=== PATIENT | female | born 1945 | race Caucasian/White ===

== ENCOUNTER → 2017-07-14 11:24 | Outpatient (CLI) | payer MEDICARE, OTHER, SELFPAY ==
[2017-07-16 16:09] LABS: Clam 0.17 kU/L (Class 0/I); Codfish <0.10 kU/L (Class 0); Corn <0.10 kU/L (Class 0); Egg, White 0.17 kU/L (Class 0/I); Milk (Cow) 0.25 kU/L (Class 0/I); Peanut <0.10 kU/L (Class 0); SCALLOP <0.10 kU/L (Class 0); SESAME SEED <0.10 kU/L (Class 0); Shrimp <0.10 kU/L (Class 0); Soybean <0.10 kU/L (Class 0); Walnut, (Food) <0.10 kU/L (Class 0); Wheat <0.10 kU/L (Class 0)
[2017-07-17 12:42] LABS: Pork <0.10 kU/L (Class 0)
== END ==
PROVIDERS: Family Provider Family Medicine; PCP Family Medicine; Visit Provider Otolaryngology
DX: T78.40XA Allergy, unspecified, initial encounter (principal)
CPT/HCPCS: 36415; 86003

== ENCOUNTER 2018-09-16 11:35 | Emergency (ER) | payer MEDICARE, OTHER, SELFPAY ==
[2018-09-16 11:38] VITALS: BP 162/85; PULSE 90; RESP 18; TEMP 35.8; O2SAT 96; BMI 34.8
--- NOTE | 2018-09-16 12:25 | CT_ITS ---
STUDY: CT ABDOMEN AND PELVIS WITHOUT CONTRAST REASON FOR EXAM: Female, 73 years old. Right flank pain and right lower quadrant pain since this morning. RADIATION DOSAGE (If Supplied By Facility): CTDIvol = ( 14.79 ) mGy, DLP = ( 773.45 ) mGycm TECHNIQUE: Transaxial images were obtained from the dome of the diaphragm to the symphysis pubis without oral contrast, and without intravenous contrast. Sagittal and coronal images were reconstructed. Individualized dose optimization techniques were used for this CT. COMPARISON: None. FINDINGS: Mild increased markings at the lung bases suggestive of early atelectasis and/or scarring. Increased markings in the anterior aspect of the right lower lobe suggestive of scarring. Mild degree of pericardial thickening along the left posterior-lateral aspect of the heart. Normal liver. Normal gallbladder and extrahepatic biliary system. Normal spleen. Normal pancreas. Normal bilateral adrenal glands. Right perinephric stranding. Mild to moderate degree of right hydronephrosis and hydroureter due to a 3 mm calculus in the proximal right ureter just distal to the ureteral pelvic junction. There is a left retroaortic renal vein.. Normal left kidney. Moderate sized hiatal hernia. Normal small intestine. Normal colon. The appendix is visualized and appears normal. There is scattered atherosclerotic calcification of the abdominal aorta, without a demonstrated aneurysm. Normal inferior vena cava. Normal retroperitoneum. Normal urinary bladder. Calcified fibroid uterus. Small right inguinal hernia containing fat. There are degenerative changes of the visualized lumbar spine. CT/Abdomen/Pelvis without Cont IMPRESSION: 3 mm calculus in the proximal portion of the right ureter causing right hydronephrosis and hydroureter. Right perinephric and periureteric stranding. Electronically Signed: Sp Mehta, at 13:19 EDT , Service support ,
--- NOTE | 2018-09-16 12:27 | ED.VIS.GEN ---
History of Present Illness Chief Complaint: Complaint Informant: Patient, Family Onset: Today Current Severity: Mild Narrative: Patient presents complaining of right flank pain that began this morning around 7 AM suddenly radiates from the right middle quadrant to the lower abdomen in the back, nothing makes it better or worse, she indicates she has constant sense to void urine but nothing comes out. Bowel habits are normal, no fever no cough, no trauma no history of kidney stones or other elements her diabetes is well controlled Past Medical History - Allergies and Home Meds Allergies/Adverse Reactions: Allergies ciprofloxacin [From Cipro] Allergy (Verified 09/16/18 11:48) Rash sulfamethoxazole [From Bactrim] Allergy (Verified 09/16/18 11:48) Rash trimethoprim [From Bactrim] Allergy (Verified 09/16/18 11:48) Rash Primary Care Physician: Pancho Leyva MD [Primary Care Provider] - Ronaldo San MD [STAFF PHYSICIAN] - Past Medical History: - - Diabetes and as above Smoking Status: Never smoker Review of Systems General: Denies: Chills, Fever, Sweats Eyes: Denies: Visual changes - bilaterally, Diplopia ENT: Denies: Rhinorrhea, Sore throat Cardiovascular: Denies: Chest pain, Palpitations Respiratory: Denies: Dyspnea, Cough, Dyspnea on exertion Gastrointestinal: Denies: Abdominal pain, Nausea, Vomiting, Diarrhea, Melena, Hematochezia Genitourinary: Denies: Dysuria, Hematuria, Frequency Musculoskeletal: Reports: Back pain. Denies: Extremity Pain Skin: Denies: Rash, Wounds Neurological: Denies: Headache, Weakness, Numbness Physical Exam Vital Signs/Narrative: Vital Signs Temp Pulse Resp BP Pulse Ox 09/16/18 11:38 96.4 F L 90 18 162/85 H 96 General: Well nourished, Well developed, No Acute Distress Head: Normocephalic, Atraumatic Eyes: Perrl, EOMI ENT: Moist mucous membranes, No rhinorrhea Neck: Supple, Nontender Cardiovascular: Regular rate, Regular rhythm, No murmurs Respiratory: No distress, CTA bilaterally, Chest nontender Abdomen: Soft, Nontender, Nondistended, Normal bowel sounds Back: Nontender, Normal Inspection, CVA tenderness Extremities: Nontender, No edema Skin: Normal color, No rash Neurological: Alert, Oriented x3, Cranial nerves II-XII grossly intact, Normal Strength, Normal Sensation Psychological: Normal affect, Normal Mood Diagnostic/Tx/Re-eval - Medical Decision Making Given all the above screening labs IV fluids pain management CT of the flank and abdomen She is screening studies are generally unremarkable creatinine 1.4 no old labs for comparison, CT abdomen pelvis shows 3 mm lower kidney stone causing hydronephrosis please see all those reports on reevaluation she is feeling better she wants to eat explained test results to her at this time to be discharged to follow-up with [facility] Flomax Naprosyn [place] and return for change in symptoms Home stable Final impression Right flank pain related to right-sided kidney stone ED Disposition - Plan for ED Patient: Diagnosis: Kidney stone on right side Instructions: KIDNEY STONE w/ Colic Prescriptions: Tamsulosin HCl [Flomax] 0.4 mg PO DAILY #7 cap Prescription Printed Naproxen [Naprosyn] 500 mg PO BID PRN #20 tab Prescription Printed Hydrocodone Bitart/Apap 5-325 [[place] 5MG-325MG] 1 tab PO Q4H PRN PRN 2 Days #10 tab PRN Reason: Pain Prescription Printed Referrals: Pancho Leyva MD [Primary Care Provider] - Ronaldo San MD [STAFF PHYSICIAN] -
[2018-09-16] MEDS: 0.9% Normal Saline 1,000 ML 125 ML IV (12:42)
[2018-09-16] MEDS: morphine 8 MG/ML Syringe IV (12:42)
[2018-09-16] MEDS: Ondansetron 4 MG/2 ML Vial IV ×2 (12:43→15:06)
[2018-09-16 12:56] LABS: Absolute Lymphocyte Count 1.05 X10^3/uL (0.83-4.51); Absolute Neutrophil Count 13.8 X10^3/uL (2.0-7.7); Basophil# 0.05 X10^3/uL; Basophil% 0.3 % (0-1); Eosinophil# 0.01 X10^3/uL; Eosinophils% 0.1 % (0-5); Hematocrit 35.8 % (37-47); Hemoglobin 11.9 g/dL (12.0-15.0); Lymphocyte # 1.05 X10^3/ul (4.0); Lymphocyte % 6.8 % (19-41); Mean Corp Hgb Conc 33.2 g/dL (32-36); Mean Corpuscular Hgb 27.2 pg (27.0-32.0); Mean Corpuscular Volume 81.7 fL (81-99); Mean Platelet Vol. 10.9 fl (6.2-12.0); Monocyte# 0.42 X10^3/uL; Monocyte% 2.7 % (0-10); NRBC Flagged by Analyzer 0 % (0-5); Neutrophil # 13.77 X10^3/uL (2.7-7.7); Neutrophil % 89.6 % (47-70); Platelet Count 255 K/mm3 (150-450); RBC Distribution Width CV 13.4 % (11.6-14.6); RBC Distribution Width SD 40.1 fl (35.1-43.9); Red Blood Count 4.38 M/mm3 (4.2-5.4); White Blood Count 15.4 K/mm3 (4.4-11.0)
[2018-09-16 13:12] LABS: AST(SGOT) 12 U/L (15-37); Alanine Aminotransfer ALT/SGPT 18 U/L (13-56); Albumin, Serum 3.3 g/dL (3.2-5.0); Alkaline Phosphatase 56 U/L (45-117); Anion Gap 7 (5-15); BUN 19 mg/dL (7-18); BUN/Creat Ratio 12.8 RATIO (10-20); Bilirubin, Direct 0.12 mg/dL (0.00-0.30); Calcium,Total 9.7 mg/dL (8.5-10.1); Chloride 106 mmol/L (98-107); Creatinine, Serum 1.48 mg/dL (0.55-1.02); EST Glomerular Filtration Rate 37 mL/min (>60); Est Glom Filt Rate - Afr Amer 44 mL/min (>60); Estimated Creatinine Clearance 25.16 ml/min; Globulin 3.8 g/dL (2.2-4.2); Glucose 188 mg/dL (74-106); Lipase 338 U/L (73-393); Potassium 4.1 mmol/L (3.5-5.1); Protein, Total 7.1 g/dL (6.4-8.2); Sodium Level 140 mmol/L (136-145)
[2018-09-16 14:24] LABS: Bacteria 0 SEEN /hpf (None Seen); Mucous, Urine 0 SEEN /hpf (<or=2+)
[2018-09-16 14:25] VITALS: BP 155/60; PULSE 106; RESP 16; O2SAT 98
[2018-09-16 14:28] LABS: Color, Urine Yellow (Yellow); Glucose, Dipstick Normal (Normal); Ketone-Dipstick 50 mg/dl (Negative); Leukocyte Esterase-Dipstick Negative /ul (Negative); Nitrite-Dipstick Negative (Negative); Occult Blood-Urine 250 /ul (Negative); Protein-Dipstick Negative (Negative); Urine Bilirubin Dipstick Negative (Negative); Urine Clarity Clear (Clear); Urine Urobilinogen Normal (Normal)
[2018-09-16 14:39] LABS: Red Blood Cells-Urine 10-25 SEEN /hpf (0-5); Squamous Epithelial Cells - UA 0-5 SEEN /hpf (5-10); White Blood Cells 0-5 SEEN /hpf (0-5)
[2018-09-16] MEDS: Ketorolac 30 MG/ML Syringe IV (14:50)
[2018-09-16 15:40] VITALS: BP 140/55; PULSE 85; RESP 16; O2SAT 96
== END 2018-09-16 15:41 | disposition home or self-care (01) ==
PROVIDERS: Emergency Provider Emergency Medicine; Family Provider Family Medicine; PCP Family Medicine
DX: N13.2 Hydronephrosis with renal and ureteral calculous obstruction (principal); E11.9 Type 2 diabetes mellitus without complications
CPT/HCPCS: 74176; 80048; 80076; 81001; 83690; 85025; 87086; 87088; 96361; 96374; 96375; 96376; 99283; J7030; A4216; J2405

== ENCOUNTER → 2018-09-21 17:07 | Outpatient (CLI) | payer MEDICARE, OTHER, SELFPAY ==
[2018-09-16 11:38] VITALS: BMI 34.8
[2018-09-29 09:08] LABS: Ca Oxalate, Monohydrate 90 % (.); Calcium Phosphate 10 % (.)
== END ==
PROVIDERS: Family Provider Family Medicine; PCP Family Medicine; Referring Provider Nurse Practitioner Adult Health; Visit Provider Nurse Practitioner Adult Health
DX: N20.0 Calculus of kidney (principal)
CPT/HCPCS: 82360

== ENCOUNTER → 2018-10-05 11:48 | Outpatient (CLI) | payer MEDICARE, OTHER, SELFPAY ==
[2018-09-16 11:38] VITALS: BMI 34.8
--- NOTE | 2018-10-05 11:51 | RAD_ITS ---
STUDY: X-RAY - ABDOMEN/PELVIS REASON FOR EXAM: Female, 73 years old. Kidney stones TECHNIQUE: KUB COMPARISON: None. FINDINGS: Normal visualized lung bases. There is an unremarkable bowel gas pattern. There is no demonstrated free abdominal air. The visualized liver, spleen and kidneys are grossly normal in size and morphology. There are multiple calcifications in the pelvis which likely represent phleboliths although distal ureteral calculus not excluded. RAD/Abdomen Single View IMPRESSION: Nonspecific abdomen Electronically Signed: Pancho Vo MD at 20:37 EDT , Service support ,
== END ==
PROVIDERS: Family Provider Family Medicine; PCP Family Medicine; Referring Provider Urology; Visit Provider Urology
DX: N20.0 Calculus of kidney (principal)
CPT/HCPCS: 74018

== ENCOUNTER 2018-12-21 13:41 | Emergency (ER) | payer MEDICARE, OTHER, SELFPAY ==
[2018-12-21 13:42] VITALS: BP 162/80; PULSE 95; RESP 16; TEMP 36.5; O2SAT 99; BMI 34.4
--- NOTE | 2018-12-21 14:00 | CT_ITS ---
STUDY: CT ABDOMEN AND PELVIS WITHOUT CONTRAST REASON FOR EXAM: Female, 73 years old. Right flank pain. History of kidney stones. RADIATION DOSAGE (If Supplied By Facility): CTDIvol = ( 14.83 ) mGy, DLP = ( 752.28 ) mGycm TECHNIQUE: Transaxial images were obtained from the dome of the diaphragm to the symphysis pubis without oral contrast, and without intravenous contrast. Sagittal and coronal images were reconstructed. Individualized dose optimization techniques were used for this CT. COMPARISON: Comparison is made with prior examination September 16, 2018. FINDINGS: Stable mild degree of increased markings at the lung bases suggestive of scarring. Minimal degree of pericardial thickening along the posterior left side of the pericardium. This is unchanged. Normal liver. Normal gallbladder and extrahepatic biliary system. Normal spleen. Normal pancreas. Normal bilateral adrenal glands. Right perinephric stranding and engorgement of the right kidney. Moderate degree of right hydronephrosis and hydroureter due to a 4.6 mm calculus at the right ureterovesical junction as it enters the urinary bladder. Normal left kidney. Retroaortic left renal vein. Moderate sized hiatal hernia. Normal small intestine. There are multiple colonic diverticula consistent with diverticulosis. The appendix is visualized and appears normal. Normal abdominal aorta. Normal inferior vena cava. Normal retroperitoneum. Normal urinary bladder. There is a right-sided inguinal hernia containing adipose tissue. There are degenerative changes of the visualized lower thoracic spine. CT/Abdomen/Pelvis without Cont IMPRESSION: 4.6 mm calculus at the right ureterovesical junction causing right hydronephrosis and right hydroureter with right perinephric and right periureteric stranding. Electronically Signed: Sp Mehta, at 15:09 EST , Service support ,
[2018-12-21 14:25] LABS: Absolute Lymphocyte Count 1.34 X10^3/uL (0.83-4.51); Absolute Neutrophil Count 10.1 X10^3/uL (2.0-7.7); Basophil# 0.05 X10^3/uL; Basophil% 0.4 % (0-1); Eosinophil# 0.22 X10^3/uL; Eosinophils% 1.7 % (0-5); Hematocrit 35.7 % (37-47); Hemoglobin 11.6 g/dL (12.0-15.0); Lymphocyte # 1.34 X10^3/ul (4.0); Lymphocyte % 10.6 % (19-41); Mean Corp Hgb Conc 32.5 g/dL (32-36); Mean Corpuscular Hgb 26.4 pg (27.0-32.0); Mean Corpuscular Volume 81.3 fL (81-99); Mean Platelet Vol. 10.6 fl (6.2-12.0); Monocyte# 0.91 X10^3/uL; Monocyte% 7.2 % (0-10); NRBC Flagged by Analyzer 0 % (0-5); Neutrophil # 10.11 X10^3/uL (2.7-7.7); Neutrophil % 79.6 % (47-70); Platelet Count 277 K/mm3 (150-450); RBC Distribution Width CV 13.8 % (11.6-14.6); RBC Distribution Width SD 40.8 fl (35.1-43.9); Red Blood Count 4.39 M/mm3 (4.2-5.4); White Blood Count 12.7 K/mm3 (4.4-11.0)
[2018-12-21] MEDS: 0.9% Normal Saline 1,000 ML 1000 ML IV (14:34)
[2018-12-21] MEDS: Ondansetron 4 MG/2 ML Vial IV ×2 (14:35→16:15)
[2018-12-21] MEDS: Morphine 4 MG/ML Syringe IV (14:36)
[2018-12-21 14:41] LABS: ALB/GLOB Ratio 0.8 RATIO (0.9-2.4); AST(SGOT) 7 U/L (15-37); Alanine Aminotransfer ALT/SGPT 13 U/L (13-56); Albumin, Serum 3.3 g/dL (3.2-5.0); Alkaline Phosphatase 57 U/L (45-117); Anion Gap 6 (5-15); BUN 29 mg/dL (7-18); BUN/Creat Ratio 13.5 RATIO (10-20); Calcium,Total 9.9 mg/dL (8.5-10.1); Chloride 106 mmol/L (98-107); Creatinine, Serum 2.15 mg/dL (0.55-1.02); EST Glomerular Filtration Rate 24 mL/min (>60); Est Glom Filt Rate - Afr Amer 29 mL/min (>60); Estimated Creatinine Clearance 17.32 ml/min; Globulin 4.3 g/dL (2.2-4.2); Glucose 153 mg/dL (74-106); Potassium 4.4 mmol/L (3.5-5.1); Protein, Total 7.6 g/dL (6.4-8.2); Sodium Level 138 mmol/L (136-145)
--- NOTE | 2018-12-21 15:12 | ED.VIS.GEN ---
History of Present Illness Chief Complaint: Flank Pain Informant: Patient Narrative: Presents with right flank pain for the past few days, it is intermittent but now is more constant. She was found to have microscopic hematuria per PCP. No fever chills, she has some slight dysuria no cough or congestion. Past Medical History - Allergies and Home Meds Allergies/Adverse Reactions: Allergies ciprofloxacin [From Cipro] Allergy (Verified 12/21/18 13:42) Rash sulfamethoxazole [From Bactrim] Allergy (Verified 12/21/18 13:42) Rash trimethoprim [From Bactrim] Allergy (Verified 12/21/18 13:42) Rash Primary Care Physician: Pancho Leyva MD [Primary Care Provider] - Past Medical History: - - Prior kidney stones, otherwise reviewed and unremarkable Smoking Status: Never smoker Review of Systems All systems negative except as indicated General: Denies: Fever Cardiovascular: Denies: Chest pain Respiratory: Denies: Dyspnea Gastrointestinal: Reports: Abdominal pain Musculoskeletal: Reports: Back pain Skin: Denies: Rash, Abrasions Neurological: Denies: Weakness Hematologic: Denies: Easy bruising Physical Exam Vital Signs/Narrative: Vital Signs Temp Pulse Resp BP Pulse Ox 12/21/18 13:42 97.7 F L 95 16 162/80 H 99 General: Well nourished, Well developed ENT: Moist mucous membranes Cardiovascular: Regular rate, Regular rhythm Respiratory: No distress, CTA bilaterally Abdomen: Soft Back: CVA tenderness Extremities: No edema Skin: Normal color Neurological: Alert Diagnostic/Tx/Re-eval - Medical Decision Making Patient has a 4.6 mm stone. She has some hematuria. Stable for discharge her pain is controlled its at the UVJ and can be discharged ED Disposition - Plan for ED Patient: Disposition: Home or Assisted Living Diagnosis: Kidney stone, Patient in stable condition at discharge Prescriptions: Oxycodone HCl/Acetaminophen [Percocet 5/325] 1 tab PO Q6H PRN PRN 3 Days #12 tab PRN Reason: Pain Referrals: Ronaldo San MD [STAFF PHYSICIAN] - 3-5 Days
[2018-12-21 15:43] LABS: Bacteria 0 SEEN /hpf (None Seen); Mucous, Urine 0 SEEN /hpf (<or=2+); White Blood Cells 0 SEEN /hpf (0-5)
[2018-12-21] MEDS: Ketorolac 15 MG/ML Vial IV (15:52)
[2018-12-21] MEDS: HYDROmorphone 1 MG/ML Syringe IV (15:54)
[2018-12-21 15:55] VITALS: BP 166/85; PULSE 94; RESP 16; O2SAT 98
[2018-12-21 16:38] LABS: Color, Urine Yellow (Yellow); Glucose, Dipstick Normal (Normal); Ketone-Dipstick Negative (Negative); Leukocyte Esterase-Dipstick Negative /ul (Negative); Nitrite-Dipstick Negative (Negative); Occult Blood-Urine 50 /ul (Negative); Protein-Dipstick Negative (Negative); Urine Bilirubin Dipstick Negative (Negative); Urine Clarity Clear (Clear); Urine Urobilinogen Normal (Normal); Urine pH 6.5 (5.0 - 8.0)
[2018-12-21 16:41] LABS: Red Blood Cells-Urine 0-5 SEEN /hpf (0-5); Squamous Epithelial Cells - UA 0-5 SEEN /hpf (5-10)
[2018-12-21] MEDS: proMETHazine 25 MG/ML Syringe 12.5 MG IV (16:47)
[2018-12-21 16:49] VITALS: BP 154/84; PULSE 98; RESP 16; O2SAT 97
[2018-12-21 17:40] VITALS: BP 151/76; PULSE 83; RESP 16; O2SAT 100
[2018-12-21 18:10] VITALS: BP 138/87; PULSE 85; RESP 14; O2SAT 97
== END 2018-12-21 18:14 | disposition home or self-care (01) ==
PROVIDERS: Emergency Provider Emergency Medicine; Family Provider Family Medicine; PCP Family Medicine
DX: N13.2 Hydronephrosis with renal and ureteral calculous obstruction (principal)
CPT/HCPCS: 74176; 80053; 81001; 85025; 96361; 96374; 96375; 96376; 99284; J7030; A4216; J2405

== ENCOUNTER 2018-12-24 05:14 | Day surgery (SDC) | payer MEDICARE, OTHER, SELFPAY ==
--- NOTE | 2018-12-24 05:32 | EKG12_ITS ---
Test Reason : PRE OP Blood Pressure : / mmHG Vent. Rate : 093 BPM Atrial Rate : 093 BPM P-R Int : 118 ms QRS Dur : 072 ms QT Int : 348 ms P-R-T Axes : 049 -08 048 degrees QTc Int : 432 ms Normal sinus rhythm Normal ECG When compared with ECG of 28-JAN-2008 12:23, Nonspecific T wave abnormality has replaced inverted T waves in Anterior leads Confirmed by MALCOLM CARCAMO, VALORIE ([id number]), acquisitions editor LUCIAN LAWSON ([id number]) on 12/28/2018 3:25:11 PM Referred By: Ronaldo San Confirmed By:VALORIE FOWLER MD
[2018-12-24 05:48] VITALS: BP 169/83; PULSE 95; RESP 16; TEMP 36.8; O2SAT 97; BMI 33.8
[2018-12-24 06:06] LABS: Bedside Glucose 154 mg/dL (70-110)
[2018-12-24] MEDS: Lactated Ringers 1,000 ML 100 ML IV (06:12)
--- NOTE | 2018-12-24 07:30 | PCM.DC ---
- Discharge Diagnoses Current Active Problems: Kidney stone Reason(s) for Visit for Discharge Instructions: S/p Right ureteroscopy laser stone and stent You will use the following diet at home:: No restrictions, Regular Your food should be the consistency of: Regular Discharge Activity: Return to Normal Activity Call your doctor if your incision/area has: Continuous Slow Oozing, Sudden Increased Bleeding, Increased Pain/ Swelling, Increased Redness, Foul Smelling Discharge, Swelling at the incision site Suture Line Care: Avoid Pulling/Pushing, Avoid Pinching/Bending Allergies/Adverse Reactions: Allergies ciprofloxacin [From Cipro] Allergy (Verified 12/24/18 05:46) Rash sulfamethoxazole [From Bactrim] Allergy (Verified 12/24/18 05:46) Rash trimethoprim [From Bactrim] Allergy (Verified 12/24/18 05:46) Rash Medications to take at Discharge Ondansetron [Zofran Odt] 4 mg PO Q8H PRN PRN #10 tab 12/21/18 Alendronate Sodium [Fosamax] 70 mg PO TU 12/23/18 Aspirin [Aspir 81] 81 mg PO QHS 12/23/18 Cholecalciferol (Vitamin D3) [Vitamin D3] 2,000 unit PO DAILY 12/23/18 Famotidine/Ca Carb/Mag Hydrox [Tums Dual Action Tablet Chew] 1 ea PO PRN PRN 12/23/18 Hydrocodone Bitart/Apap 5-325 [[place] 5MG-325MG] 1 tab PO Q4H PRN 12/23/18 Lisinopril [Prinivil] 10 mg PO DAILY 12/23/18 Naproxen [Naprosyn] 500 mg PO BID PRN PRN 12/23/18 Sitagliptin Phos/Metformin HCl [Janumet 50-1,000 mg Tablet] 1 ea PO DAILY 12/23/18 metFORMIN HCl [Glucophage] 1,000 mg PO QHS 12/23/18 Cephalexin [Keflex] 500 mg PO Q8 #15 cap 12/24/18 Hydrocodone/Acetaminophen [[place] 5-325 Tablet] 1 ea PO Q4H PRN PRN 5 Days #14 tab 12/24/18 Phenazopyridine [Pyridium] 100 mg PO TID #15 tab 12/24/18 The following prescriptions were given: Cephalexin [Keflex] 500 mg PO Q8 #15 cap Prescription Printed Hydrocodone/Acetaminophen [[place] 5-325 Tablet] 1 ea PO Q4H PRN PRN 5 Days #14 tab PRN Reason: Pain Score 1-10/10 Prescription Printed Phenazopyridine [Pyridium] 100 mg PO TID #15 tab Prescription Printed Test Results: Test results from this visit will be discussed in further detail at your follow-up appointment, if applicable. Please Follow Up With: Steph Stafford [facility] [employer] COORDINATOR When: Next week to remove stent
[2018-12-24] MEDS: Ketorolac 15 MG/ML Vial IV (07:32)
[2018-12-24] MEDS: Cefazolin 1 GM/50 ML BAG IV (07:51)
--- NOTE | 2018-12-24 08:12 | PCM.OPRPT ---
Report of Operation Date of Procedure: 12/24/18 Pre-Operative Diagnosis: Right ureteral calculi Post-Operative Diagnosis: Same Surgery/Procedure Performed:: Cystoscopy, balloon dilation of the right ureter, right ureteroscopy and extraction of stone. No stent placed. Description of Surgical Findings:: 73-year-old female taken back to the operating room at this reduction of general anesthesia she was placed in dorsolithotomy position, when at the bladder with a 21 Malag[place] rigid cystourethroscope the entire length the urethra was normal the bladder was normal I then identified the right ureteral orifice I cannulated with a wire advance a wire up into the right kidney over the wire then advanced a 12 Malagasy balloon dilator I then balloon dilated the distal ureter, I then went in with a SlimLine rigid ureteroscope was able to get into the ureter and then the stone was in the distal ureter we then extracted the stone. After removal of the stone then I looked at the ureter again there was very minimal trauma or injury to the ureter the ureter was draining well so decided not to leave a stent patient's bladder was drained and patient anesthetic was reversed and she was taken back to the PACU in good condition. Type of Anesthesia:: General Drains: none - Admit VTE Documentation VTE Present on Admission: No VTE Mechan Device Prophylaxis: SCD's
[2018-12-24 08:22] VITALS: BP 140/79; BP 150/78; PULSE 96; RESP 16; TEMP 36.5; O2SAT 92
[2018-12-24 08:30] VITALS: BP 142/72; BP 150/78; PULSE 88; RESP 16; O2SAT 94
[2018-12-24 08:38] VITALS: BP 137/68; BP 150/78; PULSE 87; RESP 16; O2SAT 96
[2018-12-24 08:40] LABS: Bedside Glucose 150 mg/dL (70-110)
[2018-12-24 08:45] VITALS: BP 137/70; BP 150/78; PULSE 83; RESP 16; TEMP 36.2; O2SAT 94
[2018-12-24 09:28] VITALS: BP 138/76; BP 150/78; PULSE 77; RESP 16; TEMP 36.6; O2SAT 97
[2018-12-31 12:07] LABS: Ca Oxalate, Monohydrate 88 % (.); Calcium Phosphate 10 % (.); Size 6x3x2 mm (.)
== END 2018-12-24 09:34 | disposition home or self-care (01) ==
LOC: SDC 05:14 → AC 05:16
PROVIDERS: Anesthesiology; Family Provider Family Medicine; PCP Family Medicine; Referring Provider Urology; Visit Provider Urology
PROC: 0TJ98ZZ Inspection of Ureter, Via Natural or Artificial Opening Endoscopic (ICD-10-PCS; CPT 52352; principal; 2018-12-24 07:20)
DX: N13.2 Hydronephrosis with renal and ureteral calculous obstruction (principal); I12.9 Hypertensive chronic kidney disease with stage 1 through stage 4 chronic kidney disease, or unspecified chronic kidney disease; E11.22 Type 2 diabetes mellitus with diabetic chronic kidney disease; N18.3 Chronic kidney disease, stage 3 (moderate); D63.1 Anemia in chronic kidney disease; E78.5 Hyperlipidemia, unspecified; M81.0 Age-related osteoporosis without current pathological fracture; M19.90 Unspecified osteoarthritis, unspecified site; Z87.442 Personal history of urinary calculi; Z79.82 Long term (current) use of aspirin; Z79.84 Long term (current) use of oral hypoglycemic drugs; Z79.899 Other long term (current) drug therapy
CPT/HCPCS: 00918; 52352; 76000; 82360; 82962; 84484; 93005; J7120; C1769; C2617; J2405

== ENCOUNTER → 2018-12-28 14:39 | Outpatient (CLI) | payer MEDICARE, OTHER, SELFPAY ==
[2018-12-24 05:48] VITALS: BMI 33.8
--- NOTE | 2018-12-28 14:41 | RAD_ITS ---
STUDY: X-RAY - ABDOMEN/PELVIS REASON FOR EXAM: Female, 73 years old. Right kidney stones TECHNIQUE: 2 views COMPARISON: CT abdomen/pelvis December 21, 2018. FINDINGS: Normal visualized lung bases. There is an unremarkable bowel gas pattern. There is no demonstrated free abdominal air. Stable calcifications in the pelvis. The previously noted right UVJ stone on a prior CT dated December 21, 2018 cannot be excluded. Normal soft tissue structures. Degenerative vertebral changes. RAD/Abdomen Single View IMPRESSION: Stable pelvic calcifications. Right UVJ stone cannot be excluded. Electronically Signed: Jayce Alejo DO at 22:31 EST Tel [phone], Service support ,
== END ==
PROVIDERS: Family Provider Family Medicine; PCP Family Medicine; Referring Provider Nurse Practitioner Adult Health; Visit Provider Nurse Practitioner Adult Health
DX: N20.2 Calculus of kidney with calculus of ureter (principal)
CPT/HCPCS: 74018

== ENCOUNTER 2019-01-01 11:15 | Inpatient (IN) | payer MEDICARE, OTHER, SELFPAY ==
[2019-01-01] VITALS (16 sets, daily range): BP systolic 134–164; BP diastolic 60–82; PULSE 89–124; RESP 16–20; TEMP 36–38.3; O2SAT 90–99; BMI 34.0; BMI 34.8
--- NOTE | 2019-01-01 11:29 | CT_ITS ---
STUDY: CT ABDOMEN AND PELVIS WITHOUT CONTRAST REASON FOR EXAM: Female, 73 years old. Right-sided flank pain RADIATION DOSAGE (If Supplied By Facility): CTDIvol = ( 11.65 ) mGy, DLP = ( 581.89 ) mGycm TECHNIQUE: Transaxial images were obtained from the dome of the diaphragm to the symphysis pubis without oral contrast, and without intravenous contrast. Sagittal and coronal images were reconstructed. Individualized dose optimization techniques were used for this CT. COMPARISON: CT abdomen pelvis from December 21, 2018 FINDINGS: Lung bases demonstrate no evidence for consolidative process. Platelike atelectasis in the lung bases with peripheral reticulations and scarring. Cardiac size appears prominent with prominent epidural fat. Small hiatal hernia. Spleen and liver are within normal limits. The pancreas are within normal limits. Gallbladder is nondistended. Adrenal glands appear unremarkable. The left kidney appears unremarkable. Moderate right-sided hydronephrosis and hydroureter.. No definite evidence for ureteral stones however seen. Small amount of gas in the urinary bladder is seen. Calcifications in the uterus possibly relate with fibroids or vascular calcifications. No evidence for acute appendicitis. Uncomplicated colonic diverticulosis. Osseous structures demonstrate no acute abnormalities. Degenerative changes of the lumbar spine with multilevel neural foraminal narrowing. IMPRESSION: Moderate right-sided hydronephrosis and hydroureter. No evidence for ureterolithiasis. Uncomplicated colonic diverticulosis. No evidence for acute appendicitis or acute diverticulitis. Electronically Signed: Dean Nieto, at 12:28 EST Tel , Service support , CT/Abdomen/Pelvis without Cont
[2019-01-01 11:38] LABS: Absolute Lymphocyte Count 1.36 X10^3/uL (0.83-4.51); Absolute Neutrophil Count 16.8 X10^3/uL (2.0-7.7); Basophil# 0.06 X10^3/uL; Basophil% 0.3 % (0-1); Eosinophil# 0.07 X10^3/uL; Eosinophils% 0.4 % (0-5); Hematocrit 34.3 % (37-47); Lymphocyte # 1.36 X10^3/ul (4.0); Mean Corp Hgb Conc 32.1 g/dL (32-36); Mean Corpuscular Hgb 26.1 pg (27.0-32.0); Mean Corpuscular Volume 81.5 fL (81-99); Mean Platelet Vol. 9.7 fl (6.2-12.0); Monocyte# 1.06 X10^3/uL; Monocyte% 5.4 % (0-10); NRBC Flagged by Analyzer 0 % (0-5); Neutrophil # 16.81 X10^3/uL (2.7-7.7); Neutrophil % 86.2 % (47-70); Platelet Count 462 K/mm3 (150-450); RBC Distribution Width CV 13.7 % (11.6-14.6); RBC Distribution Width SD 40.5 fl (35.1-43.9); Red Blood Count 4.21 M/mm3 (4.2-5.4); White Blood Count 19.5 K/mm3 (4.4-11.0)
[2019-01-01] MEDS: Ondansetron 4 MG/2 ML Vial IV (11:43)
[2019-01-01] MEDS: 0.9% Normal Saline 1,000 ML 150 ML IV ×2 (11:43→21:54)
[2019-01-01] MEDS: Morphine 4 MG/ML Syringe IV (11:44)
[2019-01-01 11:53] LABS: AST(SGOT) 11 U/L (15-37); Alanine Aminotransfer ALT/SGPT 15 U/L (13-56); Alkaline Phosphatase 75 U/L (45-117); Anion Gap 8 (5-15); BUN 16 mg/dL (7-18); BUN/Creat Ratio 8.7 RATIO (10-20); Calcium,Total 9.5 mg/dL (8.5-10.1); Chloride 105 mmol/L (98-107); Creatinine, Serum 1.83 mg/dL (0.55-1.02); EST Glomerular Filtration Rate 29 mL/min (>60); Est Glom Filt Rate - Afr Amer 35 mL/min (>60); Estimated Creatinine Clearance 20.35 ml/min; Globulin 4.9 g/dL (2.2-4.2); Glucose 205 mg/dL (74-106); Lipase 440 U/L (73-393); Potassium 3.9 mmol/L (3.5-5.1); Protein, Total 7.9 g/dL (6.4-8.2); Sodium Level 138 mmol/L (136-145)
[2019-01-01 12:45] LABS: Mucous, Urine 0 SEEN /hpf (<or=2+); Red Blood Cells-Urine 0 SEEN /hpf (0-5); White Blood Cells 0 SEEN /hpf (0-5)
[2019-01-01 12:47] LABS: Color, Urine Yellow (Yellow); Glucose, Dipstick Normal (Normal); Ketone-Dipstick Negative (Negative); Leukocyte Esterase-Dipstick Negative /ul (Negative); Nitrite-Dipstick Negative (Negative); Occult Blood-Urine 10 /ul (Negative); Protein-Dipstick Negative (Negative); Urine Bilirubin Dipstick Negative (Negative); Urine Clarity Clear (Clear); Urine Urobilinogen Normal (Normal); Urine pH 6.5 (5.0 - 8.0)
[2019-01-01 12:53] LABS: Bacteria RARE /hpf (None Seen); Squamous Epithelial Cells - UA 0-5 SEEN /hpf (5-10)
[2019-01-01] MEDS: fentaNYL 100 MCG/2 ML Ampul 25 MCG IV (13:27)
[2019-01-01] MEDS: proMETHazine 25 MG/ML Syringe 6.25 MG IV (13:56)
--- NOTE | 2019-01-01 14:57 | ED.DCSUM_ITS ---
History of Present Illness Chief Complaint: Abd Pain Detail of Chief Complaint: Right flank pain Informant: Patient Onset: Yesterday Current Severity: Severe Maximum Severity: Severe Narrative: Patient presents with right flank pain which started yesterday. Patient was seen in the ER recently for right flank pain with a kidney stone. She had surgery last week and they remove the stone. Patient states he did not place a stent. Patient states her pain had been quickly resolved until last evening. This pain feels the same as her previous kidney stone. She has not noted fever at home. - Past Medical History (1) Kidney stone Status: Resolved (2) Hypertension Status: Chronic (3) Acid reflux disease Status: Chronic (4) Diabetes Status: Chronic Past Medical History - Allergies and Home Meds Allergies/Adverse Reactions: Allergies ciprofloxacin [From Cipro] Allergy (Verified 01/01/19 11:19) Rash sulfamethoxazole [From Bactrim] Allergy (Verified 01/01/19 11:19) Rash trimethoprim [From Bactrim] Allergy (Verified 01/01/19 11:19) Rash Primary Care Physician: Pancho Leyva MD [Primary Care Provider] - Doctors: Dr. San Prior records reviewed: Yes Surgical History: - - Right-sided kidney stone Smoking Status: Never smoker Review of Systems General: Denies: Chills, Fever Eyes: Denies: Visual changes - bilaterally ENT: Denies: Bilateral ear pain Cardiovascular: Denies: Chest pain Respiratory: Denies: Dyspnea, Cough Gastrointestinal: Reports: Abdominal pain, Nausea. Denies: Vomiting Genitourinary: Denies: Dysuria, Hematuria Musculoskeletal: Reports: Back pain - Right flank pain Skin: Denies: Rash Hematologic: Denies: Easy bruising Allergy: Denies: Uticaria Physical Exam Vital Signs/Narrative: Vital Signs Temp Pulse Resp BP Pulse Ox 01/01/19 14:00 99 F 90 18 149/82 H 90 01/01/19 13:30 99.4 F H 01/01/19 13:29 95 16 156/76 H 97 01/01/19 12:45 98.5 F 99 19 H 158/71 H 97 01/01/19 11:45 100 18 160/75 H 96 01/01/19 11:16 96.8 F L 124 H 16 142/76 H Inital Vital Signs reviewed: Yes General: Well nourished, Well developed Head: Normocephalic ENT: Moist mucous membranes Neck: Supple Cardiovascular: Regular rate, Regular rhythm Respiratory: No distress, CTA bilaterally Abdomen: Soft, Nontender Back: CVA tenderness - Rt Extremities: Nontender Skin: Normal color, No rash Neurological: Alert, Oriented x3 Psychological: Normal affect Diagnostic/Tx/Re-eval Impressions Abdomen/Pelvis CT 01/01/19 11:29 IMPRESSION: Moderate right-sided hydronephrosis and hydroureter. No evidence for ureterolithiasis. Uncomplicated colonic diverticulosis. No evidence for acute appendicitis or acute diverticulitis. 01/01/19 11:29 Abdomen/Pelvis without Cont [CT] Stat Laboratory Results 01/01/19 01/01/19 01/01/19 11:15 11:15 12:41 WBC 19.5 H RBC 4.21 Hgb 11.0 L Hct 34.3 L MCV 81.5 MCH 26.1 L MCHC 32.1 RDW Std Deviation 40.5 RDW Coeff of Nick 13.7 Plt Count 462 H MPV 9.7 Immature Gran % (Auto) 0.700 Neut % (Auto) 86.2 H Lymph % (Auto) 7.0 L [place] % (Auto) 5.4 Eos % (Auto) 0.4 Baso % (Auto) 0.3 Absolute Neuts (auto) 16.8 H Absolute Lymphs (auto) 1.36 Nucleated RBC % 0 Sodium 138 Potassium 3.9 Chloride 105 Carbon Dioxide 25.0 Anion Gap 8 BUN 16 Creatinine 1.83 H Estim Creat Clear Calc 20.35 Est GFR (MDRD) Af Amer 35 L Est GFR (MDRD) Non-Af 29 L BUN/Creatinine Ratio 8.7 L Glucose 205 H Calcium 9.5 Total Bilirubin 0.30 Direct Bilirubin 0.10 AST 11 L ALT 15 Alkaline Phosphatase 75 Total Protein 7.9 Albumin 3.0 L Globulin 4.9 H Lipase 440 H Urine Color Yellow Urine Clarity Clear Urine pH 6.5 Ur Specific Juda 1.010 Urine Protein Negative Urine Glucose (UA) Normal Urine Ketones Negative Urine Occult Blood 10 H Urine Nitrite Negative Urine Bilirubin Negative Urine Urobilinogen Normal Ur Leukocyte Esterase Negative Urine RBC 0 SEEN Urine WBC 0 SEEN Ur Squamous Epith Cells 0-5 SEEN Urine Bacteria RARE Urine Mucus 0 SEEN - Medical Decision Making Patient was initially treated with morphine and Zofran for pain. She reported no significant improvement and felt dizzy from the morphine. I spoke with Dr. San and relayed her elevated white count, continued right-sided hydroureter and hydronephrosis, but no evidence of stone or UTI. He advised that if we can the patient more comfortable pain brown he can follow her in the office next week for an ultrasound. He states patients will sometimes get spasm in the ureter following a stone retrieval and may need a stent. Patient was given a dose of fentanyl and Phenergan. On repeat evaluation she still reports significant pain and nausea. She does not feel that she can go home. I will speak with hospitalist regarding admission. Patient will be admitted to Dr. Mullen's service. I did speak with Dr. San again and he will plan to take the patient to the OR tomorrow for stent. ED Disposition - Plan for ED Patient: Disposition: Acute Care Hospital [facility] Diagnosis: Right flank pain Referrals: Pancho Leyva MD [Primary Care Provider] -
--- NOTE | 2019-01-01 15:20 | PCM.HP.STD ---
Problem List (1) Pyelonephritis Status: Acute (2) Sepsis Status: Acute (3) Diabetes Status: Chronic (4) Hypertension Status: Chronic (5) Kidney stone Status: Resolved History of Present Illness Date of Admission: 01/01/19 Chief Complaint: right flank pain The patient is a 73 year old F with pmhx notably for recent right ureteral stone removal by Dr. San last week with cystoscopy and extraction, no stenting, who presents to the ER with flank pain. This began yesterday. It is severe right sided pain, also with RLQ pain, and associated nausea and vomiting. She has improved with morphine zofran and phenergan. She has ongoing chills and shakes, no fever. She has hydronephrosis on CT abdomen and 19k WBC count, however UA is negative. Dr. Jackson spoke to Dr. San and he plans to take the patietn for cystoscopy tomorrow. [] Past Medical History Past Medical History (Chronic Problems): Chronic Problems Hypertension (Chronic) Acid reflux disease (Chronic) Diabetes (Chronic) Allergies ciprofloxacin [From Cipro] Allergy (Verified 01/01/19 11:19) Rash sulfamethoxazole [From Bactrim] Allergy (Verified 01/01/19 11:19) Rash trimethoprim [From Bactrim] Allergy (Verified 01/01/19 11:19) Rash Home Medications: Ambulatory Orders Medication Instructions Recorded Alendronate Sodium [Fosamax] 70 mg PO TU 12/23/18 Aspirin [Aspir 81] 81 mg PO QHS 12/23/18 Cholecalciferol (Vitamin D3) 2,000 unit PO DAILY 12/23/18 [Vitamin D3] Famotidine/Ca Carb/Mag Hydrox 1 ea PO PRN PRN 12/23/18 [Tums Dual Action Tablet Chew] Lisinopril [Prinivil] 10 mg PO DAILY 12/23/18 Sitagliptin Phos/Metformin HCl 1 ea PO DAILY 12/23/18 [Janumet 50-1,000 mg Tablet] metFORMIN HCl [Glucophage] 1,000 mg PO QHS 12/23/18 Surgical History: - - Right-sided kidney stone, caesarean, foot surgery Psychiatric History: No pertinent psych hx 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 Denies: Fever, Weight Change HEENT: Denies: Head Aches, Sinus Congestion, Sinus Drainage Cardiovascular: Denies: Chest Pain, Palpitations Respiratory: Denies: Cough, Shortness of breath at rest, Sputum production Gastrointestinal: Denies: Abdominal Pain, Nausea, Vomiting Genitourinary: Reports: - - flank pain, right groin pain. Denies: Dysuria Musculoskeletal: Denies: Joint Pain, Joint Tenderness Skin: Denies: Rash, Wounds Neurological: Denies: Numbness, Tingling, Focal weakness Psychiatric: Denies: Anxiety, Depression, Homicidal Ideations, Suicidal Ideations Hematologic/ Lymphatic: Denies: Easy Bruising, Easy Bleeding VTE Information - Inpt Only VTE Present on Admission: No VTE Mechan Device Prophylaxis: None VTE Pharm Prophylaxis ordered?: Yes Patient Problems: Active and Suspected Problems Right flank pain (Acute) Pyelonephritis (Acute) Sepsis (Acute) - Physical Exam Vitals/I&O's: Vital Signs Temp Pulse Resp BP Pulse Ox 99 F 90 18 164/68 H 90 01/01/19 14:00 01/01/19 14:00 01/01/19 14:00 01/01/19 15:16 01/01/19 14:00 Oxygen Delivery Method Room Air Weight: 180 lb Body Mass Index (BMI) 34.0 Finger Stick Blood Glucose 150 General: Alert, Oriented x3, Cooperative, - - tremulous HEENT: Atraumatic, PERRLA, EOMI, Normocephalic Neck: Supple, No JVD, Negative Carotid Bruits Lungs: Clear to auscultation, Normal air movement Cardiovascular: Regular Rhythm, No murmurs, Tachycardic Abdomen: Bowel Sounds Present, Soft, Non Tender, Tender - RLQ Extremities: No edema, Capillary Refill Less than 3 Seconds Skin: No rashes, No breakdown Musculoskeletal: No Tenderness to Palpation of Joints or Extremities Neurological: Cranial nerves II-XII grossly intact Psych/Mental Status: Normal Affect, Appropriate, Alert and oriented to time, place, person, mood and affect Laboratory Results 01/01/19 11:15: WBC 19.5 H, RBC 4.21, Hgb 11.0 L, Hct 34.3 L, MCV 81.5, MCH 26.1 L, MCHC 32.1, RDW Std Deviation 40.5, RDW Coeff of Nick 13.7, Plt Count 462 H, MPV 9.7, Immature Gran % (Auto) 0.700, Neut % (Auto) 86.2 H, Lymph % (Auto) 7.0 L, [place] % (Auto) 5.4, Eos % (Auto) 0.4, Baso % (Auto) 0.3, Absolute Neuts (auto) 16.8 H, Absolute Lymphs (auto) 1.36, Nucleated RBC % 0 01/01/19 11:15: Sodium 138, Potassium 3.9, Chloride 105, Carbon Dioxide 25.0, Anion Gap 8, BUN 16, Creatinine 1.83 H, Estim Creat Clear Calc 20.35, Est GFR (MDRD) Af Amer 35 L, Est GFR (MDRD) Non-Af 29 L, BUN/Creatinine Ratio 8.7 L, Glucose 205 H, Calcium 9.5, Total Bilirubin 0.30, Direct Bilirubin 0.10, AST 11 L, ALT 15, Alkaline Phosphatase 75, Total Protein 7.9, Albumin 3.0 L, Globulin 4.9 H, Lipase 440 H 01/01/19 12:41: Urine Color Yellow, Urine Clarity Clear, Urine pH 6.5, Ur Specific [place] 1.010, Urine Protein Negative, Urine Glucose (UA) Normal, Urine Ketones Negative, Urine Occult Blood 10 H, Urine Nitrite Negative, Urine Bilirubin Negative, Urine Urobilinogen Normal, Ur Leukocyte Esterase Negative, Urine RBC 0 SEEN, Urine WBC 0 SEEN, Ur Squamous Epith Cells 0-5 SEEN, Urine Bacteria RARE, Urine Mucus 0 SEEN Current Medications Sodium Chloride () 1,000 mls @ 150 mls/hr IV .Q6H40M [facility] Last Admin: 01/01/19 11:43 Dose: 150 mls/hr Documented by: Assessment/Plan All Active Problems Kidney stone (Resolved) Right flank pain (Acute) Pyelonephritis (Acute) Sepsis (Acute) 1. Acute pyelonephritis - LA pending at this time. WBC 19k, no fever, tachycardia at this time. UA negative. Hydronephrosis on CT Recent instrumentation, right ureteral stone removed last week. Start rocephin. IV fluids, antiemitics, pain control. Consult Jaswinder. Possibly cysto tomorrow. Lipase somewhat elevated, unclear relevance. 2. DMt2 - SSI, hold orals. 3. GERD - uses tums at home 4. Suspect CKDIII - baseline unclear. IV fluids. Recheck in AM. DVT ppx: heparin This patient was seen by Scottie Kruger PA-C under the supervision of Dr. Mullen.
--- NOTE | 2019-01-01 16:26 | ED.RN ---
REPORT GIVEN TO
[2019-01-01 16:30] LABS: Lactic Acid 1.2 mmol/L (0.4-2.0)
--- NOTE | 2019-01-01 16:41 | PCM.CONS.U ---
Problem List (1) Right flank pain Status: Acute Reason for Consult Date of Consultation: 01/01/19 Reason for Consultation: Right flank pain and hydronephrosis status post extraction of stone History of Present Illness: The patient is a 73 year old female who underwent ureteroscopy and extraction of stone about 2 weeks ago, at the time of the procedure a stone was extracted from the distal ureter no stent was placed I saw her for follow-up in the office about a week later she is doing well without any plain or complaints the urine was clear. She then presented to the emergency room with severe right flank pain CAT scan was done and she demonstrated right hydronephrosis down to the bladder but no stone along the course of the ureter I suspect she has an infection and probably postoperative swelling that is developed and hydronephrosis plan today is to take her surgery and place a stent on the right side to alleviate the obstruction. Past Medical History Past Medical History (Chronic Problems): Chronic Problems Hypertension (Chronic) Acid reflux disease (Chronic) Diabetes (Chronic) Allergies ciprofloxacin [From Cipro] Allergy (Verified 01/01/19 11:19) Rash sulfamethoxazole [From Bactrim] Allergy (Verified 01/01/19 11:19) Rash trimethoprim [From Bactrim] Allergy (Verified 01/01/19 11:19) Rash Home Medications: Ambulatory Orders Medication Instructions Recorded Alendronate Sodium [Fosamax] 70 mg PO TU 12/23/18 Aspirin [Aspir 81] 81 mg PO QHS 12/23/18 Cholecalciferol (Vitamin D3) 2,000 unit PO DAILY 12/23/18 [Vitamin D3] Famotidine/Ca Carb/Mag Hydrox 1 ea PO PRN PRN 12/23/18 [Tums Dual Action Tablet Chew] Lisinopril [Prinivil] 10 mg PO DAILY 12/23/18 Sitagliptin Phos/Metformin HCl 1 ea PO DAILY 12/23/18 [Janumet 50-1,000 mg Tablet] metFORMIN HCl [Glucophage] 1,000 mg PO QHS 12/23/18 Surgical History: - - Right-sided kidney stone, caesarean, foot surgery Psychiatric History: No pertinent psych hx 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 Denies: Chills, Weight Change HEENT: Denies: Head Aches, Sinus Congestion, Sinus Drainage Cardiovascular: Denies: Chest Pain, Palpitations Respiratory: Denies: Cough, Shortness of breath at rest, Sputum production Gastrointestinal: Reports: Abdominal Pain. Denies: Nausea, Vomiting Genitourinary: Denies: Dysuria Musculoskeletal: Denies: Joint Pain, Joint Tenderness Skin: Denies: Rash, Wounds Neurological: Denies: Numbness, Tingling, Focal weakness Psychiatric: Denies: Anxiety, Depression, Homicidal Ideations, Suicidal Ideations Hematologic/ Lymphatic: Denies: Easy Bruising, Easy Bleeding Physical Exam - Physical Exam Vital Signs Temp 99 F 01/01/19 16:13 Pulse 104 H 01/01/19 16:13 Resp 18 01/01/19 16:13 BP 164/71 H 01/01/19 16:13 Pulse Ox 92 01/01/19 16:13 Intake & Output 12/30/18 12/31/18 01/01/19 23:59 23:59 23:59 Intake Total 1000 / 1000 Balance 1000 / 1000 Weight: 81.647 kg Intake: Intake, IV Amount 1000 / 1000 0.9% Normal Saline 1,000 ML @ 1000 / 1000 150 mls/hr IV .Q6H40M [facility] Rx#: [id number] General: Alert, Oriented x3 HEENT: Atraumatic Oral: Moist Mucosa Neck: Supple Lungs: Normal air movement Cardiovascular: Regular rate Abdomen: Soft, Obese Rectal: Exam deferred Laboratory Tests Past 24 Hrs 01/01/19 01/01/19 01/01/19 11:15 11:15 12:41 WBC 19.5 H RBC 4.21 Hgb 11.0 L Hct 34.3 L MCV 81.5 MCH 26.1 L MCHC 32.1 RDW Std Deviation 40.5 RDW Coeff of Nick 13.7 Plt Count 462 H MPV 9.7 Immature Gran % (Auto) 0.700 Neut % (Auto) 86.2 H Lymph % (Auto) 7.0 L [place] % (Auto) 5.4 Eos % (Auto) 0.4 Baso % (Auto) 0.3 Absolute Neuts (auto) 16.8 H Absolute Lymphs (auto) 1.36 Nucleated RBC % 0 Sodium 138 Potassium 3.9 Chloride 105 Carbon Dioxide 25.0 Anion Gap 8 BUN 16 Creatinine 1.83 H Estim Creat Clear Calc 20.35 Est GFR (MDRD) Af Amer 35 L Est GFR (MDRD) Non-Af 29 L BUN/Creatinine Ratio 8.7 L Glucose 205 H Lactic Acid Calcium 9.5 Total Bilirubin 0.30 Direct Bilirubin 0.10 AST 11 L ALT 15 Alkaline Phosphatase 75 Total Protein 7.9 Albumin 3.0 L Globulin 4.9 H Lipase 440 H Urine Color Yellow Urine Clarity Clear Urine pH 6.5 Ur Specific [place] 1.010 Urine Protein Negative Urine Glucose (UA) Normal Urine Ketones Negative Urine Occult Blood 10 H Urine Nitrite Negative Urine Bilirubin Negative Urine Urobilinogen Normal Ur Leukocyte Esterase Negative Urine RBC 0 SEEN Urine WBC 0 SEEN Ur Squamous Epith Cells 0-5 SEEN Urine Bacteria RARE Urine Mucus 0 SEEN 01/01/19 15:44 WBC RBC Hgb Hct MCV MCH MCHC RDW Std Deviation RDW Coeff of Nick Plt Count MPV Immature Gran % (Auto) Neut % (Auto) Lymph % (Auto) [place] % (Auto) Eos % (Auto) Baso % (Auto) Absolute Neuts (auto) Absolute Lymphs (auto) Nucleated RBC % Sodium Potassium Chloride Carbon Dioxide Anion Gap BUN Creatinine Estim Creat Clear Calc Est GFR (MDRD) Af Amer Est GFR (MDRD) Non-Af BUN/Creatinine Ratio Glucose Lactic Acid 1.2 Calcium Total Bilirubin Direct Bilirubin AST ALT Alkaline Phosphatase Total Protein Albumin Globulin Lipase Urine Color Urine Clarity Urine pH Ur Specific [place] Urine Protein Urine Glucose (UA) Urine Ketones Urine Occult Blood Urine Nitrite Urine Bilirubin Urine Urobilinogen Ur Leukocyte Esterase Urine RBC Urine WBC Ur Squamous Epith Cells Urine Bacteria Urine Mucus Assessment/Plan All Active Problems Kidney stone (Resolved) Right flank pain (Acute) Pyelonephritis (Acute) Sepsis (Acute) 73-year-old female status post extraction of the stone presents with elevated white blood count, hydronephrosis and hydroureter down to the distal ureter bladder suspect there is inflammation of the distal ureter causing obstruction there is no stone fragment seen on CAT scan plan today is just to place a stent to alleviate the obstruction allow the kidney to drain and then remove the stent probably 2 weeks later should be n.p.o. for the procedure today she was an add-on as an urgent case.
--- NOTE | 2019-01-01 17:07 | PCM.OPRPT ---
Problem List (1) Right flank pain Status: Acute Report of Operation Date of Procedure: 01/01/19 Pre-Operative Diagnosis: Right hydronephrosis status post extraction of stone stone Post-Operative Diagnosis: The same Surgery/Procedure Performed:: Cystoscopy and right stent placement Description of Surgical Findings:: 73-year-old female status post extraction of a stone in the distal right ureter she then developed severe right flank pain CAT scan was done that demonstrated no stone with hydronephrosis and swelling down to the distal ureter so today when taken to surgery she came to the emergency this is an emergency add-on. She is taken back to the operating room after smooth induction of anesthesia she was placed in dorsolithotomy position went into the bladder with the cystoscope and on inspection her right ureteral orifice was completely inflamed and swollen initially I tried to put a wire through the ureteral orifice was a little bit stenotic but then the wire went up quite easily and then immediately got a return of urine from the right kidney some debris in the urine, no jefferson pus, then once a wires in place I then advanced a stent up into the right kidney and once the stent was in good place I drained the bladder and the stent was left in good position I left a very short string on the stent but not long enough to follow-up the urethra to make sure does not get accidentally pulled out. Patient anesthetic was reversed and she was taken back to PACU good condition. Type of Anesthesia:: Local MAC Drains: stent R side - Admit VTE Documentation VTE Present on Admission: No VTE Mechan Device Prophylaxis: SCD's
[2019-01-01 18:46] LABS: Bedside Glucose 150 mg/dL (70-110)
[2019-01-01] MEDS: Ceftriaxone 1 GM/50 ML BAG IV (18:52)
[2019-01-01] MEDS: Aspirin E.C. 81 MG Tablet PO (21:54)
[2019-01-01] MEDS: Heparin Injection (Vial) 5,000 UNIT/ML VIAL 5000 UNIT SC (21:54)
[2019-01-01 22:10] LABS: Bedside Glucose 141 mg/dL (70-110)
[2019-01-02 03:36] VITALS: BP 123/58; PULSE 83; RESP 16; TEMP 36.8; O2SAT 98
[2019-01-02] MEDS: oxyCODONE 5 MG Tablet 10 MG PO ×2 (03:42→22:18)
[2019-01-02] MEDS: 0.9% Normal Saline 1,000 ML 150 ML IV (04:39)
[2019-01-02 06:32] LABS: Absolute Neutrophil Count 6.1 X10^3/uL (2.0-7.7); Basophil# 0.04 X10^3/uL; Basophil% 0.4 % (0-1); Eosinophil# 0.21 X10^3/uL; Eosinophils% 2.2 % (0-5); Hemoglobin 8.4 g/dL (12.0-15.0); Lymphocyte % 24.6 % (19-41); Mean Corp Hgb Conc 31.1 g/dL (32-36); Mean Corpuscular Hgb 25.8 pg (27.0-32.0); Mean Corpuscular Volume 82.8 fL (81-99); Mean Platelet Vol. 9.9 fl (6.2-12.0); Monocyte# 0.61 X10^3/uL; Monocyte% 6.5 % (0-10); NRBC Flagged by Analyzer 0 % (0-5); Neutrophil # 6.09 X10^3/uL (2.7-7.7); Neutrophil % 65.2 % (47-70); Platelet Count 340 K/mm3 (150-450); RBC Distribution Width SD 42.1 fl (35.1-43.9); Red Blood Count 3.26 M/mm3 (4.2-5.4); White Blood Count 9.4 K/mm3 (4.4-11.0)
[2019-01-02 06:41] LABS: Bedside Glucose 120 mg/dL (70-110)
[2019-01-02 06:59] LABS: Anion Gap 6 (5-15); BUN 12 mg/dL (7-18); Calcium,Total 7.8 mg/dL (8.5-10.1); Chloride 113 mmol/L (98-107); Creatinine, Serum 1.34 mg/dL (0.55-1.02); EST Glomerular Filtration Rate 41 mL/min (>60); Est Glom Filt Rate - Afr Amer 50 mL/min (>60); Estimated Creatinine Clearance 27.79 ml/min; Glucose 128 mg/dL (74-106); Sodium Level 144 mmol/L (136-145)
--- NOTE | 2019-01-02 08:28 | PN_ITS ---
Subjective: Chief complaint: Follow-up after admission for acute right pyelonephritis, right hydronephrosis and acute kidney injury. Patient seen and examined. No acute events overnight. Today, she denies any more right flank pain. Denies urinary symptoms, no dysuria or hematuria. She still having spikes of low-grade fever, other vital signs are stable. - Physical Exam Vitals/I&O's: Vital Signs Temp Pulse Resp BP Pulse Ox 98.3 F 83 16 123/58 H 98 01/02/19 03:36 01/02/19 03:36 01/02/19 03:36 01/02/19 03:36 01/02/19 03:36 Oxygen Delivery Method Room Air Weight: 184 lb 6.4 oz Body Mass Index (BMI) 34.8 Finger Stick Blood Glucose 150 Intake and Output for Last 24 Hours 12/31/18 01/01/19 01/02/19 23:59 23:59 23:59 Intake Total 1050 / 1050 1000 / 1000 Output Total 600 / 600 300 / 300 Balance 450 / 450 700 / 700 General: Alert, Oriented x3, Cooperative, No apparent distress HEENT: Atraumatic, PERRLA, EOMI, Normocephalic Oral: Moist Mucosa, No Gingival or Mucosal Lesions/ Ulcerations Neck: Supple, No JVD, Negative Carotid Bruits, Trachea Midline, Thyroid Normal Size and Texture Lungs: Clear to auscultation, Normal air movement, No rhonchi, No wheeze, No rales Cardiovascular: Regular rate, Regular Rhythm, Normal S1, Normal S2, No murmurs Abdomen: Bowel Sounds Present, Soft, Non Tender, Non-Distended, No Hepato- splenomegaly Extremities: No clubbing, No cyanosis, No edema Skin: No rashes, No breakdown Lymphatic: No Cervical, Supraclavicular, or Inguinal Adenopathy Neurological: Cranial nerves II-XII grossly intact, Motor Exam 5/5 strength throughout Psych/Mental Status: Normal Affect, Appropriate Laboratory Results 01/01/19 11:15: WBC 19.5 H, RBC 4.21, Hgb 11.0 L, Hct 34.3 L, MCV 81.5, MCH 26.1 L, MCHC 32.1, RDW Std Deviation 40.5, RDW Coeff of Nick 13.7, Plt Count 462 H, MPV 9.7, Immature Gran % (Auto) 0.700, Neut % (Auto) 86.2 H, Lymph % (Auto) 7.0 L, [place] % (Auto) 5.4, Eos % (Auto) 0.4, Baso % (Auto) 0.3, Absolute Neuts (auto) 16.8 H, Absolute Lymphs (auto) 1.36, Nucleated RBC % 0 01/01/19 11:15: Sodium 138, Potassium 3.9, Chloride 105, Carbon Dioxide 25.0, Anion Gap 8, BUN 16, Creatinine 1.83 H, Estim Creat Clear Calc 20.35, Est GFR (MDRD) Af Amer 35 L, Est GFR (MDRD) Non-Af 29 L, BUN/Creatinine Ratio 8.7 L, Glucose 205 H, Calcium 9.5, Total Bilirubin 0.30, Direct Bilirubin 0.10, AST 11 L, ALT 15, Alkaline Phosphatase 75, Total Protein 7.9, Albumin 3.0 L, Globulin 4.9 H, Lipase 440 H 01/01/19 12:41: Urine Color Yellow, Urine Clarity Clear, Urine pH 6.5, Ur Specific [place] 1.010, Urine Protein Negative, Urine Glucose (UA) Normal, Urine Ketones Negative, Urine Occult Blood 10 H, Urine Nitrite Negative, Urine Bilirubin Negative, Urine Urobilinogen Normal, Ur Leukocyte Esterase Negative, Urine RBC 0 SEEN, Urine WBC 0 SEEN, Ur Squamous Epith Cells 0-5 SEEN, Urine Bacteria RARE, Urine Mucus 0 SEEN 01/01/19 15:44: Lactic Acid 1.2 01/01/19 18:41: POC Glucose 150 H 01/01/19 21:57: POC Glucose 141 H 01/02/19 06:11: Sodium 144, Potassium 4.0, Chloride 113 H, Carbon Dioxide 25.0, Anion Gap 6, BUN 12, Creatinine 1.34 H, Estim Creat Clear Calc 27.79, Est GFR (MDRD) Af Amer 50 L, Est GFR (MDRD) Non-Af 41 L, BUN/Creatinine Ratio 9.0 L, Glucose 128 H, Calcium 7.8 L 01/02/19 06:11: WBC 9.4, RBC 3.26 L, Hgb 8.4 L, Hct 27.0 L, MCV 82.8, MCH 25.8 L , MCHC 31.1 L, RDW Std Deviation 42.1, RDW Coeff of Nick 14.0, Plt Count 340, MPV 9.9, Immature Gran % (Auto) 1.100 H, Neut % (Auto) 65.2, Lymph % (Auto) 24.6, [place] % (Auto) 6.5, Eos % (Auto) 2.2, Baso % (Auto) 0.4, Absolute Neuts (auto) 6.1, Absolute Lymphs (auto) 2.30, Nucleated RBC % 0 01/02/19 06:35: POC Glucose 120 H Clinical Impression(s) from Imaging Studies Abdomen/Pelvis CT 01/01/19 11:29 IMPRESSION: Moderate right-sided hydronephrosis and hydroureter. No evidence for ureterolithiasis. Uncomplicated colonic diverticulosis. No evidence for acute appendicitis or acute diverticulitis. Electronically Signed: Dean Nieto, at 12:28 EST Tel , Service support , Current Medications Aspirin (Ecotrin) 81 mg PO QHS [facility] Last Admin: 01/01/19 21:54 Dose: 81 mg Documented by: Dextrose (D50w Syringe) 0 gm IV X1 PRN; Protocol PRN Reason: Hypoglycemia Glucagon () 1 mg IM .X1 PRN PRN Reason: Hypoglycemia Heparin Sodium (Porcine) (Heparin Na) 5,000 unit SC Q12 [facility] Last Admin: 01/01/19 21:54 Dose: 5,000 unit Documented by: Sodium Chloride () 1,000 mls @ 100 mls/hr IV .Q10H [facility] Last Admin: 01/02/19 04:39 Dose: 150 mls/hr Documented by: Ceftriaxone Sodium 2 gm/ (Sodium Chloride) 50 mls @ 100 mls/hr IV Q24 [facility] Insulin Human Lispro (Humalog Kwikpen (Bkc)) 0 unit SC ACHS [facility]; Protocol Last Admin: 01/02/19 06:43 Dose: Not Given Documented by: Lisinopril (Zestril) 10 mg PO DAILY [facility] Morphine Sulfate () 4 - 6 mg IV Q3H PRN PRN PRN Reason: Pain Score 6-10/10 Ondansetron HCl (Zofran) 4 mg IV Q8H PRN PRN PRN Reason: NAUSEA/VOMITING Oxycodone HCl (Oxyir) 10 mg PO Q4H PRN PRN PRN Reason: Pain Score 6-10/10 Last Admin: 01/02/19 03:42 Dose: 10 mg Documented by: Sodium Chloride () 10 - 40 ml IV UD PRN PRN Reason: SALINE FLUSH Medical Necessity - Tobacco Use Smoking Status: Never smoker Tobacco Use: Non-smoker Assessment/Plan All Active Problems Pyelonephritis (Acute) Sepsis (Acute) This is a 73 years old female patient presented to the emergency room because of right flank pain in context of recent history of right ureteral calculi status post cystoscopy, balloon dilatation and extraction of the right ureteral stone that was done on December 24, 2018 and she was found to have acute right pyelonephritis with sepsis, acute kidney injury and right-sided hydro ureteronephrosis. #1 acute right pyelonephritis/sepsis: He is on IV Rocephin. She has no more right flank pain, still having spikes of low-grade fever overnight. Other vital signs are stable. Leukocytosis resolved, lactic acid is normal. Blood and urine cultures are pending. Plan: Increase Rocephin to 2 g IV every 24 hours, repeat BMP tomorrow morning. #2 right hydroureteronephrosis: Without evidence of kidney stones, had a right ureteral stone extracted on December 24, 2018. CT scan abdomen and pelvis reviewed. She underwent cystoscopy yesterday with placement of right ureteral stent. Urology on the case. Symptoms improved, kidney function is improving as well. #3 acute kidney injury: Due to obstructive uropathy. She has been on IV fluids, creatinine came down to 1.34 today, improving. #4 anemia: Unknown baseline, hemoglobin around 11 g/dL since September,. No previous blood work available. Today's hemoglobin is 8.4 g/dL, likely because of hemodilution. No evidence of active bleeding. #5 type 2 diabetes mellitus: Blood sugar stable, she is only on insulin sliding scale. Metformin and Janumet held. #6 GERD: Start Protonix. #7 hypertension: Blood pressure stable, continue lisinopril. #8 DVT prophylaxis: Subcu heparin. This note was generated with [employer] dictation software. It may contain incorrect words, spelling, and punctuation that were not noted in checking the note before signing. Code Visit Inpatient E&M: 36735 Subs Hosp L2
[2019-01-02] MEDS: Heparin Injection (Vial) 5,000 UNIT/ML VIAL 5000 UNIT SC ×2 (09:30→22:19)
[2019-01-02] MEDS: Lisinopril 10 MG Tablet PO (09:30)
[2019-01-02 09:36] VITALS: BP 115/87; PULSE 92; RESP 16; TEMP 36.6; O2SAT 93
[2019-01-02 11:35] LABS: Bedside Glucose 140 mg/dL (70-110)
[2019-01-02] MEDS: 0.9% Normal Saline 1,000 ML 100 ML IV ×2 (11:52→21:29)
[2019-01-02] MEDS: 0.9% Saline Lock 10 ML Syringe IV (11:53)
[2019-01-02 15:36] VITALS: BP 142/65; PULSE 89; RESP 16; TEMP 36.6; O2SAT 94
[2019-01-02 16:46] LABS: Bedside Glucose 80 mg/dL (70-110)
[2019-01-02 20:25] VITALS: BP 150/76; PULSE 100; RESP 18; TEMP 37.4; O2SAT 97
[2019-01-02 22:15] LABS: Bedside Glucose 124 mg/dL (70-110)
[2019-01-02] MEDS: Aspirin E.C. 81 MG Tablet PO (22:19)
[2019-01-03 02:55] VITALS: BP 156/77; PULSE 82; RESP 18; TEMP 36.9; O2SAT 97
[2019-01-03 06:17] LABS: Hematocrit 28.3 % (37-47); Hemoglobin 8.5 g/dL (12.0-15.0)
[2019-01-03 06:31] LABS: Anion Gap 7 (5-15); BUN 11 mg/dL (7-18); BUN/Creat Ratio 9.2 RATIO (10-20); Calcium,Total 7.4 mg/dL (8.5-10.1); Chloride 113 mmol/L (98-107); EST Glomerular Filtration Rate 47 mL/min (>60); Est Glom Filt Rate - Afr Amer 56 mL/min (>60); Estimated Creatinine Clearance 31.04 ml/min; Glucose 124 mg/dL (74-106); Sodium Level 143 mmol/L (136-145)
[2019-01-03] MEDS: 0.9% Normal Saline 1,000 ML 100 ML IV (06:37)
[2019-01-03 06:56] LABS: Bedside Glucose 128 mg/dL (70-110)
[2019-01-03 08:05] VITALS: BP 158/81; PULSE 85; RESP 18; TEMP 36.9; O2SAT 98
--- NOTE | 2019-01-03 09:46 | PCM.PN.HOSP ---
Subjective: CC follow-up: Acute pyelonephritis Patient is a 73-year-old lady who presented with right flank pain and assessment of acute pyelonephritis was made. Patient was also found to have right hydronephrosis she underwent cystoscopy with right ureteral stent placement on 01/01/2019 Seen admitted to some improvement in the overall condition cultures still pending she lost her IV access and order was given for midline to be placed Objective: GENERAL: cooperative HEENT: Atraumatic; EYES; Anicteric, Normal Conjunctiva NECK; supple, normal thyroid, RESPIRATORY: Diminished to auscultation CARDIOVASCULAR: Regular S1 S2, GI: soft, normoactive bowel sounds, EXTREMITIES: No edema, no clubbing, MUSCULOSKELETAL: no muscle waisting NEURO: Awake; no lateralizing signs. SKIN: No Rash PSYCH; Flat affect Vitals/I&O's: Vital Signs Temp Pulse Resp BP Pulse Ox 98.4 F 85 18 158/81 H 98 01/03/19 08:05 01/03/19 08:05 01/03/19 08:05 01/03/19 08:05 01/03/19 08:05 Oxygen Delivery Method Room Air Weight: 83.642 kg Body Mass Index (BMI) 34.8 Finger Stick Blood Glucose 150 Intake and Output for Last 24 Hours 01/01/19 01/02/19 01/03/19 23:59 23:59 23:59 Intake Total 1050 / 1050 3011.67 / 3011.67 913.33 / 913.33 Output Total 600 / 600 700 / 700 1200 / 1200 Balance 450 / 450 2311.67 / 2311.67 -286.67 / -286.67 Microbiology Past 72 Hours 01/01/19 12:41 Urine, Clean Catch Urine Culture - Preliminary Gram negative cherelle Laboratory Results 01/02/19 11:29: POC Glucose 140 H 01/02/19 16:31: POC Glucose 80 01/02/19 22:12: POC Glucose 124 H 01/03/19 05:35: Hgb 8.5 L, Hct 28.3 L 01/03/19 05:35: Sodium 143, Potassium 4.0, Chloride 113 H, Carbon Dioxide 23.0, Anion Gap 7, BUN 11, Creatinine 1.20 H, Estim Creat Clear Calc 31.04, Est GFR (MDRD) Af Amer 56 L, Est GFR (MDRD) Non-Af 47 L, BUN/Creatinine Ratio 9.2 L, Glucose 124 H, Calcium 7.4 L 01/03/19 06:37: POC Glucose 128 H Current Medications Aspirin (Ecotrin) 81 mg PO QHS [facility] Last Admin: 01/02/19 22:19 Dose: 81 mg Documented by: Dextrose (D50w Syringe) 0 gm IV X1 PRN; Protocol PRN Reason: Hypoglycemia Glucagon () 1 mg IM .X1 PRN PRN Reason: Hypoglycemia Heparin Sodium (Porcine) (Heparin Na) 5,000 unit SC Q12 [facility] Last Admin: 01/02/19 22:19 Dose: 5,000 unit Documented by: Sodium Chloride () 1,000 mls @ 100 mls/hr IV .Q10H [facility] Last Admin: 01/03/19 06:37 Dose: 100 mls/hr Documented by: Ceftriaxone Sodium 2 gm/ (Sodium Chloride) 50 mls @ 100 mls/hr IV Q24 [facility] Last Infusion: 01/02/19 10:06 Dose: Infused Documented by: Insulin Human Lispro (Humalog Kwikpen (Bkc)) 0 unit SC ACHS [facility]; Protocol Last Admin: 01/03/19 06:37 Dose: Not Given Documented by: Lisinopril (Zestril) 10 mg PO DAILY [facility] Last Admin: 01/02/19 09:30 Dose: 10 mg Documented by: Morphine Sulfate () 1 - 2 mg IV Q4H PRN PRN PRN Reason: Pain Score 6-10/10 Ondansetron HCl (Zofran) 4 mg IV Q8H PRN PRN PRN Reason: NAUSEA/VOMITING Oxycodone HCl (Oxyir) 10 mg PO Q4H PRN PRN PRN Reason: Pain Score 6-10/10 Last Admin: 01/02/19 22:18 Dose: 10 mg Documented by: Sodium Chloride () 10 - 40 ml IV UD PRN PRN Reason: SALINE FLUSH Last Admin: 01/02/19 11:53 Dose: 10 ml Documented by: STROKE Vital Signs/Narrative: Vital Signs Temp Pulse Resp BP Pulse Ox 01/03/19 08:05 98.4 F 85 18 158/81 H 98 Medical Necessity - Tobacco Use Smoking Status: Never smoker Tobacco Use: Non-smoker Assessment/Plan All Active Problems Pyelonephritis (Acute) Sepsis (Acute) Patient is a 73-year-old lady who presented with right flank pain and assessment of acute pyelonephritis was made. Patient was also found to have right hydronephrosis she underwent cystoscopy with right ureteral stent placement on 01/01/2019 1. Sepsis secondary to acute pyelonephritis ~ Patient was started on Rocephin cultures sent results still pending 2. Right hydro-ureteral nephrosis without evidence of kidney stones. ~Consult was placed to urology patient was seen by Dr. San who did perform cystoscopy with right ureteral stent placement on 01/01/2019 3. Acute renal insufficiency ~ secondary to obstructive uropathy on fluids with some improvement in kidney function 4. Anemia ~secondary to anemia of chronic disorder monitoring H&H with plans to transfuse if patient becomes symptomatic or hemoglobin falls below 7 5. Hypertension ~ blood pressure controlled, home medications continued with dose adjustment as needed 6. Diabetes mellitus type II ~Controlled patient's oral hypoglycemics held. Placed on Accu-Cheks a.c. and at bedtime and covered with sliding scale insulin 7. GERD ~ on Protonix. 8. DVT prophylaxis ~ heparin. 9. Obesity with BMI 34.8 ~ Weight loss advised Code Visit Inpatient E&M: 75810 Subs Hosp L2
[2019-01-03] MEDS: Lisinopril 10 MG Tablet PO (10:27)
--- NOTE | 2019-01-03 12:00 | CASEMGMT ---
RN CM Face to Face with patient for initial transition planning/care coordination assessment. RN CM introduced self and role at [facility]. Patient lying in bed, alert and oriented. Patient willing to participate in assessment and is able to answer all questions appropriately. Care providers, pharmacy, and demographics verified. Patient wishes to discharge home, denies need for home health at this time. Patient states she has no further needs or concerns at this time. CM to follow for discharge planning needs that may arise. PCP: Gordon Specialists: Jaswinder urologist [facility] Pres[facility] Benefit: yes Living Will/HPOA: none LNOK: daughter and son Living Arrangements: Patient lives alone in 1 story duplex with 3 steps and railing to enter the home. Patient independent at home. Transportation: self/ son DME/HHC: Patient states she has raised toilet seat and cane at home. Patient denies previous HHC or SNF. Disposition Plan: Patient to discharge home with family support and follow-up plans in place. Kat RED, RN, CM
[2019-01-03 15:54] VITALS: BP 156/74; PULSE 83; RESP 18; TEMP 36.8
--- NOTE | 2019-01-03 16:30 | NURSING ---
midline successfully placed, morning ATB infusing
[2019-01-03] MEDS: Glucerna Shake 120 ML LIQUID PO ×2 (16:34→21:50)
[2019-01-03 17:05] LABS: Bedside Glucose 123 mg/dL (70-110)
--- NOTE | 2019-01-03 17:12 | PCM.CONS.B ---
Problem List (1) Right flank pain Status: Deleted - Consult Date of Consult: 01/03/19 - Reason for Consult 73-year-old female status post stent placement for swelling hydronephrosis stenotic distal ureter on the right side she is doing better urine culture came back with E. coli I think once cultures are back we can discharge her home with antibiotics she is to follow-up in my office in about 10 days to have the stent removed she can call my office for an appointment for any questions please call
[2019-01-03 21:45] VITALS: BP 152/68; PULSE 94; RESP 18; TEMP 37; O2SAT 96
[2019-01-03] MEDS: Heparin Injection (Vial) 5,000 UNIT/ML VIAL 5000 UNIT SC (21:50)
[2019-01-03] MEDS: Aspirin E.C. 81 MG Tablet PO (21:50)
[2019-01-03 23:21] LABS: Bedside Glucose 177 mg/dL (70-110)
[2019-01-04] MEDS: 0.9% Normal Saline 1,000 ML 100 ML IV (01:58)
[2019-01-04 02:59] VITALS: BP 151/65; PULSE 90; RESP 18; TEMP 36.8; O2SAT 96
[2019-01-04 06:19] LABS: Absolute Lymphocyte Count 1.59 X10^3/uL (0.83-4.51); Absolute Neutrophil Count 5.4 X10^3/uL (2.0-7.7); Basophil# 0.05 X10^3/uL; Basophil% 0.6 % (0-1); Eosinophil# 0.36 X10^3/uL; Eosinophils% 4.6 % (0-5); Hematocrit 28.7 % (37-47); Hemoglobin 9.1 g/dL (12.0-15.0); Lymphocyte # 1.59 X10^3/ul (4.0); Lymphocyte % 20.2 % (19-41); Mean Corp Hgb Conc 31.7 g/dL (32-36); Mean Corpuscular Hgb 25.8 pg (27.0-32.0); Mean Corpuscular Volume 81.3 fL (81-99); Mean Platelet Vol. 10.3 fl (6.2-12.0); Monocyte# 0.47 X10^3/uL; NRBC Flagged by Analyzer 0 % (0-5); Neutrophil # 5.36 X10^3/uL (2.7-7.7); Neutrophil % 67.8 % (47-70); Platelet Count 350 K/mm3 (150-450); RBC Distribution Width CV 13.9 % (11.6-14.6); RBC Distribution Width SD 40.8 fl (35.1-43.9); Red Blood Count 3.53 M/mm3 (4.2-5.4); White Blood Count 7.9 K/mm3 (4.4-11.0)
[2019-01-04 06:30] LABS: Anion Gap 7 (5-15); BUN 10 mg/dL (7-18); Calcium,Total 7.8 mg/dL (8.5-10.1); Chloride 112 mmol/L (98-107); EST Glomerular Filtration Rate 58 mL/min (>60); Est Glom Filt Rate - Afr Amer 70 mL/min (>60); Estimated Creatinine Clearance 37.24 ml/min; Glucose 138 mg/dL (74-106); Magnesium 1.1 mg/dL (1.6-2.6); Potassium 3.9 mmol/L (3.5-5.1); Sodium Level 143 mmol/L (136-145)
[2019-01-04 07:25] LABS: Bedside Glucose 128 mg/dL (70-110)
[2019-01-04 09:00] VITALS: BP 156/77; PULSE 87; RESP 16; TEMP 36.7; O2SAT 97
--- NOTE | 2019-01-04 09:21 | DCINST_ITS ---
- Discharge Diagnoses Current Active Problems: Current Active and Chronic Problems Type 2 diabetes mellitus (Chronic) You will use the following diet at home:: Calorie/Carbohydrate Controlled (specify 1200, 1400, etc) - 1800 Your food should be the consistency of: Regular Discharge Activity: Return to Normal Activity Allergies/Adverse Reactions: Allergies ciprofloxacin [From Cipro] Allergy (Verified 01/01/19 11:19) Rash sulfamethoxazole [From Bactrim] Allergy (Verified 01/01/19 11:19) Rash trimethoprim [From Bactrim] Allergy (Verified 01/01/19 11:19) Rash Medications to take at Discharge Alendronate Sodium [Fosamax] 70 mg PO WE 12/23/18 Aspirin [Aspir 81] 81 mg PO QHS 12/23/18 Cholecalciferol (Vitamin D3) [Vitamin D3] 2,000 unit PO DAILY 12/23/18 Famotidine/Ca Carb/Mag Hydrox [Tums Dual Action Tablet Chew] 1 ea PO PRN PRN 12/23/18 Lisinopril [Prinivil] 10 mg PO DAILY 12/23/18 Sitagliptin Phos/Metformin HCl [Janumet 50-1,000 mg Tablet] 1 ea PO DAILY 12/23/18 metFORMIN HCl [Glucophage] 1,000 mg PO QHS 12/23/18 Cephalexin [Keflex] 500 mg PO TIDCM #15 cap 01/04/19 The following prescriptions were given: Cephalexin [Keflex] 500 mg PO TIDCM #15 cap Transmission Status: Pending to [id number] Primary Care Physician: Pancho Leyva MD [Primary Care Provider] - Please follow up with your Primary Care Physician in: in 5-7 days Test Results: Test results from this visit will be discussed in further detail at your follow- up appointment, if applicable. Please Follow Up With: Ronaldo San MD When: in 5-7 days Proposed Discharge Date: 01/04/19
--- NOTE | 2019-01-04 09:22 | PCM.DC.SUM ---
Discharge Date and Diagnosis Date of Admission: 01/01/19 Date of Discharge: 01/04/19 - Primary Discharge Diagnosis Diabetes mellitus type II - Secondary Discharge Diagnosis Chronic Problems Type 2 diabetes mellitus (Chronic) Kidney stone (Chronic) Hypertension (Chronic) Acid reflux disease (Chronic) Hospital Course and Treatment Imaging Results: Microbiology 01/01/19 17:22 Urine, Cystoscopy Urine Culture - Final Culture exhibits no growth. 01/01/19 15:44 Blood Culture (Wb) - Anticubital Right Blood Culture - Preliminary No growth in 48 hours. 01/01/19 15:47 Blood Culture (Wb) - Anticubital Left Blood Culture - Preliminary No growth in 48 hours. 01/01/19 12:41 Urine, Clean Catch Urine Culture - Final Gram negative cherelle Summary of Care Provided: Patient is a 73-year-old lady who presented with right flank pain and assessment of acute pyelonephritis was made. Patient was also found to have right hydronephrosis she underwent cystoscopy with right ureteral stent placement on 01/01/2019 1. Sepsis secondary to acute pyelonephritis ~ Patient was started on Rocephin and blood cultures had remained negative to date at the time of discharge. Cultures grew suspected previous with less than 1000 colony counts. Repeat cultures came back negative 2. Right hydro-ureteral nephrosis without evidence of kidney stones. ~Consult was placed to urology patient was seen by Dr. San who did perform cystoscopy with right ureteral stent placement on 01/01/2019 for patient to follow-up as outpatient 3. Acute renal insufficiency ~ secondary to obstructive uropathy on fluids with some improvement in kidney function 4. Anemia ~secondary to anemia of chronic disorder monitoring H&H with plans to transfuse if patient becomes symptomatic or hemoglobin falls below 7 5. Hypertension ~ blood pressure controlled, home medications continued with dose adjustment as needed 6. Diabetes mellitus type II ~Controlled patient's oral hypoglycemics held. Placed on Accu-Cheks a.c. and at bedtime and covered with sliding scale insulin 7. GERD ~ on Protonix. 8. DVT prophylaxis ~ heparin. 9. Obesity with BMI 34.8 ~ Weight loss advised Objective: GENERAL: cooperative HEENT: Atraumatic; EYES; Anicteric, Normal Conjunctiva NECK; supple, normal thyroid, RESPIRATORY: Diminished to auscultation CARDIOVASCULAR: Regular S1 S2, GI: soft, normoactive bowel sounds, NEURO: Awake; no lateralizing signs. SKIN: No Rash PSYCH; Flat affect - Physical Exam Vitals/I&O's: Vital Signs Temp Pulse Resp BP Pulse Ox 98.3 F 90 18 151/65 H 96 01/04/19 02:59 01/04/19 02:59 01/04/19 02:59 01/04/19 02:59 01/04/19 02:59 Oxygen Delivery Method Room Air Weight: 83.642 kg Body Mass Index (BMI) 34.8 Finger Stick Blood Glucose 150 Intake and Output for Last 24 Hours 01/02/19 01/03/19 01/04/19 23:59 23:59 23:59 Intake Total 3011.67 / 3011.67 2360.00 / 2860.00 1753.33 / 1753.33 Output Total 700 / 700 1200 / 1900 1600 / 1600 Balance 2311.67 / 2311.67 1160.00 / 960.00 153.33 / 153.33 Microbiology Past 72 Hours 01/01/19 17:22 Urine, Cystoscopy Urine Culture - Final Culture exhibits no growth. 01/01/19 15:44 Blood Culture (Wb) - Anticubital Right Blood Culture - Preliminary No growth in 48 hours. 01/01/19 15:47 Blood Culture (Wb) - Anticubital Left Blood Culture - Preliminary No growth in 48 hours. 01/01/19 12:41 Urine, Clean Catch Urine Culture - Final Gram negative cherelle Laboratory Results 01/03/19 16:24: POC Glucose 123 H 01/03/19 21:49: POC Glucose 177 H 01/04/19 05:40: WBC 7.9, RBC 3.53 L, Hgb 9.1 L, Hct 28.7 L, MCV 81.3, MCH 25.8 L, MCHC 31.7 L, RDW Std Deviation 40.8, RDW Coeff of Nick 13.9, Plt Count 350, MPV 10.3, Immature Gran % (Auto) 0.800, Neut % (Auto) 67.8, Lymph % (Auto) 20.2, Brooks % (Auto) 6.0, Eos % (Auto) 4.6, Baso % (Auto) 0.6, Absolute Neuts (auto) 5.4, Absolute Lymphs (auto) 1.59, Nucleated RBC % 0 01/04/19 05:40: Sodium 143, Potassium 3.9, Chloride 112 H, Carbon Dioxide 24.0, Anion Gap 7, BUN 10, Creatinine 1.00, Estim Creat Clear Calc 37.24, Est GFR (MDRD) Af Amer 70, Est GFR (MDRD) Non-Af 58 L, BUN/Creatinine Ratio 10.0, Glucose 138 H, Calcium 7.8 L, Magnesium 1.1 L 01/04/19 06:59: POC Glucose 128 H Current Medications Aspirin (Ecotrin) 81 mg PO QHS [facility] Last Admin: 01/03/19 21:50 Dose: 81 mg Documented by: Dextrose (D50w Syringe) 0 gm IV X1 PRN; Protocol PRN Reason: Hypoglycemia Glucagon () 1 mg IM .X1 PRN PRN Reason: Hypoglycemia Heparin Sodium (Porcine) (Heparin Na) 5,000 unit SC Q12 [facility] Last Admin: 01/03/19 21:50 Dose: 5,000 unit Documented by: Sodium Chloride () 1,000 mls @ 100 mls/hr IV .Q10H [facility] Last Admin: 01/04/19 01:58 Dose: 100 mls/hr Documented by: Ceftriaxone Sodium 2 gm/ (Sodium Chloride) 50 mls @ 100 mls/hr IV Q24 [facility] Last Infusion: 01/03/19 16:59 Dose: Infused Documented by: Insulin Human Lispro (Humalog Kwikpen (Bkc)) 0 unit SC ACHS [facility]; Protocol Last Admin: 01/04/19 07:00 Dose: Not Given Documented by: Lisinopril (Zestril) 10 mg PO DAILY [facility] Last Admin: 01/03/19 10:27 Dose: 10 mg Documented by: Morphine Sulfate () 1 - 2 mg IV Q4H PRN PRN PRN Reason: Pain Score 6-10/10 Nutritional Formula (Lactose Free) (Glucerna Shake) 120 ml PO 4X/DAY [facility] Last Admin: 01/03/19 21:50 Dose: 120 ml Documented by: Ondansetron HCl (Zofran) 4 mg IV Q8H PRN PRN PRN Reason: NAUSEA/VOMITING Oxycodone HCl (Oxyir) 10 mg PO Q4H PRN PRN PRN Reason: Pain Score 6-10/10 Last Admin: 01/02/19 22:18 Dose: 10 mg Documented by: Sodium Chloride () 10 - 40 ml IV UD PRN PRN Reason: SALINE FLUSH Last Admin: 01/02/19 11:53 Dose: 10 ml Documented by: Sodium Chloride () 10 - 40 ml IV UD PRN PRN Reason: Midline Flush Sodium Chloride (0.9% Nacl (Sterile) Posiflush) 10 - 40 ml IV UD PRN PRN Reason: Port access or dressing change Discharge Diet: 1800 Calorie Control Diet Discharge Activity: Return to Normal Activity Home Medications: Medications to take at Discharge Alendronate Sodium [Fosamax] 70 mg PO WE 12/23/18 Aspirin [Aspir 81] 81 mg PO QHS 12/23/18 Cholecalciferol (Vitamin D3) [Vitamin D3] 2,000 unit PO DAILY 12/23/18 Famotidine/Ca Carb/Mag Hydrox [Tums Dual Action Tablet Chew] 1 ea PO PRN PRN 12/23/18 Lisinopril [Prinivil] 10 mg PO DAILY 12/23/18 Sitagliptin Phos/Metformin HCl [Janumet 50-1,000 mg Tablet] 1 ea PO DAILY 12/23/18 metFORMIN HCl [Glucophage] 1,000 mg PO QHS 12/23/18 Cephalexin [Keflex] 500 mg PO TIDCM #15 cap 01/04/19 Following Prescrptions Were Given to Patient: Cephalexin [Keflex] 500 mg PO TIDCM #15 cap Transmission Status: Pending to [id number] Primary Care Physician: Pancho Leyva MD [Primary Care Provider] - Please follow up with your Primary Care Physician in: in 5-7 days Please Follow Up With: Ronaldo San MD When: in 5-7 days Disposition: Home Minutes spent on discharge:: 35 Patient Condition:: Stable Medical Necessity - Tobacco Use Smoking Status: Never smoker Tobacco Use: Non-smoker Meaningful Use Info Meaningful Use Diagnoses (Choose all that apply): None applicable Code Visit Inpatient E&M: 81752 Disch Hosp
[2019-01-04] MEDS: Heparin Injection (Vial) 5,000 UNIT/ML VIAL 5000 UNIT SC (10:15)
[2019-01-04] MEDS: Lisinopril 10 MG Tablet PO (10:16)
--- NOTE | 2019-01-05 15:25 | CASEMGMT ---
FAVIOLA WARNER Discharge Follow-Up Phone Call. Sara: Melony Strata: 3 Discharge Date: 01/04/19 Adm Dx: Pyelonephritis Call to pt to inquire about how she has been doing since being discharged from the hospital. Pt stated, I'm okay. I'm just a little tired. Pt states she has been able to rest some today. She states she was able to apple picker the prescription for the antibiotic and has no questions about the medications. FAVIOLA WARNER reinforced the importance of taking the antibiotic through completion and pt voiced understanding. Pt stated she does feel like she's not emptying all the way when voiding. FAVIOLA WARNER instructed pt to notify Dr San if her symptoms do not improve or worsen, if she develops fever or pain, or any other symptoms. She voiced understanding and stated she would do so. She is aware of the appt's scheduled with Dr Leyva on 01/[address] San 01/17. FAVIOLA WARNER thanked pt for taking the time to talk with her today. Pt voiced appreciation of FAVIOLA WARNER calling to check on her and stated I was treated very very well. Everybody was so kind and great. It makes it easier to be there. Everyone from the cleaning lady to dietary was so nice. They were all just so great. FAVIOLA WARNER thanked pt for the positive feedback and told her this would be passed along. FAVIOLA WARNER also thanked pt for choosing [facility]. Juancarlos RED RN, CM
== END 2019-01-04 12:46 | disposition home or self-care (01) | DRG 854 ==
LOC: ED 15:02 → MS3 19:33
PROVIDERS: Hospitalist; Urology; Admitting Provider Internal Medicine; Emergency Provider Emergency Medicine; Family Provider Family Medicine; PCP Family Medicine; Referring Provider Internal Medicine; Visit Provider Internal Medicine
PROC: 0T768DZ Dilation of Right Ureter with Intraluminal Device, Via Natural or Artificial Opening Endoscopic (ICD-10-PCS; principal; 2019-01-01 16:10)
DX: A41.9 Sepsis, unspecified organism (principal); N10 Acute pyelonephritis; N13.6 Pyonephrosis; N17.9 Acute kidney failure, unspecified; D64.9 Anemia, unspecified; E11.9 Type 2 diabetes mellitus without complications; K21.9 Gastro-esophageal reflux disease without esophagitis; E66.9 Obesity, unspecified; I10 Essential (primary) hypertension; Z68.34 Body mass index [BMI] 34.0-34.9, adult; Z79.84 Long term (current) use of oral hypoglycemic drugs; B96.20 Unspecified Escherichia coli [E. coli] as the cause of diseases classified elsewhere
CPT/HCPCS: 36415; 74176; 76000; 80048; 80076; 81001; 82962; 83605; 83690; 83735; 85014; 85018; 85025; 87040; 87086; 87088; 99284; J7030; A4216; C2617; J0696; J2405

== ENCOUNTER → 2020-02-23 16:32 | Outpatient (CLI) | payer MEDICARE, OTHER, SELFPAY ==
[2019-01-01 18:02] VITALS: BMI 34.8
--- NOTE | 2020-02-23 16:35 | CT_ITS ---
STUDY: CT ABDOMEN AND PELVIS WITHOUT CONTRAST REASON FOR EXAM: Female, 74 years old. LLQ PAIN, TENDERNESS/REBOUNDING RADIATION DOSAGE (If Supplied By Facility): CTDIvol = ( 12.42 ) mGy, DLP = ( 629.66 ) mGycm TECHNIQUE: Transaxial images were obtained from the dome of the diaphragm to the symphysis pubis without oral contrast, and without intravenous contrast. Sagittal and coronal images were reconstructed. Individualized dose optimization techniques were used for this CT. COMPARISON: 01/01/2019 FINDINGS: The visualized lung bases are unremarkable. Grossly stable visualized portions of the heart are within normal limits. The lack of intravenous contrast limits evaluation of solid visceral organs. Normal liver. Normal gallbladder and extrahepatic biliary system. Normal spleen. Normal pancreas. Normal bilateral adrenal glands. Normal right kidney. Normal left kidney. There is a small to moderate size hiatal hernia. Normal small intestine. There is diverticulosis, with thickening of the proximal colon wall, and pericolonic inflammation changes consistent with acute diverticulitis. The appendix is visualized and appears normal. Normal abdominal aorta. Normal inferior vena cava. Normal retroperitoneum. Normal urinary bladder. Normal abdominal wall. There are diffuse degenerative changes of the visualized thoracic and lumbar spine. CT/Abdomen/Pelvis without Cont IMPRESSION: Acute diverticulitis of the sigmoid colon. Hiatal hernia. Degenerative changes of the visualized thoracic and lumbar spine. Electronically Signed: Heena Forrester MD at 17:18 EST Tel , Service support ,
== END ==
PROVIDERS: PCP Family Medicine; Referring Provider Urology; Visit Provider Urology
DX: R10.824 Left lower quadrant rebound abdominal tenderness (principal)
CPT/HCPCS: 74176

== ENCOUNTER → 2020-09-18 10:55 | Outpatient (CLI) | payer MEDICARE, OTHER, SELFPAY ==
[2019-01-01 18:02] VITALS: BMI 34.8
--- NOTE | 2020-09-18 10:59 | MRI_ITS ---
STUDY: MRI BRAIN WITH AND WITHOUT CONTRAST (ATTENTION INTERNAL AUDITORY CANALS - I.A.C.''s) REASON FOR EXAM: Female, 75 years old. DIZZINESS TECHNIQUE: Standardized multiplanar fat and water weighted pulse sequences were obtained. 17 ML IV DOTAREM was administered for the contrast portion of the examination. COMPARISON: None. FINDINGS: Normal bilateral temporal bones. Normal bilateral internal auditory canals. There is no demonstrated intracanalicular or cisternal vestibular schwannoma (acoustic neuroma). There is no enhancement of the bilateral VIIth or VIIIth cranial nerves. Normal bilateral cochlea, vestibules and semicircular canals. There is mild cerebral atrophy with widening of the extra-axial spaces and ventricular dilatation. There are a limited number of small white matter hyperintensities, distributed throughout the deep white matter tracts of the cerebral hemispheres, consistent with mild chronic white matter ischemic changes. There is no evidence for recent intracranial ischemia or other cause of cytotoxic edema on diffusion weighted imaging (DWI). Normal bilateral basal ganglia. Normal thalami. Normal flow voids within the major intracranial circulation suggesting patency by spin echo criteria. Normal venous enhancement. There is no enhancing intra-axial or extra-axial abnormality. There is no extra-axial fluid accumulation. Normal sella turcica, pituitary gland, infundibular stalk, optic chiasm and hypothalamus. Normal tectal plate and pineal gland. Normal midbrain, kash and medulla. Normal cerebellum. Normal basal cisterns. No demonstrated orbital abnormality, within the constraints of a routine brain study. Normal visualized paranasal sinuses. Normal calvarium and skull base. Normal visualized soft tissue structures. Normal visualized upper cervical spine. MRI/Brain W/WO Contrast IMPRESSION: Involutional changes of the brain, as described above. Electronically Signed: Yevgeniy Srivastava MD at 15:38 EDT Tel , Service support ,
[2020-09-18 11:20] LABS: CREATININE FINGERSTICK 1.6 mg/dL (0.55-1.02)
== END ==
PROVIDERS: PCP Family Medicine; Referring Provider Otolaryngology; Visit Provider Otolaryngology
DX: R42 Dizziness and giddiness (principal)
CPT/HCPCS: 70553; A9575

== ENCOUNTER 2021-03-20 15:17 | Outpatient (CLI) | payer MEDICARE, OTHER, SELFPAY ==
--- NOTE | 2021-03-20 15:35 | MRI_ITS ---
STUDY: MRA NECK WITHOUT CONTRAST REASON FOR EXAM: Female, 75 years old. Pt states cannot stand still, feel top heavy, rule out ARTERIAL OCCLUSION, TECHNIQUE: Source images were obtained, MIPs were performed. The study was performed unenhanced. COMPARISON: None. FINDINGS: RIGHT CAROTID ARTERIES: Normal right common carotid artery (CCA). Normal right common carotid bulb. Normal origin of the right internal carotid (ICA) artery without a hemodynamically significant stenosis. Normal visualized cervical portion of the right internal carotid artery. Normal origin of the right external carotid artery (ECA). LEFT CAROTID ARTERIES: Normal left common carotid artery (CCA). There is mild atherosclerotic plaque formation with minimal narrowing of the left carotid bulb. There is mild atherosclerotic plaque formation of the origin of the left internal carotid artery with less than 50% cross sectional diameter stenosis. Normal visualized cervical portion of the left internal carotid artery. Normal origin of the left external carotid artery (ECA). VERTEBRAL ARTERIES: Normal antegrade flow within the bilateral vertebral artery without a hemodynamically significant stenosis. MRI/MRA Neck without Contrast IMPRESSION: There is plaque with mild, less than 50%, narrowing on the left. There is no hemodynamically significant internal carotid artery stenosis. Electronically Signed: Benito Correia MD at 16:46 EST Reading Location ID and State: Critical [facility] hospital / [place] , Service support ,
--- NOTE | 2021-03-20 15:35 | MRI_ITS ---
STUDY: MRA OF THE HEAD WITHOUT CONTRAST REASON FOR EXAM: Female, 75 years old. Pt states cannot stand still, feel top heavy, rule out INTRACRANIAL VASCULAR STENOSIS TECHNIQUE: 3-D [id number] (TOF) imaging was performed with MIPs. The study was performed unenhanced. COMPARISON: None. FINDINGS: Normal bilateral petrous carotid arteries. Normal right cavernous carotid artery with a normal supraclinoid bifurcation. Normal left cavernous carotid artery with a normal supraclinoid bifurcation. Normal right A1 segments of the anterior cerebral artery. Normal left A1 segments of the anterior cerebral artery. Normal intact anterior communicating artery (ACOM). Normal bilateral A2 segments of the anterior cerebral arteries. Normal right M1 and M2 segments of the middle cerebral arteries, with a normal M1 bifurcation. Normal left M1 and M2 segments of the middle cerebral arteries, with a normal M1 bifurcation. There is non-visualization of the right posterior communicating artery (PCOM). There is non-visualization of the left posterior communicating artery (PCOM). Normal bilateral vertebral arteries. Normal basilar artery with a normal basilar bifurcation. The visualized bilateral superior cerebellar (SCA) arteries are normal. Normal bilateral P1, P2 and visualized P3 segments of the posterior cerebral arteries. There is no demonstrated aneurysm of the [place] of [place]. There is no major vessel occlusion or hemodynamically significant stenosis. There is no demonstrated abnormality of the visualized brain. MRI/MRA Head ONLY without Contrast IMPRESSION: Normal MRA of the head. No aneurysm or large vessel occlusion. Electronically Signed: Benito Correia MD at 16:44 EST ,
== END 2021-03-20 23:59 | disposition home or self-care (01) ==
PROVIDERS: PCP Family Medicine; Visit Provider Nurse Practitioner
DX: I67.9 Cerebrovascular disease, unspecified (principal); I70.90 Unspecified atherosclerosis
CPT/HCPCS: 70544; 70547

== ENCOUNTER → 2023-08-17 | Outpatient (CLI) | payer MEDICARE, OTHER, SELFPAY ==
[2023-08-17 15:25] LABS: Hemoglobin 11.8 g/dL (12.0-15.0); Mean Corp Hgb Conc 31.9 g/dL (32-36); Mean Corpuscular Hgb 26.6 pg (27.0-32.0); Mean Corpuscular Volume 83.3 fL (81-99); Mean Platelet Vol. 11.2 fl (6.2-12.0); Platelet Count 287 K/mm3 (150-450); RBC Distribution Width CV 13.6 % (11.6-14.6); RBC Distribution Width SD 41.6 fl (35.1-43.9); Red Blood Count 4.44 M/mm3 (4.2-5.4); White Blood Count 9.7 K/mm3 (4.4-11.0)
[2023-08-17 16:15] LABS: ALB/GLOB Ratio 0.9 RATIO (0.9-2.4); AST(SGOT) 10 U/L (15-37); Alanine Aminotransfer ALT/SGPT 16 U/L (13-56); Albumin, Serum 3.4 g/dL (3.2-5.0); Alkaline Phosphatase 46 U/L (45-117); Anion Gap 7 (5-15); BUN 28 mg/dL (7-18); BUN/Creat Ratio 17.3 RATIO (10-20); Calcium,Total 9.5 mg/dL (8.5-10.1); Chloride 113 mmol/L (98-107); Creatinine, Serum 1.62 mg/dL (0.55-1.02); EST Glomerular Filtration Rate 33 mL/min (>60); Est Glom Filt Rate - Afr Amer 39 mL/min (>60); Globulin 3.9 g/dL (2.2-4.2); Glucose 115 mg/dL (74-106); Magnesium 1.3 mg/dL (1.6-2.6); Potassium 4.1 mmol/L (3.5-5.1); Protein, Total 7.3 g/dL (6.4-8.2); Sodium Level 142 mmol/L (136-145); Thyroid Stim Hormone (TSH) 1.14 uIU/mL (0.358-3.74)
[2023-08-17 17:03] LABS: Vitamin B12 435 pg/mL (211-911)
[2023-08-21 11:08] LABS: Vitamin D 1,25-Dihydroxy 31.5 pg/mL (24.8-81.5)
[2023-08-24 09:07] LABS: Free Kappa Light Chains 44.6 mg/L (3.3-19.4); Free Lambda Light Chains 27.1 mg/L (5.7-26.3); Vitamin B1, Thiamine 145.5 nmol/L (66.5-200.0)
== END | disposition home or self-care (01) ==
PROVIDERS: PCP Family Medicine; Referring Provider Psychiatry & Neurology Neurology; Visit Provider Psychiatry & Neurology Neurology
DX: R26.9 Unspecified abnormalities of gait and mobility (principal); I10 Essential (primary) hypertension
CPT/HCPCS: 36415; 80053; 82607; 82652; 82746; 83735; 83883; 84425; 84443; 85027

== ENCOUNTER → 2023-09-07 | Outpatient (CLI) | payer MEDICARE, OTHER, SELFPAY ==
--- NOTE | 2023-09-07 12:55 | MRI_ITS ---
STUDY: MRI BRAIN WITH AND WITHOUT CONTRAST (ATTENTION INTERNAL AUDITORY CANALS - I.A.C.''s) REASON FOR EXAM: Female, 78 years old. abnormal gait; hx right chelesteotoma resection TECHNIQUE: Standardized multiplanar fat and water weighted pulse sequences were obtained. IV 17cc clariscan was administered for the contrast portion of the examination. COMPARISON: 09/18/2020 FINDINGS: Postsurgical changes to the right temporal bone, mastoid air cells, middle ear cavity consistent with history of cholesteatoma resection. Normal bilateral internal auditory canals. There is no demonstrated intracanalicular or cisternal vestibular schwannoma (acoustic neuroma). There is no enhancement of the bilateral VIIth or VIIIth cranial nerves. Normal bilateral cochlea, vestibules and semicircular canals. There is mild cerebral atrophy with widening of the extra-axial spaces and ventricular dilatation. There are a limited number of small white matter hyperintensities, distributed throughout the deep white matter tracts of the cerebral hemispheres, consistent with mild chronic white matter ischemic changes. There is no evidence for recent intracranial ischemia or other cause of cytotoxic edema on diffusion weighted imaging (DWI). Normal bilateral basal ganglia. Normal thalami. Normal flow voids within the major intracranial circulation suggesting patency by spin echo criteria. Normal venous enhancement. There is no enhancing intra-axial or extra-axial abnormality. There is no extra-axial fluid accumulation. Normal sella turcica, pituitary gland, infundibular stalk, optic chiasm and hypothalamus. Normal tectal plate and pineal gland. There are chronic white matter ischemic changes of the kash. The midbrain and medulla are otherwise normal. Normal cerebellum. Normal basal cisterns. There are bilateral ocular lens implants with otherwise normal intraorbital contents. Normal visualized paranasal sinuses. Normal calvarium and skull base. Normal visualized soft tissue structures. Normal visualized upper cervical spine. MRI/Brain W/WO Contrast IMPRESSION: No change from 09/18/2020. Electronically Signed: Yevgeniy Srivastava MD at 9:59 EDT ,
== END | disposition home or self-care (01) ==
LOC: MRI 12:51
PROVIDERS: PCP Family Medicine; Referring Provider Psychiatry & Neurology Neurology; Visit Provider Psychiatry & Neurology Neurology
DX: R26.9 Unspecified abnormalities of gait and mobility (principal); Z86.69 Personal history of other diseases of the nervous system and sense organs
CPT/HCPCS: 70553; A9575

== ENCOUNTER → 2023-09-22 | Outpatient (CLI) | payer MEDICARE, OTHER, SELFPAY ==
--- NOTE | 2023-09-22 11:20 | MRI_ITS ---
STUDY: MRI THORACIC SPINE WITHOUT CONTRAST REASON FOR EXAM: Female, 78 years old. gait disorder; evaluate for myelopathy TECHNIQUE: Standardized fat and water weighted pulse sequences were obtained in the sagittal and axial planes. COMPARISON: None. FINDINGS: Normal kyphosis of the thoracic spine. There is no substantial scoliosis. The intervertebral disc space heights are well-maintained although there is mild multilevel endplate spurring and disc degeneration. There is a small central disc protrusion at T5-6 mildly narrowing the spinal canal impinging upon the cord . Normal visualized thoracic cord. Normal conus medullaris that terminates at T12-L1 There is a severe compression fracture of the superior endplate of L1 with minimal residual bone marrow edema and retropulsion of bony fragment narrowing the spinal canal but without impingement upon the conus The soft tissue structures are unremarkable. MRI/Spine Thoracic (Routine) IMPRESSION: No acute fracture or other significant bony pathology of the thoracic spine. Mild spondylosis and multilevel disc degeneration with small central disc protrusion at T5-6 mildly narrowing the spinal canal impinging upon the ventral surface of the cord. Incidental finding of subacute to chronic compression fracture of L1 with retropulsion of posterior superior endplate narrowing the spinal canal but without impingement upon the conus Electronically Signed: Pancho Vo MD at 17:01 EDT ,
--- NOTE | 2023-09-22 11:20 | MRI_ITS ---
HISTORY: gait disorder; evaluate for myelopathy. TECHNIQUE: Multiplanar and multisequence MR images of the cervical spine were obtained without contrast. 277 images. COMPARISON: None. FINDINGS: VERTEBRAE: Vertebral body heights maintained. Mild degenerative endplate changes. No other significant bone marrow signal abnormality. VERTEBRAL ALIGNMENT: No anterior or posterior subluxation. SPINAL CORD: Cervical cord signal and morphology within normal limits. SOFT TISSUES: No prevertebral fluid collection. INTERVERTEBRAL DISCS: C2-3: No significant posterior disc protrusion. Degenerative changes of the posterior elements resulting in minimal narrowing of the thecal sac. No significant foraminal narrowing. C3-4: Mild disc bulge with uncovertebral and facet arthropathy resulting in moderate central canal stenosis and bilateral foraminal narrowing. C4-5: Minimal disc bulge with uncovertebral and facet arthropathy resulting in mild central canal stenosis and bilateral foraminal narrowing. C5-6: Moderate disc bulge with uncovertebral and facet arthropathy resulting in mild central canal stenosis and mild-moderate bilateral foraminal narrowing. C6-7, C7-T1: No significant posterior disc protrusion, central canal stenosis, or foraminal narrowing. MRI/Spine Cervical (Routine) IMPRESSION: Multilevel degenerative disc disease of the cervical spine as above. Electronically Signed: Camilla Mccullough MD at 9:55 EDT ,
--- NOTE | 2023-09-22 12:52 | MRI_ITS ---
STUDY: MRI LUMBAR SPINE WITHOUT CONTRAST REASON FOR EXAM: Female, 78 years old patient with low back pain and left-sided lumbar radiculopathy. Gait disorder. TECHNIQUE: Standardized fat and water weighted pulse sequences were obtained in the sagittal and axial planes. COMPARISON: Prior comparison studies are not available for review at this time. FINDINGS: T12-L1: There is mild annular disk bulge and osteophyte complex. There is mild degenerative arthropathy of the facet joints. Bilateral neuroforamina are narrowed without MR evidence for nerve impingement. There is mild acquired central canal stenosis. There is severe compression fracture of L1 with mild retropulsion of the posterior margin of L1. Normal lumbar lordosis. There is no substantial scoliosis. Normal conus medullaris that terminates at the L1 level. L1-2: There is mild annular disk bulge and osteophyte complex. There is mild degenerative arthropathy of the facet joints. Bilateral neuroforamina are narrowed without MR evidence for nerve impingement. There is moderately severe acquired central canal stenosis. L2-3: There is mild annular disk bulge and osteophyte complex. There is moderately severe degenerative arthropathy of the facet joints. Bilateral neuroforamina are narrowed without MR evidence for nerve impingement. There is no appreciable acquired central canal stenosis. L3-4: There is mild annular disk bulge and osteophyte complex. There is mild degenerative arthropathy of the facet joints. Bilateral neuroforamina are narrowed without MR evidence for nerve impingement. There is thickening of the ligamentum flavum. There is mild acquired central canal stenosis. L4-5: There is mild annular disk bulge and osteophyte complex. There is mild degenerative arthropathy of the facet joints. Bilateral neuroforamina are narrowed without MR evidence for nerve impingement. There is no appreciable acquired central canal stenosis. L5-S1: There is mild annular disk bulge and osteophyte complex. There is moderately severe degenerative arthropathy of the facet joints. Bilateral neuroforamina are narrowed without MR evidence for nerve impingement. There is no appreciable acquired central canal stenosis. Normal visualized sacral ala. There is moderate paraspinal muscular atrophy. MRI/Spine Lumbar (Routine) IMPRESSION: 1. Severe old compression fracture of L1. 2. Moderately severe multilevel degenerative changes of the lumbar spine as described. Electronically Signed: Shanika Puentes MD at 7:59 EDT ,
== END | disposition home or self-care (01) ==
LOC: MRI 10:51
PROVIDERS: PCP Family Medicine; Referring Provider Psychiatry & Neurology Neurology; Visit Provider Psychiatry & Neurology Neurology
DX: R26.9 Unspecified abnormalities of gait and mobility (principal); M54.50 Low back pain, unspecified
CPT/HCPCS: 72141; 72146; 72148

== ENCOUNTER 2023-12-02 15:00 | Outpatient (RCR) | payer MEDICARE, OTHER, SELFPAY ==
--- NOTE | 2023-11-02 16:24 | HP.PTEVAL ---
Patient's Visit Information Visit Information Visit Information: SHAHEEN IVAN is a 78 year old F referred to Physical Therapy by Dr. Bert Osorio MD with a diagnosis of SECONDARY KYPHOPSIS ,THORACOLUMBAR REGION,WEDGE COMPRESSION FRACTURE LUMBAR. Date of Evaluation: 11/02/23 Physical Therapist: Pedro Sharp, PT, Cert MDT, OCS Visit Plan Frequency: 2x /Week Duration: 4 Weeks Plan: PRECAUTION: OSTEOPOROSIS PT INTERVENTIONS DLS ,POSTURAL EX'S FUNCTIONAL STRENGTHENING AND BALANCE TRAINING Subjective Subjective: This 78 y/o female presents to physical therapy for lumbar compression fracture. Patient has lumbar pain for 2 years . Patient has had fall 2 years ago no recent. Denies dizznesPatient initially seen Neurological Dr Delatorre. Did imaging of thoracic/cervical and lumbar DDD ,stenosis and L1 old compression fracture. Patient recommended pain management but want to hold off. Patient pain located on right lumbar. Aggravating standing ,bending and lifting affects vacuuming ,washing dishes . Alleviating symptoms sitting and resting.Denies paresthesia/tingling.Patient is able to sleeping. Coughing/sneezing-. Bowel/bladder -. Patient doing better overall. Patient pain affects QOL /function/housework tasks. Patient goals to decrease symptoms of pain. with standing./ Patient has had osteoporosis many years last bone scan improve. VOCATION: RETIRED [employer]: Objective Objective: POSTURE: mild/mod thoracic kyphosis NEURO: denies paresthesia/tingling ,reflexes L3-4,L4-5,L5-S 1/3 PALAPTION: tender LS/SI GAIT: reciprocal pattern midl forward posture LUMBAR ROM: flexion mod loss ,extension severe loss side glides mod loss MMT: quads/hams 4/5 ,hip flexion 4-/5 ,hip abduction 4-/5,ankle 5/5 FLEXABILITY: hamstrings min tight Special Tests L/S Slump test left side: Negative L/S Slump test right side: Negative L/S Left Straight Leg Raise: Negative L/S Right Straight Leg Raise: Negative Balance/Special Test Scores Oswestry Low Back Score: 25 Goals Goal 1:: Patient to be I with HEP for back Goal Time Frame: 4-6 Weeks Goal 2:: Patient to improve lumbar ROM for function of recovery for ADLS Goal Time Frame: 4-6 Weeks Goal 3:: Patient to demonstrate 50% improvement with ADLS with standing Goal Time Frame: 4-6 Weeks Goal 4:: Patient to be able to stand > 10-15 mins for ADL's such as washing dishes Goal Time Frame: 4-6 Weeks Rehabilitation Potential Physical Therapy Diagnosis: This patient has h/o osteoporosis with compression fx old L1 with pain with positioning and motion worse with standing affects housework and dishes thus benefIt from skilled PT Rehabilitation Potential: Good Anticipated Interventions Patient/Client Instruction: Educate patient on: Condition and Plan of Care For the Purpose of:: To decrease pain, To increase ROM, To improve muscle performance and motor function, To improve ability to perform ADL's, To increase tolerance to activity/condition/position, To improve ability of physical actions for home/community/work/leisure, To improve health of tissue, To decrease soft tissue restriction, To increase flexibility/ROM, To reduce risk of recurrence and To improve tolerance to ADL's Therapeutic Exercise to Include: Strength training, Endurance training, Balance training, Body mechanics, Postural training and Dynamic Lumbar Stabilization Comment: BLE For the Purpose of:: To decrease pain, To improve muscle performance and motor function, To improve ability to perform ADL's, To increase tolerance to activity/condition/position, To improve ability of physical actions for home/community/work/leisure, To improve health of tissue, To decrease soft tissue restriction and To increase flexibility/ROM TENS: Yes IF ES: Yes Cryotherapy (ice pack, ice massage): Yes Thermo therapy (hot pack): Yes Ultrasound (thermal/non thermal): Yes For the Purpose of:: To decrease pain, To increase ROM, To improve nutrient delivery to tissue, To increase oxygenation perfusion, To improve health of tissue and To decrease soft tissue restriction Text: Thank you for the opportunity to evaluate your patient. For Medicare and Medicare HMO plans, please review the plan of care and approve it. It will need to be FAXED BACK to us at [phone] for Medicare purposes. For Medicare only, by signing this I certify the plan of care. Please let me know if there are questions or concerns regarding this plan of care. Physician Signature: Date:
--- NOTE | 2023-12-02 15:25 | HP.PTDCSUM ---
Discharge Summary D/C summary: It has been my pleasure to treat SHAHEEN IVAN referred by Dr. Bert Osorio MD, with the diagnosis of SECONDARY KYPHOPSIS ,THORACOLUMBAR REGION,WEDGE COMPRESSION FRACTURE LUMBAR for a total of 10 visit(s). Discharge Date: 12/02/23 Please see the following information for a summary of their discharge status. Subjective Subjective: Patient sleeping good ,no pain at night Patient is able to walk 10mins Pain Mid back: Pain Intensity (Out of 10): 0 Overall Improvement % Improvement: 80 Objective Objective/Function: POSTURE: mild/mod thoracic kyphosis NEURO: denies paresthesia/tingling ,reflexes L3-4,L4-5,L5-S 1/3 PALAPTION: tender LS/SI GAIT: reciprocal pattern mild forward posture LUMBAR ROM: flexion MIN/MOD loss ,extension MOD loss side glides MIN/mod loss MMT: quads/hams 4/5 ,hip flexion 4-/5 ,hip abduction 4-/5,ankle 5/5 FLEXABILITY: hamstrings min tight Goals Goal 1:: Patient to be I with HEP for back Goal Progress: Goal Met Goal 2:: Patient to improve lumbar ROM for function of recovery for ADLS Goal Progress: Goal Met Goal 3:: Patient to demonstrate 50% improvement with ADLS with standing Goal Progress: Goal Met Goal 4:: Patient to be able to stand > 10-15 mins for ADL's such as washing dishes Goal Progress: Goal Met Plan Plan: D/C D/C Information Discharge Comments: HEP d/c sentence: If there are questions or concerns regarding this patient's physical therapy, please feel free to call me at [phone]. Thank you for the referral of this patient. Sincerely, Pedro Sharp, PT, Cert MDT, OCS Balance/Gait/Functional tests Balance/Special Test Scores Oswestry Low Back Score: 8 Improvement % Improvement: 80
== END 2023-12-02 19:00 | disposition home or self-care (01) ==
LOC: PT 15:00
PROVIDERS: PCP Family Medicine; Referring Provider Orthopaedic Surgery Orthopaedic Surgery of the Spine; Visit Provider Orthopaedic Surgery Orthopaedic Surgery of the Spine
DX: S32.010S Wedge compression fracture of first lumbar vertebra, sequela (principal); M40.15 Other secondary kyphosis, thoracolumbar region; M54.50 Low back pain, unspecified
CPT/HCPCS: 97110; 97162; 97530

== ENCOUNTER → 2024-11-17 | Outpatient (CLI) | payer MEDICARE, OTHER, SELFPAY ==
[2024-11-17 12:13] LABS: Hematocrit 35.3 % (37-47); Hemoglobin 11.6 g/dL (12.0-15.0); Mean Corp Hgb Conc 32.9 g/dL (32-36); Mean Corpuscular Volume 84.0 fL (81-99); Mean Platelet Vol. 10.6 fl (6.2-12.0); Platelet Count 262 K/mm3 (150-450); RBC Distribution Width CV 13.7 % (11.6-14.6); RBC Distribution Width SD 42.3 fl (35.1-43.9); Red Blood Count 4.20 M/mm3 (4.2-5.4); White Blood Count 9.5 K/mm3 (4.4-11.0)
[2024-11-17 12:50] LABS: Magnesium 1.5 mg/dL (1.5-2.2)
[2024-11-17 12:53] LABS: AST(SGOT) 17 U/L (<=31); Alanine Aminotransfer ALT/SGPT 12 U/L (<=34); Albumin, Serum 3.9 g/dL (3.4-4.8); Alkaline Phosphatase 50 U/L (35-104); Anion Gap 11 (5-15); BUN 29 mg/dL (4-19); BUN/Creat Ratio 20.1 RATIO (10-20); Calcium,Total 9.8 mg/dL (7.6-11.0); Carbon Dioxide 21.7 mmol/L (21.0-32.0); Chloride 109 mmol/L (98-108); Globulin 3.0 g/dL (2.2-4.2); Glucose 131 mg/dL (70-99); Potassium 4.9 mmol/L (3.3-5.1)
== END | disposition home or self-care (01) ==
LOC: LAB 11:41
PROVIDERS: PCP Family Medicine; Referring Provider Internal Medicine Cardiovascular Disease; Visit Provider Internal Medicine Cardiovascular Disease
DX: E11.9 Type 2 diabetes mellitus without complications (principal); I47.29 Other ventricular tachycardia; R00.0 Tachycardia, unspecified; I10 Essential (primary) hypertension
CPT/HCPCS: 36415; 80053; 83735; 84443; 85027

== ENCOUNTER → 2024-12-16 | Outpatient (CLI) | payer MEDICARE, OTHER, SELFPAY ==
--- NOTE | 2024-12-16 07:10 | ECHOD_ITS ---
Reason For Study Reason For Study: SOB Procedure This was a 2D Doppler, Color Flow transthoracic echocardiogram. Exam performed in department. Left Ventricle Normal LV size. Mid cavitary false tendon noted. Mild concentric left ventricular hypertrophy. The left ventricular ejection fraction is 65 %. Stage 1 diastolic dysfunction. Right Ventricle Normal right ventricle. Atria The left atrium is mildly enlarged. Normal right atrium. Mitral Valve Trivial mitral valve insufficiency. Tricuspid Valve Normal tricuspid valve. Aortic Valve Trisinus/trileaflet aortic valve. Pulmonic Valve The pulmonic valve is not well visualized. Great Vessels Normal sized aortic root. Pericardium/Pleural Very prominent pericardial fat pad versus small to moderate organized pericardial effusion. Recommend cardiac MRI or CT scan for further evaluation. MMode/2D Measurements & Calculations LVIDd: 4.2 cm IVSd: 0.99 cm Ao root diam: 2.6 cm LVIDs: 2.1 cm LVPWd: 1.3 cm LA dimension: 4.3 cm FS: 51.0 % LAV(MOD-bp): 34.8 ml LVAd ap4: 16.0 cm2 SV(MOD-sp4): 20.1 ml LAV(MOD-bp) Indexed: 19.0 ml/m2 LVLd ap4: 7.0 cm SI(MOD-sp4): 11.0 ml/m2 LAV(MOD-sp2): 29.6 ml EDV(MOD-sp4): 31.7 ml LAV(MOD-sp4): 34.7 ml EDV(sp4-el): 31.3 ml LVAs ap4: 9.0 cm2 LVLs ap4: 6.0 cm ESV(MOD-sp4): 11.6 ml ESV(sp4-el): 11.3 ml EF(MOD-sp4): 63.4 % EF(sp4-el): 63.9 % SV(sp4-el): 20.0 ml LA A4 area: 14.6 cm2 LA dimension(2D): 4.1 cm RA A4 area: 10.1 cm2 Time Measurements MV dec time: 0.25 sec Doppler Measurements & Calculations MV E max claudy: 77.5 cm/sec Lat Peak E' Claudy: 5.4 cm/sec Med Peak E' Claudy: 4.5 cm/sec MV A max claudy: 119.9 cm/sec E/E' lat: 14.3 E/E' med: 17.1 MV E/A: 0.65 MV V2 max: 124.0 cm/sec Ao V2 max: 143.0 cm/sec MV max P.2 mmHg MV dec slope: 308.2 cm/sec2 Ao max P.2 mmHg MV V2 mean: 63.4 cm/sec Ao V2 mean: 92.6 cm/sec MV mean P.9 mmHg Ao mean P.0 mmHg MV V2 VTI: 33.7 cm Ao V2 VTI: 32.3 cm AV (velocity ratio): 0.95 LV V1 max: 117.5 cm/sec PA V2 max: 110.2 cm/sec LV V1 max P.5 mmHg PA V2 mean: 67.6 cm/sec LV V1 mean P.0 mmHg LV V1 mean: 82.2 cm/sec LV V1 VTI: 30.7 cm ECHO/Echo Complete Interpretation Summary Mild concentric left ventricular hypertrophy. The left ventricular ejection fraction is 65 %. Stage 1 diastolic dysfunction. The left atrium is mildly enlarged. Very prominent pericardial fat pad versus small to moderate organized pericardi al effusion. Recommend cardiac MRI or CT scan for further evaluation. Ordering Physician: Jameel Nash Referring Physician: Jameel Nash Performed By: Jenni Castro RCS
--- OUTSIDE RECORDS SUMMARY | 2024-12-16 07:33 | XMS RPT_ITS | CCD ---
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 Pancho Lopez MD Primary Care Physician [phone] Dr. Pancho Lopez MD Referring Provider Saad CARCAMO, Dr. Jorgensen Attending Physician [phone] ZELDA LACY Referring Unavailable PANCHO LOPEZ Primary Care Unavailable SHERRY KOENIG Attending Unavailable ZELDA LACY Attending Unavailable PANCHO LOPEZ Referring Unavailable PANCHO LOPEZ Primary Care Unavailable PANCHO LOPEZ Attending Unavailable PANCHO LOPEZ Primary Care Unavailable PANCHO LOPEZ Referring Unavailable PANCHO LOPEZ A Primary Care Unavailable PANCHO LOPEZ Attending Unavailable PANCHO LOPEZ Primary Care Unavailable PANCHO LOPEZ Primary Care Unavailable OSMIN HUTTON Referring Unavailable PANCHO LOPEZ Primary Care Unavailable KLARISSA RAMRIEZ Referring Unavailable PANCHO LOPEZ Primary Care Unavailable ZELDA LACY Referring Unavailable PANCHO LOPEZ Primary Care Unavailable KLARISSA RMAIREZ Attending Unavailable PANCHO LOPEZ Referring Unavailable PANCHO LOPEZ Primary Care Unavailable Pancho Lopez Primary Care Unavailable Pancho Lopez Attending Unavailable Pancho Lopez Referring Unavailable Pancho Lopez Primary Care Unavailable Jameel Nash Attending Unavailable Saad, Jameel Referring Unavailable Saad, Jameel Referring Unavailable Pancho Lopez Primary Care Unavailable SaadJameel montano Attending Unavailable Pancho Lopez Primary Care Unavailable Pancho Lopez Referring Unavailable Jameel Nash Attending Unavailable Allergies Allergy Classification Reported Allergen(s) Allergy Type Date of Onset Reaction(s) Facility clam allergenic extract (1 source) clam allergenic extract Drug Allergy 06-18-19 [place] silk preparation (1 source) [place] silk preparation Drug Allergy 09-30-19 09 Unknown [facility] egg extract (1 source) egg extract Drug Allergy 03-27-19 24 Other: See Comments [facility] Lactase (1 source) Lactase Drug Allergy 12-28-19 05 Unknown [facility] Pollen (1 source) Grass pollen Substance Allergy 09-09-19 12 Itching [facility] pork allergenic extract (1 source) pork allergenic extract Drug Allergy 09-30-19 09 Unknown [facility] Quinolones (antibiotic) (1 source) Ciprofloxacin Drug Allergy 12-28-19 05 [place] Sulfonamides (antibiotic) (1 source) Sulfamethoxazole Drug Allergy 03-27-19 11 [place] Work Phone: (1 source) Ciprofloxacin Drug Allergy Other [facility] (1 source) Sulfamethoxazole / Trimethoprim Drug Allergy Other [facility] (20 sources) Ciprofloxacin; Translations: [CIPROFLOXACIN] Drug Allergy 12-28-19 05 [place] Work Phone: [phone] (20 sources) Sulfamethoxazole; Translations: [SULFAMETHOXAZOLE] Drug Allergy 03-27-19 11 [place] Work Phone: (2 sources) Trimethoprim Drug Allergy 01-02-20 [facility] (20 sources) clam allergenic extract; Translations: [CLAMS] Drug Allergy 06-18-19 [place] Work Phone: (20 sources) [place] silk preparation; Translations: [CORN] Drug Allergy 09-30-19 09 Unknown [facility] Work Phone: (20 sources) Grass pollen; Translations: [GRASS POLLEN] Drug Allergy 09-09-19 12 Itching [facility] Work Phone: (20 sources) Lactase; Translations: [LACTASE] Drug Allergy 12-28-19 05 Unknown [facility] Work Phone: (20 sources) pork allergenic extract; Translations: [PORK] Drug Allergy 09-30-19 09 Unknown [facility] Work Phone: (20 sources) Seasonal allergy; Translations: [SEASONAL ALLERGIES] Allergy to substance 07-31-19 13 Other: See Comments [facility] Work Phone: (20 sources) egg extract; Translations: [EGG] Drug Allergy 03-27-19 24 Other: See Comments [facility] Work Phone: (3 sources) HMG-CoA reductase inhibitor; Translations: [ERFVENJ-GMK-IBK REDUCTASE INHIBITORS] Drug Intolerance 10-20-19 25 Intolerance [facility] (1 source) corn allergenic extract Drug Allergy 11-18-19 Other [facility] (2 sources) Environmental Allergies: Uncoded; Translations: [Environmental Allergies: Uncoded] Allergy to substance 11-18-19 other [facility] (1 source) Ickughx-Yrw-Gqn Reductase Inhibitor Propensity to adverse reactions 11-18-19 25 myalgia [facility] (1 source) Ciprofloxacin Drug Allergy 11-18-19 [facility] (1 source) corn extract Drug Allergy 11-18-19 [facility] (1 source) egg extract Drug Allergy 11-18-19 [facility] (1 source) Sulfamethoxazole Drug Allergy 11-18-19 [facility] (1 source) Trimethoprim Drug Allergy 11-18-19 [facility] (1 source) Xutkbem-Fkr-Pzv Reductase Inhibitor Drug allergy (disorder) 11-18-19 [facility] Rep[facility] Medications Current Medications Medication Drug Class(es) Dates Sig (Normalized) Sig (Original) acetaminophen 325 mg / oxyCODONE hydrochloride 5 mg oral tablet (1 source) Opioid Agonist Start: 04-12-2021 take 1 tablet by mouth three times daily as needed for pain oxycodone-acetamin ophen 5 mg-325 mg oral tablet ; 1 tab(s) orally 3 times a day, As Needed for pain Quantity: 8 Refills: 0 Ordered: 12-Apr-2021 Jaqueline Alfaro I Start: 12-Apr-2021 Generic Substitution Allowed Comments: Caution federal law prohibits the transfer of this drug to any person other than the person for whom it was prescribed.May cause drowsiness. Alcohol may intensify this effect. Use care when operating dangerous machinery.This prescription cannot be refilled.This product contains acetaminophen. Do not use with any other product containing acetaminophen to prevent possible liver damage.Using more of this medication than prescribed may cause serious breathing problems. Comment on above: Caution [place] law prohibits the transfer of this drug to any person other than the person for whom it was prescribed.May cause drowsiness. Alcohol may intensify this effect. Use care when operating dangerous machinery.This prescription cannot be refilled.This product contains acetaminophen. Do not use with any other product containing acetaminophen to prevent possible liver damage.Using more of this medication than prescribed may cause serious breathing problems. aspirin 81 mg delayed release oral tablet (20 sources) Platelet Aggregation Inhibitor, Nonsteroidal Anti-inflammatory Drug Start: 12-23-2018 take 81 mg by mouth at bedtime Aspirin Active 81 MG PO AT BEDTIME December 23, 2018 4:25pm Start: 07-08-2010 take 1 tablet by arnoldo th once daily Aspirin 81 mg ORAL Tab Take 81 mg by mouth once daily. 07/08/2010 Active Comment on above: Take 81 mg by mouth once daily. Blood-Glucose Meter misc (20 sources) Start: 06-16-2017 Blood-Glucose Meter misc Check blood sugars once a day. Dx: E11.9 no insulin 1 Each 06/16/2017 Active Start: 06-16-2017 Blood-Glucose Meter misc Check blood sugars once a day. Dx: E11.9 no insulin 1 Each 0 06/16/2017 Active Comment on above: Check blood sugars o nce a day. Dx: E11.9 no insulin calcium carbonate 750 mg chewable tablet (20 sources) Start: 11-02-2024 End: 11-17-2024 Calcium Carbonate (Tums Extra Strength Smoothies) 300 mg (750 mg) tablet,chewable Active 600 mg PO daily as needed November 17, 2024 10:51am Complies with drug therapy take 2 capsules by mouth once da nat CALCIUM CARBONATE (TUMS E-X ORAL) Take 2 capsules by mouth once daily. Active take 2 capsules by mouth once da nat CALCIUM CARBONATE (TUMS E-X ORAL) Take 2 capsules by mouth once daily. 0 Active Comment on above: Take 2 capsules by m outh once daily. calcium carbonate 800 mg / famotidine 10 mg / magnesium hydroxide 165 mg chewable tablet (2 sources) Histamine-2 Receptor Antagonist Start: 12-23-2018 Famotidine-Ca Carb-Mag Hydrox Active 1 EACH PO NEEDED December 23, 2018 4:25pm Start: 12-23-2018 End: 11-02-2024 Famotidine-Ca Carb-Mag [place] x 1 EACH tablet,chewable Discontinued 1 NMA PO NEEDED as needed for Indigestion December 23, 2018 1:00am November 02, 2024 4:10pm cephalexin 500 mg oral capsule (2 sources) Cephalosporin Antibacterial Start: 01-04-2019 End: 08-17-2023 take 500 mg by mouth three times daily at mealtime Cephalexin Active 500 MG PO 3 TIMES DAILY WITH MEALS January 04, 2019 10:19am cholecalciferol 0.025 mg oral capsule (20 sources) Vitamin D Start: 11-02-2024 take 1 capsule by mouth once daily Cholecalciferol (Vitamin D3) 25 mcg (1,000 unit) capsule Active 25 ug PO daily November 02, 2024 12:00am Complies with drug therapy Start: 12-23-2018 End: 11-02-2024 take 2000 [IU] by mouth once daily Cholecalciferol (Vitamin D3) Active 2000 UNIT PO DAILY December 23, 2018 4:25pm take 1 capsule by mo ut once daily Cholecalciferol, Vitamin D3, 25 mcg (1,000 unit) cap Take 1,000 Units by mouth once daily. Active Comment on above: Take 1,000 Units by mouth once daily. gabapentin 100 mg oral capsule (6 sources) Anti-epileptic Agent Start: End: take 1 capsule by mouth three times daily gabapentin (NEURONTIN) 100 mg capsule Take 1 capsule by mouth three times a day for 90 days. 90 capsule 2 08/31/2024 11/29/2024 Active glimepiride 1 mg oral tablet (20 sources) Sulfonylurea Start: End: take 1 tablet by mouth once daily Glimepiride 1 mg tablet Active 1 mg PO DAILY August 17, 2023 12:00am Complies with drug therapy Start: 07-08-2021 End: 08-23-2021 take 1 tablet by mouth once daily at breakfast glimepiride (AMARYL) 1 mg tablet Take 1 tablet by mouth daily with breakfast. 90 tablet 1 07/16/2021 08/23/2021 Discontinued (Clinical Decision) Start: 11-21-2020 End: 07-06-2021 take 1 tablet by mouth once daily at breakfast glimepiride (AMARYL) 1 mg tablet Take 1 tablet by mouth daily with breakfast. 90 tablet 1 11/21/2020 07/06/2021 Discontinued Comment on above: Take 1 tablet by arnoldo th daily with breakfast. lisinopril 5 mg oral tablet (20 sources) Angiotensin Converting Enzyme Inhibitor Start: 11-02-2024 take 1 tablet by mouth once daily Lisinopril 5 mg tablet Active 5 mg PO daily November 02, 2024 12:00am Complies with drug therapy Start: 05-02-2024 End: 08-31-2024 take 1 tablet by mouth once daily lisinopril (ZESTRIL) 5 mg tablet Take 1 tablet by mouth once daily. 90 tablet 1 08/31/2024 Active Start: 04-15-2024 End: 05-02-2024 take 0.5 tablet by mouth once daily lisinopril (ZESTRIL) 10 mg tablet Take 0.5 tablets by mouth once daily. 90 tablet 1 04/15/2024 05/02/2024 Discontinued Start: 03-04-2023 End: 04-15-2024 take 1 tablet by mouth once daily lisinopril (ZESTRIL) 10 mg tablet Take 1 tablet by mouth once daily. 90 tablet 1 02/22/2024 04/15/2024 Discontinued (Adjust Sig - Block E-Cancel) Start: 07-10-2022 lisinopril (ZE STRIL) 10 mg tablet TAKE 1 TABLET ONCE DAILY 90 tablet 1 07/10/2022 Active Start: 02-11-2022 take 1 tablet by arnoldo th once daily lisinopril (ZESTRIL, PRINIVIL) 10 mg tablet Take 1 tablet by mouth once daily. 90 tablet 1 02/11/2022 Active Start: 12-23-2018 End: 11-02-2024 take 1 tablet by mouth once daily lisinopril (ZESTRIL, PRINIVIL) 10 mg tablet Take 1 tablet by mouth once daily. 90 tablet 1 02/12/2021 08/02/2021 Discontinued Comment on above: Take 1 tablet by arnoldo th once daily. TAKE 1 TABLET ONCE D AILY metFORMIN hydrochloride 500 mg oral tablet (20 sources) Biguanide Start: 09-02-2022 End: 08-31-2024 take 1 tablet by mouth once daily Metformin 500 mg tablet Active 500 mg PO DAILY August 17, 2023 12:00am Complies with drug therapy Start: 03-05-2022 End: 09-02-2022 take 1 tablet by mouth once daily at breakfast metFORMIN (GLUCOPHAGE) 1,000 mg tablet Take 1 tablet by mouth daily with breakfast. 90 tablet 1 06/16/2022 09/02/2022 Discontinued Start: 08-23-2021 take 1 tablet by arnoldo th once daily at breakfast metFORMIN (GLUCOPHAGE) 500 mg tablet Take 1 tablet by mouth daily with breakfast. 0 08/23/2021 Active Start: 12-23-2018 End: 08-17-2023 take 1 tablet by mouth once daily at dinner metFORMIN (GLUCOPHAGE) 1,000 mg tablet Take 1 tablet by mouth daily with dinner. 90 tablet 1 02/22/2021 08/02/2021 Discontinued Comment on above: Take 1 tablet by arnoldo th daily with dinner. Take 1 tablet by arnoldo th daily with breakfast. metFORMIN hydrochloride 1000 mg / SITagliptin 50 mg oral tablet (2 sources) Biguanide, Dipeptidyl Peptidase 4 Inhibitor Start: 12-23-2018 Sitagliptin-Metformin Active 1 EACH PO DAILY December 23, 2018 4:25pm Start: 12-23-2018 End: 08-17-2023 Sitagliptin Phos-Metformin 1 EACH tablet Discontinued 1 NMA PO DAILY December 23, 2018 1:00am August 17, 2023 9:59am BG 24 hr metoprolol succinate 50 mg extended release oral tablet (2 sources) beta-Adrenergic Lizbet Start: 11-02-2024 take 1 tablet by mouth once daily Metoprolol Succinate 50 mg tablet extended release 24 hr Active 50 mg PO daily November 02, 2024 12:00am Complies with drug therapy Start: 10-19-2024 take 1 tablet by arnoldo once daily metoprolol succinate ER (TOPROL XL) 50 mg 24 hr tablet Take 1 tablet by mouth once daily. 90 tablet 10/19/2024 Active Multivit With Min-Folic Acid (One-A-Day Women's 50 Plus) 0.4 mg tablet (1 source) Start: 11-02-2024 Multivit With Min-Folic Acid (One-A-Day Women's 50 Plus) 0.4 mg tablet Active {tbl} PO November 02, 2024 12:00am Complies with drug therapy multivitamin with minerals (ONE-A-DAY 50 PLUS ORAL) (20 sources) multivitamin wit h minerals (ONE-A-DAY 50 PLUS ORAL) Take by mouth. Active multivitamin wit h minerals (ONE-A-DAY 50 PLUS ORAL) Take by mouth. 0 Active Comment on above: Take by mouth. ondansetron 4 mg disintegrating oral tablet (1 source) Serotonin-3 Receptor Antagonist Start: 04-13-19 22 take 1 tablet by mouth four times daily as needed for nausea and vomiting ondansetron 4 mg oral tablet, disintegrating ; 1 tab(s) orally 4 times a day, As Needed -for nausea and vomiting Quantity: 10 Refills: 0 Ordered: 12-Apr-2021 Jaqueline Alfaro I Start: 12-Apr-2021 Generic Substitution Allowed Completed/Discontinued Medications Medication Drug Class(es) Dates Sig (Normalized) Sig (Original) acetaminophen 325 mg / HYDROcodone bitartrate 5 mg oral tablet (4 sources) Opioid Agonist Start: 12-24-2018 End: 12-31-2018 Hydrocodone-Acetami nophen 1 EACH tablet Discontinued 1 NMA PO EVERY 4 HOURS NEEDED as needed for Pain Score 1-10/10 14 5 0 December 24, 2018 December 28, 2018 1:00am December 31, 2018 1:08am Personal history of urinary calculi Start: 12-24-2018 End: 12-31-2018 Hydrocodone-Acetaminophen Di scontinued 1 EACH PO EVERY 4 HOURS NEEDED 14 5 December 24, 2018 8:23am December 31, 2018 1:08am Start: 09-16-2018 End: 09-18-2018 take 1 tablet by mouth every four hours as needed Hydrocodone-Acetaminophen Discontinued 1 TABLET PO EVERY 4 HOURS NEEDED 10 2 September 16, 2018 2:28pm September 18, 2018 12:09am Start: 09-16-2018 End: 09-18-2018 Hydrocodone-Acetaminophen 1 TABLET tablet Discontinued 1 {tbl} PO EVERY 4 HOURS NEEDED as needed for Pain 10 2 0 September 16, 2018 September 17, 2018 12:00am September 18, 2018 12:09am Pain, unspecified alendronic acid 70 mg oral tablet (20 sources) Bisphosphonate Start: 07-10-2022 End: 04-15-2024 take 1 tablet by mouth every week alendronate (FOSAMAX) 70 mg tablet Take 1 tablet by mouth one time a week. Take with a full glass of water, on an empty stomach; do NOT lie down for 30minutes. 12 tablet 3 07/10/2022 04/15/2024 Discontinued (Clinical Decision) Start: 12-23-2018 End: 08-17-2023 take 1 tablet by mouth every week alendronate (FOSAMAX) 70 mg tablet Take 1 tablet by mouth one time a week. Take with a full glass of water, on an empty stomach; do NOT lie down for 30minutes. 12 tablet 3 09/04/2020 08/08/2021 Discontinued Comment on above: Take 1 tablet by arnoldo one time a week. Take with a full glass of water, on an empty stomach; do NOT lie down for 30minutes. amoxicillin 875 mg oral tablet (15 sources) Penicillin-class Antibacterial Start: 02-19-19 End: 08-24-19 take 1 tablet by mouth twice daily at mealtime amoxicillin (AMOXIL) 875 mg tablet Take 875 mg by mouth twice daily with meals. 02/19/2021 08/23/2021 Discontinued (Course of therapy completed) Comment on above: Take 875 mg by mouth twice daily with meals. diclofenac sodium 0.01 mg/mg topical gel (17 sources) Nonsteroidal Anti-inflammatory Drug Start: 06-21-19 diclofenac (VOLTAREN ARTHRITIS PAIN) 1 % topical gel Indications: Acute pain of left wrist Apply 2 g to affected area four times daily. 20 g 1 06/20/2021 Active Comment on above: Apply 2 g to affecte d area four times daily. [id number] M-Vit C-Mn 500-400-166.6 mg tab (20 sources) End: 04-15-19 Wbwysytpvnm-[id number] M-Vit C-Mn 500-400-166.6 mg tab Take by mouth. 04/15/2024 Discontinued (Discontinued by Patient) Glucosamine-Nabil d-MSM-Vit C-Mn 500-400-166.6 mg tab Take by mouth. Active Glucosamine-Nabil d-MSM-Vit C-Mn 500-400-166.6 mg tab Take by mouth. 0 Active Comment on above: Take by mouth. loratadine 10 mg oral tablet (1 source) Start: 4 End: 5 take 1 tablet by mouth once daily Loratadine 10 mg tablet Discontinued 10 mg PO DAILY October 09, 2023 12:00am November 02, 2024 4:10pm Spring - Fall season naproxen 500 mg oral tablet (2 sources) Nonsteroidal Anti-inflammatory Drug Start: 9 End: 9 take 500 mg by mouth twice daily as needed Naproxen Discontinued 500 MG PO TWICE DAILY NEEDED September 16, 2018 2:28pm December 23, 2018 4:30pm Problems Active Problems Problem Classification Problem Date Documented Date Episodic/Chronic Acquired foot deformities (20 sources) Acquired hallux valgus; Translations: [Hallux valgus (acquired), unspecified foot] Onset: 09-02-2011 12-05-2015 Chronic Calculus of urinary tract (20 sources) Kidney stone; Translations: [Calculus of kidney] Onset: 09-19-2018 09-19-2018 Episodic Cardiac dysrhythmias (8 sources) Supraventricular tachycardia; Translations: [SVT (supraventricular tachycardia) (HCC)] Onset: 10-19-2024 10-05-2024 Chronic Cardiac dysrhythmias (5 sources) Tachycardia; Translations: [Tachycardia, unspecified] Onset: 08-31-2024 08-31-2024 Episodic Cataract (20 sources) Bilateral age-related cataract; Translations: [Unspecified age-related cataract] Onset: 04-13-2019 07-25-2019 Chronic Chronic kidney disease (20 sources) Chronic kidney disease stage 3; Translations: [Chronic kidney disease (CKD), stage III (moderate)] Onset: 06-17-2017 06-17-2017 Chronic Chronic kidney disease (1 source) Chronic kidney disease; Translations: [Stage 3b chronic kidney disease (HCC)] Onset: 03-05-2022 Conditions associated with dizziness or vertigo (1 source) Dizziness and giddiness; Translations: [Dizziness and giddiness] Onset: 11-17-2024 Episodic Diabetes mellitus with complications (18 sources) Diabetes mellitus; Translations: [Type 2 diabetes mellitus with diabetic chronic kidney disease] Onset: 07-19-2015 04-11-2019 Chronic Diabetes mellitus without complication (20 sources) Type 2 diabetes mellitus; Translations: [Type 2 diabetes mellitus without complications] Onset: 07-19-2015 Chronic Diabetes mellitus without complication (1 source) Diabetes mellitus without complication; Translations: [Type 2 diabetes mellitus with stage 3b chronic kidney disease, without long-term current use of insulin (HCC)] Onset: 03-27-2023 Disorders of lipid metabolism (20 sources) Mixed hyperlipidemia; Translations: [Mixed hyperlipidemia] Onset: 03-05-2015 03-05-2015 Chronic Diverticulosis and diverticulitis (20 sources) Diverticulum of large intestine without hemorrhage; Translations: [Diverticulosis of large intestine without perforation or abscess without bleeding] Onset: 03-05-2015 03-05-2015 Chronic E Codes: Fall (1 source) Fall; Translations: [Unspecified fall] 04-12-2021 Episodic E Codes: Fall (1 source) Fall 04-12-2021 Esophageal disorders (20 sources) Gastroesophageal reflux disease; Translations: [Gastro-esophageal reflux disease without esophagitis] Onset: 07-25-2019 07-25-2019 Chronic Essential hypertension (20 sources) Hypertensive disorder; Translations: [Essential (primary) hypertension] Onset: 07-19-2015 07-19-2015 Chronic Hemorrhoids (20 sources) External hemorrhoids; Translations: [Residual hemorrhoidal skin tags] 03-05-2015 Episodic Immunizations and screening for infectious disease (1 source) Vaccination needed; Translations: [Encounter for immunization] Episodic Malaise and fatigue (4 sources) Asthenia; Translations: [Weakness] Onset: 11-17-2024 Episodic Menopausal disorders (20 sources) Primary ovarian failure; Translations: [Other primary ovarian failure] Onset: 06-17-2018 06-17-2018 Chronic Osteoarthritis (20 sources) Arthritis of right hip; Translations: [Unilateral primary osteoarthritis, right hip] Onset: 12-06-2015 12-06-2015 Chronic Osteoporosis (20 sources) Osteoporosis; Translations: [Age-related osteoporosis without current pathological fracture] Onset: 09-24-2007 07-25-2019 Chronic Other acquired deformities (1 source) Kyphosis of thoracolumbar spine; Translations: [Unspecified kyphosis, thoracolumbar region] 10-11-2023 Chronic Other connective tissue disease (1 source) Proximal muscle weakness; Translations: [Muscle weakness (generalized)] 04-15-2024 Episodic Other fractures (1 source) Fracture of lumbar spine; Translations: [Closed fracture of lumbar vertebra without mention of spinal cord injury] 04-12-2021 Episodic Other fractures (1 source) Compression fracture of lumbar spine; Translations: [Wedge compression fracture of unspecified lumbar vertebra, initial encounter for closed fracture] 10-11-2023 Episodic Other hereditary and degenerative nervous system conditions (2 sources) Orthostatic tremor; Translations: [Other specified forms of tremor] 08-31-2024 Chronic Other hereditary and degenerative nervous system conditions (1 source) Other specified forms of tremor; Translations: [Orthostatic tremor] Onset: 08-31-2024 Chronic Other nervous system disorders (1 source) Abnormal gait due to impairment of balance; Translations: [Other abnormalities of gait and mobility] 11-01-2024 Episodic Other nervous system disorders (1 source) H/O: ear disorder; Translations: [Personal history of other diseases of the nervous system and sense organs] 08-17-2023 Episodic Other nervous system disorders (1 source) Abnormal gait; Translations: [Unspecified abnormalities of gait and mobility] 08-17-2023 Episodic Other nervous system disorders (1 source) Other abnormalities of gait and mobility; Translations: [Abnormality of gait due to impairment of balance] Onset: 10-03-2024 Episodic Other non-traumatic joint disorders (1 source) Pain in wrist; Translations: [Pain in left wrist] Episodic Other nutritional; endocrine; and metabolic disorders (20 sources) Obese class I; Translations: [Obesity, unspecified] Onset: 07-25-2019 07-25-2019 Chronic Other nutritional; endocrine; and metabolic disorders (1 source) Hypercalcemia; Translations: [Hypercalcemia] Chronic Other screening for suspected conditions (not mental disorders or infectious disease) (1 source) MRI scan abnormal; Translations: [Abnormal findings on diagnostic imaging of other specified body structures] 10-01-2023 Chronic Residual codes; unclassified (1 source) Patient's condition stable 12-22-2018 Episodic Screening and history of mental health and substance abuse codes (6 sources) Patient encounter status; Translations: [Encounter for screening for depression] Onset: 10-19-2024 09-25-2023 Episodic Septicemia (except in labor) (2 sources) Sepsis; Translations: [Sepsis, unspecified organism] 01-01-2019 Episodic Spondylosis; intervertebral disc disorders; other back problems (20 sources) Sciatica; Translations: [Sciatica, unspecified side] Onset: 06-02-2008 12-05-2015 Episodic Unclassified (1 source) Parkinsonism; Translations: [Parkinsonism, unspecified Parkinsonism type (HCC)] 11-01-2024 Chronic Unclassified (2 sources) FELL ON ICE 04-12-2021 Comment on above: FELL ON ICE Unclassified (1 source) Lumbar vertebral fracture 04-12-2021 Unclassified (1 source) Symptomatic orthostatic increase in heart rate 05-05-2024 Unclassified (2 sources) Other ventricular tachycardia; Translations: [Other ventricular tachycardia] Onset: 11-17-2024 Urinary tract infections (2 sources) Pyelonephritis; Translations: [Tubulo-interstitial nephritis, not specified as acute or chronic] 01-01-2019 Episodic Past or Other Problems Problem Classification Problem Date Documented Date Episodic/Chronic Administrative/social admission (20 sources) Advance directive discussed with patient; Translations: [Other specified counseling] Onset: 03-05-2022 03-05-2022 Episodic Deficiency and other anemia (20 sources) Iron deficiency anemia; Translations: [Iron deficiency anemia, unspecified] Onset: 04-15-2010 12-16-2016 Episodic Deficiency and other anemia (1 source) Iron deficiency anemia, unspecified; Translations: [Iron deficiency anemia, unspecified iron deficiency anemia type] Onset: 12-16-2016 Episodic Heart valve disorders (20 sources) Other abnormalities of heart beat; Translations: [Other abnormal clinical findings] Onset: 04-15-2024 04-15-2024 Episodic Other connective tissue disease (20 sources) Calcaneal spur of left foot; Translations: [Calcaneal spur, left foot] Onset: 01-09-2016 04-04-2016 Episodic Other connective tissue disease (20 sources) Left achilles tendonitis; Translations: [Achilles tendinitis, left leg] Onset: 01-09-2016 04-04-2016 Episodic Other connective tissue disease (1 source) Muscle weakness (generalized); Translations: [Proximal limb muscle weakness] Onset: 04-15-2024 Episodic Other ear and sense organ disorders (20 sources) Cholesteatoma of right tympanic membrane; Translations: [Cholesteatoma of tympanum, right ear] Onset: 03-22-2015 02-11-2021 Episodic Other fractures (20 sources) Closed fracture of first lumbar vertebra; Translations: [Unspecified fracture of first lumbar vertebra, initial encounter for closed fracture] Onset: 04-19-2021 Resolved: 03-05-2022 04-19-2021 Episodic Other nervous system disorders (20 sources) Tremor; Translations: [Tremor, unspecified] Onset: 07-08-2021 Episodic Other nervous system disorders (20 sources) Impairment of balance; Translations: [Other abnormalities of gait and mobility] Onset: 07-08-2021 Episodic Other non-traumatic joint disorders (20 sources) Chronic pain of right upper limb; Translations: [Pain in right shoulder] Onset: 12-05-2015 04-04-2016 Episodic Other non-traumatic joint disorders (20 sources) Shoulder joint pain; Translations: [Pain in unspecified shoulder] Onset: 01-08-2005 Resolved: 04-11-2019 04-11-2019 Episodic Other non-traumatic joint disorders (8 sources) Pain in right hip joint; Translations: [Pain in right hip] Onset: 12-05-2015 Resolved: 04-11-2019 04-11-2019 Episodic Other non-traumatic joint disorders (20 sources) Hip pain; Translations: [Pain in right hip] Onset: 12-05-2015 Resolved: 04-11-2019 04-11-2019 Episodic Other nutritional; endocrine; and metabolic disorders (20 sources) Obesity caused by energy imbalance; Translations: [Other obesity due to excess calories] Onset: 06-17-2017 Resolved: 04-11-2019 04-11-2019 Chronic Other screening for suspected conditions (not mental disorders or infectious disease) (20 sources) Mammography abnormal; Translations: [Other abnormal and inconclusive findings on diagnostic imaging of breast] Onset: 11-10-2006 Resolved: 04-11-2019 10-01-2009 Episodic Other skin disorders (20 sources) Actinic keratosis; Translations: [Actinic keratosis] Onset: 08-23-2020 08-23-2020 Episodic Otitis media and related conditions (20 sources) Non-suppurative otitis media; Translations: [Unspecified nonsuppurative otitis media, unspecified ear] Onset: 05-25-2007 Resolved: 10-01-2009 10-01-2009 Episodic Residual codes; unclassified (20 sources) Active living will ; Translations: [Other specified health status] Onset: 03-27-2023 03-27-2023 Episodic Unclassified (1 source) Patient's condition stable; Translations: [Patient in stable condition at discharge] Results Test Name Value Interpretation Reference Range Facility CBC-Complete Blood Cnt No Di ffon 11-17-2024 Erythrocyte distribution width (RBC) [Ratio] 13.7 % Normal 11.6-14.6 [facility] Comment on above: Performed By: #### L 500.4050, L501.5200, L501.9520, L100.0500 #### [facility] [address] [place], [address] Hematocrit (Bld) [Volume fraction] 35.3 % Low 37-47 [facility] Comment on above: Performed By: #### L 500.4050, L501.5200, L501.9520, L100.0500 #### [facility] [address] [place], [address] Hemoglobin (Bld) [Mass/Vol] 11.6 g/dL Low 12.0-15.0 [facility] Comment on above: Performed By: #### L 500.4050, L501.5200, L501.9520, L100.0500 #### [facility] [address] [place], [address] MCH (RBC) [Entitic mass] 27.6 pg Normal 27.0-32.0 [facility] Comment on above: Performed By: #### L 500.4050, L501.5200, L501.9520, L100.0500 #### [facility] [address] [place], [address] MCHC (RBC) [Mass/Vol] 32.9 g/dL Normal 32-36 [facility] Comment on above: Performed By: #### L 500.4050, L501.5200, L501.9520, L100.0500 #### [facility] [address] [place], [address] MCV (RBC) [Entitic vol] 84.0 fL Normal 81-99 [facility] Comment on above: Performed By: #### L 500.4050, L501.5200, L501.9520, L100.0500 #### [facility] [address] [place], [address] Platelet mean volume (Bld) [Entitic vol] 10.6 fL Normal 6.2-12.0 [facility] Comment on above: Performed By: #### L 500.4050, L501.5200, L501.9520, L100.0500 #### [facility] [address] [place], [address] Platelets (Bld) [#/Vol] 262 10*3/uL Normal 150-450 [facility] Comment on above: Performed By: #### L 500.4050, L501.5200, L501.9520, L100.0500 #### [facility] [address] [place], [address] RBC (Bld) [#/Vol] 4.20 10*6/uL Normal 4.2-5.4 [facility] Comment on above: Performed By: #### L 500.4050, L501.5200, L501.9520, L100.0500 #### [facility] [address] [place], [address] RDW SD 42.3 fl Normal 35.1-43.9 [facility] Comment on above: Performed By: #### L 500.4050, L501.5200, L501.9520, L100.0500 #### [facility] [address] [place], [address] WBC (Bld) [#/Vol] 9.5 10*3/uL Normal 4.4-11.0 [facility] Comment on above: Performed By: #### L 500.4050, L501.5200, L501.9520, L100.0500 #### [facility] [address] [place], [address] Cardiology Visit Reporton Cardiology Visit Report [facility] [address] [place] [address] OFFICE VISIT Date of Service: 11/17/24 MR#: [id number] Acct: [id number] Name: SHAHEEN JEAN Rep #: [id number] : 1945 Provider: Dr. Jameel Nash MD Age/Sex: 79/F Location: [facility] Status: Signed HPI HPI History of Present Illness Details: This pleasant 79-year-old female has been referred to us for a run of NSVT noted on event monitoring. The event monitoring itself was done for patient's complaint of palpitations with standing up. According to the patient, whenever she stands up, she has difficulty maintaining her balance. She feels her heart beat fast. Denies any lightheadedness or dizziness. She is just unsteady on her feet. No vertigo. Denies any history of heart disease in the past. Denies any chest pains or shortness of breath at rest or with activity. No orthopnea. No PND. No ankle edema. Denies any heat or cold intolerance. No history of excessive caffeine intake. 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) Forensic Manager Required: No Accompanied by: Self Is patient in pain?: No Allergies ciprofloxacin (From Cipro) Allergy (Intermediate, Verified 11/17/24 10:49) Rash sulfamethoxazole (From Bactrim) Allergy (Intermediate, Verified 11/17/24 10:49) Rash trimethoprim (From Bactrim) Allergy (Intermediate, Verified 11/17/24 10:49) Rash corn Allergy (Verified 11/17/24 10:49) Other egg (eggs) Allergy (Verified 11/17/24 10:49) other Environmental Allergies: Uncoded (seasonal) Allergy (Verified 11/17/24 10:49) other Glajcej-ZKI-FdY Reductase Inhibitor Adverse Reaction (Verified 11/17/24 10:49) myalgia Medications ???Medication ???Instructions ???Recorded ???Confirmed ???Type aspirin 81 mg tablet,delayed 81 mg PO QHS SUPPLEMENT 12/23/18 1 History release glimepiride 1 mg tablet 1 mg PO DAILY 08/17/23 11/17/24 Hi story metformin 500 mg tablet 500 mg PO DAILY 08/17/23 11/17/24 History cholecalciferol (vitamin D3) 25 25 mcg PO QDAY 11/02/24 11/17/24 H istory mcg (1,000 unit) capsule lisinopril 5 mg tablet 5 mg PO QDAY 11/02/24 11/17/24 His tory metoprolol succinate 50 mg 50 mg PO QDAY 11/02/24 11/17/24 Hi story tablet,extended release 24 hr multivitamin with minerals-folic tab PO 11/02/24 11/17/24 History acid 0.4 mg tablet (One-A-Day Women's 50 Plus) calcium carbonate (Tums Extra 600 mg PO QDAY PRN 11/17/24 History Strength Smoothies) Have you fallen in the past year?: [facility] H/O sigmoidoscopy Tachycardia Weakness with dizziness Osteoporosis Diabetes mellitus type 2, noninsulin dependent CKD (chronic kidney disease) Hyperlipidemia Surgical History History of esophagogastroduodenoscopy (EGD) H/O right breast biopsy H/O colonoscopy History of bunionectomy History of ear surgery History of renal stent Hx of section Family History Mother CVA (cerebral vascular accident) Father Diabetes Heart disease ischemic Sister Diabetes CVA (cerebral vascular accident) Brother Carotid arterial disease Heart disease pacemaker Seizures Social History household members: none Smoking Status: Never smoker alcohol intake: never ROS Const Const: Negative for fatigue or weakness Eyes Eyes: Negative for change in vision ENT ENT: Positive for balance problems (when trying to stand. trembles when attempting to stand); Negative for dizziness Cardio Chest Pain: No Palpitations: Yes (only when trying to stand up) feels like its: fast Edema: None Resp Respiratory: Negative for SOB with activity, SOB at rest or SOB orthopnea SOB lying down Additional Details: SOB only when trying to stand up GI GI: Negative nausea or heartburn Musc Musc: Positive for balance problems (when trying to stand. trembles when attempting to stand) Neuro Neuro: Negative for dizziness, lightheadedness, near syncope, syncope or weakness Endo Endo: Negative for fatigue Cardiology Exam Const Appearance: comfortable and no acute distress Nutritional Appearance: well nourished Neck Neck: no JVD Carotids: Negative bruit Chest Auscultation: Bilateral: Clear to Auscultation Cardio Rate: regular rate Rhythm: regular rhythm Heart sounds: S1 normal and S2 normal No orthostatic hypoten (more content not included)... Normal [facility] Comprehensive Metabolic Prof ilon 11-17-2024 Albumin [Mass/Vol] 3.9 g/dL Normal 3.4-4.8 [facility] Comment on above: Performed By: #### L 500.0260, L501.5200, L501.8620, L100.0500 #### [facility] [address] [place], [address] Albumin/Globulin [Mass ratio] 1.3 {ratio} Normal 0.9-2.4 [facility] Comment on above: Performed By: #### L 500.4050, L501.5200, L501.9520, L100.0500 #### [facility] [address] [place], [address] ALK PHOS 50 U/L Normal 35-104 [facility] Comment on above: Performed By: #### L 500.4050, L501.5200, L501.9520, L100.0500 #### [facility] [address] [place], [address] ALT [Catalytic activity/Vol] 12 U/L Normal <=34 [facility] Comment on above: Performed By: #### L 500.4050, L501.5200, L501.9520, L100.0500 #### [facility] [address] [place], [address] AST [Catalytic activity/Vol] 17 U/L Normal <=31 [facility] Comment on above: Result Comment: Hemo lysis present, Results??could be affected. ?? Performed By: #### L 500.4050, L501.5200, L501.9520, L100.0500 #### [facility] [address] [place], [address] Bilirubin [Mass/Vol] 0.21 mg/dL Normal 0.00-1.30 [facility] Comment on above: Performed By: #### L 500.4050, L501.5200, L501.9520, L100.0500 #### [facility] [address] [place], [address] BUN/CRE 20.1 RATIO High 10-20 [facility] Comment on above: Performed By: #### L 500.4050, L501.5200, L501.9520, L100.0500 #### [facility] [address] [place], [address] Calcium [Mass/Vol] 9.8 mg/dL Normal 7.6-11.0 [facility] Comment on above: Performed By: #### L 500.4050, L501.5200, L501.9520, L100.0500 #### [facility] [address] [place], [address] Chloride [Moles/Vol] 109 mmol/L High 98-108 [facility] Comment on above: Performed By: #### L 500.4050, L501.5200, L501.9520, L100.0500 #### [facility] [address] [place], [address] CO2 [Moles/Vol] 21.7 mmol/L Normal 21.0-32.0 [facility] Comment on above: Performed By: #### L 500.4050, L501.5200, L501.9520, L100.0500 #### [facility] [address] [place], [address] Creatinine [Mass/Vol] 1.44 mg/dL High 0.70-1.20 [facility] Comment on above: Performed By: #### L 500.4050, L501.5200, L501.9520, L100.0500 #### [facility] [address] [place], [address] GAP 11 Normal 5-15 [facility] Comment on above: Performed By: #### L 500.4050, L501.5200, L501.9520, L100.0500 #### [facility] [address] [place], [address] GFR/1.73 sq M.predicted among non-blacks MDRD (S/P/Bld) [Vol rate/Area] 37 mL/min/{1.73_m2} Low >60 [facility] Comment on above: Result Comment: mL/m in/1.73m2 CKD-EPI Creatinine Equation (2020) Performed By: #### L 500.4050, L501.5200, L501.9520, L100.0500 #### [facility] [address] [place], [address] Globulin (S) [Mass/Vol] 3.0 g/dL Normal 2.2-4.2 [facility] Comment on above: Performed By: #### L 500.4050, L501.5200, L501.9520, L100.0500 #### [facility] [address] [place], [address] Glucose [Mass/Vol] 131 mg/dL High 70-99 [facility] Comment on above: Performed By: #### L 500.4050, L501.5200, L501.9520, L100.0500 #### [facility] [address] [place], [address] Potassium [Moles/Vol] 4.9 mmol/L Normal 3.3-5.1 [facility] Comment on above: Result Comment: Hemo lysis present, Results??could be affected. ?? Performed By: #### L 500.4050, L501.5200, L501.9520, L100.0500 #### [facility] [address] [place], [address] Sodium [Moles/Vol] 141 mmol/L Normal 133-145 [facility] Comment on above: Performed By: #### L 500.4050, L501.5200, L501.9520, L100.0500 #### [facility] [address] [place], [address] T PROT 6.9 g/dL Normal 5.9-8.4 [facility] Comment on above: Performed By: #### L 500.4050, L501.5200, L501.9520, L100.0500 #### [facility] [address] [place], [address] Urea nitrogen [Mass/Vol] 29 mg/dL High 4-19 [facility] Comment on above: Performed By: #### L 500.4050, L501.5200, L501.9520, L100.0500 #### [facility] [address] [place], [address] Magnesiumon 11-17-2024 Magnesium [Mass/Vol] 1.5 mg/dL Normal 1.5-2.2 [facility] Comment on above: Performed By: #### L 500.4050, L501.5200, L501.9520, L100.0500 #### [facility] [address] [place], [address] Thyroid Stim Hormone (TSH)on 11-17-2024 TSH 1.520 uIU/mL Normal 0.300-4.200 [facility] Comment on above: Performed By: #### L 500.4050, L501.5200, L501.9520, L100.0500 #### [facility] [address] [place], [address] CNPNon 11-02-2024 CNPN Telephone (BHUMIKA) SHAHEEN JEAN ([id number]) 1945 F Date Time Provider Department 11/02/24 ZELDA LACY During your visit today, we recorded the following information about you: Kathi Lopez, FAVIOLA 11/02/2024 4:02 PM Addendum Laurence with [facility] called and asked to have Pt's halter monitor results faxed over. Faxed to # [phone]. Kathi Lopez RN Allergies As of Date: 11/02/2024 Noted Allergy Reaction BACTRIM (SULFAMETHOXAZOLE) 03/27/2010 2 - Rash CIPRO (CIPROFLOXACIN) 12/27/2004 2 - Rash CLAMS 06/17/2018 2 - Rash CORN 09/29/2008 16 - Unknown EGGS (EGG) 03/27/2023 14 - Other: See Comments Comments: Diarrhea GRASS POLLEN 09/09/2011 9 - Itching LACTOSE INTOLERANCE (LACTASE) 12/27/2004 16 - Unknown PORK 09/29/2008 16 - Unknown SEASONAL ALLERGIES 07/30/2012 14 - Other: See Comments Comments: pollen UVDNEIF-CNV-LOH REDUCTASE INHIBIT*10/19/2024 5 - Intolerance Comments: myalgia Date Reviewed: 10/19/2024 Reviewed by: Gabriela Morejon LPN - Fully Assessed Reason for Visit: Fax Over Halter Monitor Results [Other] Prescriptions as of 11/02/2024 - metoprolol succinate ER (TOPROL XL) 50 mg 24 hr tablet Take 1 tablet by mouth once daily. - gabapentin (NEURONTIN) 100 mg capsule Take 1 capsule by mouth three times a day for 90 days. - lisinopril (ZESTRIL) 5 mg tablet Take 1 tablet by mouth once daily. - metFORMIN (GLUCOPHAGE) 500 mg tablet Take 1 tablet by mouth daily with dinner. - glimepiride (AMARYL) 1 mg tablet Take 1 tablet by mouth daily with breakfast. - blood sugar diagnostic (FREESTYLE LITE STRIPS) test strip Test blood sugar(s) one times daily. Dx: Type 2 DM - Controlled E11.9 Insulin: No - multivitamin with minerals (ONE-A-DAY 50 PLUS ORAL) Take by mouth. - blood sugar diagnostic (BLOOD GLUCOSE TEST) test strip Test blood sugar(s) 1 times daily. Dx: Type 2 DM - Controlled E11.9 Insulin: No - Blood-Glucose Meter [facility] Check blood sugars once a day. Dx: E11.9 no insulin - Cholecalciferol, Vitamin D3, 25 mcg (1,000 unit) cap Take 1,000 Units by mouth once daily. - CALCIUM CARBONATE (TUMS E-X ORAL) Take 2 capsules by mouth once daily. - Aspirin 81 mg ORAL Tab Take 81 mg by mouth once daily. 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] 03/22/2015 Well adult exam [Z00.00] 03/22/2015 04/11/2019 Diabetic eye exam (HCC) [Z01.00, E11.9] 07/12/2015 04/11/2019 Essential hypertension with goal blood pressure*07/19/2015 Type 2 diabetes mellitus with stage 3b chronic *07/19/2015 Chronic right shoulder pain [M25.511, G89.29] 12/05/2015 Pain in right hip [M25.551] 12/05/2015 04/11/2019 Arthritis of right hip [M16.11] 12/06/2015 Arthritis of right shoulder region [M19.011] 12/06/2015 Calcaneal spur of left foot [M77.32] 01/09/2016 Tendonitis, Achilles, left [M76.62] 01/09/2016 Medicare annual wellness visit, subsequent [Z00*06/16/2017 Stage 3b chronic kidney disease (HCC) [N18.32] 06/17/2017 Class 1 obesity due to excess calories without *06/17/2017 04/11/2019 Encounter for screening mammogram for breast ca*06/17/2018 04/11/2019 Screening for osteoporosis [Z13.820] 06/17/2018 04/11/2019 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] 06/17/2018 Renal stone [N20.0] 09/19/2018 Age-related cataract of both eyes [H25.9] 04/13/2019 GERD (gastroesophageal reflux disease) [K21.9] Obesity, Class I, BMI 30-34.9 [E66.811] 07/25/2019 AK (actinic keratosis) [L57.0] 08/23/2020 Closed fracture of first lumbar vertebra (HCC) *04/19/2021 03/05/2022 Balance problem [R26.89] 07/08/2021 Cervical stenosis of spine [M48.02] 07/08/2021 Advance directive discussed with patient [Z71.8*03/05/[address] [Z78.9] 03/27/2023 Symptomatic orthostatic increase in heart rate *04/15/2024 SVT (supraventricular tachycardia) (HCC) [I47.1*10/19/2024 Encounter Status:Closed by KATHI LOPEZ on 11/02/24 Normal [facility] Basic metabolic 2000 panelOr dered By: Nhi Mistry on 10-19-2024 Anion gap [Moles/Vol] 10 mmol/L 8 - 15 mmol/L [facility] Calcium [Mass/Vol] 10.4 mg/dL High 8.5 - 10.2 mg/dL [facility] Chloride [Moles/Vol] 107 mmol/L 98 - 107 mmol/L [facility] CO2 [Moles/Vol] 20 mmol/L Low 22 - 30 mmol/L [facility] Creatinine [Mass/Vol] 1.44 mg/dL High 0.58 - 0.96 mg/dL [facility] GFR/1.73 sq M.predicted among non-blacks MDRD (S/P/Bld) [Vol rate/Area] 37 mL/min/{1.73_m2} Low - PINF [facility] Comment on above: Estimated Glomerular Filtration Rate (eGFR) is calculated using the 2020 CKD-EPI creatinine equation. This equation utilizes serum creatinine, sex, and age as parameters. The creatinine assay has traceable calibration to isotope dilution-mass spectrometry. Refer to KDIGO guidelines for clinical interpretation. In patients with unstable renal function, e.g. those with acute kidney injury, the eGFR may not accurately reflect actual GFR. Glucose [Mass/Vol] 157 mg/dL High 74 - 99 mg/dL [facility] Comment on above: The [place] [employer] (ADA) provides guidance for cutoff values for fasting glucose and random glucose. The ADA defines fasting as no caloric intake for at least 8 hours. Fasting plasma glucose results between 100 to 125 mg/dL indicate increased risk for diabetes (prediabetes). Fasting plasma glucose results greater than or equal to 126 mg/dL meet the criteria for diagnosis of diabetes. In the absence of unequivocal hyperglycemia, results should be confirmed by repeat testing. In a patient with classic symptoms of hyperglycemia or hyperglycemic crisis, random plasma glucose results greater than or equal to 200 mg/dL meet the criteria for diagnosis of diabetes. Reference: Standards of Medical Care in Diabetes 2016, [place] [employer]. Diabetes Care. 2016.39(Suppl 1). Interpretation and review of laboratory results Abnormal [facility] Potassium [Moles/Vol] 5.1 mmol/L 3.7 - 5.1 mmol/L [facility] Sodium [Moles/Vol] 137 mmol/L 136 - 144 mmol/L [facility] Urea nitrogen [Mass/Vol] 28 mg/dL High 7 - 21 mg/dL [facility] Basic metabolic 2000 panelon 10-19-2024 Anion gap [Moles/Vol] 10 mmol/L Normal 8-15 [facility] Comment on above: Order Comment: Speci men Type: BLOOD SPECIMENOrdering Facility: [facility] Address: [address] [place] [address] Performed By: #### 2 4321-2 ####[facility] [id number] [place] [address] [place] Calcium [Mass/Vol] 10.4 mg/dL High 8.5-10.2 [facility] Comment on above: Order Comment: Speci men Type: BLOOD SPECIMENOrdering Facility: [facility] Address: [address] [place] [address] Performed By: #### 2 4321-2 ####[facility] [id number] [place] [id number] [place] Chloride [Moles/Vol] 107 mmol/L Normal 98-107 [facility] Comment on above: Order Comment: Speci men Type: BLOOD SPECIMENOrdering Facility: [facility] Address: [address] [place] [address] Performed By: #### 2 4321-2 ####[facility] [id number] [place] [address] [place] CO2 [Moles/Vol] 20 mmol/L Low 22-30 [facility] Comment on above: Order Comment: Speci men Type: BLOOD SPECIMENOrdering Facility: [facility] Address: [address] [place] [address] Performed By: #### 2 4321-2 ####[facility] [id number] [place] [address] [place] Creatinine [Mass/Vol] 1.44 mg/dL High 0.58-0.96 [facility] Comment on above: Order Comment: Speci men Type: BLOOD SPECIMENOrdering Facility: [facility] Address: [address] [place] [address] Performed By: #### 2 4321-2 ####[facility] [id number] [place] [address] [place] eGFRcr SerPlBld CKD-EPI 2020 37 mL/min/1.73m??? Low >=60 [facility] Comment on above: Order Comment: Speci men Type: BLOOD SPECIMENOrdering Facility: [facility] Address: [address] [place] [address] Result Comment: Nora mated Glomerular Filtration Rate (eGFR) is calculated using the 2020 CKD-EPI creatinine equation. This equation utilizes serum creatinine, sex, and age as parameters. The creatinine assay has traceable calibration to isotope dilution-mass spectrometry. Refer to KDIGO guidelines for clinical interpretation. In patients with unstable renal function, e.g. those with acute kidney injury, the eGFR may not accurately reflect actual GFR. Performed By: #### 2 4321-2 ####[facility] [id number] [place] [address] [place] Glucose [Mass/Vol] 157 mg/dL High 74-99 [facility] Comment on above: Order Comment: Speci men Type: BLOOD SPECIMENOrdering Facility: [facility] Address: [address] [place] [address] Result Comment: The [place] Diabetes Association (ADA) provides guidance for cutoff values for fasting glucose and random glucose. The ADA defines fasting as no caloric intake for at least 8 hours. Fasting plasma glucose results between 100 to 125 mg/dL indicate increased risk for diabetes (prediabetes). Fasting plasma glucose results greater than or equal to 126 mg/dL meet the criteria for diagnosis of diabetes. In the absence of unequivocal hyperglycemia, results should be confirmed by repeat testing. In a patient with classic symptoms of hyperglycemia or hyperglycemic crisis, random plasma glucose results greater than or equal to 200 mg/dL meet the criteria for diagnosis of diabetes. Reference: Standards of Medical Care in Diabetes 2016, [place] Diabetes Association. Diabetes Care. 2016.39(Suppl 1). Performed By: #### 2 4321-2 ####[facility]CL[facility] [id number] [place] [address] [place] Potassium [Moles/Vol] 5.1 mmol/L Normal 3.7-5.1 [facility] Comment on above: Order Comment: Speci men Type: BLOOD SPECIMENOrdering Facility: [facility] Address: [address] [place] [address] Performed By: #### 2 4321-2 ####[facility] EASTLIA [id number] [place] [address] [place] Sodium [Moles/Vol] 137 mmol/L Normal 136-144 [facility] Comment on above: Order Comment: Speci men Type: BLOOD SPECIMENOrdering Facility: [facility] Address: [address] [place] [address] Performed By: #### 2 4321-2 ####[facility]ITALTOWNCLIA [id number] [place] [address] [place] Urea nitrogen [Mass/Vol] 28 mg/dL High 7-21 [facility] Comment on above: Order Comment: Speci men Type: BLOOD SPECIMENOrdering Facility: [facility] Address: [address] [place] [address] Performed By: #### 2 4321-2 ####[facility]OKENCL[facility] [id number] [place], [place] [id number] [place] [address] [place] CNOVon 10-19-2024 CNOV Office Visit ([facility] ) SHAHEEN JEAN ([id number]) 1945 F Date Time Provider Department 10/19/24 1:20 PM [facility] During your visit today, we recorded the following information about you: Pulse Respiration Blood pressure Weight 110/minute 18/minute 124/76 84.2 kg Height 1.6 m Gabriela Morejon LPN 10/19/2024 2:26 PM Signed Patient seen (eye doctor) last October 2023 due for an appointment. Patient is seeing at [facility] on November Klarissa Ramirez PA-C 10/19/2024 2:26 PM Signed Chief Complaint Patient presents with: 6 Month Exam HPI Shaheen Jean is a 79 year old female who presents here today for Chronic Medical Conditions.. Patient with hx of HTN, hyperlipidemia, GERD, CKD, DM2, osteoporosis, and those as below. Dizziness and Weakness: - Onset in 2021, following a fall on ice resulting in tailbone injury. - Shaheen reports back pain when standing, relieved upon sitting. - Diagnosed with a vertebral fracture by a spinal specialist; age of fracture unknown. - Denies head trauma during the fall. - Seen by four neurologists; no definitive diagnosis. - Underwent 2-3 MRIs with no significant findings. - Referred to cardiology by Zelda Lacy PA-C; appointment scheduled for November 17. - Denies ability to stand for extended periods; unable to complete tilt table test. - ENT evaluation by Dr. Mckenzie last week; no inner ear issues identified. - Denies falls but reports significant instability when standing. Tachycardia: - Shaheen reports episodes of rapid heart rate upon standing. - Holter monitor showed heart rate reaching 235 bpm. - Denies palpitations. Diabetes Mellitus: - A1c elevated at 6.9. - Shaheen missed metformin dose and consumed food at 0430 on the day of lab work. Hyperlipidemia: - LDL cholesterol slightly elevated. - Previously tried lovastatin, pravastatin, and simvastatin; discontinued due to myalgia. - Shaheen inquires about using Garlique for cholesterol management. Hypertension: - Lisinopril dosage reduced from 10 mg to 5 mg in March by Dr. Lopez. - Denies monitoring blood pressure at home. Past medical history, appointments, medications, allergies reviewed. Previous Medical History PAST MEDICAL HISTORY Diagnosis Date Actinic keratoses 01/18/2010 Advance directive discussed with patient 03/05/2022 DPA: Lory (daughter) Age-related cataract of both eyes 04/13/2019 AK (actinic keratosis) 08/23/2020 Tx with cryo right dorasol hand 08/2020 Arthritis of right hip 12/06/2015 Arthritis of right shoulder region 12/06/2015 Calcaneal spur of left foot 01/09/2016 Cervical stenosis of spine 07/08/2021 Cholesteatoma of tympanum of right ear 03/22/[address] Mckenzie Chronic right shoulder pain 12/05/2015 Closed fracture of first lumbar vertebra (HCC) 04/19/2021 End plate fracture of L1 Closed fracture of one or more phalanges of foot 11/05/2009 Diverticulosis of large intestine without hemorrhage 03/05/2015 Essential hypertension with goal blood pressure less than 130/85 07/19/2015 External hemorrhoids GERD (gastroesophageal reflux disease) Hallux valgus (acquired) 09/02/2011 Internal hemorrhoids Iron deficiency anemia 01/28/[address] 03/27/2023 DPA: Lory (daughter), Low back pain 03/05/2015 Mixed hyperlipidemia Obesity, Class I, BMI 30-34.9 07/25/2019 Osteoporosis 09/24/2007 Renal stone 09/19/2018 first one 09/2018 Sciatica 06/02/2008 Stage 3b chronic kidney disease (HCC) 06/17/2017 Tendonitis, Achilles, left 01/09/2016 Type 2 diabetes mellitus with stage 3b chronic kidney disease, without long-term current use of insulin (HCC) 07/19/2015 Previous Surgical History PAST SURGICAL HISTORY Procedure Laterality Date BX BREAST PERC VACUUM/ROTN 11/30/06 RIGHT DELIVERY ONLY , low cervical x 4 COLONOSCOPY 05/10/2015 repeat 10 yrs COLONOSCOPY FLX DX W/COLLJ SPEC WHEN PFRMD 07/23/05 repeat due 2015 COLONOSCOPY FLX DX W/COLLJ SPEC WHEN PFRMD 05/10/2015 Colonoscopy ESOPHAGOGASTRODUODENOSCOPY TRANSORAL DIAGNOSTIC 04/15/2010 EGD FOOT LEFT OP SURGERY 08/2011 bunionectomy PAST SURGICAL HISTORY OF and 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, non ca x2 PLCMT LOCALZTN CLIP,PERC,DURING BREAST BX 11/30/06 RIGHT SIGMOIDOSCOPY FLX DX W/COLLJ SPEC BR/WA IF PFRMD 07/1999 Sigmoidoscopy TYMPANOSTOMY LOC/TOP ANES BILA 2011 left TM tube Family History FAMILY HISTORY Problem Relation Age of Onset Stroke Mother Ischemic Heart Disease Father also diabetes Diabetes Sister Stroke Sister Uterine Cancer Sister Osteoporosis Sister Diabetes Sister Dementia Sister Osteoporosis Sister Carotid Disease Brother 95 other (pacemaker) Brother Seizures Brother other (complications of mono) Brother Patient Allergies ALLERGIES Allerg (more content not included)... Normal [facility] Basic metabolic 2000 panelon 10-14-2024 Anion gap [Moles/Vol] 13 mmol/L Normal 8-15 [facility] Comment on above: Order Comment: Speci men Type: BLOOD SPECIMENOrdering Facility: [facility] Address: [address] [place] [address] Performed By: #### 2 4321-2, LIPNF ####[facility] LABCLIA [id number] [place] [address] [place] Calcium [Mass/Vol] 10.1 mg/dL Normal 8.5-10.2 [facility] Comment on above: Order Comment: Speci men Type: BLOOD SPECIMENOrdering Facility: [facility] Address: [address] [place] [address] Performed By: #### 2 4321-2, LIPNF ####[facility] LABCLIA [id number] [place] [id number] [place] Chloride [Moles/Vol] 108 mmol/L High 98-107 [facility] Comment on above: Order Comment: Speci men Type: BLOOD SPECIMENOrdering Facility: [facility] Address: [address] [place] [address] Performed By: #### 2 4321-2, LIPNF ####[facility] LABCLIA [id number] [place] [address] [place] CO2 [Moles/Vol] 20 mmol/L Low 22-30 [facility] Comment on above: Order Comment: Speci men Type: BLOOD SPECIMENOrdering Facility: [facility] Address: [address] [place] [address] Performed By: #### 2 4321-2, LIPNF ####[facility] LABCLIA [id number] [place] [address] [place] Creatinine [Mass/Vol] 1.37 mg/dL High 0.58-0.96 [facility] Comment on above: Order Comment: Speci men Type: BLOOD SPECIMENOrdering Facility: [facility] Address: [address] [place] [address] Performed By: #### 2 4321-2, LIPNF ####[facility] LABCLIA [id number] [place] [id number] [place] eGFRcr SerPlBld CKD-EPI 2020 39 mL/min/1.73m??? Low >=60 [facility] Comment on above: Order Comment: Speci men Type: BLOOD SPECIMENOrdering Facility: [facility] Address: [address] [place] [address] Result Comment: Nora mated Glomerular Filtration Rate (eGFR) is calculated using the 2020 CKD-EPI creatinine equation. This equation utilizes serum creatinine, sex, and age as parameters. The creatinine assay has traceable calibration to isotope dilution-mass spectrometry. Refer to KDIGO guidelines for clinical interpretation. In patients with unstable renal function, e.g. those with acute kidney injury, the eGFR may not accurately reflect actual GFR. Performed By: #### 2 4321-2, LIPNF ####[facility] LABIA [id number] [place] [address] [place] Glucose [Mass/Vol] 153 mg/dL High 74-99 [facility] Comment on above: Order Comment: Chelsey pettit Type: BLOOD SPECIMENOrdering Facility: [facility] Address: [address] [place] [address] Result Comment: The [place] Diabetes Association (ADA) provides guidance for cutoff values for fasting glucose and random glucose. The ADA defines fasting as no caloric intake for at least 8 hours. Fasting plasma glucose results between 100 to 125 mg/dL indicate increased risk for diabetes (prediabetes). Fasting plasma glucose results greater than or equal to 126 mg/dL meet the criteria for diagnosis of diabetes. In the absence of unequivocal hyperglycemia, results should be confirmed by repeat testing. In a patient with classic symptoms of hyperglycemia or hyperglycemic crisis, random plasma glucose results greater than or equal to 200 mg/dL meet the criteria for diagnosis of diabetes. Reference: Standards of Medical Care in Diabetes 2016, [place] [employer]. Diabetes Care. 2016.39(Suppl 1). Performed By: #### 2 4321-2, LIPNF ####[facility] LABIA [id number] [place] [id number] [place] Potassium [Moles/Vol] 5.3 mmol/L High 3.7-5.1 [facility] Comment on above: Order Comment: Chelsey pettit Type: BLOOD SPECIMENOrdering Facility: [facility] Address: [address] [place] [address] Performed By: #### 2 4321-2, LIPNF ####[facility] LABIA [id number] [place] [id number] [place] Sodium [Moles/Vol] 141 mmol/L Normal 136-144 [facility] Comment on above: Order Comment: Speci men Type: BLOOD SPECIMENOrdering Facility: [facility] Address: [address] [place] [address] Performed By: #### 2 4321-2, LIPNF ####[facility] LABCLIA [id number] [place] [address] [place] Urea nitrogen [Mass/Vol] 22 mg/dL High 7-21 [facility] Comment on above: Order Comment: Speci men Type: BLOOD SPECIMENOrdering Facility: [facility] Address: [address] [place] [address] Performed By: #### 2 4321-2, LIPNF ####[facility] LABIA [id number] [place] [address] [place] HbA1c (Bld)on 10-14-2024 Average glucose Estimated from glycated hemoglobin (Bld) [Mass/Vol] 151 mg/dL Normal [facility] Comment on above: Order Comment: Speci men Type: BLOOD SPECIMENOrdering Facility: [facility] Address: [address] [place] [address] Result Comment: eAG: (Estimated average glucose) is a calculated value from HgbA1c and is outbound call center representative of the average blood glucose level in the last 2-3 month period. Performed By: #### 5 5454-3 ####[facility] LABIA [id number] [place] [id number] [place] HbA1c (Bld) [Mass fraction] 6.9 % High 4.3-5.6 [facility] Comment on above: Order Comment: Glenni men Type: BLOOD SPECIMENOrdering Facility: [facility] Address: [address] [place] [address] Result Comment: [place] Diabetes Association guidelines indicate that patients with HgbA1c in the range 5.7-6.4% are at increased risk for development of diabetes, and intervention by lifestyle modification may be beneficial. HgbA1c greater or equal to 6.5% is considered diagnostic of diabetes. Performed By: #### 5 5454-3 ####[facility] LABCLIA [id number] [address] OF [facility] LIPID PANEL, NONFASTINGon Cholesterol [Mass/Vol] 177 mg/dL Normal <200 [facility] Comment on above: Order Comment: Speci men Type: BLOOD SPECIMENOrdering Facility: [facility] Address: [address] [place] [address] Result Comment: <200 mg/dL, Desirable 200-239 mg/dL, Borderline high >239 mg/dL, High Performed By: #### 2 4321-2, LIPNF ####[facility] LABCLIA [id number] [address] OF [place] HDL CHOLESTEROL, NF 43 mg/dL Normal >39 [facility] Comment on above: Order Comment: Glenni [facility] Type: BLOOD SPECIMENOrdering Facility: [facility] Address: [address] [place] [address] Result Comment: 40-5 9 mg/dL, Acceptable >59 mg/dL, High: Negative risk factor for coronary heart disease <40 mg/dL, Low: Positive risk factor for coronary heart disease Performed By: #### 2 4321-2, LIPNF ####[facility] LABIA [id number] [address] LDL CHOLESTEROL CALCULATED, NF 110 mg/dL High <100 [facility] Comment on above: Order Comment: Speci [facility] Type: BLOOD SPECIMENOrdering Facility: [facility] Address: [address] [place] [address] Result Comment: <100 mg/dL, Optimal 100-129 mg/dL, Near optimal/above optimal 130-159 mg/dL, Borderline high 160-189 mg/dL, High >189 mg/dL, Very high Secondary prevention optimal LDL Cholesterol levels are recommended to be <70 mg/dL LDL cholesterol is calculated using the Pena-NIH equation. Performed By: #### 2 4321-2, LIPNF ####[facility] LABCLIA [id number] [address] OF [facility] LDL/HDL RATIO, NF 2.56 mg/dL High <2.54 [facility] Comment on above: Order Comment: Speci men Type: BLOOD SPECIMENOrdering Facility: [facility] Address: [address] [place] [address] Result Comment: Refe rence: 1. National Cholesterol Education Program ATP III Guideline At-A-Glance Quick Desk Reference: National Heart, Lung, and Blood [place]. National Institutes of Health. 2001: NIH Publication No. 01-3305. 2. An International Atherosclerosis Society position paper: global recommendations for the management of dyslipidemia: executive summary, Atherosclerosis. 2014: 232(2):410-413. Performed By: #### 2 4321-2, LIPNF ####[facility] LABCLIA [id number] [place] [address] [place] NON HDL CHOL, NF 134 mg/dL High <130 [facility] Comment on above: Order Comment: Speci men Type: BLOOD SPECIMENOrdering Facility: [facility] Address: [address] [place] [address] Result Comment: <130 mg/dL, Optimal 130-159 mg/dL, Near optimal/above optimal 160-189 mg/dL, Borderline high 190-219 mg/dL, High >219 mg/dL, Very high Secondary prevention optimal non HDL Cholesterol levels are recommended to be <100 mg/dL Performed By: #### 2 4321-2, LIPNF ####[facility] LABCLIA [id number] [address] OF [facility] T CHOL/HDL RATIO NF 4.12 mg/dL Normal <5.10 [facility] Comment on above: Order Comment: Speci men Type: BLOOD SPECIMENOrdering Facility: [facility] Address: [address] [place] [address] Performed By: #### 2 4321-2, LIPNF ####[facility] LABCLIA [id number] [place] [id number] [place] TRIGLYCERIDES, NF 134 mg/dL Normal <150 [facility] Comment on above: Order Comment: Speci men Type: BLOOD SPECIMENOrdering Facility: [facility] Address: [address] [place] [address] Result Comment: <150 mg/dL, Normal 150-199 mg/dL, Borderline high 200-499 mg/dL, High >499 mg/dL, Very high Performed By: #### 2 4321-2, LIPNF ####[facility] LABCLIA [id number] [place] [address] [place] VLDL CHOLESTEROL, NF 22 mg/dL Normal <30 [facility] Comment on above: Order Comment: Speci men Type: BLOOD SPECIMENOrdering Facility: [facility] Address: [address] [place] [address] Performed By: #### 2 4321-2, LIPNF ####[facility] LABCLIA [id number] [place] [address] [place] CNOVon 10-03-2024 CNOV Office Visit ([facility] ) SHAHEEN JEAN ([id number]) 1945 F Date Time Provider Department 10/03/24 2:00 PM SHERRY KOENIG [facility] During your visit today, we recorded the following information about you: Pulse Blood pressure Weight 111/minute 135/83 84.6 kg Sherry Koenig MD 11/01/2024 11:50 PM Signed NEW PATIENT EVALUATION Subjective HPI Shaheensakina Jean is a 79 year old right-handed female who presents for evaluation of gait difficulty. Zelda Lacy PA-C is the referring provider. Dr. Pancho Lopez MD is the PCP. She explains she can't stand up for longer than a minute without needing to sit down. Feels like she is trembling. Initially she is fine but then the longer she is up it will come on. No LH with it. Not falling. She has walkers all over the place, canes don't really. No numbness that she is aware of. No family history of neurologic conditions. Was prescribed gabapentin 100 mg BID for possible orthostatic tremor, no clear benefit. Might get some pain in her back if she stands up too long, in the middle, not down a leg. Sense of smell is fine. Occasional diarrhea. No known dream enactment. Has had 2 rounds of physical therapy. Medications: Current Outpatient Medications Medication Sig Dispense Refill gabapentin (NEURONTIN) 100 mg capsule Take 1 capsule by mouth three times a day for 90 days. 90 capsule 2 lisinopril (ZESTRIL) 5 mg tablet Take 1 tablet by mouth once daily. 90 tablet 1 metFORMIN (GLUCOPHAGE) 500 mg tablet Take 1 tablet by mouth daily with dinner. 90 tablet 1 glimepiride (AMARYL) 1 mg tablet Take 1 tablet by mouth daily with breakfast. 90 tablet 1 blood sugar diagnostic (FREESTYLE LITE STRIPS) test strip Test blood sugar(s) one times daily. Dx: Type 2 DM - Controlled E11.9 Insulin: No 100 Strip 3 multivitamin with minerals (ONE-A-DAY 50 PLUS ORAL) Take by mouth. blood sugar diagnostic (BLOOD GLUCOSE TEST) test strip Test blood sugar(s) 1 times daily. Dx: Type 2 DM - Controlled E11.9 Insulin: No 50 Strip 11 Blood-Glucose Meter [facility] Check blood sugars once a day. Dx: E11.9 no insulin 1 Each 0 Cholecalciferol, Vitamin D3, 25 mcg (1,000 unit) cap Take 1,000 Units by mouth once daily. CALCIUM CARBONATE (TUMS E-X ORAL) Take 2 capsules by mouth once daily. Aspirin 81 mg ORAL Tab Take 81 mg by mouth once daily. No current facility-administered medications for this visit. ROS ROS: Her ROS was positive for that mentioned in the HPI. Otherwise a 10-point ROS was completed and was negative. ALLERGIES Allergen Reactions Bactrim [Sulfametho* Rash Cipro [Ciprofloxaci* Rash Clams Rash [place] Unknown Eggs [Egg] Other: See Comments Diarrhea Grass Pollen Itching Lactose Intolerance* Unknown Pork Unknown Seasonal Allergies Other: See Comments pollen Past Medical History: PAST MEDICAL HISTORY Diagnosis Date Actinic keratoses 01/18/2010 Advance directive discussed with patient 03/05/2022 DPA: Lory (daughter) Age-related cataract of both eyes 04/13/2019 [place] (actinic keratosis) 08/23/2020 Tx with cryo right dorasol hand 08/2020 Arthritis of right hip 12/06/2015 Arthritis of right shoulder region 12/06/2015 Calcaneal spur of left foot 01/09/2016 Cervical stenosis of spine 07/08/2021 Cholesteatoma of tympanum of right ear 03/22/[address] Mckenzie Chronic right shoulder pain 12/05/2015 Closed fracture of first lumbar vertebra (HCC) 04/19/2021 End plate fracture of L1 Closed fracture of one or more phalanges of foot 11/05/2009 Diverticulosis of large intestine without hemorrhage 03/05/2015 Essential hypertension with goal blood pressure less than 130/85 07/19/2015 External hemorrhoids GERD (gastroesophageal reflux disease) Hallux valgus (acquired) 09/02/2011 Internal hemorrhoids Iron deficiency anemia 01/28/[address] 03/27/2023 DPA: Lory (daughter), Low back pain 03/05/2015 Mixed hyperlipidemia Obesity, Class I, BMI 30-34.9 07/25/2019 Osteoporosis 09/24/2007 Renal stone 09/19/2018 first one 09/2018 Sciatica 06/02/2008 Stage 3b chronic kidney disease ([facility]) 06/17/2017 Tendonitis, Achilles, left 01/09/2016 Type 2 diabetes mellitus with stage 3b chronic kidney disease, without long-term current use of insulin ([facility]) 07/19/2015 Family History: FAMILY HISTORY Problem Relation Age of Onset Stroke Mother Ischemic Heart Disease Father also diabetes Diabetes Sister Stroke Sister Uterine Cancer Sister Osteoporosis Sister Diabetes Sister Dementia Sister Osteoporosis Sister Carotid Disease Brother 95 other (pacemaker) Brother Seizures Brother other (complications of mono) Brother Social History:SOCIAL HISTORY[1] No alcohol use Objective 10/03/24 1356 BP: 135/83 BP Site: Left Arm BP Position: Sitting BP Cuff Size: Large Adult Pulse: 111 SpO2: 96% Weight: 84 (more content not included)... Normal [facility] 08-[facility]24 CNOV Office Visit ([facility] ) SHAHEEN JEAN ([id number]) 1945 F Date Time Provider Department 08/31/24 12:30 PM ZELDA LACY During your visit today, we recorded the following information about you: Pulse Respiration Blood pressure Weight 111/minute 16/minute 141/86 83.5 kg Zelda Lacy PA-C 08/31/2024 2:[address] [facility] New Patient Evaluation - Autonomic Disorders Name: Shaheen Jean Age: [age] year old Gender: female Primary Care Provider: Pancho Lopez MD Consult requested for dysautonomia by Pancho Lopez. Recommendations will be communicated via shared medical record or US mail. Chief Complaint:New Patient (Symp. ortho increase in heart rate) 08/31/2024 - General Neurology, Zelda Lacy PA-C ASSESSMENT ASSESSMENT/PLAN: 1. Orthostatic tremor - ICD9: 333.1, ICD10: G25.2 (primary diagnosis) Patient presents for evaluation of shakiness when she stands. Has been ongoing for about 3 years or more. Evaluated for this by neurology in the past and was originally sent to movement but patient did not schedule. Imaging negative including MRI of the brain, MRA of the head and neck. Patient states that it may have gradually started but became very apparent a few years ago, present only when she stands and goes away if she sits back down. Feels shaky all over including her legs but has not fallen from it. Does use a walker to ambulate if she has to go a long distance. No dizziness with it. Originally was documented that she felt weak but she states it is more of a wobbly feeling that weakness. No family history of neurologic disease other than a nephew with Parkinson's disease. Has not been given any medications for this, has tried physical therapy for her low back but it is not helped. 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 Following with spine. At this time, concern for possible orthostatic tremor. No signs or symptoms of Parkinson's disease, no rigidity. Does have a very fine tremor at rest and with extension of her hands, but no rigidity. Discussed following with movement specialist for further evaluation and treatment. Discussed starting a low-dose of gabapentin which has shown some benefit for orthostatic tremor. Patient is amenable. Will start at 100 mg up to 3 times a day. Discussed common side effects and patient is amenable. 2. Symptomatic orthostatic increase in heart rate - ICD9: 796.4, ICD10: R00.8 3. Tachycardia - ICD9: 785.0, ICD10: R00.0 Patient originally referred for positional tachycardia concerning for dysautonomia. On orthostatics in the office today do not see any obvious signs of POTS or orthostatic hypotension. Does have baseline tachycardia patient notes is normal for her. Has not been evaluated with a heart monitor or seeing cardiology. Will order Zio monitor and refer to cardiology pending results. Does report cardiac history with her father with a heart attack in his 70s. Patient agreeable to treatment plan of care at this time, questions were answered. Patient to follow-up as needed. Zelda Lacy PA-C Encounter Diagnosis ICD-10-CM 1. Orthostatic tremor G25.2 CONSULT TO NEUROLOGY 2. Symptomatic orthostatic increase in heart rate R00.8 3. Tachycardia R00.0 OUTSIDE VENDOR CARDIAC OUTPATIENT EXTENDED RHYTHM RECORDING (WITHOUT TELEMETRY) CONSULT TO CARDIOLOGY Return if symptoms worsen or fail to improve. Chart, labs,and relevant images reviewed. HPI: Saw PCP on 05/02/24 noted increase in HR. At last office visit her BP was on the low end and I had her decreased the lisinopril back to 5 mg a day. She has not had any dizziness since then. Has her tilt table test in the next week. Did not complete tilt. Noted some weakness as well on 04/15/24. Last seen by neuro on 09/26/21 for shakiness and unsteadiness. Went through PT, referred to movement. This is a 79 year old female presenting with shakiness when standing. Started about 3 years ago and has had significant workup. Was originally seen by neurology in 2021 for this concern, MRI, MRA of the head and neck were unremarkable. Ordered tilt table test but patient felt this was not appropriate as she feels she could not be upright for that extended period of time. 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 Notes this was not helpful for pain. Regarding the shakiness, this only occurs when she is standing, occurs to the arms and the legs bilaterally as long as she is upright, occurs very shortly after standing. Does not occur when she is sitting or laying down. Does not feel lightheaded or dizzy when she stands, just u (more content not included)... [facility] SHAHEEN JEAN ([id number]) 1945 F Date Time Provider Department 06/10/24 PANCHO [address]OPE[address] [facility] During your visit today, we recorded the following information about you: Brigitte Lloyd LPN 06/10/2024 2:37 PM Signed Patient was scheduled to see Zelda Lacy 06/21/24 but she is going to be starting medical leave soon and will be unavailable to see patient. No openings available with Dr. Ortiz or Minid Carter soon. Patient is not 100% sure why she is being referred to neurology and would like a better explanation as to why and what she should do about appointment. States she was also to have a tilt table test but when she spoke with staff and the procedure was explained to her she felt that she would not be able to complete the test as it requires her to stand for several minutes without holding on to anything. She states currently she is only able to stand 1-2 minutes before it feels like her legs are going to give out and she has to sit down. This encounter forwarded to the appointment desk to view other providers schedule for sooner appointment in neurology. Pancho Lopez MD 06/10/2024 2:40 PM Signed Please advise patient that she was referred to Neuro to be evaluated for the possibility of Parkinson's disease and the drop in blood pressure and increased heart rate she gets with standing. Kathi Lopez RN 06/10/2024 3:03 PM Signed Pt called and is notified of providers results and instructions. Pt voices understanding. Transferred to scheduled to set up appt with Neurology. Kathi Lopez RN Allergies As of Date: 06/10/2024 Noted Allergy Reaction BACTRIM (SULFAMETHOXAZOLE) 03/27/2010 2 - Rash CIPRO (CIPROFLOXACIN) 12/27/2004 2 - Rash CLAMS 06/17/2018 2 - Rash CORN 09/29/2008 16 - Unknown EGGS (EGG) 03/27/2023 14 - Other: See Comments Comments: Diarrhea GRASS POLLEN 09/09/2011 9 - Itching LACTOSE INTOLERANCE (LACTASE) 12/27/2004 16 - Unknown PORK 09/29/2008 16 - Unknown SEASONAL ALLERGIES 07/30/2012 14 - Other: See Comments Comments: pollen Date Reviewed: 05/02/2024 Reviewed by: Pancho Lopez MD - Fully Assessed Reason for Visit: Appointment [186] Prescriptions as of 06/10/2024 - lisinopril (ZESTRIL) 5 mg tablet Take 1 tablet by mouth once daily. - metFORMIN (GLUCOPHAGE) 500 mg tablet Take 1 tablet by mouth daily with dinner. - glimepiride (AMARYL) 1 mg tablet Take 1 tablet by mouth daily with breakfast. - blood sugar diagnostic (FREESTYLE LITE STRIPS) test strip Test blood sugar(s) one times daily. Dx: Type 2 DM - Controlled E11.9 Insulin: No - multivitamin with minerals (ONE-A-DAY 50 PLUS ORAL) Take by mouth. - blood sugar diagnostic (BLOOD GLUCOSE TEST) test strip Test blood sugar(s) 1 times daily. Dx: Type 2 DM - Controlled E11.9 Insulin: No - Blood-Glucose Meter [facility] Check blood sugars once a day. Dx: E11.9 no insulin - Cholecalciferol, Vitamin D3, 25 mcg (1,000 unit) cap Take 1,000 Units by mouth once daily. - CALCIUM CARBONATE (TUMS E-X ORAL) Take 2 capsules by mouth once daily. - Aspirin 81 mg ORAL Tab Take 81 mg by mouth once daily. Problem List As Of Date 06/10/2024 Noted Resolved Mixed hyperlipidemia [E78.2] Pain in joint, shoulder region [M25.519] 01/08/2005 04/11/2019 External hemorrhoids [K64.4] Internal hemorrhoids [K64.8] Abnormal Mammogram, Unspecified [R92.8] 11/10/2006 10/01/2009 Nonsuppurative Otitis Media, not Specified as A*05/25/2007 10/01/2009 Osteoporosis [M81.0] 09/24/2007 Sciatica [M54.30] 06/02/2008 Iron deficiency anemia [D50.9] 04/15/2010 Hallux valgus (acquired) [M20.10] 09/02/2011 Diverticulosis of large intestine without hemor*03/05/2015 Low back pain [M54.50] 03/05/2015 Cholesteatoma of tympanum of right ear [H71.11] 03/22/2015 Well adult exam [Z00.00] 03/22/2015 04/11/2019 Diabetic eye exam (HCC) [Z01.00, E11.9] 07/12/2015 04/11/2019 Essential hypertension with goal blood pressure*07/19/2015 Type 2 diabetes mellitus with stage 3b chronic *07/19/2015 Chronic right shoulder pain [M25.511, G89.29] 12/05/2015 Pain in right hip [M25.551] 12/05/2015 04/11/2019 Arthritis of right hip [M16.11] 12/06/2015 Arthritis of right shoulder region [M19.011] 12/06/2015 Calcaneal spur of left foot [M77.32] 01/09/2016 Tendonitis, Achilles, left [M76.62] 01/09/2016 Medicare annual wellness visit, subsequent [Z00*06/16/2017 Stage 3b chronic kidney disease (HCC) [N18.32] 06/17/2017 Class 1 obesity due to excess calories without *06/17/2017 04/11/2019 Encounter for screening mammogram for breast ca*06/17/2018 04/11/2019 Screening for osteoporosis [Z13.820] 06/17/2018 04/11/2019 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 [facility] SHAHEEN JEAN ([id number]) 1945 F Date Time Provider Department 05/04/24 [address] [facility] During your visit today, we recorded the following information about you: Sonia Marrero RN 05/04/2024 9:56 AM Signed Pat with [facility] calling regarding pt's order for Tilt Table Test placed by Dr. Lopez. Pat states when she contacted pt to review test instructions, patient stated she is unable to stand for the 30 min duration required for the test. Reports she has weakness in her legs and numbness in one of her feet. Pat reports she discussed with Dr. Aponte and he advised alternative testing such as a Holter monitor or nuclear med stress test for patient instead. They are canceling the Tilt Table test. No call needed back. Please advise patient. Thank you. FAVIOLA Cortez Jeffrey A, MD 05/04/2024 1:06 PM Signed Let patient know I see they advised cancelling the tilt table test since she is un able to stand for an extended period of time. I have placed a consult to Neurology to help us figure this out. Nelly Alexis MA 05/04/2024 1:21 PM Signed Spoke with patient and gave her instructions. Patient noted that she has seen (2) different neurologist and 2 MRI's with no answer's. Spoke with Dr. Lopez and he would like to rule out parkinson's Please schedule with Dr Ortiz. MILIND Vega Shelbi 05/05/2024 3:30 PM Signed 1st attempt - left message for patient to return call. When patient calls, please schedule neurology consult. Shelbi Gagnon Allergies As of Date: 05/04/2024 Noted Allergy Reaction BACTRIM (SULFAMETHOXAZOLE) 03/27/2010 2 - Rash CIPRO (CIPROFLOXACIN) 12/27/2004 2 - Rash CLAMS 06/17/2018 2 - Rash CORN 09/29/2008 16 - Unknown EGGS (EGG) 03/27/2023 14 - Other: See Comments Comments: Diarrhea GRASS POLLEN 09/09/2011 9 - Itching LACTOSE INTOLERANCE (LACTASE) 12/27/2004 16 - Unknown PORK 09/29/2008 16 - Unknown SEASONAL ALLERGIES 07/30/2012 14 - Other: See Comments Comments: pollen Date Reviewed: 05/02/2024 Reviewed by: Pancho Lopez MD - Fully Assessed Reason for Visit: Patient Update [1234] Primary Visit Diagnosis:Symptomatic orthostatic increase in heart rate [R00.8] Order(s):CONSULT TO NEUROLOGY [9019] Order #: [id number]: 1 FUTURE Prescriptions as of 05/19/2024 - lisinopril (ZESTRIL) 5 mg tablet Take 1 tablet by mouth once daily. - metFORMIN (GLUCOPHAGE) 500 mg tablet Take 1 tablet by mouth daily with dinner. - glimepiride (AMARYL) 1 mg tablet Take 1 tablet by mouth daily with breakfast. - blood sugar diagnostic (FREESTYLE LITE STRIPS) test strip Test blood sugar(s) one times daily. Dx: Type 2 DM - Controlled E11.9 Insulin: No - multivitamin with minerals (ONE-A-DAY 50 PLUS ORAL) Take by mouth. - blood sugar diagnostic (BLOOD GLUCOSE TEST) test strip Test blood sugar(s) 1 times daily. Dx: Type 2 DM - Controlled E11.9 Insulin: No - Blood-Glucose Meter [facility] Check blood sugars once a day. Dx: E11.9 no insulin - Cholecalciferol, Vitamin D3, 25 mcg (1,000 unit) cap Take 1,000 Units by mouth once daily. - CALCIUM CARBONATE (TUMS E-X ORAL) Take 2 capsules by mouth once daily. - Aspirin 81 mg ORAL Tab Take 81 mg by mouth once daily. Problem List As Of Date 05/04/2024 Noted Resolved Mixed hyperlipidemia [E78.2] Pain in joint, shoulder region [M25.519] 01/08/2005 04/11/2019 External hemorrhoids [K64.4] Internal hemorrhoids [K64.8] Abnormal Mammogram, Unspecified [R92.8] 11/10/2006 10/01/2009 Nonsuppurative Otitis Media, not Specified as A*05/25/2007 10/01/2009 Osteoporosis [M81.0] 09/24/2007 Sciatica [M54.30] 06/02/2008 Iron deficiency anemia [D50.9] 04/15/2010 Hallux valgus (acquired) [M20.10] 09/02/2011 Diverticulosis of large intestine without hemor*03/05/2015 Low back pain [M54.50] 03/05/2015 Cholesteatoma of tympanum of right ear [H71.11] 03/22/2015 Well adult exam [Z00.00] 03/22/2015 04/11/2019 Diabetic eye exam (HCC) [Z01.00, E11.9] 07/12/2015 04/11/2019 Essential hypertension with goal blood pressure*07/19/2015 Type 2 diabetes mellitus with stage 3b chronic *07/19/2015 Chronic right shoulder pain [M25.511, G89.29] 12/05/2015 Pain in right hip [M25.551] 12/05/2015 04/11/2019 Arthritis of right hip [M16.11] 12/06/2015 Arthritis of right shoulder region [M19.011] 12/06/2015 Calcaneal spur of left foot [M77.32] 01/09/2016 Tendonitis, Achilles, left [M76.62] 01/09/2016 Medicare annual wellness visit, subsequent [Z00*06/16/2017 Stage 3b chronic kidney disease (HCC) [N18.32] 06/17/2017 Class 1 obesity due to excess calories without *06/17/2017 04/11/2019 Encounter for screening mammogram for breast ca*06/17/2018 04/11/2019 Screening for osteoporosis [Z13.820] 06/17/2018 04/11/2019 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 Normal [facility] CNPNon 05-03-2024 CNPN Telephone ([facility]) MONCHOSHAHEEN ([id number]) 1945 F Date Time Provider Department [facility]/03[facility] your visit today, we recorded the following information about you: Shannen Gallardo LPN 05/03/2024 9:20 AM Signed Kathi from [facility] calling patient is scheduled for tilt table and asking for copy of last office notes and recent lab results to be faxed to [phone]. Printed and faxed items as requested. Allergies As of Date: 05/03/2024 Noted Allergy Reaction BACTRIM (SULFAMETHOXAZOLE) 03/27/2010 2 - Rash CIPRO (CIPROFLOXACIN) 12/27/2004 2 - Rash CLAMS 06/17/2018 2 - Rash CORN 09/29/2008 16 - Unknown EGGS (EGG) 03/27/2023 14 - Other: See Comments Comments: Diarrhea GRASS POLLEN 09/09/2011 9 - Itching LACTOSE INTOLERANCE (LACTASE) 12/27/2004 16 - Unknown PORK 09/29/2008 16 - Unknown SEASONAL ALLERGIES 07/30/2012 14 - Other: See Comments Comments: pollen Date Reviewed: 05/02/2024 Reviewed by: Pancho Lopez MD - Fully Assessed Reason for Visit: [facility] requesting records [Other] Prescriptions as of 05/03/2024 - lisinopril (ZESTRIL) 5 mg tablet Take 1 tablet by mouth once daily. - metFORMIN (GLUCOPHAGE) 500 mg tablet Take 1 tablet by mouth daily with dinner. - glimepiride (AMARYL) 1 mg tablet Take 1 tablet by mouth daily with breakfast. - blood sugar diagnostic (FREESTYLE LITE STRIPS) test strip Test blood sugar(s) one times daily. Dx: Type 2 DM - Controlled E11.9 Insulin: No - multivitamin with minerals (ONE-A-DAY 50 PLUS ORAL) Take by mouth. - blood sugar diagnostic (BLOOD GLUCOSE TEST) test strip Test blood sugar(s) 1 times daily. Dx: Type 2 DM - Controlled E11.9 Insulin: No - Blood-Glucose Meter [facility] Check blood sugars once a day. Dx: E11.9 no insulin - Cholecalciferol, Vitamin D3, 25 mcg (1,000 unit) cap Take 1,000 Units by mouth once daily. - CALCIUM CARBONATE (TUMS E-X ORAL) Take 2 capsules by mouth once daily. - Aspirin 81 mg ORAL Tab Take 81 mg by mouth once daily. Problem List As Of Date 05/03/2024 Noted Resolved Mixed hyperlipidemia [E78.2] Pain in joint, shoulder region [M25.519] 01/08/2005 04/11/2019 External hemorrhoids [K64.4] Internal hemorrhoids [K64.8] Abnormal Mammogram, Unspecified [R92.8] 11/10/2006 10/01/2009 Nonsuppurative Otitis Media, not Specified as A*05/25/2007 10/01/2009 Osteoporosis [M81.0] 09/24/2007 Sciatica [M54.30] 06/02/2008 Iron deficiency anemia [D50.9] 04/15/2010 Hallux valgus (acquired) [M20.10] 09/02/2011 Diverticulosis of large intestine without hemor*03/05/2015 Low back pain [M54.50] 03/05/2015 Cholesteatoma of tympanum of right ear [H71.11] 03/22/2015 Well adult exam [Z00.00] 03/22/2015 04/11/2019 Diabetic eye exam (HCC) [Z01.00, E11.9] 07/12/2015 04/11/2019 Essential hypertension with goal blood pressure*07/19/2015 Type 2 diabetes mellitus with stage 3b chronic *07/19/2015 Chronic right shoulder pain [M25.511, G89.29] 12/05/2015 Pain in right hip [M25.551] 12/05/2015 04/11/2019 Arthritis of right hip [M16.11] 12/06/2015 Arthritis of right shoulder region [M19.011] 12/06/2015 Calcaneal spur of left foot [M77.32] 01/09/2016 Tendonitis, Achilles, left [M76.62] 01/09/2016 Medicare annual wellness visit, subsequent [Z00*06/16/2017 Stage 3b chronic kidney disease (HCC) [N18.32] 06/17/2017 Class 1 obesity due to excess calories without *06/17/2017 04/11/2019 Encounter for screening mammogram for breast ca*06/17/2018 04/11/2019 Screening for osteoporosis [Z13.820] 06/17/2018 04/11/2019 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] 06/17/2018 Renal stone [N20.0] 09/19/2018 Age-related cataract of both eyes [H25.9] 04/13/2019 GERD (gastroesophageal reflux disease) [K21.9] Obesity, Class I, BMI 30-34.9 [E66.811] 07/25/2019 AK (actinic keratosis) [L57.0] 08/23/2020 Closed fracture of first lumbar vertebra (HCC) *04/19/2021 03/05/2022 Balance problem [R26.89] 07/08/2021 Cervical stenosis of spine [M48.02] 07/08/2021 Advance directive discussed with patient [Z71.8*03/05/[address] [Z78.9] 03/27/2023 Symptomatic orthostatic increase in heart rate *04/15/2024 Encounter Status:Closed by SHANNEN GALLARDO on 05/03/[address] [facility] CNOVon 05-02-2024 CNOV Office Visit (FAMPWS ) SHAHEEN JEAN ([id number]) 1945 F Date Time Provider Department 05/02/24 1:20 PM PANCHO LOPEZ During your visit today, we recorded the following information about you: Pulse Respiration Blood pressure Weight 116/minute 18/minute 116/77 83.9 kg Pancho Lopez MD 05/02/2024 5:02 PM Signed Chief Complaint Patient presents with: Follow Up HPI Shaheen Jean is a 78 year old female who presents here today for follow up on blood pressure. At last office visit her BP was on the low end and I had her decreased the lisinopril back to 5 mg a day. She has not had any dizziness since then. Has her tilt table test in the next week. Past medical history, appointments, medications, allergies reviewed. Previous Medical History PAST MEDICAL HISTORY Diagnosis Date Actinic keratoses 01/18/2010 Advance directive discussed with patient 03/05/2022 DPA: Lory (daughter) Age-related cataract of both eyes 04/13/2019 AK (actinic keratosis) 08/23/2020 Tx with cryo right dorasol hand 08/2020 Arthritis of right hip 12/06/2015 Arthritis of right shoulder region 12/06/2015 Calcaneal spur of left foot 01/09/2016 Cervical stenosis of spine 07/08/2021 Cholesteatoma of tympanum of right ear 03/22/[address] Mckenzie Chronic right shoulder pain 12/05/2015 Closed fracture of first lumbar vertebra (HCC) 04/19/2021 End plate fracture of L1 Closed fracture of one or more phalanges of foot 11/05/2009 Diverticulosis of large intestine without hemorrhage 03/05/2015 Essential hypertension with goal blood pressure less than 130/85 07/19/2015 External hemorrhoids GERD (gastroesophageal reflux disease) Hallux valgus (acquired) 09/02/2011 Internal hemorrhoids Iron deficiency anemia 01/28/[address] 03/27/2023 DPA: Lory (daughter), Low back pain 03/05/2015 Mixed hyperlipidemia Obesity, Class I, BMI 30-34.9 07/25/2019 Osteoporosis 09/24/2007 Renal stone 09/19/2018 first one 09/2018 Sciatica 06/02/2008 Stage 3b chronic kidney disease (HCC) 06/17/2017 Tendonitis, Achilles, left 01/09/2016 Type 2 diabetes mellitus with stage 3b chronic kidney disease, without long-term current use of insulin ([facility]) 07/19/2015 Previous Surgical History PAST SURGICAL HISTORY Procedure Laterality Date BX BREAST PERC VACUUM/ROTN 11/30/06 RIGHT DELIVERY ONLY , low cervical x 4 COLONOSCOPY 05/10/2015 repeat 10 yrs COLONOSCOPY FLX DX W/COLLJ SPEC WHEN PFRMD 07/23/05 repeat due 2015 COLONOSCOPY FLX DX W/COLLJ SPEC WHEN PFRMD 05/10/2015 Colonoscopy ESOPHAGOGASTRODUODENOSCOPY TRANSORAL DIAGNOSTIC 04/15/2010 EGD FOOT LEFT OP SURGERY 08/2011 bunionectomy PAST SURGICAL HISTORY OF and 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, non ca x2 PLCMT LOCALZTN CLIP,PERC,DURING BREAST BX 11/30/06 RIGHT SIGMOIDOSCOPY FLX DX W/COLLJ SPEC BR/WA IF PFRMD 07/1999 Sigmoidoscopy TYMPANOSTOMY LOC/TOP ANES BILA 2010 left TM tube Family History FAMILY HISTORY Problem Relation Age of Onset Stroke Mother Ischemic Heart Disease Father also diabetes Diabetes Sister Stroke Sister Uterine Cancer Sister Osteoporosis Sister Diabetes Sister Dementia Sister Osteoporosis Sister Carotid Disease Brother 95 other (pacemaker) Brother Seizures Brother other (complications of mono) Brother Patient Allergies ALLERGIES Allergen Reactions Bactrim [Sulfametho* Rash Cipro [Ciprofloxaci* Rash Clams Rash [place] Unknown Eggs [Egg] Other: See Comments Diarrhea Grass Pollen Itching Lactose Intolerance* Unknown Pork Unknown Seasonal Allergies Other: See Comments pollen Current Medications Current Outpatient Medications on File Prior to Visit Medication Sig lisinopril (ZESTRIL) 10 mg tablet Take 0.5 tablets by mouth once daily. metFORMIN (GLUCOPHAGE) 500 mg tablet Take 1 tablet by mouth daily with dinner. glimepiride (AMARYL) 1 mg tablet Take 1 tablet by mouth daily with breakfast. blood sugar diagnostic (FREESTYLE LITE STRIPS) test strip Test blood sugar(s) one times daily. Dx: Type 2 DM - Controlled E11.9 Insulin: No multivitamin with minerals (ONE-A-DAY 50 PLUS ORAL) Take by mouth. blood sugar diagnostic (BLOOD GLUCOSE TEST) test strip Test blood sugar(s) 1 times daily. Dx: Type 2 DM - Controlled E11.9 Insulin: No Blood-Glucose Meter [facility] Check blood sugars once a day. Dx: E11.9 no insulin Cholecalciferol, Vitamin D3, 25 mcg (1,000 unit) cap Take 1,000 Units by mouth once daily. CALCIUM CARBONATE (TUMS E-X ORAL) Take 2 capsules by mouth once daily. (Patient taking differently: Take 2 capsules by mouth once daily. Not taking daily PRN) Aspirin 81 mg ORAL Tab Take 81 mg by mouth once daily. No current facility-administered medications on file prior to visit. Social History Social History Tobacco Use Smoking status: Never Smokele (more content not included)... [facility] (4CQ) SHAHEEN JEAN ([id number]) 1945 F Date Time Provider Department 04/18/24 PANCHO LOPEZ 4CQ During your visit today, we recorded the following information about you: Sonia Duncan 04/18/2024 10:18 AM Signed Spoke with patient and she prefers tilt table test be faxed to [facility] as patient does not want to travel. Levar Serrano LPN 04/18/2024 12:04 PM Signed Order, demographics faxed as requested. Referral placed in [facility]. Levar Serrano LPN Allergies As of Date: 04/18/2024 Noted Allergy Reaction BACTRIM (SULFAMETHOXAZOLE) 03/27/2010 2 - Rash CIPRO (CIPROFLOXACIN) 12/27/2004 2 - Rash CLAMS 06/17/2018 2 - Rash CORN 09/29/2008 16 - Unknown EGGS (EGG) 03/27/2023 14 - Other: See Comments Comments: Diarrhea GRASS POLLEN 09/09/2011 9 - Itching LACTOSE INTOLERANCE (LACTASE) 12/27/2004 16 - Unknown PORK 09/29/2008 16 - Unknown SEASONAL ALLERGIES 07/30/2012 14 - Other: See Comments Comments: pollen Date Reviewed: 04/15/2024 Reviewed by: Pancho Lopez MD - Fully Assessed Reason for Visit: Orders [681] Prescriptions as of 04/18/2024 - lisinopril (ZESTRIL) 10 mg tablet Take 0.5 tablets by mouth once daily. - metFORMIN (GLUCOPHAGE) 500 mg tablet Take 1 tablet by mouth daily with dinner. - glimepiride (AMARYL) 1 mg tablet Take 1 tablet by mouth daily with breakfast. - blood sugar diagnostic (FREESTYLE LITE STRIPS) test strip Test blood sugar(s) one times daily. Dx: Type 2 DM - Controlled E11.9 Insulin: No - multivitamin with minerals (ONE-A-DAY 50 PLUS ORAL) Take by mouth. - blood sugar diagnostic (BLOOD GLUCOSE TEST) test strip Test blood sugar(s) 1 times daily. Dx: Type 2 DM - Controlled E11.9 Insulin: No - Blood-Glucose Meter misc Check blood sugars once a day. Dx: E11.9 no insulin - Cholecalciferol, Vitamin D3, 25 mcg (1,000 unit) cap Take 1,000 Units by mouth once daily. - CALCIUM CARBONATE (TUMS E-X ORAL) Take 2 capsules by mouth once daily. - Aspirin 81 mg ORAL Tab Take 81 mg by mouth once daily. Problem List As Of Date 04/18/2024 Noted Resolved Mixed hyperlipidemia [E78.2] Pain in joint, shoulder region [M25.519] 01/08/2005 04/11/2019 External hemorrhoids [K64.4] Internal hemorrhoids [K64.8] Abnormal Mammogram, Unspecified [R92.8] 11/10/2006 10/01/2009 Nonsuppurative Otitis Media, not Specified as A*05/25/2007 10/01/2009 Osteoporosis [M81.0] 09/24/2007 Sciatica [M54.30] 06/02/2008 Iron deficiency anemia [D50.9] 04/15/2010 Hallux valgus (acquired) [M20.10] 09/02/2011 Diverticulosis of large intestine without hemor*03/05/2015 Low back pain [M54.50] 03/05/2015 Cholesteatoma of tympanum of right ear [H71.11] 03/22/2015 Well adult exam [Z00.00] 03/22/2015 04/11/2019 Diabetic eye exam (HCC) [Z01.00, E11.9] 07/12/2015 04/11/2019 Essential hypertension with goal blood pressure*07/19/2015 Type 2 diabetes mellitus with stage 3b chronic *07/19/2015 Chronic right shoulder pain [M25.511, G89.29] 12/05/2015 Pain in right hip [M25.551] 12/05/2015 04/11/2019 Arthritis of right hip [M16.11] 12/06/2015 Arthritis of right shoulder region [M19.011] 12/06/2015 Calcaneal spur of left foot [M77.32] 01/09/2016 Tendonitis, Achilles, left [M76.62] 01/09/2016 Medicare annual wellness visit, subsequent [Z00*06/16/2017 Stage 3b chronic kidney disease (HCC) [N18.32] 06/17/2017 Class 1 obesity due to excess calories without *06/17/2017 04/11/2019 Encounter for screening mammogram for breast ca*06/17/2018 04/11/2019 Screening for osteoporosis [Z13.820] 06/17/2018 04/11/2019 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] 06/17/2018 Renal stone [N20.0] 09/19/2018 Age-related cataract of both eyes [H25.9] 04/13/2019 GERD (gastroesophageal reflux disease) [K21.9] Obesity, Class I, BMI 30-34.9 [E66.811] 07/25/2019 AK (actinic keratosis) [L57.0] 08/23/2020 Closed fracture of first lumbar vertebra (HCC) *04/19/2021 03/05/2022 Balance problem [R26.89] 07/08/2021 Cervical stenosis of spine [M48.02] 07/08/2021 Advance directive discussed with patient [Z71.8*03/05/[address] [Z78.9] 03/27/2023 Symptomatic orthostatic increase in heart rate *04/15/2024 Encounter Status:Closed by LEVAR SERRANO on 04/18/24 Normal [facility] JACK BY IFA SCREENon 04-15-19 Nuclear Ab Ql (S) Negative Normal Negative [facility] Comment on above: Order Comment: Speci men Type: BLOOD SPECIMENOrdering Facility: [facility] Address: [address] [place] [address] Result Comment: Anti -nuclear antibody test is used as an aid in diagnosis of systemic autoimmune diseases. Where positive and clinically warranted, follow-up using disease-specific testing is recommended. Low positive titers are not uncommon with advanced age, certain chronic infections, and malignancies among others. Test methodology: Indirect fluorescence immunoassay (IFA) using HEp-2 cells. Performed By: #### A NAIFS ####[facility] LABCLIA [id number] [address] OF [facility] CNOVon 04-15-2024 CNOV Office Visit (FAMPWS ) SHAHEEN JEAN ([id number]) 1945 F Date Time Provider Department 04/15/24 2:00 PM [facility] During your visit today, we recorded the following information about you: Respiration Weight Height 16/minute 83.5 kg 1.619 m Pancho Lopez MD 05/04/2024 1:01 PM Addendum Shaheen Jean is a 78 year old female here for a Medicare wellness visit. Medicare Health Risk Assessment General Health Good Exercise: Minutes/Day 10 min Exercise: Days/Week 1 day Alcohol: Daily Use Never Alcohol: Drinks/Day Patient does not drink Alcohol: 6 or more drinks Never Feel off balance Yes Concerns: Teeth/Dentures No Concerns: Sexual function No Troubled by feelings None of the above Frequency: Eating healthy diet Declined to answer ADLs requiring help None of the above Safety precautions in home/vehicle Yes Smoke, vape, chews tobacco No Difficulty hearing Yes, I wear a hearing aid Difficulty seeing No Current Providers Specialists: I have reviewed specialist-related care of the patient in the medical record. Current care team: Patient Care Team: Pancho Lopez MD as PCP - General (Family Medicine) Osmin Hutton APRN.PRINTER MACHINE as Steamer Blocker (Family Medicine) Klarissa Ramirez PA-C as Steamer Blocker (Family Medicine) Medical/Family history review Reviewed and updated problem list, medical/surgical/family/socia l history, medications, and allergies. Opioid use review Opioid Medications (last 90 days) No data to display Anxiety/Depression screening PHQ-2 Score: 0 (Lower risk for depression) Recommendation: no further intervention at this time Cognitive screening Score: 5 Cognitive screening reviewed and No further action needed (score 3-5). Functional Observation Was the patient's Timed Up AND Go test unsteady or >= 12 seconds? No Advance Care Planning Surrogate decision maker documented and/or advance directives scanned in chart Measurements BP 120/80 Pulse 94 Resp 16 Ht 161.9 cm (5' 3.75) Wt 83.5 kg (184 lb) BMI 31.83 kg/m? Vision Screening: Follows with optometry/ophthalmology Assessment/Plan Medicare annual wellness visit, subsequent (Z00.00) - Counseled on healthy diet and regular exercise - Fall avoidance information provided - Personalized prevention plan provided See Below Chief Complaint Patient presents with: Medicare Wellness Exam HPI Shaheen Jean is a 78 year old female who presents here today for Chronic Medical Conditions. and Medicare Annual Visit. Patient with hx of HTN, hyperlipidemia, GERD, CKD, DM2, osteoporosis, and those as below. Ref Range AND Units 7 d ago (04/08/24) 7 mo ago (09/17/23) 1 yr ago (03/18/23) 1 yr ago (12/01/22) 1 yr ago (08/25/22) 1 yr ago (06/05/22) 2 yr ago (02/26/22) Hemoglobin A1C 4.3 - 5.6 % 6.8 High 6.7 High CM 6.5 High CM 6.4 High CM 6.0 High CM 6.0 High CM 8.3 High Patient has been doing ok. Has lost a few friends and family members in the last few months. Past medical history, appointments, medications, allergies reviewed. Previous Medical History PAST MEDICAL HISTORY Diagnosis Date Actinic keratoses 01/18/2010 Advance directive discussed with patient 03/05/2022 DPA: Lory (daughter) Age-related cataract of both eyes 04/13/2019 AK (actinic keratosis) 08/23/2020 Tx with cryo right dorasol hand 08/2020 Arthritis of right hip 12/06/2015 Arthritis of right shoulder region 12/06/2015 Calcaneal spur of left foot 01/09/2016 Cervical stenosis of spine 07/08/2021 Cholesteatoma of tympanum of right ear 03/22/[address] Mckenzie Chronic right shoulder pain 12/05/2015 Closed fracture of first lumbar vertebra (HCC) 04/19/2021 End plate fracture of L1 Closed fracture of one or more phalanges of foot 11/05/2009 Diverticulosis of large intestine without hemorrhage 03/05/2015 Essential hypertension with goal blood pressure less than 130/85 07/19/2015 External hemorrhoids GERD (gastroesophageal reflux disease) Hallux valgus (acquired) 09/02/2011 Internal hemorrhoids Iron deficiency anemia 01/28/[address] 03/27/2023 DPA: Lory (daughter), Low back pain 03/05/2015 Mixed hyperlipidemia Obesity, Class I, BMI 30-34.9 07/25/2019 Osteoporosis 09/24/2007 Renal stone 09/19/2018 first one 09/2018 Sciatica 06/02/2008 Stage 3b chronic kidney disease ([facility]) 06/17/2017 Tendonitis, Achilles, left 01/09/2016 Type 2 diabetes mellitus with stage 3 chronic kidney disease, without long-term current use of insulin ([facility]) 07/19/2015 Type 2 diabetes mellitus with stage 3b chronic kidney disease, without long-term current use of insulin ([facility]) 07/19/2015 Previous Surgical History PAST SURGICAL HISTORY Procedure Laterality Date BX BREAST PERC VACUUM/ROTN 11/30/06 RIGHT DELIVERY ONLY , low cervical x 4 COLONOSCOPY 03/ (more content not included)... Normal [facility] CNPNon 04-15-2024 CNPN Telephone (FAMPWS) SHAHEEN JEAN ([id number]) 1945 F Date Time Provider Department 04/15/24 PANCHO LOPEZ During your visit today, we recorded the following information about you: Pancho Lopez MD 04/18/2024 7:11 AM Addendum Let patient know I talked with our neurologist after her appt and he advised getting a tilt table test. Order placed. Levar Serrano LPN 04/18/2024 10:17 AM Signed Pt notified of provider's message. Pt verbalizes understanding. Pt was assisted in transfer to schedule procedure. Levar Serrano LPN Allergies As of Date: 04/15/2024 Noted Allergy Reaction BACTRIM (SULFAMETHOXAZOLE) 03/27/2010 2 - Rash CIPRO (CIPROFLOXACIN) 12/27/2004 2 - Rash CLAMS 06/17/2018 2 - Rash CORN 09/29/2008 16 - Unknown EGGS (EGG) 03/27/2023 14 - Other: See Comments Comments: Diarrhea GRASS POLLEN 09/09/2011 9 - Itching LACTOSE INTOLERANCE (LACTASE) 12/27/2004 16 - Unknown PORK 09/29/2008 16 - Unknown SEASONAL ALLERGIES 07/30/2012 14 - Other: See Comments Comments: pollen Date Reviewed: 04/15/2024 Reviewed by: Pancho Lopez MD - Fully Assessed Reason for Visit: Orders [681] Primary Visit Diagnosis:Symptomatic orthostatic increase in heart rate [R00.8] Order(s):TILT TABLE EVALUATION [[id number]] Order #: [id number]: 1 Prescriptions as of 04/18/2024 - lisinopril (ZESTRIL) 10 mg tablet Take 0.5 tablets by mouth once daily. - metFORMIN (GLUCOPHAGE) 500 mg tablet Take 1 tablet by mouth daily with dinner. - glimepiride (AMARYL) 1 mg tablet Take 1 tablet by mouth daily with breakfast. - blood sugar diagnostic (FREESTYLE LITE STRIPS) test strip Test blood sugar(s) one times daily. Dx: Type 2 DM - Controlled E11.9 Insulin: No - multivitamin with minerals (ONE-A-DAY 50 PLUS ORAL) Take by mouth. - blood sugar diagnostic (BLOOD GLUCOSE TEST) test strip Test blood sugar(s) 1 times daily. Dx: Type 2 DM - Controlled E11.9 Insulin: No - Blood-Glucose Meter [facility] Check blood sugars once a day. Dx: E11.9 no insulin - Cholecalciferol, Vitamin D3, 25 mcg (1,000 unit) cap Take 1,000 Units by mouth once daily. - CALCIUM CARBONATE (TUMS E-X ORAL) Take 2 capsules by mouth once daily. - Aspirin 81 mg ORAL Tab Take 81 mg by mouth once daily. Problem List As Of Date 04/15/2024 Noted Resolved Mixed hyperlipidemia [E78.2] Pain in joint, shoulder region [M25.519] 01/08/2005 04/11/2019 External hemorrhoids [K64.4] Internal hemorrhoids [K64.8] Abnormal Mammogram, Unspecified [R92.8] 11/10/2006 10/01/2009 Nonsuppurative Otitis Media, not Specified as A*05/25/2007 10/01/2009 Osteoporosis [M81.0] 09/24/2007 Sciatica [M54.30] 06/02/2008 Iron deficiency anemia [D50.9] 04/15/2010 Hallux valgus (acquired) [M20.10] 09/02/2011 Diverticulosis of large intestine without hemor*03/05/2015 Low back pain [M54.50] 03/05/2015 Cholesteatoma of tympanum of right ear [H71.11] 03/22/2015 Well adult exam [Z00.00] 03/22/2015 04/11/2019 Diabetic eye exam (HCC) [Z01.00, E11.9] 07/12/2015 04/11/2019 Essential hypertension with goal blood pressure*07/19/2015 Type 2 diabetes mellitus with stage 3b chronic *07/19/2015 Chronic right shoulder pain [M25.511, G89.29] 12/05/2015 Pain in right hip [M25.551] 12/05/2015 04/11/2019 Arthritis of right hip [M16.11] 12/06/2015 Arthritis of right shoulder region [M19.011] 12/06/2015 Calcaneal spur of left foot [M77.32] 01/09/2016 Tendonitis, Achilles, left [M76.62] 01/09/2016 Medicare annual wellness visit, subsequent [Z00*06/16/2017 Stage 3b chronic kidney disease (HCC) [N18.32] 06/17/2017 Class 1 obesity due to excess calories without *06/17/2017 04/11/2019 Encounter for screening mammogram for breast ca*06/17/2018 04/11/2019 Screening for osteoporosis [Z13.820] 06/17/2018 04/11/2019 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] 06/17/2018 Renal stone [N20.0] 09/19/2018 Age-related cataract of both eyes [H25.9] 04/13/2019 GERD (gastroesophageal reflux disease) [K21.9] Obesity, Class I, BMI 30-34.9 [E66.811] 07/25/2019 AK (actinic keratosis) [L57.0] 08/23/2020 Closed fracture of first lumbar vertebra (HCC) *04/19/2021 03/05/2022 Balance problem [R26.89] 07/08/2021 Cervical stenosis of spine [M48.02] 07/08/2021 Advance directive discussed with patient [Z71.8*03/05/[address] [Z78.9] 03/27/2023 Symptomatic orthostatic increase in heart rate *04/15/2024 Encounter Status:Closed by LEVAR [facility]ANO on [facility] SHAHEEN JEAN ([id number]) 1945 F Date Time Provider Department 04/15/24 NELLY [address]LEXIS [facility] During your visit today, we recorded the following information about you: Nelly Alexis MA 04/15/2024 4:04 PM Signed Let patient know after considering her BP and pulse with position changes I want her to cut her 10 mg table of lisinopril in half and only take 1/2 a tab daily. I then want to see her back in 2-3 weeks to recheck her BP and Ortho's. MILIND Vega Roxanne, MA 04/15/2024 4:04 PM Signed Patient notified and voiced understanding and scheduled for follow up. Nelly Alexis MA Allergies As of Date: 04/15/2024 Noted Allergy Reaction BACTRIM (SULFAMETHOXAZOLE) 03/27/2010 2 - Rash CIPRO (CIPROFLOXACIN) 12/27/2004 2 - Rash CLAMS 06/17/2018 2 - Rash CORN 09/29/2008 16 - Unknown EGGS (EGG) 03/27/2023 14 - Other: See Comments Comments: Diarrhea GRASS POLLEN 09/09/2011 9 - Itching LACTOSE INTOLERANCE (LACTASE) 12/27/2004 16 - Unknown PORK 09/29/2008 16 - Unknown SEASONAL ALLERGIES 07/30/2012 14 - Other: See Comments Comments: pollen Date Reviewed: 04/15/2024 Reviewed by: Pancho Lopez MD - Fully Assessed Reason for Visit: Patient Update [1234] Prescriptions as of 04/15/2024 - lisinopril (ZESTRIL) 10 mg tablet Take 0.5 tablets by mouth once daily. - metFORMIN (GLUCOPHAGE) 500 mg tablet Take 1 tablet by mouth daily with dinner. - glimepiride (AMARYL) 1 mg tablet Take 1 tablet by mouth daily with breakfast. - blood sugar diagnostic (FREESTYLE LITE STRIPS) test strip Test blood sugar(s) one times daily. Dx: Type 2 DM - Controlled E11.9 Insulin: No - multivitamin with minerals (ONE-A-DAY 50 PLUS ORAL) Take by mouth. - blood sugar diagnostic (BLOOD GLUCOSE TEST) test strip Test blood sugar(s) 1 times daily. Dx: Type 2 DM - Controlled E11.9 Insulin: No - Blood-Glucose Meter [facility] Check blood sugars once a day. Dx: E11.9 no insulin - Cholecalciferol, Vitamin D3, 25 mcg (1,000 unit) cap Take 1,000 Units by mouth once daily. - CALCIUM CARBONATE (TUMS E-X ORAL) Take 2 capsules by mouth once daily. - Aspirin 81 mg ORAL Tab Take 81 mg by mouth once daily. Problem List As Of Date 04/15/2024 Noted Resolved Mixed hyperlipidemia [E78.2] Pain in joint, shoulder region [M25.519] 01/08/2005 04/11/2019 External hemorrhoids [K64.4] Internal hemorrhoids [K64.8] Abnormal Mammogram, Unspecified [R92.8] 11/10/2006 10/01/2009 Nonsuppurative Otitis Media, not Specified as A*05/25/2007 10/01/2009 Osteoporosis [M81.0] 09/24/2007 Sciatica [M54.30] 06/02/2008 Iron deficiency anemia [D50.9] 04/15/2010 Hallux valgus (acquired) [M20.10] 09/02/2011 Diverticulosis of large intestine without hemor*03/05/2015 Low back pain [M54.50] 03/05/2015 Cholesteatoma of tympanum of right ear [H71.11] 03/22/2015 Well adult exam [Z00.00] 03/22/2015 04/11/2019 Diabetic eye exam (HCC) [Z01.00, E11.9] 07/12/2015 04/11/2019 Essential hypertension with goal blood pressure*07/19/2015 Type 2 diabetes mellitus with stage 3b chronic *07/19/2015 Chronic right shoulder pain [M25.511, G89.29] 12/05/2015 Pain in right hip [M25.551] 12/05/2015 04/11/2019 Arthritis of right hip [M16.11] 12/06/2015 Arthritis of right shoulder region [M19.011] 12/06/2015 Calcaneal spur of left foot [M77.32] 01/09/2016 Tendonitis, Achilles, left [M76.62] 01/09/2016 Medicare annual wellness visit, subsequent [Z00*06/16/2017 Stage 3b chronic kidney disease (HCC) [N18.32] 06/17/2017 Class 1 obesity due to excess calories without *06/17/2017 04/11/2019 Encounter for screening mammogram for breast ca*06/17/2018 04/11/2019 Screening for osteoporosis [Z13.820] 06/17/2018 04/11/2019 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] 06/17/2018 Renal stone [N20.0] 09/19/2018 Age-related cataract of both eyes [H25.9] 04/13/2019 GERD (gastroesophageal reflux disease) [K21.9] Obesity, Class I, BMI 30-34.9 [E66.811] 07/25/2019 AK (actinic keratosis) [L57.0] 08/23/2020 Closed fracture of first lumbar vertebra (HCC) *04/19/2021 03/05/2022 Balance problem [R26.89] 07/08/2021 Cervical stenosis of spine [M48.02] 07/08/2021 Advance directive discussed with patient [Z71.8*03/05/[address] [Z78.9] 03/27/2023 Encounter Status:Closed by NELLY ALEXIS on 04/15/24 Normal [facility] CRP SerPl-mCncon 04-15-2024 CRP [Mass/Vol] 0.7 mg/dL Normal <0.9 [facility] Comment on above: Order Comment: Speci men Type: BLOOD SPECIMENOrdering Facility: [facility] Address: [address] [place] [address] Performed By: #### 1 1572-5 ####[facility] LABCLIA [id number] [place] [address] [place]#### 1989-5 ####[facility] LABORATORYCLIA [id number] [place] [address] [place] ESR Westergren method (Bld) [Velocity]on 04-15-2024 ESR (Bld) [Velocity] 38 mm/h High 0-20 [facility] Comment on above: Order Comment: Speci men Type: BLOOD SPECIMENOrdering Facility: [facility] Address: [address] [place] [address] Performed By: #### 4 537-7 ####[facility] LABIA [id number] [place] [address] [place] Rheumatoid fact SerPl-aCncon 04-15-2024 Rheumatoid factor Qn 11 [IU]/mL Normal <16 [facility] Comment on above: Order Comment: Speci men Type: BLOOD SPECIMENOrdering Facility: [facility] Address: [address] [place] [address] Performed By: #### 1 1572-5 ####[facility] LABCLIA [id number] [place] [address] [place]#### 1989-5 ####[facility] LABORATORYCLIA [id number] [place] [address] [place] ALBUMIN/CREATININE RATIO, UR INEon 04-08-2024 Albumin DL <= 20 mg/L (U) [Mass/Vol] mg/dL Normal [facility] Comment on above: Order Comment: Speci men Type: URINE SPECIMENOrdering Facility: [facility] Address: [address] [place] [address] Performed By: #### U ACR ####[facility] LABCLIA [id number] [place] [address] [place] Albumin/Creatinin e (U) [Mass ratio] <10 Normal <30 [facility] Comment on above: Order Comment: Speci men Type: URINE SPECIMENOrdering Facility: [facility] Address: [address] [place] [address] Result Comment: Adul t Male and Female Nephrotic Criteria: <30 mg/g is considered normal to mildly increased 30-300 mg/g is considered moderately increased >300 mg/g is considered severely increased KDIGO. (2013). KDIGO 2012 Clinical Practice Guideline for the Evaluation and Management of Chronic Kidney Disease. Official Journal of the International Society of Nephrology, 3(1), 1-150. Performed By: #### U ACR ####[facility] LABCLIA [id number] [place] [address] [place] Creatinine (U) [Mass/Vol] 118.4 mg/dL Normal 20.0-300.0 [facility] Comment on above: Order Comment: Speci men Type: URINE SPECIMENOrdering Facility: [facility] Address: [address] [place] [address] Performed By: #### U ACR ####[facility] LABCLIA [id number] [place] [address] [place] CBC W Auto Differential pane l (Bld)on 04-08-2024 Basophils (Bld) [#/Vol] 0.09 10*3/uL Normal <0.11 [facility] Comment on above: Order Comment: Speci men Type: BLOOD SPECIMENOrdering Facility: [facility] Address: [address] [place] [address] Performed By: #### 5 7021-8 ####[facility] LABCLIA [id number] [place] [address] [place] Basophils/100 WBC (Bld) 0.9 % Normal [facility] Comment on above: Order Comment: Speci men Type: BLOOD SPECIMENOrdering Facility: [facility] Address: [address] [place] [address] Performed By: #### 5 7021-8 ####[facility] LABCLIA [id number] [place] [address] [place] Differential cell count method Nom (Bld) Auto Normal [facility] Comment on above: Order Comment: Speci men Type: BLOOD SPECIMENOrdering Facility: [facility] Address: [address] [place] [address] Performed By: #### 5 7021-8 ####[facility] LABCLIA [id number] [place] [address] [place] Eosinophils (Bld) [#/Vol] 0.36 10*3/uL Normal <0.46 [facility] Comment on above: Order Comment: Speci men Type: BLOOD SPECIMENOrdering Facility: [facility] Address: [address] [place] [address] Performed By: #### 5 7021-8 ####[facility] LABCLIA [id number] [place] [address] [place] Eosinophils/100 WBC (Bld) 3.4 % Normal [facility] Comment on above: Order Comment: Speci men Type: BLOOD SPECIMENOrdering Facility: [facility] Address: [address] [place] [address] Performed By: #### 5 7021-8 ####[facility] LABIA [id number] [place] [address] [place] Erythrocyte distribution width (RBC) [Ratio] 13.5 % Normal 11.5-15.0 [facility] Comment on above: Order Comment: Speci men Type: BLOOD SPECIMENOrdering Facility: [facility] Address: [address] [place] [address] Performed By: #### 5 7021-8 ####[facility] LABIA [id number] [place] [address] [place] Hematocrit (Bld) [Volume fraction] 38.5 % Normal 36.0-46.0 [facility] Comment on above: Order Comment: Speci men Type: BLOOD SPECIMENOrdering Facility: [facility] Address: [address] [place] [address] Performed By: #### 5 7021-8 ####[facility] LABIA [id number] [place] [address] [place] Hemoglobin (Bld) [Mass/Vol] 11.9 g/dL Normal 11.5-15.5 [facility] Comment on above: Order Comment: Speci men Type: BLOOD SPECIMENOrdering Facility: [facility] Address: [address] [place] [address] Performed By: #### 5 7021-8 ####[facility] LABIA [id number] [place] [address] [place] Immature granulocytes (Bld) [#/Vol] 0.04 10*3/uL Normal <0.10 [facility] Comment on above: Order Comment: Speci men Type: BLOOD SPECIMENOrdering Facility: [facility] Address: [address] [place] [address] Performed By: #### 5 7021-8 ####[facility] LABCLIA [id number] [place] [address] [place] Immature granulocytes/100 WBC (Bld) 0.4 % Normal [facility] Comment on above: Order Comment: Speci men Type: BLOOD SPECIMENOrdering Facility: [facility] Address: [address] [place] [address] Performed By: #### 5 7021-8 ####[facility] LABCLIA [id number] [place] [address] [place] Lymphocytes (Bld) [#/Vol] 2.79 10*3/uL Normal 1.00-4.00 [facility] Comment on above: Order Comment: Speci men Type: BLOOD SPECIMENOrdering Facility: [facility] Address: [address] [place] [address] Performed By: #### 5 7021-8 ####[facility] LABCLIA [id number] [place] [address] [place] Lymphocytes/100 WBC (Bld) 26.5 % Normal [facility] Comment on above: Order Comment: Speci men Type: BLOOD SPECIMENOrdering Facility: [facility] Address: [address] [place] [address] Performed By: #### 5 7021-8 ####[facility] LABIA [id number] [place] [address] [place] MCH (RBC) [Entitic mass] 26.7 pg Normal 26.0-34.0 [facility] Comment on above: Order Comment: Speci men Type: BLOOD SPECIMENOrdering Facility: [facility] Address: [address] [place] [address] Performed By: #### 5 7021-8 ####[facility] LABCLIA [id number] [place] [address] [place] MCHC (RBC) [Mass/Vol] 30.9 g/dL Normal 30.5-36.0 [facility] Comment on above: Order Comment: Speci men Type: BLOOD SPECIMENOrdering Facility: [facility] Address: [address] [place] [address] Performed By: #### 5 7021-8 ####[facility] LABIA [id number] [place] [address] [place] MCV (RBC) [Entitic vol] 86.5 fL Normal 80.0-100.0 [facility] Comment on above: Order Comment: Speci men Type: BLOOD SPECIMENOrdering Facility: [facility] Address: [address] [place] [address] Performed By: #### 5 7021-8 ####[facility] LABIA [id number] [place] [address] [place] Monocytes (Bld) [#/Vol] 0.89 10*3/uL High <0.87 [facility] Comment on above: Order Comment: Speci men Type: BLOOD SPECIMENOrdering Facility: [facility] Address: [address] [place] [address] Performed By: #### 5 7021-8 ####[facility] LABIA [id number] [place] [address] [place] Monocytes/100 WBC (Bld) 8.5 % Normal [facility] Comment on above: Order Comment: Speci men Type: BLOOD SPECIMENOrdering Facility: [facility] Address: [address] [place] [address] Performed By: #### 5 7021-8 ####[facility] LABIA [id number] [place] [address] [place] Neutrophils (Bld) [#/Vol] 6.35 10*3/uL Normal 1.45-7.50 [facility] Comment on above: Order Comment: Speci men Type: BLOOD SPECIMENOrdering Facility: [facility] Address: [address] [place] [address] Performed By: #### 5 7021-8 ####[facility] LABCLIA [id number] [place] [address] [place] Neutrophils/100 WBC (Bld) 60.3 % Normal [facility] Comment on above: Order Comment: Speci men Type: BLOOD SPECIMENOrdering Facility: [facility] Address: [address] [place] [address] Performed By: #### 5 7021-8 ####[facility] LABCLIA [id number] [place] [address] [place] Nucleated RBC (Bld) [#/Vol] 10*3/uL Normal <0.01 [facility] Comment on above: Order Comment: Speci men Type: BLOOD SPECIMENOrdering Facility: [facility] Address: [address] [place] [address] Performed By: #### 5 7021-8 ####[facility] LABIA [id number] [place] [address] [place] Nucleated RBC/100 WBC (Bld) [Ratio] 0.0 /100 WBC Normal [facility] Comment on above: Order Comment: Speci men Type: BLOOD SPECIMENOrdering Facility: [facility] Address: [address] [place] [address] Performed By: #### 5 7021-8 ####[facility] LABIA [id number] [place] [address] [place] Platelet mean volume (Bld) [Entitic vol] 11.5 fL Normal 9.0-12.7 [facility] Comment on above: Order Comment: Speci men Type: BLOOD SPECIMENOrdering Facility: [facility] Address: [address] [place] [address] Performed By: #### 5 7021-8 ####[facility] LABIA [id number] [place] [address] [place] Platelets (Bld) [#/Vol] 305 10*3/uL Normal 150-400 [facility] Comment on above: Order Comment: Speci men Type: BLOOD SPECIMENOrdering Facility: [facility] Address: [address] [place] [address] Performed By: #### 5 7021-8 ####[facility] LABCLIA [id number] [place] [address] [place] RBC (Bld) [#/Vol] 4.45 10*6/uL Normal 3.90-5.20 [facility] Comment on above: Order Comment: Speci men Type: BLOOD SPECIMENOrdering Facility: [facility] Address: [address] [place] [address] Performed By: #### 5 7021-8 ####[facility] LABCLIA [id number] [place] [address] [place] WBC (Bld) [#/Vol] 10.52 10*3/uL Normal 3.70-11.00 [facility] Comment on above: Order Comment: Speci men Type: BLOOD SPECIMENOrdering Facility: [facility] Address: [address] [place] [address] Performed By: #### 5 7021-8 ####[facility] LABCLIA [id number] [place] [address] [place] Comprehensive metabolic 2000 panelon 04-08-2024 Albumin [Mass/Vol] 3.9 g/dL Normal 3.9-4.9 [facility] Comment on above: Order Comment: Speci men Type: BLOOD SPECIMENOrdering Facility: [facility] Address: [address] [place] [address] Performed By: #### 2 4323-8, 56783-8, LIPNF ####[facility] LABCLIA [id number] [place] [address] [place] ALP [Catalytic activity/Vol] 57 U/L Normal 34-123 [facility] Comment on above: Order Comment: Speci men Type: BLOOD SPECIMENOrdering Facility: [facility] Address: [address] [place] [address] Performed By: #### 2 4323-8, 50695-2, LIPNF ####[facility] LABCLIA [id number] [place] [address] [place] ALT [Catalytic activity/Vol] 9 U/L Normal 7-38 [facility] Comment on above: Order Comment: Speci men Type: BLOOD SPECIMENOrdering Facility: [facility] Address: [address] [place] [address] Performed By: #### 2 4323-8, 47438-2, LIPNF ####[facility] LABCLIA [id number] [place] [address] [place] Anion gap [Moles/Vol] 12 mmol/L Normal 8-15 [facility] Comment on above: Order Comment: Speci men Type: BLOOD SPECIMENOrdering Facility: [facility] Address: [address] [place] [address] Performed By: #### 2 4323-8, 30434-6, LIPNF ####[facility] LABCLIA [id number] [place] [address] [place] AST [Catalytic activity/Vol] 13 U/L Normal 13-35 [facility] Comment on above: Order Comment: Speci men Type: BLOOD SPECIMENOrdering Facility: [facility] Address: [address] [place] [address] Performed By: #### 2 4323-8, 99759-3, LIPNF ####[facility] LABCLIA [id number] [place] [address] [place] Bilirubin [Mass/Vol] 0.3 mg/dL Normal 0.2-1.3 [facility] Comment on above: Order Comment: Speci men Type: BLOOD SPECIMENOrdering Facility: [facility] Address: [address] [place] [address] Performed By: #### 2 4323-8, 87561-7, LIPNF ####[facility] LABCLIA [id number] [place] [address] [place] Calcium [Mass/Vol] 9.8 mg/dL Normal 8.5-10.2 [facility] Comment on above: Order Comment: Speci men Type: BLOOD SPECIMENOrdering Facility: [facility] Address: [address] [place] [address] Performed By: #### 2 4323-8, 71640-0, LIPNF ####[facility] LABCLIA [id number] [place] [address] [place] Chloride [Moles/Vol] 105 mmol/L Normal 98-107 [facility] Comment on above: Order Comment: Speci men Type: BLOOD SPECIMENOrdering Facility: [facility] Address: [address] [place] [address] Performed By: #### 2 4323-8, 57054-0, LIPNF ####[facility] LABCLIA [id number] [place] [address] [place] CO2 [Moles/Vol] 23 mmol/L Normal 22-30 [facility] Comment on above: Order Comment: Speci men Type: BLOOD SPECIMENOrdering Facility: [facility] Address: [address] [place] [address] Performed By: #### 2 4323-8, 15931-2, LIPNF ####[facility] LABCLIA [id number] [place] [address] [place] Creatinine [Mass/Vol] 1.46 mg/dL High 0.58-0.96 [facility] Comment on above: Order Comment: Speci men Type: BLOOD SPECIMENOrdering Facility: [facility] Address: [address] [place] [address] Performed By: #### 2 4323-8, 74570-3, LIPNF ####[facility] LABCLIA [id number] [place] [address] [place] Creatinine and Glomerular filtration rate.predicted panel (S/P/Bld) 36 mL/min/1.73m??? Low >=60 [facility] Comment on above: Order Comment: Chelsey pettit Type: BLOOD SPECIMENOrdering Facility: [facility] Address: [address] [place] [address] Result Comment: Nora mated Glomerular Filtration Rate (eGFR) is calculated using the 2020 CKD-EPI creatinine equation. This equation utilizes serum creatinine, sex, and age as parameters. The creatinine assay has traceable calibration to isotope dilution-mass spectrometry. Refer to KDIGO guidelines for clinical interpretation. In patients with unstable renal function, e.g. those with acute kidney injury, the eGFR may not accurately reflect actual GFR. Performed By: #### 2 4323-8, 66916-8, LIPNF ####[facility] [id number] [place] [address] [place] Glucose [Mass/Vol] 164 mg/dL High 74-99 [facility] Comment on above: Order Comment: Chelesy pettit Type: BLOOD SPECIMENOrdering Facility: [facility] Address: [address] [place] [address] Result Comment: The [place] Diabetes Association (ADA) provides guidance for cutoff values for fasting glucose and random glucose. The ADA defines fasting as no caloric intake for at least 8 hours. Fasting plasma glucose results between 100 to 125 mg/dL indicate increased risk for diabetes (prediabetes). Fasting plasma glucose results greater than or equal to 126 mg/dL meet the criteria for diagnosis of diabetes. In the absence of unequivocal hyperglycemia, results should be confirmed by repeat testing. In a patient with classic symptoms of hyperglycemia or hyperglycemic crisis, random plasma glucose results greater than or equal to 200 mg/dL meet the criteria for diagnosis of diabetes. Reference: Standards of Medical Care in Diabetes 2016, [place] [employer] Association. Diabetes Care. 2016.39(Suppl 1). Performed By: #### 2 4323-8, 38815-4, LIPNF ####[facility] LABIA [id number] [place] [address] [place] Potassium [Moles/Vol] 4.7 mmol/L Normal 3.7-5.1 [facility] Comment on above: Order Comment: Speci men Type: BLOOD SPECIMENOrdering Facility: [facility] Address: [address] [place] [address] Performed By: #### 2 4323-8, 35777-3, LIPNF ####[facility] LABCLIA [id number] [place] [address] [place] Protein [Mass/Vol] 6.9 g/dL Normal 6.3-8.0 [facility] Comment on above: Order Comment: Speci men Type: BLOOD SPECIMENOrdering Facility: [facility] Address: [address] [place] [address] Performed By: #### 2 4323-8, 44613-6, LIPNF ####[facility] LABCLIA [id number] [place] [address] [place] Sodium [Moles/Vol] 140 mmol/L Normal 136-144 [facility] Comment on above: Order Comment: Speci men Type: BLOOD SPECIMENOrdering Facility: [facility] Address: [address] [place] [address] Performed By: #### 2 4323-8, 05885-0, LIPNF ####[facility] LABCLIA [id number] [place] [address] [place] Urea nitrogen [Mass/Vol] 23 mg/dL High - [facility] Comment on above: Order Comment: Speci men Type: BLOOD SPECIMENOrdering Facility: [facility] Address: [address] [place] [address] Performed By: #### 2 4323-8, 00157-6, LIPNF ####[facility] LABCLIA [id number] [place] [address] [place] HbA1c (Bld)on 04-08-2024 Average glucose Estimated from glycated hemoglobin (Bld) [Mass/Vol] 148 mg/dL Normal [facility] Comment on above: Order Comment: Speci men Type: BLOOD SPECIMENOrdering Facility: [facility] Address: [address] [place] [address] Result Comment: eAG: (Estimated average glucose) is a calculated value from HgbA1c and is outbound call center representative of the average blood glucose level in the last 2-3 month period. Performed By: #### 5 5454-3 ####[facility] LABCLIA [id number] [place] [address] [place] HbA1c (Bld) [Mass fraction] 6.8 % High 4.3-5.6 [facility] Comment on above: Order Comment: Chelsey men Type: BLOOD SPECIMENOrdering Facility: [facility] Address: [address] [place] [address] Result Comment: [place] Diabetes Association guidelines indicate that patients with HgbA1c in the range 5.7-6.4% are at increased risk for development of diabetes, and intervention by lifestyle modification may be beneficial. HgbA1c greater or equal to 6.5% is considered diagnostic of diabetes. Performed By: #### 5 5454-3 ####[facility] LABIA [id number] [place] [address] [place] Iron and Iron binding capaci ty panelon 04-08-2024 Iron [Mass/Vol] 72 ug/dL Normal 41-186 [facility] Comment on above: Order Comment: Speci men Type: BLOOD SPECIMENOrdering Facility: [facility] Address: [address] [place] [address] Performed By: #### 2 4323-8, 77200-5, LIPNF ####[facility] LABIA [id number] [place] [address] [place] Iron binding capacity [Mass/Vol] 318 ug/dL Normal 232-386 [facility] Comment on above: Order Comment: Speci men Type: BLOOD SPECIMENOrdering Facility: [facility] Address: [address] [place] [address] Performed By: #### 2 4323-8, 88030-9, LIPNF ####[facility] LABCLIA [id number] [place] [address] [place] Iron/TIBC [Molar ratio] 22.6 % Normal 15.0-57.0 [facility] Comment on above: Order Comment: Speci men Type: BLOOD SPECIMENOrdering Facility: [facility] Address: [address] [place] [address] Performed By: #### 2 4323-8, 21218-8, LIPNF ####[facility] LABCLIA [id number] [address] [place] LIPID PANEL, NONFASTINGon Cholesterol [Mass/Vol] 179 mg/dL Normal <200 [facility] Comment on above: Order Comment: Speci men Type: BLOOD SPECIMENOrdering Facility: [facility] Address: [address] [place] [address] Result Comment: <200 mg/dL, Desirable 200-239 mg/dL, Borderline high >239 mg/dL, High Performed By: #### 2 4323-8, 30309-7, LIPNF ####[facility] LABCLIA [id number] [place] [address] [place] HDL CHOLESTEROL, NF 46 mg/dL Normal >39 [facility] Comment on above: Order Comment: Speci men Type: BLOOD SPECIMENOrdering Facility: [facility] Address: [address] [place] [address] Result Comment: 40-5 9 mg/dL, Acceptable >59 mg/dL, High: Negative risk factor for coronary heart disease <40 mg/dL, Low: Positive risk factor for coronary heart disease Performed By: #### 2 4323-8, 10143-9, LIPNF ####[facility] LABCLIA [id number] [place] [address] [place] LDL CHOLESTEROL, NF 103 mg/dL High <100 [facility] Comment on above: Order Comment: Chelsey pettit Type: BLOOD SPECIMENOrdering Facility: [facility] Address: [address] [place] [address] Result Comment: <100 mg/dL, Optimal 100-129 mg/dL, Near optimal/above optimal 130-159 mg/dL, Borderline high 160-189 mg/dL, High >189 mg/dL, Very high Secondary prevention optimal LDL Cholesterol levels are recommended to be < 70 mg/dL Performed By: #### 2 4323-8, 72893-8, LIPNF ####[facility] LABCLIA [id number] [place] [address] [place] LDL/HDL RATIO, NF 2.24 mg/dL Normal <2.54 [facility] Comment on above: Order Comment: Chelsey pettit Type: BLOOD SPECIMENOrdering Facility: [facility] Address: [address] [place] [address] Result Comment: Refe rence: 1. National Cholesterol Education Program ATP III Guideline At-A-Glance Quick Desk Reference: National Heart, Lung, and Blood [place]. National Institutes of Health. 2001: NIH Publication No. 01-3305. 2. An International Atherosclerosis Society position paper: global recommendations for the management of dyslipidemia: executive summary, Atherosclerosis. 2014: 232(2):410-413. Performed By: #### 2 4323-8, 12327-6, LIPNF ####[facility] LABCLIA [id number] [place] [address] [place] NON HDL CHOL, NF 133 mg/dL High <130 [facility] Comment on above: Order Comment: Chelsey pettit Type: BLOOD SPECIMENOrdering Facility: [facility] Address: [address] [place] [address] Result Comment: <130 mg/dL, Optimal 130-159 mg/dL, Near optimal/above optimal 160-189 mg/dL, Borderline high 190-219 mg/dL, High >219 mg/dL, Very high Secondary prevention optimal non HDL Cholesterol levels are recommended to be <100 mg/dL Performed By: #### 2 4323-8, 41061-4, LIPNF ####[facility] LABCLIA [id number] [place] [address] [place] T CHOL/HDL RATIO NF 3.89 mg/dL Normal <5.10 [facility] Comment on above: Order Comment: Speci men Type: BLOOD SPECIMENOrdering Facility: [facility] Address: [address] [place] [address] Performed By: #### 2 4323-8, 55123-7, LIPNF ####[facility] LABIA [id number] [place] [address] [place] TRIGLYCERIDES, NF 150 mg/dL High <150 [facility] Comment on above: Order Comment: Speci men Type: BLOOD SPECIMENOrdering Facility: [facility] Address: [address] [place] [address] Result Comment: <150 mg/dL, Normal 150-199 mg/dL, Borderline high 200-499 mg/dL, High >499 mg/dL, Very high Performed By: #### 2 4323-8, 33974-1, LIPNF ####[facility] LABIA [id number] [place] [address] [place] VLDL CHOLESTEROL, NF 30 mg/dL High <30 [facility] Comment on above: Order Comment: Speci men Type: BLOOD SPECIMENOrdering Facility: [facility] Address: [address] [place] [address] Performed By: #### 2 4323-8, 34944-6, LIPNF ####[facility] LABIA [id number] [place] [address] [place] CALCIUM TOTAL BLDon 08-25-19 22 Calcium [Mass/Vol] 9.7 mg/dL 8.5 - 10.2 mg/dL [facility] PTH INTACT BLDon 08-24-2021 Parathyrin.intact [Mass/Vol] 42 pg/mL 15 - 65 pg/mL [facility] XR WRIST GENERAL 3V PA/LAT/O BL LEFTon 06-20-2021 [facility] XR Wrist - left PA and Later al and Obliqueon 06-20-2021 * * *Final Report* * * DATE OF EXAM: Jun 20 2021 12:41PM WOX 5270 - XR WRIST 3V PA/LAT/OBL LT / PROCEDURE REASON: Acute pain of left wrist * * * * Physician Interpretation * * * * Indication: Left wrist pain Comparison: None 3 views of the left wrist are obtained. There is no acute fracture or dislocation. Joint spaces are maintained. Impression: 1. No acute fracture or dislocation. Roads Supervisor: [facility] Transcribe Date/Time: Jun 20 2021 12:43P Dictated by : LORY TRACEY MD This examination was interpreted and the report reviewed and electronically signed by: LORY TRACEY MD on Jun 20 2021 12:44PM EST [facility]_DO_NOT_U _DIVISION OF RADIOLOGY Provider, [facility] - 06/20/2021 * * *Final Report* * * DATE OF EXAM: Jun 20 2021 12:41PM WOX 5270 - XR WRIST 3V PA/LAT/OBL LT / PROCEDURE REASON: Acute pain of left wrist * * * * Physician Interpretation * * * * Indication: Left wrist pain Comparison: None 3 views of the left wrist are obtained. There is no acute fracture or dislocation. Joint spaces are maintained. Impression: 1. No acute fracture or dislocation. Roads Supervisor: [facility] Transcribe Date/Time: Jun 20 2021 12:43P Dictated by : LORY TRACEY MD This examination was interpreted and the report reviewed and electronically signed by: LORY TRACEY MD on Jun 20 2021 12:44PM EST [facility] Radiology Study observation (narrative) [facility] XR Wrist - left PA and Later al and ObliqueOrdered By: [facility] Provider on 06-20-20[address] [facility] [address] L-SPINE WO CONTRASTon CT L-SPINE WO CONTRAST Patient Name: SHAHEEN JEAN STUDY: CT of the lumbar spine INDICATION: fall COMPARISON: None ACCESSION NUMBER(S): [id number] ORDERING CLINICIAN: JAQUELINE ALFARO TECHNIQUE: CT scan of the lumbar spine was performed using thin axial sections, along with sagittal and coronal reformats. FINDINGS: ALIGNMENT: Anatomic. BONES: Acute nondisplaced fracture of the superior endplate of L1. No retropulsion or posterior element involvement. DISC SPACES: Minimal spondylosis. 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 Small hiatal hernia. IMPRESSION: 1. Acute nondisplaced fracture of the superior endplate of L1. Electronically signed by: NATHALIE HEATH MD [facility] Provider Note - ED v3on 03-20 Provider Note - ED v3 Provider Note: Chart Review: ED NOTES ED NOTES: HPI: About 2 hours prior to arrival patient slipped and fell on the ice and now complains of pain in her lower back. She denies any injury to her head loss of consciousness vomiting or vision changes. ROS: All systems are negative other than as noted in HPI. Physical Exam I have reviewed the triage vital signs. Const: Well nourished, well developed, appears stated age, no acute distress Eyes: PERRL, EOM intact, no conjunctival injection, vision grossly normal HENT: Neck supple without meningismus , Moist mucous membranes, no pharyengeal swelling or exudate CV: Regular rate and rhythm, Warm, well-perfused extremities. Chest non tender RESP: Lungs clear bilaterally, Unlabored respiratory effort GI: soft, non-tender, non-distended, no masses : MSK: No gross deformities appreciated Back: Pain with range of motion. Tenderness over the lumbar spine. Skin: Warm, dry. No rashes Neuro: Alert and oriented x4, GCS 15 , route sales driver II-XII grossly intact. Sensation and motor function of extremities grossly intact. Psych: Appropriate mood and affect. I have reviewed and confirmed nurses/medics notes for patient past, social and family history. Portions of this note were dictated by speech recognition. An attempt at proof reading was made to minimize errors. Minor errors in unit leader may be present. HISTORY OF PRESENTING ILLNESS SHAHEEN is a 75 year old Female and was seen by me at 12-Apr-2021 17:25 for a chief complaint of fall (Brought to ED per [facility] squad from home after slip and fall on ice. Reports that she twisted and fell onto her bottom/R hip. She has low back pain and was unable to stand up after she was sitting for a while after initial fall. Denies hitting her head, no LOC. She was given 0.5mG Dilaudid IVP and 4mg Zofran IVP by EMS RADIO TECHNICIAN. She reports slight decrease in pain 8/10 and still nauseated.)(1). Triage Information: Most recent Vital Sign Value Date Temp (F): 96.9 04-12-2021 17:24 Temp (C): 36 04-12-2021 17:24 Heart Rate (beats/min): 110 04-12-2021 17:24 Respirations (breaths/min): 16 04-12-2021 17:24 SpO2 (%): 97 04-12-2021 17:24 BP Systolic (mm Hg): 173 04-12-2021 17:24 BP Diastolic (mm Hg): 97 04-12-2021 17:24 PAST MEDICAL HISTORY ALLERGIES/INTOLERANCES: Allergy Allergen: Cipro Type: Drug Reaction: Other Allergen: Bactrim Type: Drug Reaction: Other HEALTH HISTORY: No documented data. OUTPATIENT MEDICATIONS: Home Medications Review Status for Reconciliation: Not Done Med Status: No Current Medications SIGNIFICANT EVENTS: No documented data. CRITICAL CARE RESULTS: Radiology Results: Impression: 1. Acute nondisplaced fracture of the superior endplate of L1. CT L Spine without Contrast [Apr 12 2021 7:06PM] [facility] MDM/ED COURSE: 1950-at this point I was attempting to discharge patient but she is so shaky she is unable to stand. We will continue to let patient rest as she does not want to be admitted to the skilled nursing. Patient's work-up otherwise shows an L1 endplate fracture. 2114-patient is now feeling much better stating that her daughter is on her way to pick her up and take her home. She states that she feels that she will be able to manage at home and follow-up as outpatient. Patient will be discharged home with a take-home pack of Percocet as she has taken this before and Zofran with prescriptions for same. I offered patient follow-up with neuro spine but she states that she prefers to follow-up within the [facility] umbrella and will arrange this through her PCP. The CT of your back shows a small fracture of the L1 vertebrae. I do recommend that you discuss with your family doctor follow-up with neuro spine for continued evaluation and management. You have also been given a short supply of pain and nausea medication to take home I have sent a prescription for more of this medication to your pharmacy at [facility]. Please any time feel free to return to the nearest ER for any new or worsening concerns. DISPOSITION Diagnosis/Annotation: ED Dx Name:Lumbar vertebral fracture Code:S32.009A Name:Fall Code:W19.XXXA Disposition: discharged Type: home CONSULT CRITICAL CARE TIME Is this a critically ill patient: no Electronic Signatures: Jaqueline Alfaro I (STORE OPERATIONS MANAGER-PRINTER MACHINE) (Signed 12-Apr-2021 21:21) Authored: ED Notes, HPI, PMH, Results/Vital Signs, MDM/ED Course, Clinical Impression, Attestation, Chart Review, Scores Last Updated: 12-Apr-2021 21:21 by Jaqueline Alfaro I (STORE OPERATIONS MANAGER-PRINTER MACHINE) References: 1. Data Referenced From Triage - ED 12-Apr-2021 17:24 [facility] Risk Screen - Adult Emergenc n 04-12-2021 Risk Screen - Adult Emergency Preferred Language: Preferred Language: Preferred Language for Discussing Health Care (patient/designee)Grenadian Advanced Directives: Advance Directive/DNRno Family Violence Adult: Abuse Screen: Are you or have you been threatened or abused physically, emotionally, or sexually by anyoneno Learning Assessment (Patient): Learning Assessment (Patient): Patient is Able to be Assessed for Learningyes Factors Influencing Readiness to Learnpain Factors that Impact Ability to Learnnone Devices/Methods Used to Communicatecommunication board Learning Preferencesaudio Cultural Considerationsnone Developmental Considerationsnone Yarsani Considerationsnone Learning Assessment (Other Learner): Learning Assessment (Other Learner): Other learner availableno Pressure Injury/TB/Substance: Pressure Injury: Pressure Injury Present on Admissionno Do you have a coughno Smoking Statusnever smoker Alcohol Usedenies Admission Risk Screen: Significant IndicatorsComplete CAGE: CAGE: Is this an injured patient at a Trauma Center ([facility]/[place]): no Electronic Signatures: Génesis Andujar (FAVIOLA) (Signed 12-Apr-2021 18:53) Authored: Preferred Language, Advanced Directives, Family Violence Adult, Learning Assessment (Patient), Learning Assessment (Other Learner), Pressure Injury/TB/Substance, Pressure Injury, CAGE Last Updated: 12-Apr-2021 18:53 by Génesis Andujar (RN) [facility] Triage - EDon 04-12-2021 Triage - ED Quick Triage: The patient and/or guardian verbally acknowledges placement for services into the following (when Urgent Care Service hours are operating):emergency department Chart Review: ARRIVAL INFORMATION Mode of Arrival: ambulance Agency: City Agency Name: [facility] CHIEF COMPLAINT SHAHEEN JEAN is a Female patient with a chief complaint of fall (Brought to ED per [facility] squad from home after slip and fall on ice. Reports that she twisted and fell onto her bottom/R hip. She has low back pain and was unable to stand up after she was sitting for a while after initial fall. Denies hitting her head, no LOC. She was given 0.5mG Dilaudid IVP and 4mg Zofran IVP by EMS RADIO TECHNICIAN. She reports slight decrease in pain 8/10 and still nauseated.). Triage Date/Time: 12-Apr-2021 17:25 CHRISTIANO: 3 Pain Rating (0-10): 8 = Severe Pain location: low back Vital Signs: Temperature: 96.9F ( 36.0C) taken temporal Blood Pressure: 173/97 Mean: Heart Rate: 110 Respiratory Rate: 16 Pulse Oximetry: 97% on room air, no respiratory support. Weight: 189.5 pounds. Calculated 86.0 kg. [place] Coma Scale: Best Eye Response: (E4) spontaneous Best Motor Response: (M6) obeys commands Best Verbal Response: (V5) oriented [place] Score: 15 Cough lasting greater than 3 weeks: no Allergies: yes Mask applied: yes Patient has homicidal thoughts: no Symptoms Are POSITIVE For: pain (describe). Symptoms Are Negative For: abrasion, bleeding, bruising, confusion, decreased ROM, deformity, loss of consciousness, numbness and seizure. Risk Screens Suicide Risk Screen In the Past Month: Have you wished you were or wished you could go to sleep and not wake up no In the Past Month: Have you had any actual thoughts of killing yourself no In Your Lifetime: Have you ever done anything, started to do anything, or prepared to do anything to end your life no Milligan Fall Scale Screening Has the patient fallen before (or is the patient in the ED as a result of a fall) has had a fall Does the patient have an impaired gait does not have impaired gait Is the patient cognitively impaired not cognitively impaired Milligan Fall Scale History of falling (immediate or previous) no (0) Secondary Diagnosis no (0) Intravenous Therapy/ Heparin/Saline Lock no (0) Gait/Transferring normal/bedrest/wheelchair (0) Ambulatory Aids none/bedrest/nurse assist (0) Mental Status oriented to own ability (0) Milligan Fall Risk Score: 0 Interventions: Milligan Fall Interventions: LOW INTERVENTIONS: *patient oriented to surroundings and call system, * patient/family falls education completed and documented, *patients fall status communicated during bedside handoff, *whiteboard updated, *mode of toileting discussed with patient, *bed in low position with brakes locked, *call light in reach, * non-skid footwear TRAVEL HISTORY Travel History Coronavirus Screening: no exposure or symptoms Travel Exposure History: NO travel to International locations in the past 30 days PAIN Pain Scale Used: ZULY Pain Rating (0-10): 8 = Severe Past Medical History: Past Medical History Reviewedyes Electronic Signatures: Kat Avalos (FAVIOLA) (Signed 12-Apr-2021 17:29) Entered: Risk Screens, Pain, Travel History, Chart Review, Scores, Past Medical History Authored: Quick Triage, Risk Screens, Pain, Travel History, Chart Review, Scores, Past Medical History Last Updated: 12-Apr-2021 17:29 by Kat Avalos (FAVIOLA) [facility] XR Cervical spine AP and Lat eral and obliqueon 03-11-2021 IMPRESSION: Degenera tive changes as detailed in report. Roads Supervisor: PSCYo Transcribe Date/Time: Mar 11 2021 11:30A Dictated by : SHANNEN BEJARANO MD This examination was interpreted and the report reviewed and electronically signed by: SHANNEN BEJARANO MD on Mar 11 2021 11:34AM [facility] DIVISION OF RADIOLOGY * * *Final Report* * * DATE OF EXAM: Mar 11 2021 10:38AM [id number] - XR CERVICAL 4V AP/LAT/OBL / PROCEDURE REASON: multiple diagnoses * * * * Physician Interpretation * * * * EXAMINATION: XR CERVICAL 4V AP/LAT/OBL HISTORY: For the last year has had trouble with balance. Negative injury. Generalized weakness. Shakiness. TECHNIQUE: XR CERVICAL 4V AP/LAT/OBL Laterality: NOT APPLICABLE Number of different views (projections): 4 M: XB_1 COMPARISON: There are no prior relevant examinations available for comparison within the [facility]. RESULT: 4 views of the cervical spine demonstrate osteopenia multilevel degenerative change with vertebral body osteophytosis and disc space narrowing, greatest at C3-4, C5-6, C6-7 and C7-T1. There are no vertebral body compression deformities and alignment is well maintained. Bilateral obliques demonstrate mild foraminal narrowing at C4-5 and C5-6 on the left C5-6 and C6-7 on the right moderate foraminal narrowing is noted at C3-4 on the right. Moderate to severe foraminal narrowing is noted at C3-4 on the left. The atlantoaxial interval and craniocervical junction are intact. There is no prevertebral soft tissue abnormality. DIVISION OF RADIOLOGY Provider, [facility] - 03/11/2021 * * *Final Report* * * DATE OF EXAM: Mar 11 2021 10:38AM [id number] [id number] - XR CERVICAL 4V AP/LAT/OBL / PROCEDURE REASON: multiple diagnoses * * * * Physician Interpretation * * * * EXAMINATION: XR CERVICAL 4V AP/LAT/OBL HISTORY: For the last year has had trouble with balance. Negative injury. Generalized weakness. Shakiness. TECHNIQUE: XR CERVICAL 4V AP/LAT/OBL Laterality: NOT APPLICABLE Number of different views (projections): 4 M: XB_1 COMPARISON: There are no prior relevant examinations available for comparison within the [facility]. RESULT: 4 views of the cervical spine demonstrate osteopenia multilevel degenerative change with vertebral body osteophytosis and disc space narrowing, greatest at C3-4, C5-6, C6-7 and C7-T1. There are no vertebral body compression deformities and alignment is well maintained. Bilateral obliques demonstrate mild foraminal narrowing at C4-5 and C5-6 on the left C5-6 and C6-7 on the right moderate foraminal narrowing is noted at C3-4 on the right. Moderate to severe foraminal narrowing is noted at C3-4 on the left. The atlantoaxial interval and craniocervical junction are intact. There is no prevertebral soft tissue abnormality. IMPRESSION IMPRESSION: Degenerative changes as detailed in report. Roads Supervisor: PSCB Transcribe Date/Time: Mar 11 2021 11:30A Dictated by : SHANNEN BEJARANO MD This examination was interpreted and the report reviewed and electronically signed by: SHANNEN BEJARANO MD on Mar 11 2021 11:34AM EST [facility] Radiology Study observation (narrative) [facility] XR Cervical spine AP and Lat eral and obliqueOrdered By: [facility] Provider on 03-11-2021 [facility] Vital Signs Date Time Vital Sign Value Performing Clinician Facility 11-17-2024 10:55-0400 Body height 154.[address] Pancho Lopez MD Work Phone: [phone] [place] [address] 11-17-2024 10:55-0400 Body mass index (BMI) [Ratio] 35.1 kg/m2 Dr. Pancho Lpoez MD Work Phone: [phone] [place] [address] 11-17-2024 10:55-0400 Body weight 84.[address] Pancho Lopez MD Work Phone: 7([phone] [place] [address] 11-17-2024 10:55-0400 Diastolic blood pressure 71 mm[Hg] Dr. Pancho Lopez MD Work Phone: [phone] [place] [address] 11-17-2024 10:55-0400 Heart rate 67 /min Dr. Pancho Lopez MD Work Phone: [facility] 11-17-2024 10:55-0400 Respiratory rate 18 /min Dr. Pancho Lopez MD Work Phone: [facility] 11-17-2024 10:55-0400 Systolic blood pressure 153 mm[Hg] Dr. Pancho Lopez MD Work Phone: [facility] 10-19-2024 12:51-0400 Body height 160 cm Klarissa Ramirez PA-C Work Phone: [facility] 10-19-2024 12:51-0400 Body mass index (BMI) [Ratio] 32.88 kg/m2 Klarissa Ramirez PA-C Work Phone: [facility] 10-19-2024 12:51-0400 Body weight 84.19 kg Klarissa Ramirez PA-C Work Phone: [facility] 10-19-2024 12:51-0400 Diastolic blood pressure 76 mm[Hg] Klarissa Ramirez PA-C Work Phone: [facility] 10-19-2024 12:51-0400 Heart rate 110 /min Klarissa Ramirez PA-C Work Phone: [facility] 10-19-2024 12:51-0400 Respiratory rate 18 /min Klarissa Ramirez PA-C Work Phone: [facility] 10-19-2024 12:51-0400 SaO2% (BldA) [Mass fraction] 97 % Klarissa Ramirez PA-C Work Phone: [facility] 10-19-2024 12:51-0400 Systolic blood pressure 124 mm[Hg] Klarissa Ramirez PA-C Work Phone: [facility] 10-03-2024 13:56-0400 Body mass index (BMI) [Ratio] 32.28 kg/m2 Sherry Koenig MD Work Phone: [facility] 10-03-2024 13:56-0400 Body weight 84.65 kg Sherry Koenig MD Work Phone: [facility] 10-03-2024 13:56-0400 Diastolic blood pressure 83 mm[Hg] Sherry Koenig MD Work Phone: [facility] 10-03-2024 13:56-0400 Heart rate 111 /min Sherry Koenig MD Work Phone: [facility] 10-03-2024 13:56-0400 SaO2% (BldA) [Mass fraction] 96 % Sherry Koenig MD Work Phone: [facility] 10-03-2024 13:56-0400 Systolic blood pressure 135 mm[Hg] Sherry Koenig MD Work Phone: [facility] 08-31-2024 12:39-0400 Diastolic blood pressure 86 mm[Hg] Zelda Simoner PA-C Work Phone: [facility] 08-31-2024 12:39-0400 Heart rate 111 /min Zelda Simoner PA-C Work Phone: [facility] 08-31-2024 12:39-0400 Systolic blood pressure 141 mm[Hg] Zelda Simoner PA-C Work Phone: [facility] 08-31-2024 12:36-0400 Body mass index (BMI) [Ratio] 31.83 kg/m2 Zelda Simoner PA-C Work Phone: [facility] 08-31-2024 12:36-0400 Body weight 83.46 kg Zelda Simoner PA-C Work Phone: [facility] 08-31-2024 12:36-0400 Respiratory rate 16 /min Zelda Simoner PA-C Work Phone: [facility] 08-31-2024 12:36-0400 SaO2% (BldA) [Mass fraction] 96 % Zelda Simoner PA-C Work Phone: [facility] 05-02-2024 14:23-0400 Diastolic blood pressure 77 mm[Hg] Pancho Lopez MD Work Phone: [facility] 05-02-2024 14:23-0400 Heart rate 116 /min Pancho Lopez MD Work Phone: [facility] 05-02-2024 14:23-0400 Systolic blood pressure 116 mm[Hg] Pancho Lopez MD Work Phone: [facility] 05-02-2024 13:14-0400 Body mass index (BMI) [Ratio] 32 kg/m2 Pancho Lopez MD Work Phone: [facility] 05-02-2024 13:14-0400 Body weight 83.92 kg Pancho Lopez MD Work Phone: [facility] 05-02-2024 13:14-0400 Respiratory rate 18 /min Pancho Lopez MD Work Phone: [facility] 04-15-2024 14:00-0500 Body height 161.9 cm Pancho Lopez MD Work Phone: [facility] 04-15-2024 14:00-0500 Body mass index (BMI) [Ratio] 31.83 kg/m2 Pancho Lopez MD Work Phone: [facility] 04-15-2024 14:00-0500 Body weight 83.46 kg Pancho Lopez MD Work Phone: [facility] 04-15-2024 14:00-0500 Respiratory rate 16 /min Pancho Lopez MD Work Phone: [facility] 09-25-2023 14:43-0400 Body mass index (BMI) [Ratio] 34.36 kg/m2 Osmin Hutton STORE OPERATIONS MANAGER.PRINTER MACHINE Work Phone: [facility] 09-25-2023 14:43-0400 Body weight 82.56 kg Osmin Hutton APRN.PRINTER MACHINE Work Phone: [facility] 09-25-2023 14:43-0400 Diastolic blood pressure 77 mm[Hg] Osmin Hutton APRN.PRINTER MACHINE Work Phone: [facility] 09-25-2023 14:43-0400 Heart rate 120 /min Osmin Hutton APRN.PRINTER MACHINE Work Phone: [facility] 09-25-2023 14:43-0400 Respiratory rate 16 /min Osmin Hutton APRN.PRINTER MACHINE Work Phone: [facility] 09-25-2023 14:43-0400 Systolic blood pressure 131 mm[Hg] Osmin Hutton APRN.PRINTER MACHINE Work Phone: [facility] 04-17-2023 13:20-0500 Diastolic blood pressure 76 mm[Hg] Klarissa Ramirez PA-C Work Phone: [facility] 04-17-2023 13:20-0500 Heart rate 94 /min Klarissa Ramirez PA-C Work Phone: [facility] 04-17-2023 13:20-0500 Systolic blood pressure 120 mm[Hg] Klarissa Ramirez PA-C Work Phone: [facility] 04-17-2023 13:08-0500 Body temperature 98.01 [degF] Klarissa Ramirez PA-C Work Phone: [facility] 04-17-2023 13:08-0500 Body weight 83.92 kg Klraissabrielle Ramirez PA-C Work Phone: [facility] 04-17-2023 13:08-0500 Respiratory rate 18 /min Klarissabrielle Ramirez PA-C Work Phone: [facility] 03-27-2023 12:52-0500 Body height 155 cm Pancho Lopez MD Work Phone: [facility] 03-27-2023 12:52-0500 Body weight 84.37 kg Pancho Lopez MD Work Phone: [facility] 03-27-2023 12:52-0500 Diastolic blood pressure 82 mm[Hg] Pancho Lopez MD Work Phone: [facility] 03-27-2023 12:52-0500 Heart rate 98 /min Pancho Lopez MD Work Phone: [facility] 03-27-2023 12:52-0500 Respiratory rate 16 /min Pancho Lopez MD Work Phone: [facility] 03-27-2023 12:52-0500 SaO2% (BldA) [Mass fraction] 97 % Pancho Lopez MD Work Phone: [facility] 03-27-2023 12:52-0500 Systolic blood pressure 142 mm[Hg] Pancho Lopez MD Work Phone: [facility] 09-02-2022 11:46-0400 Body temperature 98.49 [degF] Klarissa Ramirez PA-C Work Phone: [facility] 09-02-2022 11:46-0400 Body weight 82.56 kg Klarissa Ramirez PA-C Work Phone: [facility] 09-02-2022 11:46-0400 Diastolic blood pressure 76 mm[Hg] Klarissa Ramirez PA-C Work Phone: [facility] 09-02-2022 11:46-0400 Heart rate 90 /min Klarissa Ramirez PA-C Work Phone: [facility] 09-02-2022 11:46-0400 Respiratory rate 18 /min Klarissa Ramirez PA-C Work Phone: [facility] 09-02-2022 11:46-0400 Systolic blood pressure 126 mm[Hg] Klarissa Ramirez PA-C Work Phone: [facility] 09-26-2021 16:16-0400 Body temperature 96.49 [degF] Mindi Dahlhausen STORE OPERATIONS MANAGER.PRINTER MACHINE Work Phone: [facility] 09-26-2021 16:16-0400 Body weight 80.29 kg Mindi Dahlhausen STORE OPERATIONS MANAGER.PRINTER MACHINE Work Phone: [facility] 09-26-2021 16:16-0400 Diastolic blood pressure 86 mm[Hg] Mindi Dahlhausen STORE OPERATIONS MANAGER.PRINTER MACHINE Work Phone: [facility] 09-26-2021 16:16-0400 Heart rate 97 /min Mindi Dahlhausen STORE OPERATIONS MANAGER.PRINTER MACHINE Work Phone: [facility] 09-26-2021 16:16-0400 Respiratory rate 16 /min Mindi Dahlhausen STORE OPERATIONS MANAGER.PRINTER MACHINE Work Phone: [facility] 09-26-2021 16:16-0400 SaO2% (BldA) [Mass fraction] 97 % Mindi Dahlhausen STORE OPERATIONS MANAGER.PRINTER MACHINE Work Phone: [facility] 09-26-2021 16:16-0400 Systolic blood pressure 134 mm[Hg] Mindi Dahlhausen STORE OPERATIONS MANAGER.PRINTER MACHINE Work Phone: [facility] 08-23-2021 12:01-0400 Body weight 81.65 kg Pancho Lopez MD Work Phone: [facility] 08-23-2021 12:01-0400 Diastolic blood pressure 64 mm[Hg] Pancho Lopez MD Work Phone: [facility] 08-23-2021 12:01-0400 Heart rate 82 /min Pancho Lopez MD Work Phone: [facility] 08-23-2021 12:01-0400 Respiratory rate 16 /min Pancho Lopez MD Work Phone: [facility] 08-23-2021 12:01-0400 Systolic blood pressure 128 mm[Hg] Pancho Lopez MD Work Phone: [facility] 07-04-2021 13:31-0400 Body temperature 97.2 [degF] Mindi Dahlhausen STORE OPERATIONS MANAGER.PRINTER MACHINE Work Phone: [facility] 07-04-2021 13:31-0400 Body weight 81.83 kg Mindi Dahlhausen STORE OPERATIONS MANAGER.PRINTER MACHINE Work Phone: [facility] 07-04-2021 13:31-0400 Diastolic blood pressure 81 mm[Hg] Mindi Dahlhausen STORE OPERATIONS MANAGER.PRINTER MACHINE Work Phone: [facility] 07-04-2021 13:31-0400 Heart rate 98 /min Mindi Dahlhausen STORE OPERATIONS MANAGER.PRINTER MACHINE Work Phone: [facility] 07-04-2021 13:31-0400 Respiratory rate 16 /min Mindi Dahlhausen STORE OPERATIONS MANAGER.PRINTER MACHINE Work Phone: [facility] 07-04-2021 13:31-0400 SaO2% (BldA) [Mass fraction] 99 % Mindi Dahlhausen STORE OPERATIONS MANAGER.PRINTER MACHINE Work Phone: [facility] 07-04-2021 13:31-0400 Systolic blood pressure 136 mm[Hg] Mindi Dahlhausen STORE OPERATIONS MANAGER.PRINTER MACHINE Work Phone: [facility] 06-20-2021 12:10-0400 Body temperature 97.39 [degF] Julio Keene STORE OPERATIONS MANAGER.PRINTER MACHINE Work Phone: [facility] 06-20-2021 12:10-0400 Body weight 82.01 kg Julio Keene STORE OPERATIONS MANAGER.PRINTER MACHINE Work Phone: [facility] 06-20-2021 12:10-0400 Diastolic blood pressure 78 mm[Hg] Julio Keene STORE OPERATIONS MANAGER.PRINTER MACHINE Work Phone: [facility] 06-20-2021 12:10-0400 Heart rate 126 /min Julio Keene STORE OPERATIONS MANAGER.PRINTER MACHINE Work Phone: [facility] 06-20-2021 12:10-0400 Respiratory rate 18 /min Julio Keene STORE OPERATIONS MANAGER.PRINTER MACHINE Work Phone: [facility] 06-20-2021 12:10-0400 SaO2% (BldA) [Mass fraction] 97 % Julio Keene STORE OPERATIONS MANAGER.PRINTER MACHINE Work Phone: [facility] 06-20-2021 12:10-0400 Systolic blood pressure 136 mm[Hg] Julio Keene STORE OPERATIONS MANAGER.PRINTER MACHINE Work Phone: [facility] 04-13-2021 00:16-0500 Diastolic blood pressure 69 mm[Hg] Pancho Lopez Other Phone: [facility] 04-13-2021 00:16-0500 Heart rate 98 /min Pancho Lopez Other Phone: [facility] 04-13-2021 00:16-0500 Respiratory rate 16 /min Pancho Lopez Other Phone: [facility] 04-13-2021 00:16-0500 SaO2% (BldA) [Mass fraction] 95 % Pancho Lopez Other Phone: [facility] 04-13-2021 00:16-0500 Systolic blood pressure 163 mm[Hg] Pancho Lopez Other Phone: [facility] 04-12-2021 19:24-0500 Body temperature 96.8 [degF] Pancho Lopez Other Phone: [facility] 04-12-2021 19:050 Body weight 86 kg Pancho Lopez Other Phone: [facility] Encounters Encounter Date Encounter Type Care Provider Facility Start: 12-16-2024 ambulatory Pancho Lopez Facility :[facility] Start: 12-09-2024 End: 12-09-2024 ambulatory PANCHO Woodruff JESSICA Facility:[facility] Start: 11-17-2024 End: 11-17-[address] Jameel Nash MD -[facility] Work Phone: Start: 11-17-2024 End: 11-17-[address] Pancho Lopez MD Work Phone: -[facility] Start: 11-17-2024 End: 11-17-2024 ambulatory Jameel Nash Facility:[facility] Start: 10-19-2024 Patient encounter procedure Klarissa Ramirez PA-C Work Phone: [facility] Start: 10-19-2024 End: 10-19-2024 Office outpatient visit 25 minutes Klarissa Ramirez PA-C Work Phone: [facility] [place] Comment on above: Mixed hyperlipidemia (Primary Dx); SVT (supraventricular tachycardia) (HCC); Essential hypertension with goal blood pressure less than 130/85; Type 2 diabetes mellitus with stage 3b chronic kidney disease, without long-term current use of insulin (HCC); Stage 3b chronic kidney disease (HCC); Screening for depression; Encounter for screening examination for other mental health and behavioral disorders; Iron deficiency anemia, unspecified iron deficiency anemia type; Gastroesophageal reflux disease without esophagitis Start: 10-19-2024 End: 10-19-2024 ambulatory KLARISSA RAMIREZ Facility:[facility] Start: 10-14-2024 End: 10-14-2024 ambulatory PANCHO LOPEZ Facility:[facility] Start: 10-04-2024 End: 10-05-2024 Follow-up encounter Zelda Lacy PA-C Work Phone: Neurology Comment on above: Results (Heart monit or ) Start: 10-03-2024 End: 10-03-2024 Patient encounter procedure Sherry Koenig MD Work Phone: Neurology Comment on above: Abnormality of gait due to impairment of balance (Primary Dx); Parkinsonism, unspecified Parkinsonism type (HCC) Start: 10-03-2024 End: 10-03-2024 ambulatory [facility] Facility:[facility] Start: 09-30-2024 End: 09-30-2024 ambulatory Mariella Balderrama RN Work Phone: [employer] Comment on above: chart review Start: 08-31-2024 End: 08-31-2024 Patient encounter procedure Zelda Simon PA-C Work Phone: Neurology Comment on above: Orthostatic tremor ( Primary Dx); Symptomatic orthostatic increase in heart rate; Tachycardia Refill Request Start: 08-31-2024 End: 08-31-2024 ambulatory [facility] Facility:[facility] Start: 05-05-2024 ambulatory Pancho Lopez Facility :[facility] Start: 05-04-2024 End: 05-19-2024 Telephone encounter Pancho Lopez MD Work Phone: [facility] [place] Comment on above: Patient Update Start: 05-03-2024 End: 05-03-2024 Telephone encounter Pancho Lopez MD Work Phone: [facility] [place] Comment on above: [facility] Cardio-Vasc requ esting records Start: 05-02-2024 End: 05-02-2024 ambulatory PANCHO LOPEZ Facility:[facility] Start: 05-02-2024 End: 05-02-2024 Patient encounter procedure Pancho Lopez MD Work Phone: [facility] [place] Comment on above: Essential hypertensi on with goal blood pressure less than 130/85 (Primary Dx); Symptomatic orthostatic increase in heart rate Start: 04-19-2024 End: 04-20-2024 Follow-up encounter Pancho Lopez MD Work Phone: [facility] [place] Start: 04-18-2024 End: 04-18-2024 Telephone encounter Pancho Lopez MD Work Phone: [address] [place] [address] Comment on above: Orders Start: 04-15-2024 End: 04-15-2024 ambulatory PANCHO ROSASEY Facility:[facility] Start: 04-15-2024 End: 04-15-2024 Patient encounter procedure Pancho Lopez MD Work Phone: [facility] Comment on above: Medicare annual well ness visit, subsequent (Primary Dx); Type 2 diabetes mellitus with stage 3b chronic kidney disease, without long-term current use of insulin (HCC); Essential hypertension with goal blood pressure less than 130/85; Mixed hyperlipidemia; Gastroesophageal reflux disease without esophagitis; Iron deficiency anemia, unspecified iron deficiency anemia type; Stage 3b chronic kidney disease (HCC); Obesity, Class I, BMI 30-34.9; Advance directive discussed with patient; Proximal limb muscle weakness; Symptomatic orthostatic increase in heart rate Start: 04-15-2024 End: 04-18-2024 Telephone encounter Nelly Alexis MA [facility] [place] Comment on above: Patient Update Orders Start: 04-08-2024 End: 04-08-2024 ambulatory PANCHO LOPEZ Facility:[facility] Start: 02-22-2024 End: 02-22-2024 Refill Osmin Hutton APRN.CNP Work Phone: [facility] [place] Comment on above: Refill Request Start: 12-18-2023 End: 12-18-2023 Chart abstracting Pancho Lopez MD Work Phone: [facility] [place] Start: 11-28-2023 End: 11-28-2023 ambulatory [facility] [place] Work Phone: [facility] [place] Start: 11-28-2023 End: 11-28-2023 Patient encounter procedure [facility] [place] Work Phone: [facility] [place] Start: 10-13-2023 End: 10-13-2023 Chart abstracting Nelly Alexis MA [facility] [place] Comment on above: Consult Start: 09-30-2023 Telephone encounter Pancho Lopez MD Work Phone: [facility] [place] Comment on above: referral to orth/spi ne specialist Start: 09-25-2023 End: 09-25-2023 Patient encounter procedure Osmin Hutton APRN.CNP Work Phone: [facility] [place] Comment on above: Type 2 diabetes sofía itus with stage 3b chronic kidney disease, without long-term current use of insulin (HCC) (Primary Dx); Screening for depression; Encounter for screening examination for other mental health and behavioral disorders; Essential hypertension with goal blood pressure less than 130/85; Gastroesophageal reflux disease without esophagitis; Obesity, Class I, BMI 30-34.9; Mixed hyperlipidemia; Stage 3b chronic kidney disease (HCC); Chronic low back pain, unspecified back pain laterality, unspecified whether sciatica present; Iron deficiency anemia, unspecified iron deficiency anemia type Start: 09-11-2023 Chart abstracting Nelly Alexis MA [facility] [place] Comment on above: Results (Outside MRI ) Start: 08-31-2023 Chart abstracting Pancho patel MD Work Phone: [facility] [place] Comment on above: Outside Neurology Start: 08-25-2023 Refill Pancho norwood MD Work Phone: [facility] Comment on above: Refill Request Results (Labs ) Start: 08-18-2023 Chart abstracting Pancho patel MD Work Phone: [facility] [place] Comment on above: Outside [id number] Ordered Start: 04-17-2023 End: 04-17-2023 Patient encounter procedure Klarissa Ramirez PA-C Work Phone: [facility] [place] Comment on above: Essential hypertensi on with goal blood pressure less than 130/85 (Primary Dx) Start: 03-28-2023 Telephone encounter Pancho Lopez MD Work Phone: [facility] [place] Comment on above: had bone density don e in 2022 Start: 03-27-2023 End: 03-27-2023 Patient encounter procedure Pancho Lopez MD Work Phone: [facility] [place] Comment on above: Medicare annual well ness visit, subsequent (Primary Dx); Type 2 diabetes mellitus with stage 3b chronic kidney disease, without long-term current use of insulin (HCC); Essential hypertension with goal blood pressure less than 130/85; Mixed hyperlipidemia; Stage 3b chronic kidney disease (HCC); Gastroesophageal reflux disease without esophagitis; Iron deficiency anemia, unspecified iron deficiency anemia type; Obesity, Class I, BMI 30-34.9; Cholesteatoma of tympanum of right ear; Age-related osteoporosis without current pathological fracture; Advance directive discussed with patient Start: 01-23-2023 Telephone encounter Pancho Lopez MD Work Phone: [facility] [place] Comment on above: Patient Question Start: 12-09-2022 Chart abstracting Pancho patel MD Work Phone: [facility] [place] Comment on above: Ophthalmology visit (Diabetic) Start: 12-02-2022 Telephone encounter Osmin woodward APRN.PRINTER MACHINE Work Phone: [facility] [place] Comment on above: Results Start: 11-21-2022 End: 11-21-2022 ambulatory [facility] [place] Work Phone: [facility] [place] Start: 09-02-2022 End: 09-02-2022 Patient encounter procedure Klarissa Ramirez PA-C Work Phone: [facility] Comment on above: Type 2 diabetes sofía itus with stage 3b chronic kidney disease, without long-term current use of insulin (HCC) (Primary Dx); Essential hypertension with goal blood pressure less than 130/85; Mixed hyperlipidemia; Gastroesophageal reflux disease without esophagitis; Senile osteoporosis; Primary ovarian failure; Age-related osteoporosis without current pathological fracture; Stage 3b chronic kidney disease (HCC); Iron deficiency anemia, unspecified iron deficiency anemia type Start: 08-01-2022 Refill Osmin gordon APRN.PRINTER MACHINE Work Phone: [facility] [place] Comment on above: Refill Request Start: 06-16-2022 Refill Pancho norwood MD Work Phone: [facility] [place] Comment on above: Refill Request (SEE RX QUESTION) Start: 06-09-2022 Telephone encounter Pancho Lopez MD Work Phone: [facility] [place] Comment on above: Patient Question Start: 03-05-2022 Patient encounter procedure Pancho Lopez MD Work Phone: [facility] Work Phone: Start: 11-16-2021 End: 11-16-2021 ambulatory [facility] [place] Work Phone: [facility] [place] Start: 10-16-2021 End: 10-16-2021 Nursing evaluation of patient and report Mi Nurse Work Phone: [facility] [place] Comment on above: Need for vaccination (Primary Dx) Start: 09-26-2021 End: 09-26-2021 Patient encounter procedure Mindi Carter APRN.CNP Work Phone: Neurology Comment on above: Shakiness (Primary D x); Generalized weakness; Balance problem; Cervical stenosis of spine Start: 08-26-2021 Telephone encounter Pancho Lopez MD Work Phone: [facility] Comment on above: Results Start: 08-23-2021 End: 08-23-2021 Patient encounter procedure Pancho Lopez MD Work Phone: [facility] Comment on above: Type 2 diabetes sofía itus with stage 3 chronic kidney disease, without long-term current use of insulin, unspecified whether stage 3a or 3b CKD (HCC) (Primary Dx); Essential hypertension with goal blood pressure less than 130/85; Mixed hyperlipidemia; Gastroesophageal reflux disease without esophagitis; Stage 3 chronic kidney disease, unspecified whether stage 3a or 3b CKD (HCC); Iron deficiency anemia, unspecified iron deficiency anemia type; Obesity, Class I, BMI 30-34.9; Hypercalcemia Start: 08-08-2021 Refill Pancho norwood MD Work Phone: [facility] Comment on above: Refill Request Start: 08-05-2021 End: 08-05-2021 ambulatory Carlyn O'Christophe PT [facility] Comment on above: Shakiness; Balance problem; Cervical stenosis of spine Start: 07-31-2021 End: 07-31-2021 ambulatory Carlyn O'Christophe PT [facility] Comment on above: Shakiness; Balance problem; Cervical stenosis of spine Start: 07-29-2021 End: 07-29-2021 ambulatory Jewels Kirkland RADIO TECHNICIAN Work Phone: [facility] Comment on above: Shakiness; Balance problem; Cervical stenosis of spine Start: 07-23-2021 End: 07-23-2021 ambulatory Carlyn O'Christophe PT [facility] Comment on above: Shakiness; Balance problem; Cervical stenosis of spine Start: 07-17-2021 End: 07-17-2021 ambulatory Carlyn O'Christophe PT [facility] Comment on above: Shakiness; Balance problem; Cervical stenosis of spine Start: 07-16-2021 Refill Pancho norwood MD Work Phone: [facility] Comment on above: Refill Request Start: 07-08-2021 End: 07-08-2021 ambulatory Carlyn O'Christophe PT [facility] Comment on above: Balance problems (Pr imary Dx); Shakiness; Cervical stenosis of spine; Balance problem Start: 07-08-2021 Telephone encounter Mindi Dow APRN.PRINTER MACHINE Work Phone: Neurology Comment on above: Follow Up Start: 07-06-2021 Refill Pancho norwood MD Work Phone: [facility] Comment on above: Refill Request Start: 07-04-2021 End: 07-04-2021 Patient encounter procedure Mindi Carter APRN.PRINTER MACHINE Work Phone: Neurology Comment on above: Shakiness (Primary D x); Generalized weakness; Balance problems; Cervical stenosis of spine Start: 06-20-2021 End: 06-20-2021 Subsequent hospital visit by physician Nazia [facility] Work Phone: Radiology Comment on above: Acute pain of left w rist [M25.532] Start: 06-20-2021 End: 06-20-2021 Patient encounter procedure Julio Keene APRN.PRINTER MACHINE Work Phone: [facility] Comment on above: Acute pain of left w rist (Primary Dx) Start: 04-12-2021 End: 04-13-2021 Emergency department patient visit Jaqueline Alfaro [facility] Emergency 05 Start: 03-20-2021 End: 03-20-2021 Patient encounter procedure [facility] - [facility] Start: 03-11-2021 End: 03-11-2021 Subsequent hospital visit by physician Xr [facility] [place] Work Phone: Radiology Comment on above: Generalized weakness [R53.1] Start: 02-22-2021 Patient encounter procedure Julio Keene APRN.PRINTER MACHINE Work Phone: [facility] Work Phone: Start: 07-12-2015 End: 04-11-2019 Ophthalmic examination and evaluation Pancho Lopez MD Work Phone: [facility] Start: 03-22-2015 End: 04-11-2019 Patient encounter status Pancho Lopez MD Work Phone: [facility] Procedures Date Procedure Procedure Detail Performing Clinician Start: 10-19-2024 Adult depression scr eening assessment Klarissa Ramirez PA-C Work Phone: Start: 09-25-2023 Adult depression scr eening assessment Osmin Hutton APRN.PRINTER MACHINE Work Phone: Start: 11-21-2022 INFLUENZA VACCINE, P RSV FREE, AGE 65+ YR, HIGH DOSE, QUADRIVALENT (FLUZONE HIGH-DOSE) Pancho Lopez MD Work Phone: Start: 11-16-2021 INFLUENZA SEASONAL QUADRIVALENT HIGH DOSE AGE 65+ Yared Stafford DO Work Phone: Start: 10-16-2021 PFIZER-BIONTSunovia COVI D-19 VACCINE, AGE 12+ YR (TRUJILLO TOP) Pancho Lopez MD Work Phone: Start: 08-23-2021 Adult depression scr eening assessment Pancho Lopez MD Work Phone: Start: 06-20-2021 Radex wrist complete minimum 3 views Julio Keene APRN.PRINTER MACHINE Work Phone: Start: 03-20-2021 Magnetic resonance angiography of head without contrast Start: 03-20-2021 Magnetic resonance angiography of neck without contrast Start: 03-11-2021 Radex spine cervical 4 or 5 views Mindi Carter APRN.CNP Work Phone: Start: 08-16-2020 Adult depression scr eening assessment Julio Jassi GAETANO Work Phone: Plan of Treatment Date Care Activity Detail Author Start: 08-31-2033 Urine microalbumin profile DTaP,Tdap,Td Vaccine (3 - Td or Tdap) [facility] Start: 10-19-2025 Annual PCP Team [employer] Fe[employer] cesar Disease Visit Annual PCP Team Chronic Disease Visit [facility] Start: 10-19-2025 Anxiety Screening Anxiety Screening [facility] Start: 10-19-2025 Creatinine measurement Serum Creatin ine [facility] Start: 10-19-2025 Depression Screening Depression Scre ening [facility] Start: 10-14-2025 Hepatitis B surface antibody level LDL Cholesterol [facility] Start: 05-02-2025 Annual PCP Team [employer] Fe[employer] cesar Disease Visit Annual PCP Team Chronic Disease Visit [facility] Start: 05-02-2025 BP Controlled (<130/80) BP Controlle d (<130/80) [facility] Start: 05-01-2025 End: 05-01-2025 Patient encounter procedure 05/01/2025 1:00 PM EDT Office Visit Cardiology [address] [place] [address] Edwige Hart MD [address] [facility] [place] [address] SVT (supraventricular tachycardia) (HCC) [I47.10] Cardiology Comment on above: SVT (supraventricula r tachycardia) (HCC) [I47.10] Start: 04-22-2025 End: 07-22-2025 CBC W Auto Differential panel - Blood COMPLETE BLOOD COUNT AND DIFFERENTIAL Lab Routine Gastroesophageal reflux disease without esophagitis Expected: 04/22/2025, Expires: 07/22/2025 [facility] Comment on above: Expected: 04/22/2025 , Expires: 07/22/2025 Start: 04-22-2025 End: 07-22-2025 Comprehensive metabolic 2000 panel - Serum or Plasma COMPREHENSIVE METABOLIC PANEL Lab Routine Essential hypertension with goal blood pressure less than 130/85 Type 2 diabetes mellitus with stage 3b chronic kidney disease, without long-term current use of insulin (HCC) Stage 3b chronic kidney disease (HCC) Expected: 04/22/2025, Expires: 07/22/2025 [facility] Comment on above: Expected: 04/22/2025 , Expires: 07/22/2025 Start: 04-22-2025 End: 07-22-2025 Hemoglobin A1c in Blood HEMOGLOBIN A1C Lab Routine Type 2 diabetes mellitus with stage 3b chronic kidney disease, without long-term current use of insulin (HCC) Expected: 04/22/2025, Expires: 07/22/2025 [facility] Comment on above: Expected: 04/22/2025 , Expires: 07/22/2025 Start: 04-22-2025 End: 07-22-2025 Iron and Iron binding capacity panel - Serum or Plasma IRON AND TIBC Lab Routine Iron deficiency anemia, unspecified iron deficiency anemia type Expected: 04/22/2025, Expires: 07/22/2025 [facility] Comment on above: Expected: 04/22/2025 , Expires: 07/22/2025 Start: 04-22-2025 End: 07-22-2025 LIPID PANEL, NONFASTING LIPID PANEL, NONFASTING Lab Routine Mixed hyperlipidemia Expected: 04/22/2025, Expires: 07/22/2025 [facility] Comment on above: Expected: 04/22/2025 , Expires: 07/22/2025 Start: 04-22-2025 End: 07-22-2025 Microalbumin/Creatinine [Mass Ratio] in Urine ALBUMIN/CREATININE RATIO, URINE Lab Routine Stage 3b chronic kidney disease (HCC) Expected: 04/22/2025, Expires: 07/22/2025 [facility] Work Phone: Comment on above: Expected: 04/22/2025 , Expires: 07/22/2025 Start: 04-18-2025 End: 04-18-2025 Patient encounter procedure 04/18/2025 2:00 PM EST [facility] [place] [facility] [place] [address] Pancho Lopez MD [address] [place] [address] medicare wellness exam [facility] [place] Comment on above: medicare wellness ex am Start: 04-15-2025 Annual PCP Team [employer] cesar Disease Visit Annual PCP Team Chronic Disease Visit [facility] Start: 04-15-2025 BP Controlled (<130/80) BP Controlle d (<130/80) [facility] Start: 04-15-2025 Diabetic foot examination Diabetic Foot Exam [facility] Start: 04-15-2025 Hemoglobin A1c measurement HbA1C [facility] Start: 04-15-2025 Medicare Annual Well ness Visit Medicare Annual Wellness Visit [facility] Start: 04-15-2025 RSV Vaccine (1 - 1-d ose 75+ series) RSV Vaccine (1 - 1-dose 75+ series) [facility] Comment on above: Postponed from 06/13 (Insurance Coverage) Start: 04-15-2025 Shingrix Vaccine (1 of 2) Shingrix Vaccine (1 of 2) [facility] Comment on above: Postponed from 06/13 (Insurance Coverage) Start: 04-10-2025 End: 04-10-2025 Patient encounter procedure 04/10/2025 3:30 PM EST Office Visit Neurology [address] [place] [address] [place] [id number] Sherry Koenig MD [address] [place] [address] 6 month follow up Neurology Comment on above: 6 month follow up Start: 04-08-2025 Complete blood count Hemoglobin/Jerry tocrit [facility] Start: 04-08-2025 Creatinine measurement Serum Creatin ine [facility] Start: 04-08-2025 Hepatitis B screening Urine Al bumin:Creatinine Ratio [facility] Start: 04-08-2025 Hepatitis B surface antibody level LDL Cholesterol [facility] Start: 01-27-2025 End: 01-27-2025 Patient encounter procedure 01/27/2025 1:40 PM EST Appointment Radiology [address] [place] [phone] Age-related osteoporosis without current pathological fracture [M81.0] Radiology Comment on above: Age-related osteopor osis without current pathological fracture [M81.0] Start: 12-16-2024 Glaucoma screening Dilated Retinal E xam [facility] Start: 12-01-2024 Screening for osteoporosis Bone Density Screening [facility] Start: 11-17-2024 Complete blood count [facility] Start: 11-17-2024 Thyroid stimulating hormone measurement [facility] Start: 11-17-2024 End: 11-17-2024 Evaluation of diagnostic study results [facility] Start: 10-19-2024 End: 10-19-2024 Patient encounter procedure [facility] [place] Comment on above: Medicare we;;ness Medicare wellness Start: 10-17-2024 Influenza vaccination Influenza Vacc ine (#1) [facility] Start: 10-06-2024 Hemoglobin A1c measurement HbA1C [facility] Start: 10-03-2024 End: 10-03-2024 Patient encounter procedure 10/03/2024 2:00 PM EDT Office Visit Neurology [address] [place] [address] [place] [phone] Sherry Koenig MD [address] [place] [address] Dx: Orthostatic tremor [G25.2] Neurology Comment on above: Dx: Orthostatic trem or [G25.2] Start: 09-30-2024 End: 12-30-2024 Basic metabolic 2000 panel - Serum or Plasma BASIC METABOLIC PANEL Lab Routine Type 2 diabetes mellitus with stage 3b chronic kidney disease, without long-term current use of insulin (HCC) Essential hypertension with goal blood pressure less than 130/85 Mixed hyperlipidemia Stage 3b chronic kidney disease (HCC) Expected: 09/30/2024, Expires: 12/30/2024 [facility] Comment on above: Expected: 09/30/2024 , Expires: 12/30/2024 Start: 09-30-2024 End: 12-30-2024 Hemoglobin A1c in Blood HEMOGLOBIN A1C Lab Routine Type 2 diabetes mellitus with stage 3b chronic kidney disease, without long-term current use of insulin (HCC) Expected: 09/30/2024, Expires: 12/30/2024 [facility] Comment on above: Expected: 09/30/2024 , Expires: 12/30/2024 Start: 09-30-2024 End: 12-30-2024 LIPID PANEL, NONFASTING LIPID PANEL, NONFASTING Lab Routine Type 2 diabetes mellitus with stage 3b chronic kidney disease, without long-term current use of insulin (HCC) Essential hypertension with goal blood pressure less than 130/85 Mixed hyperlipidemia Expected: 09/30/2024, Expires: 12/30/2024 [facility] Comment on above: Expected: 09/30/2024 , Expires: 12/30/2024 Start: 09-24-2024 Annual PCP Team Wool Washer Feeder cesar Disease Visit Annual PCP Team Chronic Disease Visit [facility] Start: 09-24-2024 Anxiety Screening Anxiety Screening [facility] Start: 09-24-2024 Depression Screening Depression Scre ening [facility] Start: 09-16-2024 Creatinine measurement Serum Creatin ine [facility] Start: 09-16-2024 Hepatitis B surface antibody level LDL Cholesterol [facility] Start: 06-21-2024 End: 06-21-2024 Patient encounter procedure 06/21/2024 1:45 PM EDT Office Visit Neurology [address] [place] [address] Zelda Lacy PA-C [address] [place] [address] Symptomatic orthostatic increase in heart rate [R00.8] Neurology Comment on above: Symptomatic orthosta tic increase in heart rate [R00.8] Start: 05-02-2024 End: 05-02-2024 Patient encounter procedure [facility] [place] Comment on above: follow up on BP Start: 04-16-2024 Annual PCP Team Wool Washer Feeder cesar Disease Visit Annual PCP Team Chronic Disease Visit [facility] Start: 04-16-2024 BP Controlled (<130/80) BP Controlle d (<130/80) [facility] Start: 04-15-2024 End: 07-15-2024 JACK BY IFA SCREEN [facility] Work Phone: Comment on above: Expected: 04/15/2024 , Expires: 07/15/2024 Start: 04-15-2024 End: 07-15-2024 C reactive protein [Mass/volume] in Serum or Plasma [facility] Comment on above: Expected: 04/15/2024 , Expires: 07/15/2024 Start: 04-15-2024 End: 07-15-2024 Erythrocyte sedimentation rate [facility] Comment on above: Expected: 04/15/2024 , Expires: 07/15/2024 Start: 04-15-2024 End: 04-15-2024 Patient encounter procedure 04/15/2024 2:00 PM EST [facility] [place] [address] [facility] [place] [id number] Pancho Lopez MD [address] [facility] [place] [id number] medic[facility] wellness [facility] [place] Comment on above: medicare wellness Start: 04-15-2024 End: 07-15-2024 Rheumatoid factor [Units/volume] in Serum or Plasma [facility] Comment on above: Expected: 04/15/2024 , Expires: 07/15/2024 Start: 03-28-2024 End: 06-27-2024 CBC W Auto Differential panel - Blood COMPLETE BLOOD COUNT AND DIFFERENTIAL Lab Routine Gastroesophageal reflux disease without esophagitis Expected: 03/28/2024, Expires: 06/27/2024 [facility] Comment on above: Expected: 03/28/2024 , Expires: 06/27/2024 Start: 03-28-2024 End: 06-27-2024 Comprehensive metabolic 2000 panel - Serum or Plasma COMPREHENSIVE METABOLIC PANEL Lab Routine Type 2 diabetes mellitus with stage 3b chronic kidney disease, without long-term current use of insulin (HCC) Essential hypertension with goal blood pressure less than 130/85 Stage 3b chronic kidney disease (HCC) Expected: 03/28/2024, Expires: 06/27/2024 [facility] Comment on above: Expected: 03/28/2024 , Expires: 06/27/2024 Start: 03-28-2024 End: 06-27-2024 Hemoglobin A1c in Blood HEMOGLOBIN A1C Lab Routine Type 2 diabetes mellitus with stage 3b chronic kidney disease, without long-term current use of insulin (HCC) Expected: 03/28/2024, Expires: 06/27/2024 [facility] Work Phone: Comment on above: Expected: 03/28/2024 , Expires: 06/27/2024 Start: 03-28-2024 End: 06-27-2024 Iron and Iron binding capacity panel - Serum or Plasma IRON AND TIBC Lab Routine Iron deficiency anemia, unspecified iron deficiency anemia type Expected: 03/28/2024, Expires: 06/27/2024 [facility] Comment on above: Expected: 03/28/2024 , Expires: 06/27/2024 Start: 03-28-2024 End: 06-27-2024 LIPID PANEL, NONFASTING LIPID PANEL, NONFASTING Lab Routine Mixed hyperlipidemia Expected: 03/28/2024, Expires: 06/27/2024 [facility] Comment on above: Expected: 03/28/2024 , Expires: 06/27/2024 Start: 03-28-2024 End: 06-27-2024 Microalbumin/Creatinine [Mass Ratio] in Urine ALBUMIN/CREATININE RATIO, URINE Lab Routine Stage 3b chronic kidney disease (HCC) Expected: 03/28/2024, Expires: 06/27/2024 [facility] Comment on above: Expected: 03/28/2024 , Expires: 06/27/2024 Start: 03-27-2024 Annual PCP Team Wool Washer Feeder cesar Disease Visit Annual PCP Team Chronic Disease Visit [facility] Start: 03-27-2024 Covid-19 Vaccine ( season) Covid-19 Vaccine ( season) [facility] Comment on above: Postponed from 10/17 (Declined at this time) Start: 03-27-2024 Diabetic foot examination Diabetic Foot Exam [facility] Start: 03-27-2024 RSV Vaccine (1 - 1-d ose 60+ series) RSV Vaccine (1 - 1-dose 60+ series) [facility] Comment on above: Postponed from 06/13 (Insurance Coverage) Start: 03-27-2024 RSV Vaccine (1 - 1-d ose 75+ series) RSV Vaccine (1 - 1-dose 75+ series) [facility] Comment on above: Postponed from 06/13 (Insurance Coverage) Start: 03-27-2024 Shingrix Vaccine (1 of 2) Shingrix Vaccine (1 of 2) [facility] Comment on above: Postponed from 06/13 (Insurance Coverage) Start: 03-27-2024 Urine microalbumin profile DTaP,Tdap,Td Vaccine (2 - Td or Tdap) [facility] Comment on above: Postponed from 08/15 (Insurance Coverage) Start: 03-19-2024 Hemoglobin A1c measurement HbA1C [facility] Start: 03-19-2024 Hepatitis B screening Urine Al bumin:Creatinine Ratio [facility] Start: 03-18-2024 Complete blood count Hemoglobin/Jerry tocrit [facility] Start: 03-18-2024 Creatinine measurement Serum Creatin ine [facility] Start: 03-18-2024 Hepatitis B surface antibody level LDL Cholesterol [facility] Start: 02-17-2024 Advance Directive Discussion Advance Directive Discussion [facility] Start: 12-05-2023 Glaucoma screening Dilated Retinal E xam [facility] Start: 12-05-2023 Hepatitis C antibody , confirmatory test Dilated Retinal Exam [facility] Start: 10-18-2023 Covid-19 Vaccine ( season) Covid-19 Vaccine ( season) [facility] Start: 10-18-2023 Influenza vaccination Influenza Vacc ine (#1) [facility] Start: 09-25-2023 End: 09-25-2023 Patient encounter procedure 09/25/2023 3:00 PM EDT Office Visit Family [address] [address] Osmin Hutton, STORE OPERATIONS MANAGER.PRINTER MACHINE [address] [place] [address] 6 month follow up [facility] Comment on above: 6 month follow up Start: 09-16-2023 Hemoglobin A1c measurement HbA1C [facility] Start: 09-11-2023 End: 12-11-2023 Basic metabolic 2000 panel - Serum or Plasma BASIC METABOLIC PNL Lab Routine Type 2 diabetes mellitus with stage 3b chronic kidney disease, without long-term current use of insulin (HCC) Essential hypertension with goal blood pressure less than 130/85 Mixed hyperlipidemia Stage 3b chronic kidney disease (HCC) Expected: 09/11/2023, Expires: 12/11/2023 [facility] Work Phone: Comment on above: Expected: 09/11/2023 , Expires: 12/11/2023 Start: 09-11-2023 End: 12-11-2023 Hemoglobin A1c in Blood HGB A1C Lab Routine Type 2 diabetes mellitus with stage 3b chronic kidney disease, without long-term current use of insulin (HCC) Expected: 09/11/2023, Expires: 12/11/2023 [facility] Work Phone: Comment on above: Expected: 09/11/2023 , Expires: 12/11/2023 Start: 09-11-2023 End: 12-11-2023 LIPID PANEL, NONFASTING LIPID PANEL, NONFASTING Lab Routine Type 2 diabetes mellitus with stage 3b chronic kidney disease, without long-term current use of insulin (HCC) Essential hypertension with goal blood pressure less than 130/85 Mixed hyperlipidemia Expected: 09/11/2023, Expires: 12/11/2023 [facility] Work Phone: Comment on above: Expected: 09/11/2023 , Expires: 12/11/2023 Start: 09-03-2023 ANNUAL PCP TEAM PROFESSOR OF BUSINESS ADMINISTRATION CESAR DISEASE VISIT ANNUAL PCP TEAM CHRONIC DISEASE VISIT [facility] Start: 09-03-2023 BP CONTROLLED (<130/80) BP CONTROLLE D (<130/80) [facility] Start: 08-26-2023 Hepatitis B surface antibody level LDL CHOLESTEROL [facility] Start: 08-26-2023 SERUM CREATININE SERUM CREATININE Cl [facility] Start: 06-06-2023 Hepatitis B surface antibody level LDL CHOLESTEROL [facility] Start: 06-02-2023 Hemoglobin A1c/Hemoglobin.total in Blood HbA1C [facility] Start: 03-05-2023 3 comp foot exam completed DIABETIC FOOT EXAM [facility] Start: 03-05-2023 End: 05-05-2023 ALBUMIN/CREAT RATIO RND UR ALBUMIN/CREAT RATIO RND UR Lab Routine Type 2 diabetes mellitus with stage 3b chronic kidney disease, without long-term current use of insulin (HCC) Expected: 03/05/2023, Expires: 05/05/2023 [facility] Work Phone: Comment on above: Expected: 03/05/2023 , Expires: 05/05/2023 Start: 03-05-2023 ANNUAL PCP TEAM PROFESSOR OF BUSINESS ADMINISTRATION CESAR DISEASE VISIT ANNUAL PCP TEAM CHRONIC DISEASE VISIT [facility] Start: 03-05-2023 BP CONTROLLED (<130/80) BP CONTROLLE D (<130/80) [facility] Start: 03-05-2023 End: 05-05-2023 CBC W Auto Differential panel - Blood CBC + DIFF Lab Routine Stage 3b chronic kidney disease (HCC) Type 2 diabetes mellitus with stage 3b chronic kidney disease, without long-term current use of insulin (HCC) Expected: 03/05/2023, Expires: 05/05/2023 [facility] Work Phone: Comment on above: Expected: 03/05/2023 , Expires: 05/05/2023 Start: 03-05-2023 End: 05-05-2023 Comprehensive metabolic 2000 panel - Serum or Plasma COMP METABOLIC PANEL Lab Routine Essential hypertension with goal blood pressure less than 130/85 Stage 3b chronic kidney disease (HCC) Type 2 diabetes mellitus with stage 3b chronic kidney disease, without long-term current use of insulin (HCC) Expected: 03/05/2023, Expires: 05/05/2023 [facility] Work Phone: Comment on above: Expected: 03/05/2023 , Expires: 05/05/2023 Start: 03-05-2023 COVID-19 VACCINE (5 - Booster for Moderna series) COVID-19 VACCINE (5 - Booster for Moderna series) [facility] Comment on above: Postponed from 12/11 (Declined at this time) Start: 03-05-2023 COVID-19 VACCINE (5 - Moderna series) COVID-19 VACCINE (5 - Moderna series) [facility] Comment on above: Postponed from 12/11 (Declined at this time) Start: 03-05-2023 End: 05-05-2023 Hemoglobin A1c in Blood HGB A1C Lab Routine Type 2 diabetes mellitus with stage 3b chronic kidney disease, without long-term current use of insulin (HCC) Expected: 03/05/2023, Expires: 05/05/2023 [facility] Work Phone: Comment on above: Expected: 03/05/2023 , Expires: 05/05/2023 Start: 03-05-2023 End: 05-05-2023 Iron and Iron binding capacity panel - Serum or Plasma IRON + TIBC Lab Routine Iron deficiency anemia, unspecified iron deficiency anemia type Expected: 03/05/2023, Expires: 05/05/2023 [facility] Work Phone: Comment on above: Expected: 03/05/2023 , Expires: 05/05/2023 Start: 03-05-2023 End: 05-05-2023 LIPID PANEL, NONFASTING LIPID PANEL, NONFASTING Lab Routine Mixed hyperlipidemia Expected: 03/05/2023, Expires: 05/05/2023 [facility] Work Phone: Comment on above: Expected: 03/05/2023 , Expires: 05/05/2023 Start: 03-05-2023 SHINGRIX VACCINE (1 of 2) SHINGRIX VACCINE (1 of 2) [facility] Comment on above: Postponed from 06/13 (Insurance Coverage) Start: 03-05-2023 End: 05-05-2023 Urinalysis complete panel - Urine URINALYSIS, WITH MICROSCOPIC Lab Routine Essential hypertension with goal blood pressure less than 130/85 Type 2 diabetes mellitus with stage 3b chronic kidney disease, without long-term current use of insulin (HCC) Expected: 03/05/2023, Expires: 05/05/2023 [facility] Work Phone: Comment on above: Expected: 03/05/2023 , Expires: 05/05/2023 Start: 03-05-2023 Urine microalbumin profile [facility] Comment on above: Postponed from 08/15 (Insurance Coverage) Start: 02-26-2023 HEMOGLOBIN/HEMATOCRIT HEMOGLOBIN/HEM ATOCRIT [facility] Start: 02-26-2023 Hepatitis B screening URINE AL BUMIN:CREATININE RATIO [facility] Start: 02-26-2023 SERUM CREATININE SERUM CREATININE Cl [facility] Start: 02-25-2023 Hemoglobin A1c/Hemoglobin.total in Blood HBA1C [facility] Start: 02-16-2023 Behavioral Health Screening Behavioral Health Screening [facility] Start: 12-05-2022 Hemoglobin A1c/Hemoglobin.total in Blood HBA1C [facility] Start: 12-03-2022 End: 02-02-2023 Hemoglobin A1c in Blood HGB A1C Lab Routine Type 2 diabetes mellitus with stage 3b chronic kidney disease, without long-term current use of insulin (HCC) Expected: 12/03/2022, Expires: 02/02/2023 [facility] Work Phone: Comment on above: Expected: 12/03/2022 , Expires: 02/02/2023 Start: 11-01-2022 Hepatitis C antibody , confirmatory test DILATED RETINAL EXAM [facility] Start: 10-17-2022 Covid-19 Vaccine () Covid-19 Vaccine () [facility] Start: 10-17-2022 Influenza vaccination INFLUENZA (#1) [facility] Start: 08-23-2022 Adult depression screening assessment DEPRESSION SCREENING [facility] Start: 08-23-2022 ANNUAL PCP TEAM PROFESSOR OF BUSINESS ADMINISTRATION CESAR DISEASE VISIT ANNUAL PCP TEAM CHRONIC DISEASE VISIT [facility] Start: 08-23-2022 BP CONTROLLED (<130/80) BP CONTROLLE D (<130/80) [facility] Start: 08-15-2022 HEMOGLOBIN/HEMATOCRIT HEMOGLOBIN/HEM ATOCRIT [facility] Start: 08-15-2022 Hepatitis B surface antibody level LDL CHOLESTEROL [facility] Start: 08-15-2022 SERUM CREATININE SERUM CREATININE Cl [facility] Start: 04-22-2022 ANNUAL PCP TEAM PROFESSOR OF BUSINESS ADMINISTRATION CESAR DISEASE VISIT ANNUAL PCP TEAM CHRONIC DISEASE VISIT [facility] Start: 02-14-2022 End: 04-16-2022 ALBUMIN/CREAT RATIO RND UR ALBUMIN/CREAT RATIO RND UR Lab Routine Type 2 diabetes mellitus with stage 3 chronic kidney disease, without long-term current use of insulin, unspecified whether stage 3a or 3b CKD (HCC) Expected: 02/14/2022, Expires: 04/16/2022 [facility] Work Phone: Comment on above: Expected: 02/14/2022 , Expires: 04/16/2022 Start: 02-14-2022 End: 04-16-2022 CBC W Auto Differential panel - Blood CBC + DIFF Lab Routine Type 2 diabetes mellitus with stage 3 chronic kidney disease, without long-term current use of insulin, unspecified whether stage 3a or 3b CKD (HCC) Stage 3 chronic kidney disease, unspecified whether stage 3a or 3b CKD (HCC) Iron deficiency anemia, unspecified iron deficiency anemia type Expected: 02/14/2022, Expires: 04/16/2022 [facility] Work Phone: Comment on above: Expected: 02/14/2022 , Expires: 04/16/2022 Start: 02-14-2022 End: 04-16-2022 Comprehensive metabolic 2000 panel - Serum or Plasma COMP METABOLIC PANEL Lab Routine Essential hypertension with goal blood pressure less than 130/85 Mixed hyperlipidemia Type 2 diabetes mellitus with stage 3 chronic kidney disease, without long-term current use of insulin, unspecified whether stage 3a or 3b CKD (HCC) Stage 3 chronic kidney disease, unspecified whether stage 3a or 3b CKD (HCC) Expected: 02/14/2022, Expires: 04/16/2022 [facility] Work Phone: Comment on above: Expected: 02/14/2022 , Expires: 04/16/2022 Start: 02-14-2022 End: 04-16-2022 Hemoglobin A1c in Blood HGB A1C Lab Routine Type 2 diabetes mellitus with stage 3 chronic kidney disease, without long-term current use of insulin, unspecified whether stage 3a or 3b CKD (HCC) Expected: 02/14/2022, Expires: 04/16/2022 [facility] Work Phone: Comment on above: Expected: 02/14/2022 , Expires: 04/16/2022 Start: 02-14-2022 Hemoglobin A1c/Hemoglobin.total in Blood HBA1C [facility] Start: 02-14-2022 End: 04-16-2022 Iron and Iron binding capacity panel - Serum or Plasma IRON + TIBC Lab Routine Iron deficiency anemia, unspecified iron deficiency anemia type Expected: 02/14/2022, Expires: 04/16/2022 [facility] Work Phone: Comment on above: Expected: 02/14/2022 , Expires: 04/16/2022 Start: 02-14-2022 End: 04-16-2022 LIPID PANEL, NONFASTING LIPID PANEL, NONFASTING Lab Routine Essential hypertension with goal blood pressure less than 130/85 Mixed hyperlipidemia Type 2 diabetes mellitus with stage 3 chronic kidney disease, without long-term current use of insulin, unspecified whether stage 3a or 3b CKD (HCC) Expected: 02/14/2022, Expires: 04/16/2022 [facility] Work Phone: Comment on above: Expected: 02/14/2022 , Expires: 04/16/2022 Start: 02-14-2022 End: 04-16-2022 Urinalysis complete panel - Urine URINALYSIS, WITH MICROSCOPIC Lab Routine Essential hypertension with goal blood pressure less than 130/85 Mixed hyperlipidemia Type 2 diabetes mellitus with stage 3 chronic kidney disease, without long-term current use of insulin, unspecified whether stage 3a or 3b CKD (HCC) Expected: 02/14/2022, Expires: 04/16/2022 [facility] Work Phone: Comment on above: Expected: 02/14/2022 , Expires: 04/16/2022 Start: 02-06-2022 HEMOGLOBIN/HEMATOCRIT HEMOGLOBIN/HEM ATOCRIT [facility] Start: 02-06-2022 Hepatitis B screening URINE AL BUMIN:CREATININE RATIO [facility] Start: 02-06-2022 Hepatitis B surface antibody level LDL CHOLESTEROL [facility] Start: 02-06-2022 SERUM CREATININE SERUM CREATININE Cl [facility] Start: 12-11-2021 COVID-19 VACCINE (5 - Booster for Moderna series) COVID-19 VACCINE (5 - Booster for Moderna series) [facility] Start: 10-17-2021 Influenza vaccination INFLUENZA (#1) [facility] Start: 08-30-2021 Hepatitis C antibody , confirmatory test DILATED RETINAL EXAM [facility] Start: 08-22-2021 3 comp foot exam completed DIABETIC FOOT EXAM [facility] Start: 08-16-2021 Adult depression screening assessment DEPRESSION SCREENING [facility] Start: 08-07-2021 Hemoglobin A1c/Hemoglobin.total in Blood HBA1C [facility] Start: 05-04-2021 COVID-19 VACCINE (4 - Booster for Moderna series) COVID-19 VACCINE (4 - Booster for Moderna series) [facility] Start: 04-12-2021 End: 04-13-2022 Ondansetron Injectable 4 mg IntraVenous Push Once STAT ; (ZOFRAN)DOSE = 4 mg IntraVenous Push Once Start: 12-Apr-2021 End: 12-Apr-2022 Ordered: 12-Apr-2021 Jaqueline Alfaro I Intent [facility] Start: 03-21-2021 BP CONTROLLED (<130/80) BP CONTROLLE D (<130/80) [facility] Start: 02-16-2021 ADVANCE DIRECTIVE DISCUSSION ADVANCE DIRECTIVE DISCUSSION [facility] Start: 02-16-2021 DEPRESSION ASSESSMENT DEPRESSION ASS ESSMENT [facility] Start: 08-15-2017 Urine microalbumin profile DTAP,TDAP,TD (2 - Td or Tdap) [facility] Start: 2004 Hepatitis B Vaccine (1 of 3 - Risk 3-dose series) Hepatitis B Vaccine (1 of 3 - Risk 3-dose series) [facility] Start: 2004 RSV Vaccine (1 - 1-d ose 60+ series) RSV Vaccine (1 - 1-dose 60+ series) [facility] Start: 1994 SHINGRIX VACCINE (1 of 2) SHINGRIX VACCINE (1 of 2) [facility] Start: 1962 Anxiety Screening Anxiety Screening [facility] Start: 1962 Depression Screening Depression Scre ening [facility] End: 04-25-2024 BD DXA TRABECULAR BONE SCORE (TBS) BD DXA TRABECULAR BONE SCORE (TBS) Radiology Routine Age-related osteoporosis without current pathological fracture 1 Occurrences starting 03/27/2023 until 04/25/2024 [facility] Work Phone: Comment on above: 1 Occurrences starti ng 03/27/2023 until 04/25/2024 Cardiovascular funct ion eval w/tilt table w/mntr TILT TABLE EVALUATION Cardiology Routine Symptomatic orthostatic increase in heart rate Ordered: 04/15/2024 [facility] Work Phone: Comment on above: Ordered: 04/15/2024 Comprehensive metabo lic 2000 panel - Serum or Plasma [facility] End: 04-25-2024 DXA Skeletal system.axial Views for bone density DXA-AXIAL SKELETON Radiology Routine Age-related osteoporosis without current pathological fracture 1 Occurrences starting 03/27/2023 until 04/25/2024 [facility] Work Phone: Comment on above: 1 Occurrences starti ng 03/27/2023 until 04/25/2024 End: 10-02-2023 DXA-AXIAL SKELETON DXA-AXIAL SKELETON Radiology Routine Senile osteoporosis Primary ovarian failure Age-related osteoporosis without current pathological fracture 1 Occurrences starting 09/02/2022 until 10/02/2023 [facility] Work Phone: Comment on above: 1 Occurrences starti ng 09/02/2022 until 10/02/2023 Magnesium measurement [facility] [place] Heart Views W str ess and W radionuclide IV [facility] OUTSIDE VENDOR CARDI AC OUTPATIENT EXTENDED RHYTHM RECORDING (WITHOUT TELEMETRY) OUTSIDE VENDOR CARDIAC OUTPATIENT EXTENDED RHYTHM RECORDING (WITHOUT TELEMETRY) Holter Routine Tachycardia Ordered: 08/31/2024 [facility] Work Phone: Comment on above: Ordered: 08/31/2024 PT PLAN OF CARE CERTIFICATION PT PLAN OF CARE CERTIFICATION Procedures Routine Shakiness Balance problems Cervical stenosis of spine Ordered: 07/09/2021 [facility] Comment on above: Ordered: 07/09/2021 [facility] Immunizations Immunization Date Immunization Notes Care Provider Juan canseco 11-28-2023 influenza, high dose seasonal, preservative-free Immunization [place] Work Phone: [facility] 11-28-2023 influenza virus vaccine, unspecified formulation Zelda Lacy PA-C Work Phone: [facility] 11-21-2022 influenza (HD-IIV4) vaccine, age 65+ yr, high dose, quadrivalent, PF (FLUZONE HIGH-DOSE) Immunization [place] Work Phone: [facility] Work Phone: 11-21-2022 influenza virus vaccine, unspecified formulation Pancho Lopez MD Work Phone: [facility] 11-16-2021 influenza, high-dose , quadrivalent vaccine (FLUZONE HIGH DOSE QUADRIVALENT) Immunization [place] Work Phone: [facility] 10-16-2021 COVID-19 vaccine, ag e 12+ yr (evidanza[facility] - [facility]) [place] Nurse Work Phone: [facility] Work Phone: 11-23-2020 influenza, high-dose , quadrivalent vaccine (FLUZONE HIGH DOSE QUADRIVALENT) Julio Keene STORE OPERATIONS MANAGER.PRINTER MACHINE Work Phone: [facility] Work Phone: 05-21-2020 COVID-19 vaccine, fu ll dose (MODERNA) Julio Keene STORE OPERATIONS MANAGER.PRINTER MACHINE Work Phone: [facility] 04-23-2020 COVID-19 vaccine, fu ll dose (MODERNA) Julio Keene STORE OPERATIONS MANAGER.PRINTER MACHINE Work Phone: [facility] 12-07-2019 influenza, high-dose , quadrivalent vaccine (FLUZONE HIGH DOSE QUADRIVALENT) Julio Keene STORE OPERATIONS MANAGER.PRINTER MACHINE Work Phone: [facility] Work Phone: 12-21-2018 influenza, high dose seasonal, preservative-free Julio Jassi STORE OPERATIONS MANAGER.PRINTER MACHINE Work Phone: [facility] 12-21-2018 influenza, injectabl e, quadrivalent, preservative free Dr. Pancho Lopez MD Work Phone: [facility] 12-21-2018 influenza, seasonal, injectable [facility] Work Phone: 11-20-2017 influenza, injectabl e, quadrivalent, contains preservative Julio Jassi STORE OPERATIONS MANAGER.PRINTER MACHINE Work Phone: [facility] Work Phone: 12-16-2016 influenza, injectabl e, quadrivalent, contains preservative Julio Jassi STORE OPERATIONS MANAGER.PRINTER MACHINE Work Phone: [facility] 12-05-2015 influenza, injectabl e, quadrivalent, contains preservative Julio Jassi STORE OPERATIONS MANAGER.PRINTER MACHINE Work Phone: [facility] Work Phone: 12-12-2014 influenza, high dose seasonal, preservative-free Julio Jassi STORE OPERATIONS MANAGER.PRINTER MACHINE Work Phone: [facility] Work Phone: 12-12-2014 pneumococcal conjuga te vaccine, 13 valent Julio Jassi STORE OPERATIONS MANAGER.PRINTER MACHINE Work Phone: [facility] Work Phone: 12-09-2013 influenza, seasonal, injectable Julio Jassi STORE OPERATIONS MANAGER.PRINTER MACHINE Work Phone: [facility] 12-09-2013 pneumococcal polysaccharide vaccine, 23 valent Julio Jassi STORE OPERATIONS MANAGER.PRINTER MACHINE Work Phone: [facility] 11-29-2012 influenza virus vaccine, unspecified formulation Julio Jassi STORE OPERATIONS MANAGER.PRINTER MACHINE Work Phone: [facility] Work Phone: 12-30-2011 influenza virus vaccine, unspecified formulation Julio Jassi STORE OPERATIONS MANAGER.PRINTER MACHINE Work Phone: [facility] 11-28-2010 influenza virus vaccine, unspecified formulation Julio Jassi STORE OPERATIONS MANAGER.PRINTER MACHINE Work Phone: [facility] Work Phone: 01-18-2010 influenza virus vaccine, unspecified formulation Julio Jassi STORE OPERATIONS MANAGER.PRINTER MACHINE Work Phone: [facility] Work Phone: 12-27-2008 novel [id number], all formulations Julio Jassi STORE OPERATIONS MANAGER.PRINTER MACHINE Work Phone: [facility] Work Phone: 12-06-2008 influenza virus vaccine, unspecified formulation Julio Jassi STORE OPERATIONS MANAGER.PRINTER MACHINE Work Phone: [facility] Work Phone: 01-24-2008 influenza virus vaccine, unspecified formulation Julio Jassi STORE OPERATIONS MANAGER.PRINTER MACHINE Work Phone: [facility] 08-16-2007 tetanus toxoid, redu charly diphtheria toxoid, and acellular pertussis vaccine, adsorbed Julio Jassi STORE OPERATIONS MANAGER.PRINTER MACHINE Work Phone: [facility] Work Phone: 01-18-2007 influenza virus vaccine, unspecified formulation Julio King FLORIANN.PRINTER MACHINE Work Phone: [facility] Work Phone: 01-18-2007 pneumococcal conjuga te vaccine, 7 valent Klarissa Ramirez PA-C Work Phone: [facility] 01-18-2007 pneumococcal polysaccharide vaccine, 23 valent Julio Keene APRN.PRINTER MACHINE Work Phone: [facility] Work Phone: 12-12-2005 influenza virus vaccine, whole virus Julio King FLORIANN.PRINTER MACHINE Work Phone: [facility] Work Phone: Payers Date Payer Category Payer Self-pay [id number] 2015 Private Health Insurance [facility] AARP SUPPLEMENT [id number] 2015-Present [phone] [address] [place] [address] Indemnity [id number] 2015 Private Health Insurance [id number] 2015 Unknown [id number] 2009 Medicare [id number] 2009 Medicare MEDICARE MEDICAR E A AND B [id number] 2009-Present [phone] [address] [address] [place] [address] Medicare [id number] 2009 Medicare [id number] 2009 Medicare [id number] Unknown Unknown [id number] Unknown [id number] Unknown [id number] Unknown [id number] Social History Date Type Detail Facility [facility] Start: 01-01-2019 Tobacco smoking consumption unknown [facility] Start: 01-01-2019 None [facility] Start: 01-01-2019 Alone [facility] Start: 01-01-2019 Non-smoker [facility] Start: 1945 Sex Assigned At Female [facility] Start: 10-09-2023 Tobacco smoking status NHIS Never smoked tobacco [facility] Start: 06-20-2021 End: 10-03-2024 Alcohol intake Current non-drinker of alcohol (finding) [facility] Start: 11-28-2019 End: 02-27-2022 History SDOH Alcohol Frequency 1 [facility] Start: 11-28-2019 History SDOH Alcohol Std Drinks 98 [facility] Start: 07-23-2019 History SDOH Social Connections Phone 4 [facility] Start: 07-23-2019 End: 02-27-2022 History SDOH Social Connections Get Together 3 [facility] Start: 07-23-2019 End: 02-27-2022 History SDOH Social Connections Living 5 [facility] Start: 07-23-2019 End: 02-27-2022 History SDOH Physical Activity MPS 2 [facility] Start: 07-23-2019 Education 12 [facility] Start: 02-05-2021 End: 08-23-2021 Exposure to SARS-CoV-2 (event) Not sure [facility] Work Phone: Start: 02-27-2022 History SDOH Alcohol Std Drinks 0 [facility] Start: 02-27-2022 End: 09-02-2022 History of Social function [facility] Start: 02-27-2022 End: 09-02-2022 Social connection and isolation panel [facility] Do you belong to any clubs or organizations such as [employer] groups, [employer], [employer] or [employer] groups, or school groups? No [facility] Are you now , , , , never or living with a partner? [facility] How often to you hav e a drink containing alcohol? Never [facility] Start: 01-18-2012 How many standard drinks containing alcohol do you have on a typical day? Patient does not drink [facility] Do you feel stress - tense, restless, nervous, or anxious, or unable to sleep at night because your mind is troubled all the time - these days [OSQ] Not at all [facility] (I/We) worried wheth er (my/our) food would run out before (I/we) got money to buy more. Never true [facility] Start: 06-11-2018 Gender identity Identifies as female gender (finding) [facility] Start: 06-11-2018 Sexual orientation Heterosexual (finding) [facility] Do you belong to any clubs or organizations such as [employer] groups, [employer], [employer] or [employer] groups, or school groups? Yes [facility] Do you feel stress - tense, restless, nervous, or anxious, or unable to sleep at night because your mind is troubled all the time - these days [OSQ] Only a little [facility] Medical Equipment Procedure Code Equipment Code Equipment Origin al Text Equipment Identifier Dates Cystoscopic insertion of stent STENT,URETERAL 6FR PIG [id number] FDA Start: 01-01-2019 Cystoscopic insertion of stent STENT,URETERAL 6FR PIG [id number] FDA Start: 01-01-2019 STENT,URETERAL PIGTAIL [id number] FDA Start: 12-24-2018 Asnis Cannulated Screw 2.0 X 14mm - [id number] Start: 09-12-2011 Comment on above: Description: 3.0 MM 20/5 MM CANNULATED SCREW Wire Fix .045in 6in Krsh Ss - [id number] Start: 09-12-2011 Comment on above: Description: .045 IN X 6 IN WIRE FIX [id number], [id number], [id number] Start: 12-23-2018 End: 09-02-2022 Comment on above: Test blood sugar(s) 1 times daily. Dx: Type 2 DM - Controlled E11.9 Insulin: No Test blood sugar(s) one times daily. Dx: Type 2 DM - Controlled E11.9 Insulin: No STENT,URETERAL PIGTAIL [id number] FDA Start: 12-24-2018 Functional Status Date Assessment Result Facility 10-14-2024 Total score [AUDIT-C] 0 10/15/19 5:33 PM EDT User, Anny [facility] 10-14-2024 How often do you hav e a drink containing alcohol? Never 10/14/2024 5:33 PM EDT User, Evenst Never [facility] 10-14-2024 Functional status Patient does n ot drink 10/14/2024 5:33 PM EDT User, Anny Patient does not drink [facility] 10-14-2024 How often do you hav e 6 or more drinks on 1 occasion? Never 10/14/2024 5:33 PM EDT User, Vahetraceyt Never [facility] 08-09-2014 Are you deaf, or do you have serious difficulty hearing No 08/09/2014 10:45 AM LORY MOORE No [facility] 08-09-2014 Are you blind, or do you have serious difficulty seeing, even when wearing glasses No 08/09/2014 10:45 AM LORY MOORE No [facility] 08-09-2014 Do you have serious difficulty walking or climbing stairs No 08/09/2014 10:45 AM LORY MOORE No [facility] 08-09-2014 Do you have difficul ty dressing or bathing No 08/09/2014 10:45 AM LORY MOORE [facility] 08-09-2014 Because of a physica l, mental, or emotional condition, do you have difficulty doing errands alone such as visiting a physician's office or shopping No 08/09/2014 10:45 AM LORY MOORE [facility] Mental Status Date Assessment Result Facility 08-09-2014 Because of a physica l, mental, or emotional condition, do you have serious difficulty concentrating, remembering, or making decisions No 08/09/2014 10:45 AM EDT LORY JEAN [facility] Clinical Notes 06-17-2018 to 11-29-2024 Klarissa Ramirez PA-C - 10/19/2024 1:06 PM EDTCGabriela ventura LPN - 10/19/2024 12:53 PM EDTTelephone Encounter - Myrtle Larose RN - 10/05/2024 11:01 AM EDTPatient InstructionsPatient Instructions Note Date & Type Note Facility 11-29-2024 Note HNO ID: [id number] Author: SASHA FARLEY RN Service: ? Author Type: Registered Nurse Type: Progress Notes Filed: 11/29/2024 12:38 Note Text: CDM ENROLLMENT Provider Action / FYI: N/A Patient identified by name and date of . Discussed care with patient. Outreach Summary: Patient states she has this service through her insurance company and does not need the duplicate calls. Reports she is healthy and has no concerns at this time. Declines CDM at this time. H@H phone number given to patient if any questions or concerns. Thanks [facility] for the call. Program Details Chronic Disease Management Status: Declined Patient Declined - Initial Effective Dates: unknown - 11/29/2024 Responsible Staff: Sasha Farley RN Support and Services: None active Assessments No documentation this encounter Interventions No episode Sasha Farley RN November 29, 2024 12:32 PM [facility] 11-29-2024 Note Patient Outreach ([facility]) SHAHEEN JEAN ([id number]) 1945 F Date Time Provider Department 11/29/24 SASHA FARLEY During your visit today, we recorded the following information about you: Sasha Farley RN 11/29/2024 12:38 PM Signed CDM ENROLLMENT Provider Action / FYI: N/A Patient identified by name and date of . Discussed care with patient. Outreach Summary: Patient states she has this service through her insurance company and does not need the duplicate calls. Reports she is healthy and has no concerns at this time. Declines CDM at this time. H@H phone number given to patient if any questions or concerns. Thanks [facility] for the call. Program Details Chronic Disease Management Status: Declined Patient Declined - Initial Effective Dates: unknown - 11/29/2024 Responsible Staff: Sasha Farley RN Support and Services: None active Assessments No documentation this encounter Interventions No episode Sasha Farley RN November 29, 2024 12:32 PM Allergies As of Date: 11/29/2024 Noted Allergy Reaction BACTRIM (SULFAMETHOXAZOLE) 03/27/2010 2 - Rash CIPRO (CIPROFLOXACIN) 12/27/2004 2 - Rash CLAMS 06/17/2018 2 - Rash CORN 09/29/2008 16 - Unknown EGGS (EGG) 03/27/2023 14 - Other: See Comments Comments: Diarrhea GRASS POLLEN 09/09/2011 9 - Itching LACTOSE INTOLERANCE (LACTASE) 12/27/2004 16 - Unknown PORK 09/29/2008 16 - Unknown SEASONAL ALLERGIES 07/30/2012 14 - Other: See Comments Comments: pollen [id number] REDUCTASE INHIBIT*10/19/2024 5 - Intolerance Comments: myalgia Date Reviewed: 10/19/2024 Reviewed by: Gabriela Morejon LPN - Fully Assessed Reason for Visit: Care Coordination [7891] Cmt: CDM enrollment-declined. Prescriptions as of 11/29/2024 - metoprolol succinate ER (TOPROL XL) 50 mg 24 hr tablet Take 1 tablet by mouth once daily. - gabapentin (NEURONTIN) 100 mg capsule Take 1 capsule by mouth three times a day for 90 days. - lisinopril (ZESTRIL) 5 mg tablet Take 1 tablet by mouth once daily. - metFORMIN (GLUCOPHAGE) 500 mg tablet Take 1 tablet by mouth daily with dinner. - glimepiride (AMARYL) 1 mg tablet Take 1 tablet by mouth daily with breakfast. - blood sugar diagnostic (FREESTYLE LITE STRIPS) test strip Test blood sugar(s) one times daily. Dx: Type 2 DM - Controlled E11.9 Insulin: No - multivitamin with minerals (ONE-A-DAY 50 PLUS ORAL) Take by mouth. - blood sugar diagnostic (BLOOD GLUCOSE TEST) test strip Test blood sugar(s) 1 times daily. Dx: Type 2 DM - Controlled E11.9 Insulin: No - Blood-Glucose Meter misc Check blood sugars once a day. Dx: E11.9 no insulin - Cholecalciferol, Vitamin D3, 25 mcg (1,000 unit) cap Take 1,000 Units by mouth once daily. - CALCIUM CARBONATE (TUMS E-X ORAL) Take 2 capsules by mouth once daily. - Aspirin 81 mg ORAL Tab Take 81 mg by mouth once daily. Problem List As Of Date 11/29/2024 Noted Resolved Mixed hyperlipidemia [E78.2] Pain in joint, shoulder region [M25.519] 01/08/2005 04/11/2019 External hemorrhoids [K64.4] Internal hemorrhoids [K64.8] Abnormal Mammogram, Unspecified [R92.8] 11/10/2006 10/01/2009 Nonsuppurative Otitis Media, not Specified as A*05/25/2007 10/01/2009 Osteoporosis [M81.0] 09/24/2007 Sciatica [M54.30] 06/02/2008 Iron deficiency anemia [D50.9] 04/15/2010 Hallux valgus (acquired) [M20.10] 09/02/2011 Diverticulosis of large intestine without hemor*03/05/2015 Low back pain [M54.50] 03/05/2015 Cholesteatoma of tympanum of right ear [H71.11] 03/22/2015 Well adult exam [Z00.00] 03/22/2015 04/11/2019 Diabetic eye exam (HCC) [Z01.00, E11.9] 07/12/2015 04/11/2019 Essential hypertension with goal blood pressure*07/19/2015 Type 2 diabetes mellitus with stage 3b chronic *07/19/2015 Chronic right shoulder pain [M25.511, G89.29] 12/05/2015 Pain in right hip [M25.551] 12/05/2015 04/11/2019 Arthritis of right hip [M16.11] 12/06/2015 Arthritis of right shoulder region [M19.011] 12/06/2015 Calcaneal spur of left foot [M77.32] 01/09/2016 Tendonitis, Achilles, left [M76.62] 01/09/2016 Medicare annual wellness visit, subsequent [Z00*06/16/2017 Stage 3b chronic kidney disease (HCC) [N18.32] 06/17/2017 Class 1 obesity due to excess calories without *06/17/2017 04/11/2019 Encounter for screening mammogram for breast ca*06/17/2018 04/11/2019 Screening for osteoporosis [Z13.820] 06/17/2018 04/11/2019 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] 06/17/2018 Renal stone [N20.0] 09/19/2018 Age-related cataract of both eyes [H25.9] 04/13/2019 GERD (gastroesophageal reflux disease) [K21.9] Obesity, Class I, BMI 30-34.9 [E66.811] 07/25/2019 AK (actinic keratosis) [L57.0] 08/23/2020 Closed fracture of first lumbar vertebra (HCC) *04/19/2021 03/05/2022 Balance problem [R26.89] 07/08/2021 Cervical stenosis of spine [M48.02] 07/08/2021 Advance directive discussed with pat (more content not included)... [facility] 11-17-2024 Note HNO ID: [id number] Author: LUPIS DESAI MA Service: ? Author Type: Booking Prizer Type: Progress Notes Filed: 11/17/2024 17:27 Note Text: Scan on 11/17/2024 1:15 PM by ProviderMarilin PA-C: CMP, TSH Scan on 11/17/2024 12:38 PM by ProviderMarilin PA-C: CBC [facility] 11-17-2024 Progress note [facility] 10-19-2024 Note HNO ID: [id number] Author: KLARISSA RAMIREZ PA-C Service: ? Author Type: Physician Aircraft Engine Technician Type: Progress Notes Filed: 10/19/2024 14:26 Note Text: Chief Complaint Patient presents with: 6 Month Exam HPI Shaheen Jean is a 79 year old female who presents here today for Chronic Medical Conditions.. Patient with hx of HTN, hyperlipidemia, GERD, CKD, DM2, osteoporosis, and those as below. Dizziness and Weakness: - Onset in 2021, following a fall on ice resulting in tailbone injury. - Shaheen reports back pain when standing, relieved upon sitting. - Diagnosed with a vertebral fracture by a spinal specialist; age of fracture unknown. - Denies head trauma during the fall. - Seen by four neurologists; no definitive diagnosis. - Underwent 2-3 MRIs with no significant findings. - Referred to cardiology by Zelda Lacy PA-C; appointment scheduled for November 17. - Denies ability to stand for extended periods; unable to complete tilt table test. - ENT evaluation by Dr. Mckenzie last week; no inner ear issues identified. - Denies falls but reports significant instability when standing. Tachycardia: - Shaheen reports episodes of rapid heart rate upon standing. - Holter monitor showed heart rate reaching 235 bpm. - Denies palpitations. Diabetes Mellitus: - A1c elevated at 6.9. - Shaheen missed metformin dose and consumed food at 0430 on the day of lab work. Hyperlipidemia: - LDL cholesterol slightly elevated. - Previously tried lovastatin, pravastatin, and simvastatin; discontinued due to myalgia. - Shaheen inquires about using Garlique for cholesterol management. Hypertension: - Lisinopril dosage reduced from 10 mg to 5 mg in March by Dr. Lopez. - Denies monitoring blood pressure at home. Past medical history, appointments, medications, allergies reviewed. Previous Medical History PAST MEDICAL HISTORY Diagnosis Date Actinic keratoses 01/18/2010 Advance directive discussed with patient 03/05/2022 DPA: Lory (daughter) Age-related cataract of both eyes 04/13/2019 AK (actinic keratosis) 08/23/2020 Tx with cryo right dorasol hand 08/2020 Arthritis of right hip 12/06/2015 Arthritis of right shoulder region 12/06/2015 Calcaneal spur of left foot 01/09/2016 Cervical stenosis of spine 07/08/2021 Cholesteatoma of tympanum of right ear 03/22/[address] Mckenzie Chronic right shoulder pain 12/05/2015 Closed fracture of first lumbar vertebra (HCC) 04/19/2021 End plate fracture of L1 Closed fracture of one or more phalanges of foot 11/05/2009 Diverticulosis of large intestine without hemorrhage 03/05/2015 Essential hypertension with goal blood pressure less than 130/85 07/19/2015 External hemorrhoids GERD (gastroesophageal reflux disease) Hallux valgus (acquired) 09/02/2011 Internal hemorrhoids Iron deficiency anemia 01/28/[address] 03/27/2023 DPA: Lory (daughter), Low back pain 03/05/2015 Mixed hyperlipidemia Obesity, Class I, BMI 30-34.9 07/25/2019 Osteoporosis 09/24/2007 Renal stone 09/19/2018 first one 09/2018 Sciatica 06/02/2008 Stage 3b chronic kidney disease (HCC) 06/17/2017 Tendonitis, Achilles, left 01/09/2016 Type 2 diabetes mellitus with stage 3b chronic kidney disease, without long-term current use of insulin ([facility]) 07/19/2015 Previous Surgical History PAST SURGICAL HISTORY Procedure Laterality Date BX BREAST PERC VACUUM/ROTN 11/30/06 RIGHT DELIVERY ONLY , low cervical x 4 COLONOSCOPY 05/10/2015 repeat 10 yrs COLONOSCOPY FLX DX W/COLLJ SPEC WHEN PFRMD 07/23/05 repeat due 2015 COLONOSCOPY FLX DX W/COLLJ SPEC WHEN PFRMD 05/10/2015 Colonoscopy ESOPHAGOGASTRODUODENOSCOPY TRANSORAL DIAGNOSTIC 04/15/2010 EGD FOOT LEFT OP SURGERY 08/2011 bunionectomy PAST SURGICAL HISTORY OF and 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, non ca x2 PLCMT LOCALZTN CLIP,PERC,DURING BREAST BX 11/30/06 RIGHT SIGMOIDOSCOPY FLX DX W/COLLJ SPEC BR/WA IF PFRMD 07/1999 Sigmoidoscopy TYMPANOSTOMY LOC/TOP ANES BILA 2011 left TM tube Family History FAMILY HISTORY Problem Relation Age of Onset Stroke Mother Ischemic Heart Disease Father also diabetes Diabetes Sister Stroke Sister Uterine Cancer Sister Osteoporosis Sister Diabetes Sister Dementia Sister Osteoporosis Sister Carotid Disease Brother 95 other (pacemaker) Brother Seizures Brother other (complications of mono) Brother Patient Allergies ALLERGIES Allergen Reactions Bactrim [Sulfametho* Rash Cipro [Ciprofloxaci* Rash Clams Rash [place] Unknown Eggs [Egg] Other: See Comments Diarrhea Grass Pollen Itching Lactose Intolerance* Unknown Pork Unknown Seasonal Allergies Other: See Comments pollen Yjaulub-Pou-Fzv Red* Intolerance myalgia Current Medications Current Outpatient Medications on File Prior to Visit Medication Sig lisinopril (ZESTRIL) 5 mg tablet Take 1 tablet by mouth once daily. met (more content not included)... [facility] 10-19-2024 History of Present illness Narrative Chief Complaint Patient presents with: 6 Month Exam HPI Shaheen Jean is a 79 year old female who presents here today for Chronic Medical Conditions.. Patient with hx of HTN, hyperlipidemia, GERD, CKD, DM2, osteoporosis, and those as below. Dizziness and Weakness: - Onset in 2021, following a fall on ice resulting in tailbone injury. - Shaheen reports back pain when standing, relieved upon sitting. - Diagnosed with a vertebral fracture by a spinal specialist; age of fracture unknown. - Denies head trauma during the fall. - Seen by four neurologists; no definitive diagnosis. - Underwent 2-3 MRIs with no significant findings. - Referred to cardiology by Zelda Lacy PA-C; appointment scheduled for November 17. - Denies ability to stand for extended periods; unable to complete tilt table test. - ENT evaluation by Dr. Mckenzie last week; no inner ear issues identified. - Denies falls but reports significant instability when standing. Tachycardia: - Shaheen reports episodes of rapid heart rate upon standing. - Holter monitor showed heart rate reaching 235 bpm. - Denies palpitations. Diabetes Mellitus: - A1c elevated at 6.9. - Shaheen missed metformin dose and consumed food at 0430 on the day of lab work. Hyperlipidemia: - LDL cholesterol slightly elevated. - Previously tried lovastatin, pravastatin, and simvastatin; discontinued due to myalgia. - Shaheen inquires about using Garlique for cholesterol management. Hypertension: - Lisinopril dosage reduced from 10 mg to 5 mg in March by Dr. Lopez. - Denies monitoring blood pressure at home. Past medical history, appointments, medications, allergies reviewed. Previous Medical History PAST MEDICAL HISTORY Diagnosis Date Actinic keratoses 01/18/2010 Advance directive discussed with patient 03/05/2022 DPA: Lory (daughter) Age-related cataract of both eyes 04/13/2019 AK (actinic keratosis) 08/23/2020 Tx with cryo right dorasol hand 08/2020 Arthritis of right hip 12/06/2015 Arthritis of right shoulder region 12/06/2015 Calcaneal spur of left foot 01/09/2016 Cervical stenosis of spine 07/08/2021 Cholesteatoma of tympanum of right ear 03/22/[address] Mckenzie Chronic right shoulder pain 12/05/2015 Closed fracture of first lumbar vertebra (HCC) 04/19/2021 End plate fracture of L1 Closed fracture of one or more phalanges of foot 11/05/2009 Diverticulosis of large intestine without hemorrhage 03/05/2015 Essential hypertension with goal blood pressure less than 130/85 07/19/2015 External hemorrhoids GERD (gastroesophageal reflux disease) Hallux valgus (acquired) 09/02/2011 Internal hemorrhoids Iron deficiency anemia 01/28/[address] 03/27/2023 DPA: Lory (daughter), Low back pain 03/05/2015 Mixed hyperlipidemia Obesity, Class I, BMI 30-34.9 07/25/2019 Osteoporosis 09/24/2007 Renal stone 09/19/2018 first one 09/2018 Sciatica 06/02/2008 Stage 3b chronic kidney disease ([facility]) 06/17/2017 Tendonitis, Achilles, left 01/09/2016 Type 2 diabetes mellitus with stage 3b chronic kidney disease, without long-term current use of insulin ([facility]) 07/19/2015 Previous Surgical History PAST SURGICAL HISTORY Procedure Laterality Date BX BREAST PERC VACUUM/ROTN 11/30/06 RIGHT DELIVERY ONLY , low cervical x 4 COLONOSCOPY 05/10/2015 repeat 10 yrs COLONOSCOPY FLX DX W/COLLJ SPEC WHEN PFRMD 07/23/05 repeat due 2015 COLONOSCOPY FLX DX W/COLLJ SPEC WHEN PFRMD 05/10/2015 Colonoscopy ESOPHAGOGASTRODUODENOSCOPY TRANSORAL DIAGNOSTIC 04/15/2010 EGD FOOT LEFT OP SURGERY 08/2011 bunionectomy PAST SURGICAL HISTORY OF and 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, non ca x2 PLCMT LOCALZTN CLIP,PERC,DURING BREAST BX 11/30/06 RIGHT SIGMOIDOSCOPY FLX DX W/COLLJ SPEC BR/WA IF PFRMD 07/1999 Sigmoidoscopy TYMPANOSTOMY LOC/TOP ANES BILA 2011 left TM tube Family History FAMILY HISTORY Problem Relation Age of Onset Stroke Mother Ischemic Heart Disease Father also diabetes Diabetes Sister Stroke Sister Uterine Cancer Sister Osteoporosis Sister Diabetes Sister Dementia Sister Osteoporosis Sister Carotid Disease Brother 95 other (pacemaker) Brother Seizures Brother other (complications of mono) Brother Patient Allergies ALLERGIES Allergen Reactions Bactrim [Sulfametho* Rash Cipro [Ciprofloxaci* Rash Clams Rash [place] Unknown Eggs [Egg] Other: See Comments Diarrhea Grass Pollen Itching Lactose Intolerance* Unknown Pork Unknown Seasonal Allergies Other: See Comments pollen [id number]-[id number]-Beh Red* Intolerance myalgia Current Medications Current Outpatient Medications on File Prior to Visit Medication Sig lisinopril (ZESTRIL) 5 mg tablet Take 1 tablet by mouth once daily. metFORMIN (GLUCOPHAGE) 500 mg tablet Take 1 tablet by mouth daily with dinner. glimepiride (AMARYL) 1 mg tablet Take 1 tablet by mouth daily with breakfast. blood sugar diagnostic (FREESTYLE LITE STRIPS) test strip Test blood sugar(s) one times daily. Dx: Type 2 DM - Controlled E11.9 Insulin: No multivitamin with minerals (ONE-A-DAY 50 PLUS ORAL) Take by mouth. blood sugar diagnostic (BLOOD GLUCOSE TEST) test strip Test blood sugar(s) 1 times daily. Dx: Type 2 DM - Controlled E11.9 Insulin: No Blood-Glucose Meter [facility] Check blood sugars once a day. Dx: E11.9 no insulin Cholecalciferol, Vitamin D3, 25 mcg (1,000 unit) cap Take 1,000 Units by mouth once daily. CALCIUM CARBONATE (TUMS E-X ORAL) Take 2 capsules by mouth once daily. Aspirin 81 mg ORAL Tab Take 81 mg by mouth once daily. gabapentin (NEURONTIN) 100 mg capsule Take 1 capsule by mouth three times a day for 90 days. (Patient not taking: Reported on 10/19/2024) No current facility-administered medications on file prior to visit. Social History SOCIAL HISTORY[1] Review of Symptoms REVIEW OF SYSTEMS Constitutional: (-) fever, (-) unintentional weight loss, (-) fatigue, (-) weakness Neck: (-) neck swelling Cardiovascular: (+) palpitations, (-) chest pain Respiratory: (+) shortness of breath, (-) cough, (-) wheezing Gastrointestinal: (-) abdominal pain Musculoskeletal: (+) back pain Neurological: (+) dizziness, (+) gait instability, (-) falls SEE HPI EXAM: BP 124/76 Pulse 110 Resp 18 Ht 160 cm (5' 3) Wt 84.2 kg (185 lb 9.6 oz) SpO2 97% BMI 32.88 kg/m Last 3 Encounter Pulse Readings: Date: Pulse: 10/19/2024 110 10/03/2024 111 08/31/2024 111 General Appearance: Well appearing, alert, in no acute distress, well-hydrated, well nourished.. Neck: Supple, no adenopathy; thyroid symmetric, normal size, no bruits. Lungs: Lungs clear to auscultation. No wheezing, rhonchi, rales.. Heart: RRR without murmur, gallop, or rubs. No ectopy. Extremities: No deformities, edema, skin discoloration, clubbing or cyanosis. Good capillary refill. . Peripheral Pulses: Normal. Health Maintenance List Influenza Vaccine(1) due on 10/17/2024 RSV Vaccine(1 - 1-dose 75+ series) due on 04/15/2025 Shingrix Vaccine(1 of 2) due on 04/15/2025 Bone Density Screening due on 12/01/2024 Dilated Retinal Exam due on 12/16/2024 Urine Albumin:Creatinine Ratio due on 04/08/2025 Hemoglobin/Hematocrit due on 04/08/2025 Diabetic Foot Exam due on 04/15/2025 Medicare Annual Wellness Visit due on 04/15/2025 HbA1C due on 04/15/2025 LDL Cholesterol due on 10/14/2025 Serum Creatinine due on 10/14/2025 Annual PCP Team Chronic Disease Visit due on 10/19/2025 Depression Screening due on 10/19/2025 Anxiety Screening due on 10/19/2025 DTaP,Tdap,Td Vaccine(3 - Td or Tdap) due on 08/31/2033 Advance Directive Discussion Completed Pneumococcal Vaccine: 50+ Completed Mammogram Screening Discontinued Colorectal Cancer Screening Discontinued Data reviewed Latest Ref Rng 10/14/2024 Glucose 74 - 99 mg/dL 153 (H) BUN 7 - 21 mg/dL 22 (H) Creatinine 0.58 - 0.96 mg/dL 1.37 (H) Sodium 136 - 144 mmol/L 141 Potassium 3.7 - 5.1 mmol/L 5.3 (H) Chloride 98 - 107 mmol/L 108 (H) CO2 22 - 30 mmol/L 20 (L) Anion Gap 8 - 15 mmol/L 13 Calcium 8.5 - 10.2 mg/dL 10.1 eGFR >=60 mL/min/1.73m 39 (L) Total Cholesterol, Nonfasting <200 mg/dL 177 Triglycerides, Nonfasting <150 mg/dL 134 HDL Cholesterol, Nonfasting >39 mg/dL 43 LDL Cholesterol Calculated, Nonfasting <100 mg/dL 110 (H) Non HDL Cholesterol, Nonfasting <130 mg/dL 134 (H) VLDL Cholesterol, Nonfasting <30 mg/dL 22 Total Chol/HDL Ratio, Nonfasting <5.10 mg/dL 4.12 LDL/HDL Ratio, Nonfasting <2.54 mg/dL 2.56 (H) Hemoglobin A1C 4.3 - 5.6 % 6.9 (H) Estimated Average Glucose mg/dL 151 Legend: (H) High (L) Low Assessment and Plan 1. SVT (supraventricular tachycardia) (HCC) (I47.10) - Holter monitor showed heart rate up to 235 bpm. - Start metoprolol ER 50 mg PO daily to manage tachycardia until cardiology evaluation. - Discussed potential side effects of metoprolol, including hypotension, lightheadedness, and dizziness; advised to monitor for these symptoms and contact clinic if they occur. - Follow-up with cardiology on November 17. 2. Mixed hyperlipidemia (E78.2) - LDL elevated above target of <100 mg/dL. - Patient previously trialed multiple statins (lovastatin, pravastatin, simvastatin) with muscle aches; prefers to avoid statins at this time. - Discussed potential benefit supplements and dietary modifications; advised to limit saturated fats to <13g/day, avoid trans fats, and increase intake of healthy fats and fiber. Okay for patient to try Garlique - Discussed Metamucil as an option for cholesterol lowering if needed. - Recheck lipid panel in 6 months. 3. Essential hypertension with goal blood pressure less than 130/85 (I10) - Blood pressure well controlled on current regimen; no changes to antihypertensive medications at this time. - Advised to monitor blood pressure at home if possible. 4. Type 2 diabetes mellitus with stage 3b chronic kidney disease, without long-term current use of insulin (HCC) (E11.22) 5. Stage 3b chronic kidney disease (HCC) (N18.32) - HbA1c 6.9%, slightly elevated from previous measurement. - Potassium slightly elevated on recent labs; repeat potassium and kidney function labs today. - Continue current diabetes management; recheck labs in 6 months. 6. Screening for depression (Z13.31) 7. Encounter for screening examination for other mental health and behavioral disorders (Z13.39) no concerns on screening results 8. Iron deficiency anemia, unspecified iron deficiency anemia type (D50.9) labs ordered for next visit. 9. Gastroesophageal reflux disease without esophagitis (K21.9) stable. Klarissa Ramirez PA-C Recording using ambient [employer] software for draft documentation of the visit was discussed with the patient/authorized outbound call center representative; all questions welcomed and answered. Patient/authorized outbound call center representative agreed to proceed [1] Social History Tobacco Use Smoking status: Never Smokeless tobacco: Never Vaping Use Vaping status: Never Used Substance Use Topics Alcohol use: No Drug use: No Patient seen (eye doctor) last October 2023 due for an appointment. Patient is seeing at [facility] on November documented in this encounter [facility] 10-19-2024 Note HNO ID: [id number] Author: GABRIELA MOREJON LPN Service: ? Author Type: Licensed Nurse Type: Progress Notes Filed: 10/19/2024 14:26 Note Text: Patient seen (eye doctor) last October 2023 due for an appointment. Patient is seeing at [facility] on November [facility] 10-05-2024 Telephone encounter Note Pt returned call and given provider's message below with verbalized understanding. Transferred to [facility] to schedule cardiology referral. [facility] 10-05-2024 Miscellaneous Notes Pt returned call and given provider's message below with verbalized understanding. Transferred to [facility] to schedule cardiology referral. Msg left for patient to return call to review message. Vane Law LPN ----- Message from Zelda Lacy PA-C sent at 10/04/2024 8:36 AM EDT ----- ----- Message ----- From: Edwige Hart MD Sent: 10/03/2024 1:02 PM EDT To: Zelda Lacy PA-C Patient's heart monitor does not show any arrhythmia but does show SVT going as high as 235 bpm. Would recommend seeing cardiology for further eval and rate control. Consult placed. documented in this encounter [facility] 10-04-2024 Telephone encounter Note Msg left for patient to return call to review message. Vane Law LPN [facility] 10-04-2024 Telephone encounter Note ----- Message from Zelda Lacy PA-C sent at 10/04/2024 8:36 AM EDT ----- ----- Message ----- From: Edwige Hart MD Sent: 10/03/2024 1:02 PM EDT To: Zelda Lacy PA-C [facility] 10-04-2024 Telephone encounter Note Patient's heart monitor does not show any arrhythmia but does show SVT going as high as 235 bpm. Would recommend seeing cardiology for further eval and rate control. Consult placed. [facility] 10-03-2024 Instructions Sherry Koenig MD - 10/03/2024 2:31 PM EDT Lets just watch things for now. I don't see a clear diagnosis on your exam. If it is a degenerative neurologic condition I would expect it to worse over time. documented in this encounter [facility] 10-03-2024 Note HNO ID: [id number] Author: SHERRY KOENIG MD Service: ? Author Type: Physician Type: Progress Notes Filed: 11/01/2024 23:50 Note Text: NEW PATIENT EVALUATION Subjective HPI Shaheen Jean is a 79 year old right-handed female who presents for evaluation of gait difficulty. Zelda Lacy PA-C is the referring provider. Dr. Pancho Lopez MD is the PCP. She explains she can't stand up for longer than a minute without needing to sit down. Feels like she is trembling. Initially she is fine but then the longer she is up it will come on. No LH with it. Not falling. She has walkers all over the place, canes don't really. No numbness that she is aware of. No family history of neurologic conditions. Was prescribed gabapentin 100 mg BID for possible orthostatic tremor, no clear benefit. Might get some pain in her back if she stands up too long, in the middle, not down a leg. Sense of smell is fine. Occasional diarrhea. No known dream enactment. Has had 2 rounds of physical therapy. Medications: Current Outpatient Medications Medication Sig Dispense Refill gabapentin (NEURONTIN) 100 mg capsule Take 1 capsule by mouth three times a day for 90 days. 90 capsule 2 lisinopril (ZESTRIL) 5 mg tablet Take 1 tablet by mouth once daily. 90 tablet 1 metFORMIN (GLUCOPHAGE) 500 mg tablet Take 1 tablet by mouth daily with dinner. 90 tablet 1 glimepiride (AMARYL) 1 mg tablet Take 1 tablet by mouth daily with breakfast. 90 tablet 1 blood sugar diagnostic (FREESTYLE LITE STRIPS) test strip Test blood sugar(s) one times daily. Dx: Type 2 DM - Controlled E11.9 Insulin: No 100 Strip 3 multivitamin with minerals (ONE-A-DAY 50 PLUS ORAL) Take by mouth. blood sugar diagnostic (BLOOD GLUCOSE TEST) test strip Test blood sugar(s) 1 times daily. Dx: Type 2 DM - Controlled E11.9 Insulin: No 50 Strip 11 Blood-Glucose Meter [facility] [place] Check blood sugars once a day. Dx: E11.9 no insulin 1 Each 0 Cholecalciferol, Vitamin D3, 25 mcg (1,000 unit) cap Take 1,000 Units by mouth once daily. CALCIUM CARBONATE (TUMS E-X ORAL) Take 2 capsules by mouth once daily. Aspirin 81 mg ORAL Tab Take 81 mg by mouth once daily. No current facility-administered medications for this visit. ROS ROS: Her ROS was positive for that mentioned in the HPI. Otherwise a 10-point ROS was completed and was negative. ALLERGIES Allergen Reactions Bactrim [Sulfametho* Rash Cipro [Ciprofloxaci* Rash Clams Rash [place] Unknown Eggs [Egg] Other: See Comments Diarrhea Grass Pollen Itching Lactose Intolerance* Unknown Pork Unknown Seasonal Allergies Other: See Comments pollen Past Medical History: PAST MEDICAL HISTORY Diagnosis Date Actinic keratoses 01/18/2010 Advance directive discussed with patient 03/05/2022 DPA: Lory (daughter) Age-related cataract of both eyes 04/13/2019 AK (actinic keratosis) 08/23/2020 Tx with cryo right dorasol hand 08/2020 Arthritis of right hip 12/06/2015 Arthritis of right shoulder region 12/06/2015 Calcaneal spur of left foot 01/09/2016 Cervical stenosis of spine 07/08/2021 Cholesteatoma of tympanum of right ear 03/22/[address] Mckenzie Chronic right shoulder pain 12/05/2015 Closed fracture of first lumbar vertebra (HCC) 04/19/2021 End plate fracture of L1 Closed fracture of one or more phalanges of foot 11/05/2009 Diverticulosis of large intestine without hemorrhage 03/05/2015 Essential hypertension with goal blood pressure less than 130/85 07/19/2015 External hemorrhoids GERD (gastroesophageal reflux disease) Hallux valgus (acquired) 09/02/2011 Internal hemorrhoids Iron deficiency anemia 01/28/[address] 03/27/2023 DPA: Lory (daughter), Low back pain 03/05/2015 Mixed hyperlipidemia Obesity, Class I, BMI 30-34.9 07/25/2019 Osteoporosis 09/24/2007 Renal stone 09/19/2018 first one 09/2018 Sciatica 06/02/2008 Stage 3b chronic kidney disease (HCC) 06/17/2017 Tendonitis, Achilles, left 01/09/2016 Type 2 diabetes mellitus with stage 3b chronic kidney disease, without long-term current use of insulin (HCC) 07/19/2015 Family History: FAMILY HISTORY Problem Relation Age of Onset Stroke Mother Ischemic Heart Disease Father also diabetes Diabetes Sister Stroke Sister Uterine Cancer Sister Osteoporosis Sister Diabetes Sister Dementia Sister Osteoporosis Sister Carotid Disease Brother 95 other (pacemaker) Brother Seizures Brother other (complications of mono) Brother Social History:SOCIAL HISTORY[1] No alcohol use Objective 10/03/24 1356 BP: 135/83 BP Site: Left Arm BP Position: Sitting BP Cuff Size: Large Adult Pulse: 111 SpO2: 96% Weight: 84.6 kg (186 lb 9.9 oz) Physical Examination General Appearance: Well appearing, alert, in no acute distress, well-hydrated, well nourished. Head: Normocephalic Neck: Supple Heart: RRR Peripheral Pulses: Normal Neurologic Examination Men (more content not included)... [facility] 10-03-2024 History of Present illness Narrative NEW PATIENT EVALUATION Subjective HPI Shaheen Jean is a 79 year old right-handed female who presents for evaluation of gait difficulty. Zelda Lacy PA-C is the referring provider. Dr. Pancho Lopez MD is the PCP. She explains she can't stand up for longer than a minute without needing to sit down. Feels like she is trembling. Initially she is fine but then the longer she is up it will come on. No LH with it. Not falling. She has walkers all over the place, canes don't really. No numbness that she is aware of. No family history of neurologic conditions. Was prescribed gabapentin 100 mg BID for possible orthostatic tremor, no clear benefit. Might get some pain in her back if she stands up too long, in the middle, not down a leg. Sense of smell is fine. Occasional diarrhea. No known dream enactment. Has had 2 rounds of physical therapy. Medications: Current Outpatient Medications Medication Sig Dispense Refill gabapentin (NEURONTIN) 100 mg capsule Take 1 capsule by mouth three times a day for 90 days. 90 capsule 2 lisinopril (ZESTRIL) 5 mg tablet Take 1 tablet by mouth once daily. 90 tablet 1 metFORMIN (GLUCOPHAGE) 500 mg tablet Take 1 tablet by mouth daily with dinner. 90 tablet 1 glimepiride (AMARYL) 1 mg tablet Take 1 tablet by mouth daily with breakfast. 90 tablet 1 blood sugar diagnostic (FREESTYLE LITE STRIPS) test strip Test blood sugar(s) one times daily. Dx: Type 2 DM - Controlled E11.9 Insulin: No 100 Strip 3 multivitamin with minerals (ONE-A-DAY 50 PLUS ORAL) Take by mouth. blood sugar diagnostic (BLOOD GLUCOSE TEST) test strip Test blood sugar(s) 1 times daily. Dx: Type 2 DM - Controlled E11.9 Insulin: No 50 Strip 11 Blood-Glucose Meter [facility] [place] Check blood sugars once a day. Dx: E11.9 no insulin 1 Each 0 Cholecalciferol, Vitamin D3, 25 mcg (1,000 unit) cap Take 1,000 Units by mouth once daily. CALCIUM CARBONATE (TUMS E-X ORAL) Take 2 capsules by mouth once daily. Aspirin 81 mg ORAL Tab Take 81 mg by mouth once daily. No current facility-administered medications for this visit. ROS ROS: Her ROS was positive for that mentioned in the HPI. Otherwise a 10-point ROS was completed and was negative. ALLERGIES Allergen Reactions Bactrim [Sulfametho* Rash Cipro [Ciprofloxaci* Rash Clams Rash [place] Unknown Eggs [Egg] Other: See Comments Diarrhea Grass Pollen Itching Lactose Intolerance* Unknown Pork Unknown Seasonal Allergies Other: See Comments pollen Past Medical History: PAST MEDICAL HISTORY Diagnosis Date Actinic keratoses 01/18/2010 Advance directive discussed with patient 03/05/2022 DPA: Lory (daughter) Age-related cataract of both eyes 04/13/2019 AK (actinic keratosis) 08/23/2020 Tx with cryo right dorasol hand 08/2020 Arthritis of right hip 12/06/2015 Arthritis of right shoulder region 12/06/2015 Calcaneal spur of left foot 01/09/2016 Cervical stenosis of spine 07/08/2021 Cholesteatoma of tympanum of right ear 03/22/[address] Mckenzie Chronic right shoulder pain 12/05/2015 Closed fracture of first lumbar vertebra (HCC) 04/19/2021 End plate fracture of L1 Closed fracture of one or more phalanges of foot 11/05/2009 Diverticulosis of large intestine without hemorrhage 03/05/2015 Essential hypertension with goal blood pressure less than 130/85 07/19/2015 External hemorrhoids GERD (gastroesophageal reflux disease) Hallux valgus (acquired) 09/02/2011 Internal hemorrhoids Iron deficiency anemia 01/28/[address] 03/27/2023 DPA: Lory (daughter), Low back pain 03/05/2015 Mixed hyperlipidemia Obesity, Class I, BMI 30-34.9 07/25/2019 Osteoporosis 09/24/2007 Renal stone 09/19/2018 first one 09/2018 Sciatica 06/02/2008 Stage 3b chronic kidney disease ([facility]) 06/17/2017 Tendonitis, Achilles, left 01/09/2016 Type 2 diabetes mellitus with stage 3b chronic kidney disease, without long-term current use of insulin ([facility]) 07/19/2015 Family History: FAMILY HISTORY Problem Relation Age of Onset Stroke Mother Ischemic Heart Disease Father also diabetes Diabetes Sister Stroke Sister Uterine Cancer Sister Osteoporosis Sister Diabetes Sister Dementia Sister Osteoporosis Sister Carotid Disease Brother 95 other (pacemaker) Brother Seizures Brother other (complications of mono) Brother Social History:SOCIAL HISTORY[1] No alcohol use Objective 10/03/24 1356 BP: 135/83 BP Site: Left Arm BP Position: Sitting BP Cuff Size: Large Adult Pulse: 111 SpO2: 96% Weight: 84.6 kg (186 lb 9.9 oz) Physical Examination General Appearance: Well appearing, alert, in no acute distress, well-hydrated, well nourished. Head: Normocephalic Neck: Supple Heart: RRR Peripheral Pulses: Normal Neurologic Examination Mental Status: She is alert. She is fully oriented. Attention is intact. Recent and remote memory is intact. Language shows normal comprehension and fluency. Praxis is normal. Affect is appropriate. Cranial Nerves: Pupils are equal and reactive to light. Extraocular movements show full and smooth pursuits. No nystagmus. Visual billy are full to confrontation. Facial sensation is intact. Facial activation is symmetric. Hearing is intact to conversation. There is minimal hypomimia. There is minimal hypophonia. There is no dysarthria. Tongue is midline. Palate elevates symmetrically. Shoulder shrug is normal. Motor: Muscle bulk is normal. Muscle power is full. Mild-mod left mild right bradykinesia. No tremor. No rigidity. Sensory: Intact to fine touch and vibration. Reflex: Biceps and brachioradialis is 2+ bilaterally. Patellar reflex 2+ bilaterally. Achilles 2+ bilaterally. Coordination: Finger to nose is smooth without ataxia. Gait/station: Can stand without use of her hands. Arm swing is present. Slow karlo. Feet clear. Variable base with intermittent almost stumbling feet crossing or going wider, present after a few laps of walking moreso, none on initiation of gait. DATA REVIEWED Actual films/image/tracing reviewed and summarized as follows: n/a Old records reviewed and summarized as follows: Reviewed referral records from [facility] MRI Brain 09/07/23 post-surgical changes from cholesteatoma resection, mild atrophy MRI T/L spine 09/2023 degen changes without severe central stenosis Assessment/Plan Assessment & Plan: Shaheen Jean is a 79 year old right-handed female with a history of DM, HTN, and CKD who presents for evaluation of gait difficulty. Her examination demonstrates slower karlo with variable base of support and mild bradykinesia. We discussed her presentation. Explained currently diagnosis unclear to me. Does not have symptoms on standing that would be consistent with orthostatic tremor. Mildly parkinsonian. Gait a little atypical almost nonphysiologic. We will keep an eye on things for now to see if things evolve over time to make diagnosis clear. Behavioral measures to prevent falls. She should return to see me in 6 months. Sherry Koenig MD [facility] Neurology [1] Social History Tobacco Use Smoking status: Never Smokeless tobacco: Never Vaping Use Vaping status: Never Used Substance Use Topics Alcohol use: No Drug use: No documented in this encounter [facility] 09-30-2024 Note HNO ID: [id number] Author: MARIELLA FRANCISCO RN Service: ? Author Type: Registered Nurse Type: Progress Notes Filed: 09/30/2024 14:46 Note Text: Value Based Care Coordination Chart Review Provider Action / FYI: Does not meet High Utilization CDM criteria [facility] Flyer sent via Upon review of patient chart, the patient is excluded from Chronic Disease Management Patient is not a candidate for CDM at this time and placed in the following status: Deferred Action taken: No action needed Mariella Balderrama RN September 30, 2024 11:12 AM [facility] 09-30-2024 History of Present illness Narrative Value Based Care Coordination Chart Review Provider Action / FYI: Does not meet High Utilization CDM criteria [facility] Flyer sent via Upon review of patient chart, the patient is excluded from Chronic Disease Management Patient is not a candidate for CDM at this time and placed in the following status: Deferred Action taken: No action needed Mariella Balderrama RN September 30, 2024 11:12 AM documented in this encounter [facility] 09-30-2024 Note Patient Outreach (AM BC) SHAHEEN JEAN ([id number]) 1945 F Date Time Provider Department 09/30/24 MARIELLA FRANCISCO [facility] During your visit today, we recorded the following information about you: Mariella Francisco RN 09/30/2024 2:46 PM Signed Value Based Care Coordination Chart Review Provider Action / FYI: Does not meet High Utilization CDM criteria [facility] Flyer sent via Upon review of patient chart, the patient is excluded from Chronic Disease Management Patient is not a candidate for CDM at this time and placed in the following status: Deferred Action taken: No action needed Mariella Balderrama RN September 30, 2024 11:12 AM Allergies As of Date: 09/30/2024 Noted Allergy Reaction BACTRIM (SULFAMETHOXAZOLE) 03/27/2010 2 - Rash CIPRO (CIPROFLOXACIN) 12/27/2004 2 - Rash CLAMS 06/17/2018 2 - Rash CORN 09/29/2008 16 - Unknown EGGS (EGG) 03/27/2023 14 - Other: See Comments Comments: Diarrhea GRASS POLLEN 09/09/2011 9 - Itching LACTOSE INTOLERANCE (LACTASE) 12/27/2004 16 - Unknown PORK 09/29/2008 16 - Unknown SEASONAL ALLERGIES 07/30/2012 14 - Other: See Comments Comments: pollen Date Reviewed: 08/31/2024 Reviewed by: Zelda Lacy PA-C - Fully Assessed Reason for Visit: chart review [Other] Prescriptions as of 09/30/2024 - gabapentin (NEURONTIN) 100 mg capsule Take 1 capsule by mouth three times a day for 90 days. - lisinopril (ZESTRIL) 5 mg tablet Take 1 tablet by mouth once daily. - metFORMIN (GLUCOPHAGE) 500 mg tablet Take 1 tablet by mouth daily with dinner. - glimepiride (AMARYL) 1 mg tablet Take 1 tablet by mouth daily with breakfast. - blood sugar diagnostic (FREESTYLE LITE STRIPS) test strip Test blood sugar(s) one times daily. Dx: Type 2 DM - Controlled E11.9 Insulin: No - multivitamin with minerals (ONE-A-DAY 50 PLUS ORAL) Take by mouth. - blood sugar diagnostic (BLOOD GLUCOSE TEST) test strip Test blood sugar(s) 1 times daily. Dx: Type 2 DM - Controlled E11.9 Insulin: No - Blood-Glucose Meter [facility] [place] Check blood sugars once a day. Dx: E11.9 no insulin - Cholecalciferol, Vitamin D3, 25 mcg (1,000 unit) cap Take 1,000 Units by mouth once daily. - CALCIUM CARBONATE (TUMS E-X ORAL) Take 2 capsules by mouth once daily. - Aspirin 81 mg ORAL Tab Take 81 mg by mouth once daily. Problem List As Of Date 09/30/2024 Noted Resolved Mixed hyperlipidemia [E78.2] Pain in joint, shoulder region [M25.519] 01/08/2005 04/11/2019 External hemorrhoids [K64.4] Internal hemorrhoids [K64.8] Abnormal Mammogram, Unspecified [R92.8] 11/10/2006 10/01/2009 Nonsuppurative Otitis Media, not Specified as A*05/25/2007 10/01/2009 Osteoporosis [M81.0] 09/24/2007 Sciatica [M54.30] 06/02/2008 Iron deficiency anemia [D50.9] 04/15/2010 Hallux valgus (acquired) [M20.10] 09/02/2011 Diverticulosis of large intestine without hemor*03/05/2015 Low back pain [M54.50] 03/05/2015 Cholesteatoma of tympanum of right ear [H71.11] 03/22/2015 Well adult exam [Z00.00] 03/22/2015 04/11/2019 Diabetic eye exam (HCC) [Z01.00, E11.9] 07/12/2015 04/11/2019 Essential hypertension with goal blood pressure*07/19/2015 Type 2 diabetes mellitus with stage 3b chronic *07/19/2015 Chronic right shoulder pain [M25.511, G89.29] 12/05/2015 Pain in right hip [M25.551] 12/05/2015 04/11/2019 Arthritis of right hip [M16.11] 12/06/2015 Arthritis of right shoulder region [M19.011] 12/06/2015 Calcaneal spur of left foot [M77.32] 01/09/2016 Tendonitis, Achilles, left [M76.62] 01/09/2016 Medicare annual wellness visit, subsequent [Z00*06/16/2017 Stage 3b chronic kidney disease (HCC) [N18.32] 06/17/2017 Class 1 obesity due to excess calories without *06/17/2017 04/11/2019 Encounter for screening mammogram for breast ca*06/17/2018 04/11/2019 Screening for osteoporosis [Z13.820] 06/17/2018 04/11/2019 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] 06/17/2018 Renal stone [N20.0] 09/19/2018 Age-related cataract of both eyes [H25.9] 04/13/2019 GERD (gastroesophageal reflux disease) [K21.9] Obesity, Class I, BMI 30-34.9 [E66.811] 07/25/2019 AK (actinic keratosis) [L57.0] 08/23/2020 Closed fracture of first lumbar vertebra (HCC) *04/19/2021 03/05/2022 Balance problem [R26.89] 07/08/2021 Cervical stenosis of spine [M48.02] 07/08/2021 Advance directive discussed with patient [Z71.8*03/05/[address] [Z78.9] 03/27/2023 Symptomatic orthostatic increase in heart rate *04/15/2024 Encounter Status:Closed by MARIELLA FRANCISCO on 09/30/24 [facility] 08-31-2024 Telephone encounter Note Pt stopped into the office today and is asking for Rx's to be sent into Pharmacy. Prescription Refill Information The patient has been identified by name and date of : Yes Caregiver verified no other encounters exist for this prescription request: Yes Caregiver confirmed with patient/requestor that no other refills are due, in the near future, with this provider at this time: Yes The last office visit in the department: 05/02/24 Does the patient have a future office visit with this provider/department: Yes, 10/19/24. Requested Prescriptions Pending Prescriptions Disp Refills lisinopril (ZESTRIL) 5 mg tablet 90 tablet 1 Sig: Take 1 tablet by mouth once daily. metFORMIN (GLUCOPHAGE) 500 mg tablet 90 tablet 1 Sig: Take 1 tablet by mouth daily with dinner. glimepiride (AMARYL) 1 mg tablet 90 tablet 1 Sig: Take 1 tablet by mouth daily with breakfast. Lupis Desai MA August 31, 2024 1:26 PM [facility] 08-31-2024 Miscellaneous Notes Pt stopped into the office today and is asking for Rx's to be sent into Pharmacy. Prescription Refill Information The patient has been identified by name and date of : Yes Caregiver verified no other encounters exist for this prescription request: Yes Caregiver confirmed with patient/requestor that no other refills are due, in the near future, with this provider at this time: Yes The last office visit in the department: 05/02/24 Does the patient have a future office visit with this provider/department: Yes, 10/19/24. Requested Prescriptions Pending Prescriptions Disp Refills lisinopril (ZESTRIL) 5 mg tablet 90 tablet 1 Sig: Take 1 tablet by mouth once daily. metFORMIN (GLUCOPHAGE) 500 mg tablet 90 tablet 1 Sig: Take 1 tablet by mouth daily with dinner. glimepiride (AMARYL) 1 mg tablet 90 tablet 1 Sig: Take 1 tablet by mouth daily with breakfast. Lupis Desai MA August 31, 2024 1:26 PM documented in this encounter [facility] 08-31-2024 Instructions Zelda Lacy PA-C - 08/31/2024 1:10 PM EDT Referral to movement for orthostatic tremor (Dr. Koenig) Start gabapentin 100mg up to three times a day (start just at night for a week or two) Ordered a heart monitor that will be sent to your house because your heart rate is elevated. Consult to cardiology pending the results of the heart monitor Follow up as needed documented in this encounter [facility] 08-31-2024 Note HNO ID: [id number] Author: ZELDA LACY PA-C Service: ? Author Type: Physician Aircraft Engine Technician Type: Progress Notes Filed: 08/31/2024 14:33 Note Text: [facility] New Patient Evaluation - Autonomic Disorders Name: Shaheen Jean Age: [age] year old Gender: female Primary Care Provider: Pancho Lopez MD Consult requested for dysautonomia by Pancho Lopez. Recommendations will be communicated via shared medical record or US mail. Chief Complaint:New Patient (Symp. ortho increase in heart rate) 08/31/2024 - General Neurology, Zelda Lacy PA-C ASSESSMENT ASSESSMENT/PLAN: 1. Orthostatic tremor - ICD9: 333.1, ICD10: G25.2 (primary diagnosis) Patient presents for evaluation of shakiness when she stands. Has been ongoing for about 3 years or more. Evaluated for this by neurology in the past and was originally sent to movement but patient did not schedule. Imaging negative including MRI of the brain, MRA of the head and neck. Patient states that it may have gradually started but became very apparent a few years ago, present only when she stands and goes away if she sits back down. Feels shaky all over including her legs but has not fallen from it. Does use a walker to ambulate if she has to go a long distance. No dizziness with it. Originally was documented that she felt weak but she states it is more of a wobbly feeling that weakness. No family history of neurologic disease other than a nephew with Parkinson's disease. Has not been given any medications for this, has tried physical therapy for her low back but it is not helped. 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 Following with spine. At this time, concern for possible orthostatic tremor. No signs or symptoms of Parkinson's disease, no rigidity. Does have a very fine tremor at rest and with extension of her hands, but no rigidity. Discussed following with movement specialist for further evaluation and treatment. Discussed starting a low-dose of gabapentin which has shown some benefit for orthostatic tremor. Patient is amenable. Will start at 100 mg up to 3 times a day. Discussed common side effects and patient is amenable. 2. Symptomatic orthostatic increase in heart rate - ICD9: 796.4, ICD10: R00.8 3. Tachycardia - ICD9: 785.0, ICD10: R00.0 Patient originally referred for positional tachycardia concerning for dysautonomia. On orthostatics in the office today do not see any obvious signs of POTS or orthostatic hypotension. Does have baseline tachycardia patient notes is normal for her. Has not been evaluated with a heart monitor or seeing cardiology. Will order Zio monitor and refer to cardiology pending results. Does report cardiac history with her father with a heart attack in his 70s. Patient agreeable to treatment plan of care at this time, questions were answered. Patient to follow-up as needed. Zelda Lacy PA-C Encounter Diagnosis ICD-10-CM 1. Orthostatic tremor G25.2 CONSULT TO NEUROLOGY 2. Symptomatic orthostatic increase in heart rate R00.8 3. Tachycardia R00.0 OUTSIDE VENDOR CARDIAC OUTPATIENT EXTENDED RHYTHM RECORDING (WITHOUT TELEMETRY) CONSULT TO CARDIOLOGY Return if symptoms worsen or fail to improve. Chart, labs,and relevant images reviewed. HPI: Saw PCP on 05/02/24 noted increase in HR. At last office visit her BP was on the low end and I had her decreased the lisinopril back to 5 mg a day. She has not had any dizziness since then. Has her tilt table test in the next week. Did not complete tilt. Noted some weakness as well on 04/15/24. Last seen by neuro on 09/26/21 for shakiness and unsteadiness. Went through PT, referred to movement. This is a 79 year old female presenting with shakiness when standing. Started about 3 years ago and has had significant workup. Was originally seen by neurology in 2021 for this concern, MRI, MRA of the head and neck were unremarkable. Ordered tilt table test but patient felt this was not appropriate as she feels she could not be upright for that extended period of time. 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 Notes this was not helpful for pain. Regarding the shakiness, this only occurs when she is standing, occurs to the arms and the legs bilaterally as long as she is upright, occurs very shortly after standing. Does not occur when she is sitting or laying down. Does not feel lightheaded or dizzy when she stands, just unsteady due to the shakiness. Does not feel the sensation throughout her trunk. No vocal tremor, no head tremor. As soon as she sits down the symptoms will resolve she is never been on any medication for this. No falls with this, but she does use a walker for (more content not included)... [facility] 08-31-2024 Note HNO ID: [id number] Author: EDWIGE HART MD Service: ? Author Type: Physician Type: Procedures Filed: 10/03/2024 13:02 Note Text: Patient Name: Shaheen Jean : 1945 Ordering Provider: ZELDA LACY Indication: R00.0 Tachycardia, unspecified Type of Monitor: Extended Monitoring-Zio Patch Enrollment Dates: 09/04/2024-09/18/2024 IRHYTHM FINDINGS: Patient had a min HR of 54 bpm, max HR of 235 bpm, and avg HR of 89 bpm. Predominant underlying rhythm was Sinus Rhythm. Slight P wave morphology changes were noted. 1 run of Ventricular Tachycardia occurred lasting 4 beats with a max rate of 218 bpm (avg 205 bpm). Episodes of Ventricular Tachycardia may be Supraventricular Tachycardia with possible aberrancy. 34 Supraventricular Tachycardia runs occurred, the run with the fastest interval lasting 9 beats with a max rate of 235 bpm, the longest lasting 16.6 secs with an avg rate of 111 bpm. Some episodes of Supraventricular Tachycardia may be possible Atrial Tachycardia with variable block. Isolated SVEs were rare (<1.0%), SVE Couplets were rare (<1.0%), and SVE Triplets were rare (<1.0%). Isolated VEs were rare (<1.0%, 1019), VE Couplets were rare (<1.0%, 19), and VE Triplets were rare (<1.0%, 1). Some VE(s) may be conducted with possible aberrancy. Difficulty discerning atrial activity making definitive diagnosis difficult to ascertain. [facility] 08-31-2024 History of Present illness Narrative Images from the original note were not included. [facility] New Patient Evaluation - Autonomic Disorders Name: Shaheen Jean Age: [age] year old Gender: female Primary Care Provider: Pancho Lopez MD Consult requested for dysautonomia by Pancho Lopez. Recommendations will be communicated via shared medical record or US mail. Chief Complaint:New Patient (Symp. ortho increase in heart rate) 08/31/2024 - General Neurology, Zelda Lacy PA-C ASSESSMENT ASSESSMENT/PLAN: 1. Orthostatic tremor - ICD9: 333.1, ICD10: G25.2 (primary diagnosis) Patient presents for evaluation of shakiness when she stands. Has been ongoing for about 3 years or more. Evaluated for this by neurology in the past and was originally sent to movement but patient did not schedule. Imaging negative including MRI of the brain, MRA of the head and neck. Patient states that it may have gradually started but became very apparent a few years ago, present only when she stands and goes away if she sits back down. Feels shaky all over including her legs but has not fallen from it. Does use a walker to ambulate if she has to go a long distance. No dizziness with it. Originally was documented that she felt weak but she states it is more of a wobbly feeling that weakness. No family history of neurologic disease other than a nephew with Parkinson's disease. Has not been given any medications for this, has tried physical therapy for her low back but it is not helped. 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 Following with spine. At this time, concern for possible orthostatic tremor. No signs or symptoms of Parkinson's disease, no rigidity. Does have a very fine tremor at rest and with extension of her hands, but no rigidity. Discussed following with movement specialist for further evaluation and treatment. Discussed starting a low-dose of gabapentin which has shown some benefit for orthostatic tremor. Patient is amenable. Will start at 100 mg up to 3 times a day. Discussed common side effects and patient is amenable. 2. Symptomatic orthostatic increase in heart rate - ICD9: 796.4, ICD10: R00.8 3. Tachycardia - ICD9: 785.0, ICD10: R00.0 Patient originally referred for positional tachycardia concerning for dysautonomia. On orthostatics in the office today do not see any obvious signs of POTS or orthostatic hypotension. Does have baseline tachycardia patient notes is normal for her. Has not been evaluated with a heart monitor or seeing cardiology. Will order Zio monitor and refer to cardiology pending results. Does report cardiac history with her father with a heart attack in his 70s. Patient agreeable to treatment plan of care at this time, questions were answered. Patient to follow-up as needed. Zelda Lacy PA-C Encounter Diagnosis ICD-10-CM 1. Orthostatic tremor G25.2 CONSULT TO NEUROLOGY 2. Symptomatic orthostatic increase in heart rate R00.8 3. Tachycardia R00.0 OUTSIDE VENDOR CARDIAC OUTPATIENT EXTENDED RHYTHM RECORDING (WITHOUT TELEMETRY) CONSULT TO CARDIOLOGY Return if symptoms worsen or fail to improve. Chart, labs,and relevant images reviewed. HPI: Saw PCP on 05/02/24 noted increase in HR. At last office visit her BP was on the low end and I had her decreased the lisinopril back to 5 mg a day. She has not had any dizziness since then. Has her tilt table test in the next week. Did not complete tilt. Noted some weakness as well on 04/15/24. Last seen by neuro on 09/26/21 for shakiness and unsteadiness. Went through PT, referred to movement. This is a 79 year old female presenting with shakiness when standing. Started about 3 years ago and has had significant workup. Was originally seen by neurology in 2021 for this concern, MRI, MRA of the head and neck were unremarkable. Ordered tilt table test but patient felt this was not appropriate as she feels she could not be upright for that extended period of time. 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 Notes this was not helpful for pain. Regarding the shakiness, this only occurs when she is standing, occurs to the arms and the legs bilaterally as long as she is upright, occurs very shortly after standing. Does not occur when she is sitting or laying down. Does not feel lightheaded or dizzy when she stands, just unsteady due to the shakiness. Does not feel the sensation throughout her trunk. No vocal tremor, no head tremor. As soon as she sits down the symptoms will resolve she is never been on any medication for this. No falls with this, but she does use a walker for long distances because she feels unstable. Tremor is not worse at a certain time of day, does not drink alcohol and drinks minimal caffeine. Notes that she has a nephew with Parkinson's disease but no other family history of tremor or neurologic disease. Occasionally she will feel her heart racing if she has been out for a long period of time but again no dizziness. Does note that she has chronic low back pain that gets worse if she is upright for a long period of time. But no signs or symptoms of cord compression. Denies any weakness, reports it more as a wobbly feeling. 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 No exposures to pesticides, denies any anosmia, micrographia, REM sleep disturbance, significant constipation, hallucinations or voice change. Review of Systems ACTIVE PROBLEM LIST Mixed Hyperlipidemia External Hemorrhoids Internal Hemorrhoids Osteoporosis Sciatica Iron Deficiency Anemia Hallux Valgus (Acquired) Diverticulosis of Large Intestine Without Hemorrhage Low Back Pain Cholesteatoma of Tympanum of Right Ear Essential Hypertension With Goal Blood Pressure Less Than 130/85 Type 2 Diabetes Mellitus With Stage 3b Chronic Kidney Disease, Without Long-Term Current Use of Insulin (Hcc) Chronic Right Shoulder Pain Arthritis of Right Hip Arthritis of Right Shoulder Region Calcaneal Spur of Left Foot Tendonitis, Achilles, Left Medicare Annual Wellness Visit, Subsequent Stage 3b Chronic Kidney Disease (Hcc) Primary Ovarian Failure Renal Stone Age-Related Cataract of Both Eyes Gerd (Gastroesophageal Reflux Disease) Obesity, Class I, Bmi 30-34.9 Ak (Actinic Keratosis) Balance Problem Cervical Stenosis of Spine Advance Directive Discussed With Patient Living Will in Place Symptomatic Orthostatic Increase in Heart Rate PAST MEDICAL HISTORY Diagnosis Date Actinic keratoses 01/18/2010 Advance directive discussed with patient 03/05/2022 DPA: Lory (daughter) Age-related cataract of both eyes 04/13/2019 AK (actinic keratosis) 08/23/2020 Tx with cryo right dorasol hand 08/2020 Arthritis of right hip 12/06/2015 Arthritis of right shoulder region 12/06/2015 Calcaneal spur of left foot 01/09/2016 Cervical stenosis of spine 07/08/2021 Cholesteatoma of tympanum of right ear 03/22/[address] Mckenzie Chronic right shoulder pain 12/05/2015 Closed fracture of first lumbar vertebra (HCC) 04/19/2021 End plate fracture of L1 Closed fracture of one or more phalanges of foot 11/05/2009 Diverticulosis of large intestine without hemorrhage 03/05/2015 Essential hypertension with goal blood pressure less than 130/85 07/19/2015 External hemorrhoids GERD (gastroesophageal reflux disease) Hallux valgus (acquired) 09/02/2011 Internal hemorrhoids Iron deficiency anemia 01/28/[address] 03/27/2023 DPA: Lory (daughter), Low back pain 03/05/2015 Mixed hyperlipidemia Obesity, Class I, BMI 30-34.9 07/25/2019 Osteoporosis 09/24/2007 Renal stone 09/19/2018 first one 09/2018 Sciatica 06/02/2008 Stage 3b chronic kidney disease ([facility]) 06/17/2017 Tendonitis, Achilles, left 01/09/2016 Type 2 diabetes mellitus with stage 3b chronic kidney disease, without long-term current use of insulin ([facility]) 07/19/2015 Medications: Reviewed lisinopril (ZESTRIL) 5 mg tablet Take 1 tablet by mouth once daily. metFORMIN (GLUCOPHAGE) 500 mg tablet Take 1 tablet by mouth daily with dinner. glimepiride (AMARYL) 1 mg tablet Take 1 tablet by mouth daily with breakfast. blood sugar diagnostic (FREESTYLE LITE STRIPS) test strip Test blood sugar(s) one times daily. Dx: Type 2 DM - Controlled E11.9 Insulin: No multivitamin with minerals (ONE-A-DAY 50 PLUS ORAL) Take by mouth. blood sugar diagnostic (BLOOD GLUCOSE TEST) test strip Test blood sugar(s) 1 times daily. Dx: Type 2 DM - Controlled E11.9 Insulin: No Blood-Glucose Meter misc Check blood sugars once a day. Dx: E11.9 no insulin Cholecalciferol, Vitamin D3, 25 mcg (1,000 unit) cap Take 1,000 Units by mouth once daily. CALCIUM CARBONATE (TUMS E-X ORAL) Take 2 capsules by mouth once daily. Aspirin 81 mg ORAL Tab Take 81 mg by mouth once daily. gabapentin (NEURONTIN) 100 mg capsule Take 1 capsule by mouth three times a day for 90 days. ALLERGIES Allergen Reactions Bactrim [Sulfametho* Rash Cipro [Ciprofloxaci* Rash Clams Rash [place] Unknown Eggs [Egg] Other: See Comments Diarrhea Grass Pollen Itching Lactose Intolerance* Unknown Pork Unknown Seasonal Allergies Other: See Comments pollen FAMILY HISTORY Problem Relation Age of Onset Stroke Mother Ischemic Heart Disease Father also diabetes Diabetes Sister Stroke Sister Uterine Cancer Sister Osteoporosis Sister Diabetes Sister Dementia Sister Osteoporosis Sister Carotid Disease Brother 95 other (pacemaker) Brother Seizures Brother other (complications of mono) Brother PAST SURGICAL HISTORY Procedure Laterality Date BX BREAST PERC VACUUM/ROTN 11/30/06 RIGHT DELIVERY ONLY , low cervical x 4 COLONOSCOPY 05/10/2015 repeat 10 yrs COLONOSCOPY FLX DX W/COLLJ SPEC WHEN PFRMD 07/23/05 repeat due 2015 COLONOSCOPY FLX DX W/COLLJ SPEC WHEN PFRMD 05/10/2015 Colonoscopy ESOPHAGOGASTRODUODENOSCOPY TRANSORAL DIAGNOSTIC 04/15/2010 EGD FOOT LEFT OP SURGERY 08/2011 bunionectomy PAST SURGICAL HISTORY OF and 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, non ca x2 PLCMT LOCALZTN CLIP,PERC,DURING BREAST BX 11/30/06 RIGHT SIGMOIDOSCOPY FLX DX W/COLLJ SPEC BR/WA IF PFRMD 07/1999 Sigmoidoscopy TYMPANOSTOMY LOC/TOP ANES BILA 2010 left TM tube SOCIAL HISTORY 65yo woman, from [place]. Retired from [employer]. 4 children, Mike, Rubi, Carlos Enrique, and Reinier(Lory). All live in the area. 9 GC. Never smoked. No alcohol. Low-fat diet. Walks for exercise. Tobacco Use: Low Risk (08/31/2024) Patient History Smoking Tobacco Use: Never Smokeless Tobacco Use: Never Passive Exposure: Not on file PHYSICAL EXAM 08/31/24 1236 08/31/24 1237 08/31/24 1238 08/31/24 1239 BP: 148/79 141/86 Orthostatic BP: 143/78 143/78 BP Site: Right Arm Right Arm Right Arm BP Position: Supine Sitting BP Cuff Size: Large Adult Large Adult Large Adult Pulse: 111 111 Orthostatic Pulse: 105 105 Resp: 16 SpO2: 96% Weight: 83.5 kg (184 lb) Neurological Exam Cognitive and Language: Alert and answered questions appropriately. Language was fluent. Followed simple and complex commands. Cranial Nerves: Visual billy were full tested binocularly to finger counting in all 4 quadrants with no visual extinction. Pupils were equal and both reactive to light. Extraocular movements were full with no diplopia or nystagmus. Vertical and horizontal saccades were normal. Facial sensation was normal to light touch in V1 to V3. Facial strength was symmetric. Normal hearing grossly bilaterally. Palatal raise was symmetric. Shoulder shrug was symmetric. Tongue protrusion was symmetric with no fasciculations. 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 Very fine tremor present with arm extension bilaterally Tone: Normal in all four limbs, no rigidity Reflexes: Right Left Brachioradialis 2 2 Biceps 2 2 Triceps 2 2 Patella 2 2 Ankle 2 2 Sensory: normal to light touch, vibration, propriception and pinprick x 4 limbs. Bradykinesia: mild on the left Coordination: Normal finger to nose and heel to delcid testing bilaterally. Unable to perform Romberg as patient did not feel comfortable. Gait is unsteady, walking with a walker Labs: Lab Results Component Value Date WBC 10.52 04/08/2024 HCT 38.5 04/08/2024 MCV 86.5 04/08/2024 PLT 305 04/08/2024 Lab Results Component Value Date HBA1C 6.8 04/08/2024 HBA1C 6.7 09/17/2023 HBA1C 6.5 03/18/2023 HBA1C 6.8 02/06/2021 HBA1C 6.7 08/17/2020 HBA1C 6.8 03/12/2020 Total Cholesterol, Nonfasting Date Value Ref Range Status 04/08/2024 179 <200 mg/dL Final Comment: <200 mg/dL, Desirable 200-239 mg/dL, Borderline high >239 mg/dL, High HDL Cholesterol, Nonfasting Date Value Ref Range Status 04/08/2024 46 >39 mg/dL Final Comment: 40-59 mg/dL, Acceptable >59 mg/dL, High: Negative risk factor for coronary heart disease <40 mg/dL, Low: Positive risk factor for coronary heart disease LDL Cholesterol Calculated, Nonfasting Date Value Ref Range Status 04/08/2024 103 (H) <100 mg/dL Final Comment: <100 mg/dL, Optimal 100-129 mg/dL, Near optimal/above optimal 130-159 mg/dL, Borderline high 160-189 mg/dL, High >189 mg/dL, Very high Secondary prevention optimal LDL Cholesterol levels are recommended to be < 70 mg/dL Triglycerides, Nonfasting Date Value Ref Range Status 04/08/2024 150 (H) <150 mg/dL Final Comment: <150 mg/dL, Normal 150-199 mg/dL, Borderline high 200-499 mg/dL, High >499 mg/dL, Very high Radiology: MRI lumbar spine MRI brain MRI Head/Brain - Last 2 Impressions No resulted procedures found. , MRA Head and/or Neck - Last 2 Impressions No resulted procedures found. , and MRI Spine - Last 2 Impressions No resulted procedures found. This note was dictated using [employer] speech recognition software and may contain some errors that were a result of the program not accurately transcribing what was dictated, despite efforts to make corrections. Note that unless urgent, test and MRI results will be discussed at next follow-up visit. PROMIS (Patient-Reported Outcomes Measurement Information System) is a set of person-centered measures that evaluates and monitors physical, social, and emotional health. It can be used with the general population and with individuals living with chronic conditions. PROMIS 10: PHYSICAL AND MENTAL HEALTH: Global Mental Health T Score: 48.3 Global Mental Health Percentile: 43 08/24/2024 PHQ-9 PHQ-2 Score 0 PHQ-9 Score 2 Descriptive Summary for PROMIS Physical Function T-score = 30 (Percentile 2) Unable - Do 2 hours of physical labor Unable - Walk at a normal speed. Medical Decision Making: Medical Decision Making Level: 1 - N/A I spent a total of 50 minutes on the date of the service which included preparing to see the patient, [id number] patient care, completing clinical documentation, obtaining and/or reviewing separately obtained history, performing a medically appropriate examination, counseling and educating the patient/family/caregiver, and ordering medications, tests, or procedures. COMPASS-31 Past Scores No data to display NM Treatment and Fall Risk No data to display PROMIS-10 08/24/2024 04/08/2024 PROMIS 10 Health, in general Good Good Quality of life, in general Good Good Physical health, in general Good Good Mental health, in general Good Very good Social activities satisfaction Good Good Performing ADL's A little A little Social role satisfaction Good Good Pain, on average 0 - No Pain 1 Fatigue, on average Mild Emotional problems Never Rarely PHYSICAL Score Incomplete 42.3 (Good) MENTAL Score 48.3 (Very Good) 48.3 (Very Good) PHQ-9 08/24/2024 04/15/2024 PHQ-9 All Questions Little interest or pleasure in doing things: 0 0 Feeling down, depressed, or hopeless: 0 0 Trouble falling or staying asleep, or sleeping too much 1 Feeling tired or having little energy 1 Poor appetite or overeating 0 Feeling bad about yourself - or that you are a failure or have let yourself or your family down 0 Trouble concentrating on things, such as reading the newspaper or watching television 0 Moving or speaking so slowly that other people could have noticed. Or the opposite - being so fidgety or restless that you have been moving around a lot more than usual 0 Thoughts that you would be better off , or of hurting yourself in some way 0 PHQ-9 Score 2 (0-4) minimal depression (5-9) mild depression (10-14) moderate depression (15-19) moderately severe depression (20-27) severe depression MARBELLA-7 05/02/2024 09/25/2023 MARBELLA-7 All Questions Feeling nervous, anxious, or on edge Not at all Not at all Not being able to stop or control worrying Not at all Not at all Worrying too much about different things Not at all Trouble relaxing Not at all Being so restless that it is hard to sit still Not at all Becoming easily annoyed or irritable Not at all Feeling afraid, as if something awful might happen Not at all MARBELLA-7 Score 0 (0-5) mild anxiety (6-10) moderate anxiety (11-15) moderately severe anxiety (16-21) severe anxiety Sleep 02/13/2023 -- Snore Loudly No Tired, fatigued or sleepy in daytime No Stop breathing or choking/gasping during sleep No High blood pressure Yes Probability of moderate-severe sleep apnea (%) SAPS V2 47 (Sleep study not recommended) No data to display Recording using [employer] software for draft documentation of the visit was discussed with the patient/authorized outbound call center representative; all questions welcomed and answered. Patient/authorized outbound call center representative agreed to proceed 08/24/2024 PROMIS Global Health Physical Health Summary Physical health: Good Everyday physical activity, ability: A little Fatigue: Pain level: 0 No Pain General health: Good Social activities/roles, ability: Good Physical Health T-Score Physical Health Percentile No data recorded PROMIS Global Health Mental Health Summary Quality of life: Good Mental health (mood,thinking): Good Social satisfaction: Good Emotional problems (anxious,depressed): Never Mental Health T-Score 48.3 (Very Good) Mental Health Percentile 43 PHQ-9 Score: 2(Minimal Depression) PHQ-9 Self-Harm: Not at all NEURO-QOL Cognitive Function T-Score 63(Within Normal Limits) PROMIS Physical Function T-Score 30(Moderate Dysfunction) PROMIS Physical Function Percentile 2 Percentiles provide an indication of how a patient's score ranks in relation to the [place] general population. > 31st percentile is within normal limits or better *< 31st percentile is at least SD worse than population, which may be clinically relevant < 16th percentile is at least 1 SD worse than population and warrants attention documented in this encounter [facility] 05-05-2024 Telephone encounter Note 1st attempt - left message for patient to return call. When patient calls, please schedule neurology consult. Shelbi Gagnon [facility] 05-05-2024 Miscellaneous Notes 1st attempt - left message for patient to return call. When patient calls, please schedule neurology consult. Shelbi Gagnon Spoke with patient and gave her instructions. Patient noted that she has seen (2) different neurologist and 2 MRI's with no answer's. Spoke with Dr. Lopez and he would like to rule out parkinson's Please schedule with Dr Ortiz. Nelly Alexis MA Let patient know I see they advised cancelling the tilt table test since she is un able to stand for an extended period of time. I have placed a consult to Neurology to help us figure this out. Pat with [facility] calling regarding pt's order for Tilt Table Test placed by Dr. Lopez. Pat states when she contacted pt to review test instructions, patient stated she is unable to stand for the 30 min duration required for the test. Reports she has weakness in her legs and numbness in one of her feet. Pat reports she discussed with Dr. Aponte and he advised alternative testing such as a Holter monitor or nuclear med stress test for patient instead. They are canceling the Tilt Table test. No call needed back. Please advise patient. Thank you. Sonia Marrero RN documented in this encounter [facility] 05-04-2024 Telephone encounter Note Spoke with patient and gave her instructions. Patient noted that she has seen (2) different neurologist and 2 MRI's with no answer's. Spoke with Dr. Lopez and he would like to rule out parkinson's Please schedule with Dr Ortiz. Nelly Alexis MA [facility] 05-04-2024 Telephone encounter Note Let patient know I see they advised cancelling the tilt table test since she is un able to stand for an extended period of time. I have placed a consult to Neurology to help us figure this out. [facility] 05-04-2024 Telephone encounter Note Pat with [facility] calling regarding pt's order for Tilt Table Test placed by Dr. Lopez. Pat states when she contacted pt to review test instructions, patient stated she is unable to stand for the 30 min duration required for the test. Reports she has weakness in her legs and numbness in one of her feet. Pat reports she discussed with Dr. Aponte and he advised alternative testing such as a Holter monitor or nuclear med stress test for patient instead. They are canceling the Tilt Table test. No call needed back. Please advise patient. Thank you. Sonia Marrero RN [facility] 05-03-2024 Telephone encounter Note Kathi from [facility] calling patient is scheduled for tilt table and asking for copy of last office notes and recent lab results to be faxed to [phone]. Printed and faxed items as requested. [facility] 05-03-2024 Miscellaneous Notes Kathi from [facility] calling patient is scheduled for tilt table and asking for copy of last office notes and recent lab results to be faxed to [phone]. Printed and faxed items as requested. documented in this encounter [facility] 05-02-2024 Note HNO ID: [id number] Author: PANCHO LOPEZ MD Service: ? Author Type: Physician Type: Progress Notes Filed: 05/02/2024 17:02 Note Text: Chief Complaint Patient presents with: Follow Up HPI Shaheen Jean is a 78 year old female who presents here today for follow up on blood pressure. At last office visit her BP was on the low end and I had her decreased the lisinopril back to 5 mg a day. She has not had any dizziness since then. Has her tilt table test in the next week. Past medical history, appointments, medications, allergies reviewed. Previous Medical History PAST MEDICAL HISTORY Diagnosis Date Actinic keratoses 01/18/2010 Advance directive discussed with patient 03/05/2022 DPA: Lory (daughter) Age-related cataract of both eyes 04/13/2019 AK (actinic keratosis) 08/23/2020 Tx with cryo right dorasol hand 08/2020 Arthritis of right hip 12/06/2015 Arthritis of right shoulder region 12/06/2015 Calcaneal spur of left foot 01/09/2016 Cervical stenosis of spine 07/08/2021 Cholesteatoma of tympanum of right ear 03/22/[address] Mckenzie Chronic right shoulder pain 12/05/2015 Closed fracture of first lumbar vertebra (HCC) 04/19/2021 End plate fracture of L1 Closed fracture of one or more phalanges of foot 11/05/2009 Diverticulosis of large intestine without hemorrhage 03/05/2015 Essential hypertension with goal blood pressure less than 130/85 07/19/2015 External hemorrhoids GERD (gastroesophageal reflux disease) Hallux valgus (acquired) 09/02/2011 Internal hemorrhoids Iron deficiency anemia 01/28/[address] 03/27/2023 DPA: Lory (daughter), Low back pain 03/05/2015 Mixed hyperlipidemia Obesity, Class I, BMI 30-34.9 07/25/2019 Osteoporosis 09/24/2007 Renal stone 09/19/2018 first one 09/2018 Sciatica 06/02/2008 Stage 3b chronic kidney disease ([facility]) 06/17/2017 Tendonitis, Achilles, left 01/09/2016 Type 2 diabetes mellitus with stage 3b chronic kidney disease, without long-term current use of insulin ([facility]) 07/19/2015 Previous Surgical History PAST SURGICAL HISTORY Procedure Laterality Date BX BREAST PERC VACUUM/ROTN 11/30/06 RIGHT DELIVERY ONLY , low cervical x 4 COLONOSCOPY 05/10/2015 repeat 10 yrs COLONOSCOPY FLX DX W/COLLJ SPEC WHEN PFRMD 07/23/05 repeat due 2015 COLONOSCOPY FLX DX W/COLLJ SPEC WHEN PFRMD 05/10/2015 Colonoscopy ESOPHAGOGASTRODUODENOSCOPY TRANSORAL DIAGNOSTIC 04/15/2010 EGD FOOT LEFT OP SURGERY 08/2011 bunionectomy PAST SURGICAL HISTORY OF and 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, non ca x2 PLCMT LOCALZTN CLIP,PERC,DURING BREAST BX 11/30/06 RIGHT SIGMOIDOSCOPY FLX DX W/COLLJ SPEC BR/WA IF PFRMD 07/1999 Sigmoidoscopy TYMPANOSTOMY LOC/TOP ANES BILA 2011 left TM tube Family History FAMILY HISTORY Problem Relation Age of Onset Stroke Mother Ischemic Heart Disease Father also diabetes Diabetes Sister Stroke Sister Uterine Cancer Sister Osteoporosis Sister Diabetes Sister Dementia Sister Osteoporosis Sister Carotid Disease Brother 95 other (pacemaker) Brother Seizures Brother other (complications of mono) Brother Patient Allergies ALLERGIES Allergen Reactions Bactrim [Sulfametho* Rash Cipro [Ciprofloxaci* Rash Clams Rash [place] Unknown Eggs [Egg] Other: See Comments Diarrhea Grass Pollen Itching Lactose Intolerance* Unknown Pork Unknown Seasonal Allergies Other: See Comments pollen Current Medications Current Outpatient Medications on File Prior to Visit Medication Sig lisinopril (ZESTRIL) 10 mg tablet Take 0.5 tablets by mouth once daily. metFORMIN (GLUCOPHAGE) 500 mg tablet Take 1 tablet by mouth daily with dinner. glimepiride (AMARYL) 1 mg tablet Take 1 tablet by mouth daily with breakfast. blood sugar diagnostic (FREESTYLE LITE STRIPS) test strip Test blood sugar(s) one times daily. Dx: Type 2 DM - Controlled E11.9 Insulin: No multivitamin with minerals (ONE-A-DAY 50 PLUS ORAL) Take by mouth. blood sugar diagnostic (BLOOD GLUCOSE TEST) test strip Test blood sugar(s) 1 times daily. Dx: Type 2 DM - Controlled E11.9 Insulin: No Blood-Glucose Meter misc Check blood sugars once a day. Dx: E11.9 no insulin Cholecalciferol, Vitamin D3, 25 mcg (1,000 unit) cap Take 1,000 Units by mouth once daily. CALCIUM CARBONATE (TUMS E-X ORAL) Take 2 capsules by mouth once daily. (Patient taking differently: Take 2 capsules by mouth once daily. Not taking daily PRN) Aspirin 81 mg ORAL Tab Take 81 mg by mouth once daily. No current facility-administered medications on file prior to visit. Social History Social History Tobacco Use Smoking status: Never Smokeless tobacco: Never Vaping Use Vaping status: Never Used Substance Use Topics Alcohol use: No Drug use: No Review of Symptoms REVIEW OF SYSTEMS Pulmonary and cardio review were neg. Still getting the tremor in her hand with standing. EXAM: BP 124/84 Pulse 8 (more content not included)... [facility] 05-02-2024 History of Present illness Narrative Chief Complaint Patient presents with: Follow Up HPI Shaheen Jean is a 78 year old female who presents here today for follow up on blood pressure. At last office visit her BP was on the low end and I had her decreased the lisinopril back to 5 mg a day. She has not had any dizziness since then. Has her tilt table test in the next week. Past medical history, appointments, medications, allergies reviewed. Previous Medical History PAST MEDICAL HISTORY Diagnosis Date Actinic keratoses 01/18/2010 Advance directive discussed with patient 03/05/2022 DPA: Lory (daughter) Age-related cataract of both eyes 04/13/2019 [place] (actinic keratosis) 08/23/2020 Tx with cryo right dorasol hand 08/2020 Arthritis of right hip 12/06/2015 Arthritis of right shoulder region 12/06/2015 Calcaneal spur of left foot 01/09/2016 Cervical stenosis of spine 07/08/2021 Cholesteatoma of tympanum of right ear 03/22/[address] Mckenzie Chronic right shoulder pain 12/05/2015 Closed fracture of first lumbar vertebra (HCC) 04/19/2021 End plate fracture of L1 Closed fracture of one or more phalanges of foot 11/05/2009 Diverticulosis of large intestine without hemorrhage 03/05/2015 Essential hypertension with goal blood pressure less than 130/85 07/19/2015 External hemorrhoids GERD (gastroesophageal reflux disease) Hallux valgus (acquired) 09/02/2011 Internal hemorrhoids Iron deficiency anemia 01/28/[address] 03/27/2023 DPA: Lory (daughter), Low back pain 03/05/2015 Mixed hyperlipidemia Obesity, Class I, BMI 30-34.9 07/25/2019 Osteoporosis 09/24/2007 Renal stone 09/19/2018 first one 09/2018 Sciatica 06/02/2008 Stage 3b chronic kidney disease ([facility]) 06/17/2017 Tendonitis, Achilles, left 01/09/2016 Type 2 diabetes mellitus with stage 3b chronic kidney disease, without long-term current use of insulin ([facility]) 07/19/2015 Previous Surgical History PAST SURGICAL HISTORY Procedure Laterality Date BX BREAST PERC VACUUM/ROTN 11/30/06 RIGHT DELIVERY ONLY , low cervical x 4 COLONOSCOPY 05/10/2015 repeat 10 yrs COLONOSCOPY FLX DX W/COLLJ SPEC WHEN PFRMD 07/23/05 repeat due 2015 COLONOSCOPY FLX DX W/COLLJ SPEC WHEN PFRMD 05/10/2015 Colonoscopy ESOPHAGOGASTRODUODENOSCOPY TRANSORAL DIAGNOSTIC 04/15/2010 EGD FOOT LEFT OP SURGERY 08/2011 bunionectomy PAST SURGICAL HISTORY OF and 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, non ca x2 PLCMT LOCALZTN CLIP,PERC,DURING BREAST BX 11/30/06 RIGHT SIGMOIDOSCOPY FLX DX W/COLLJ SPEC BR/WA IF PFRMD 07/1999 Sigmoidoscopy TYMPANOSTOMY LOC/TOP ANES BILA 2011 left TM tube Family History FAMILY HISTORY Problem Relation Age of Onset Stroke Mother Ischemic Heart Disease Father also diabetes Diabetes Sister Stroke Sister Uterine Cancer Sister Osteoporosis Sister Diabetes Sister Dementia Sister Osteoporosis Sister Carotid Disease Brother 95 other (pacemaker) Brother Seizures Brother other (complications of mono) Brother Patient Allergies ALLERGIES Allergen Reactions Bactrim [Sulfametho* Rash Cipro [Ciprofloxaci* Rash Clams Rash [place] Unknown Eggs [Egg] Other: See Comments Diarrhea Grass Pollen Itching Lactose Intolerance* Unknown Pork Unknown Seasonal Allergies Other: See Comments pollen Current Medications Current Outpatient Medications on File Prior to Visit Medication Sig lisinopril (ZESTRIL) 10 mg tablet Take 0.5 tablets by mouth once daily. metFORMIN (GLUCOPHAGE) 500 mg tablet Take 1 tablet by mouth daily with dinner. glimepiride (AMARYL) 1 mg tablet Take 1 tablet by mouth daily with breakfast. blood sugar diagnostic (FREESTYLE LITE STRIPS) test strip Test blood sugar(s) one times daily. Dx: Type 2 DM - Controlled E11.9 Insulin: No multivitamin with minerals (ONE-A-DAY 50 PLUS ORAL) Take by mouth. blood sugar diagnostic (BLOOD GLUCOSE TEST) test strip Test blood sugar(s) 1 times daily. Dx: Type 2 DM - Controlled E11.9 Insulin: No Blood-Glucose Meter [facility] Check blood sugars once a day. Dx: E11.9 no insulin Cholecalciferol, Vitamin D3, 25 mcg (1,000 unit) cap Take 1,000 Units by mouth once daily. CALCIUM CARBONATE (TUMS E-X ORAL) Take 2 capsules by mouth once daily. (Patient taking differently: Take 2 capsules by mouth once daily. Not taking daily PRN) Aspirin 81 mg ORAL Tab Take 81 mg by mouth once daily. No current facility-administered medications on file prior to visit. Social History Social History Tobacco Use Smoking status: Never Smokeless tobacco: Never Vaping Use Vaping status: Never Used Substance Use Topics Alcohol use: No Drug use: No Review of Symptoms REVIEW OF SYSTEMS Pulmonary and cardio review were neg. Still getting the tremor in her hand with standing. EXAM: BP 124/84 Pulse 86 Resp 18 Wt 83.9 kg (185 lb) BMI 32.00 kg/m General Appearance: Well appearing, alert, in no acute distress, well-hydrated, well nourished.. Lungs: Lungs clear to auscultation. No wheezing, rhonchi, rales.. Heart: RRR without murmur, gallop, or rubs. No ectopy. Health Maintenance List RSV Vaccine(1 - 1-dose 75+ series) due on 04/15/2025 Shingrix Vaccine(1 of 2) due on 04/15/2025 Depression Screening due on 09/24/2024 Anxiety Screening due on 09/24/2024 HbA1C due on 10/06/2024 Bone Density Screening due on 12/01/2024 Dilated Retinal Exam due on 12/16/2024 Urine Albumin:Creatinine Ratio due on 04/08/2025 LDL Cholesterol due on 04/08/2025 Serum Creatinine due on 04/08/2025 Hemoglobin/Hematocrit due on 04/08/2025 Diabetic Foot Exam due on 04/15/2025 Annual PCP Team Chronic Disease Visit due on 04/15/2025 BP Controlled (<130/80) due on 04/15/2025 DTaP,Tdap,Td Vaccine(3 - Td or Tdap) due on 08/31/2033 Influenza Vaccine Completed Advance Directive Discussion Completed Pneumococcal Vaccine: 50+ Completed Mammogram Screening Discontinued Colorectal Cancer Screening Discontinued Covid-19 Vaccine Discontinued Data reviewed Latest Ref Rng 04/15/2024 JACK Negative Negative CRP <0.9 mg/dL 0.7 Rheumatoid Factor <16 IU/mL 11 WSR 0 - 20 mm/hr 38 (H) 05/02/24 1314 05/02/24 1421 05/02/24 1422 05/02/24 1423 BP: 124/77 120/74 116/77 Pulse: 77 112 116 Resp: 18 Weight: 83.9 kg (185 lb) Orthostatic BP: 124/84 BP Position: Supine Sitting Standing Orthostatic Pulse: 86 A/P ASSESSMENT/PLAN: 1. Essential hypertension with goal blood pressure less than 130/85 - ICD9: 401.9, ICD10: I10 (primary diagnosis) - Controlled - Continue current medications - Recommend home blood pressure monitoring, to bring results to next visit - Encouraged sodium restriction, DASH or Mediterranean diet - Recommend regular aerobic exercise - Discussed need for and benefit of weight loss. BMI 32.00 kg/(m^2) 2. Symptomatic orthostatic increase in heart rate - ICD9: 796.4, ICD10: R00.8 - still has the elevated pulse today but no dizziness. Will continue the lisinopril at 5 mg a day. - await tilt table and will most likely need to see Neuro to determine if this is POTS (though not common to begin at this age or Parkinson's with autonomic dysfunction? F/u next routine. Sooner if issues. Pancho Lopez MD documented in this encounter [facility] 04-20-2024 Telephone encounter Note Pt notified of results. Pt verbalizes understanding. Levar Serrano LPN [facility] 04-20-2024 Miscellaneous Notes Pt notified of results. Pt verbalizes understanding. Levar Serrano LPN Let patient know her inflammatory labs were ok. Though her sed rate is elevated it's stable compared to the past. This is most likely due to her arthritis. She does not have polymyalgia rheumatica. documented in this encounter [facility] 04-19-2024 Telephone encounter Note Let patient know her inflammatory labs were ok. Though her sed rate is elevated it's stable compared to the past. This is most likely due to her arthritis. She does not have polymyalgia rheumatica. [facility] 04-18-2024 Telephone encounter Note Order, demographics faxed as requested. Referral placed in [employer]. Levar Serrano LPN [facility] 04-18-2024 Miscellaneous Notes Order, demographics faxed as requested. Referral placed in [employer]. Levar Serrano LPN Spoke with patient and she prefers tilt table test be faxed to [facility] as patient does not want to travel. documented in this encounter [facility] 04-18-2024 Telephone encounter Note Spoke with patient and she prefers tilt table test be faxed to [facility] as patient does not want to travel. [facility] 04-18-2024 Telephone encounter Note Pt notified of provider's message. Pt verbalizes understanding. Pt was assisted in transfer to schedule procedure. Levar Serrano LPN [facility] 04-18-2024 Miscellaneous Notes Pt notified of provider's message. Pt verbalizes understanding. Pt was assisted in transfer to schedule procedure. Levar Serrano LPN Let patient know I talked with our neurologist after her appt and he advised getting a tilt table test. Order placed. documented in this encounter [facility] 04-15-2024 Telephone encounter Note Let patient know I talked with our neurologist after her appt and he advised getting a tilt table test. Order placed. [facility] 04-15-2024 Telephone encounter Note Patient notified and voiced understanding and scheduled for follow up. Nelly Alexis MA [facility] 04-15-2024 Miscellaneous Notes Patient notified and voiced understanding and scheduled for follow up. Nelly Alexis MA Let patient know after considering her BP and pulse with position changes I want her to cut her 10 mg table of lisinopril in half and only take 1/2 a tab daily. I then want to see her back in 2-3 weeks to recheck her BP and Ortho's. Nelly Alexis MA documented in this encounter [facility] 04-15-2024 Telephone encounter Note Let patient know after considering her BP and pulse with position changes I want her to cut her 10 mg table of lisinopril in half and only take 1/2 a tab daily. I then want to see her back in 2-3 weeks to recheck her BP and Ortho's. Nelly Alexis MA [facility] 04-15-2024 Instructions Pancho Lopez MD - 04/15/2024 2:04 PM EST Consider getting the shingrix vaccine for the prevention of shingles from a local pharmacy and the RSV vaccine from a local pharmacy. Please get labs done on or after 09/30/2024 prior to your next visit. Screening schedule The following prevention plan is recommended: Shingrix Vaccine(1 of 2) Never done RSV Vaccine(1 - 1-dose 75+ series) Never done BP Controlled (<130/80) due on 03/05/2023 Covid-19 Vaccine( season) due on 10/18/2023 Advance Directive Discussion due on 02/17/2024 Diabetic Foot Exam due on 03/27/2024 WHAT YOU CAN DO TO PREVENT FALLS Many falls can be prevented. By making some changes, you can lower your chances of falling. Four things YOU can do to prevent falls for you* and your caregiver 1. Begin a regular exercise program Exercise is one of the most important ways to lower your chances of falling. It makes you stronger and helps you feel better. Exercises that improve balance and coordination (like [place]) are the most helpful. Lack of exercise leads to weakness and increases your chances of falling. Ask your doctor or health care provider about the best type of exercise program for you. 2. Have your health care provider review your medicines Have your doctor or pharmacist review all the medicines you take, even qupu-yfj-pqlqevk medicines. As you get older, the way medicines work in your body can change. Some medicines, or combinations of medicines, can make you sleepy or dizzy and can cause you to fall. 3. Have your vision checked Have your eyes checked by an eye doctor at least once a year. You may be wearing the wrong glasses or have a condition like glaucoma or cataracts that limits your vision. Poor vision can increase your chances of falling. 4. Make your home safer About half of all falls happen at home. To make your home safer: Remove things you can trip over (like papers, books, clothes, and shoes) from stairs and places where you walk. Remove small throw rugs or use double-sided tape to keep the rugs from slipping. Keep items you use often in cabinets you can reach easily without using a step stool. Have grab bars put in next to your toilet and in the tub or shower. Use non-slip mats in the bathtub and on shower floors. Improve the lighting in your home. As you get older, you need brighter lights to see well. Hang light-weight curtains or shades to reduce glare. Have handrails and lights put in on all staircases. Wear shoes both inside and outside the house. Avoid going barefoot or wearing slippers. For more information, contact: Centers for Disease Control and Prevention www.cdc.gov/injury * This information may not apply if you have certain medical conditions. documented in this encounter [facility] 04-15-2024 Note HNO ID: [id number] Author: PANCHO LOPEZ MD Service: ? Author Type: Physician Type: Progress Notes Filed: 05/04/2024 13:01 Note Text: Shaheen Jean is a 78 year old female here for a Medicare wellness visit. Medicare Health Risk Assessment General Health Good Exercise: Minutes/Day 10 min Exercise: Days/Week 1 day Alcohol: Daily Use Never Alcohol: Drinks/Day Patient does not drink Alcohol: 6 or more drinks Never Feel off balance Yes Concerns: Teeth/Dentures No Concerns: Sexual function No Troubled by feelings None of the above Frequency: Eating healthy diet Declined to answer ADLs requiring help None of the above Safety precautions in home/vehicle Yes Smoke, vape, chews tobacco No Difficulty hearing Yes, I wear a hearing aid Difficulty seeing No Current Providers Specialists: I have reviewed specialist-related care of the patient in the medical record. Current care team: Patient Care Team: Pancho Lopez MD as PCP - General (Family Medicine) Osmin Hutton APRN.CNP as Steamer Blocker (Family Medicine) Klarissa Ramirez PA-C as Steamer Blocker (Family Medicine) Medical/Family history review Reviewed and updated problem list, medical/surgical/family/social history, medications, and allergies. Opioid use review Opioid Medications (last 90 days) No data to display Anxiety/Depression screening PHQ-2 Score: 0 (Lower risk for depression) Recommendation: no further intervention at this time Cognitive screening Score: 5 Cognitive screening reviewed and No further action needed (score 3-5). Functional Observation Was the patient's Timed Up AND Go test unsteady or >= 12 seconds? No Advance Care Planning Surrogate decision maker documented and/or advance directives scanned in chart Measurements BP 120/80 Pulse 94 Resp 16 Ht 161.9 cm (5' 3.75) Wt 83.5 kg (184 lb) BMI 31.83 kg/m? Vision Screening: Follows with optometry/ophthalmology Assessment/Plan Medicare annual wellness visit, subsequent (Z00.00) - Counseled on healthy diet and regular exercise - Fall avoidance information provided - Personalized prevention plan provided See Below Chief Complaint Patient presents with: Medicare Wellness Exam HPI Shaheen Jean is a 78 year old female who presents here today for Chronic Medical Conditions. and Medicare Annual Visit. Patient with hx of HTN, hyperlipidemia, GERD, CKD, DM2, osteoporosis, and those as below. Ref Range AND Units 7 d ago (04/08/24) 7 mo ago (09/17/23) 1 yr ago (03/18/23) 1 yr ago (12/01/22) 1 yr ago (08/25/22) 1 yr ago (06/05/22) 2 yr ago (02/26/22) Hemoglobin A1C 4.3 - 5.6 % 6.8 High 6.7 High CM 6.5 High CM 6.4 High CM 6.0 High CM 6.0 High CM 8.3 High Patient has been doing ok. Has lost a few friends and family members in the last few months. Past medical history, appointments, medications, allergies reviewed. Previous Medical History PAST MEDICAL HISTORY Diagnosis Date Actinic keratoses 01/18/2010 Advance directive discussed with patient 03/05/2022 DPA: Lory (daughter) Age-related cataract of both eyes 04/13/2019 [place] (actinic keratosis) 08/23/2020 Tx with cryo right dorasol hand 08/2020 Arthritis of right hip 12/06/2015 Arthritis of right shoulder region 12/06/2015 Calcaneal spur of left foot 01/09/2016 Cervical stenosis of spine 07/08/2021 Cholesteatoma of tympanum of right ear 03/22/[address] Mckenzie Chronic right shoulder pain 12/05/2015 Closed fracture of first lumbar vertebra (HCC) 04/19/2021 End plate fracture of L1 Closed fracture of one or more phalanges of foot 11/05/2009 Diverticulosis of large intestine without hemorrhage 03/05/2015 Essential hypertension with goal blood pressure less than 130/85 07/19/2015 External hemorrhoids GERD (gastroesophageal reflux disease) Hallux valgus (acquired) 09/02/2011 Internal hemorrhoids Iron deficiency anemia 01/28/[address] 03/27/2023 DPA: Lory (daughter), Low back pain 03/05/2015 Mixed hyperlipidemia Obesity, Class I, BMI 30-34.9 07/25/2019 Osteoporosis 09/24/2007 Renal stone 09/19/2018 first one 09/2018 Sciatica 06/02/2008 Stage 3b chronic kidney disease ([facility]) 06/17/2017 Tendonitis, Achilles, left 01/09/2016 Type 2 diabetes mellitus with stage 3 chronic kidney disease, without long-term current use of insulin ([facility]) 07/19/2015 Type 2 diabetes mellitus with stage 3b chronic kidney disease, without long-term current use of insulin ([facility]) 07/19/2015 Previous Surgical History PAST SURGICAL HISTORY Procedure Laterality Date BX BREAST PERC VACUUM/ROTN 11/30/06 RIGHT DELIVERY ONLY , low cervical x 4 COLONOSCOPY 05/10/2015 repeat 10 yrs COLONOSCOPY FLX DX W/COLLJ SPEC WHEN PFRMD 07/23/05 repeat due 2015 COLONOSCOPY FLX DX W/COLLJ SPEC WHEN PFRMD 05/10/2015 Colonoscopy ESOPHAGOGASTRODUODENOSCOPY TRANSORAL DIAGNOSTIC 04/15/2010 EGD FOOT LEFT OP SURGERY 08/17 (more content not included)... [facility] 04-15-2024 History of Present illness Narrative Images from the original note were not included. Shaheen Jean is a 78 year old female here for a Medicare wellness visit. Medicare Health Risk Assessment General Health Good Exercise: Minutes/Day 10 min Exercise: Days/Week 1 day Alcohol: Daily Use Never Alcohol: Drinks/Day Patient does not drink Alcohol: 6 or more drinks Never Feel off balance Yes Concerns: Teeth/Dentures No Concerns: Sexual function No Troubled by feelings None of the above Frequency: Eating healthy diet Declined to answer ADLs requiring help None of the above Safety precautions in home/vehicle Yes Smoke, vape, chews tobacco No Difficulty hearing Yes, I wear a hearing aid Difficulty seeing No Current Providers Specialists: I have reviewed specialist-related care of the patient in the medical record. Current care team: Patient Care Team: Pancho Lopez MD as PCP - General (Family Medicine) Osmin Hutton APRN.KISHORE as Steamer Blocker (Family Medicine) Klarissa Ramirez PA-C as Steamer Blocker (Family Medicine) Medical/Family history review Reviewed and updated problem list, medical/surgical/family/social history, medications, and allergies. Opioid use review Opioid Medications (last 90 days) No data to display Anxiety/Depression screening PHQ-2 Score: 0 (Lower risk for depression) Recommendation: no further intervention at this time Cognitive screening Score: 5 Cognitive screening reviewed and No further action needed (score 3-5). Functional Observation Was the patient's Timed Up & Go test unsteady or >= 12 seconds? No Advance Care Planning Surrogate decision maker documented and/or advance directives scanned in chart Measurements BP 120/80 Pulse 94 Resp 16 Ht 161.9 cm (5' 3.75) Wt 83.5 kg (184 lb) BMI 31.83 kg/m Vision Screening: Follows with optometry/ophthalmology Assessment/Plan Medicare annual wellness visit, subsequent (Z00.00) - Counseled on healthy diet and regular exercise - Fall avoidance information provided - Personalized prevention plan provided See Below Chief Complaint Patient presents with: Medicare Wellness Exam HPI Shaheen Jean is a 78 year old female who presents here today for Chronic Medical Conditions. and Medicare Annual Visit. Patient with hx of HTN, hyperlipidemia, GERD, CKD, DM2, osteoporosis, and those as below. Ref Range & Units 7 d ago (04/08/24) 7 mo ago (09/17/23) 1 yr ago (03/18/23) 1 yr ago (12/01/22) 1 yr ago (08/25/22) 1 yr ago (06/05/22) 2 yr ago (02/26/22) Hemoglobin A1C 4.3 - 5.6 % 6.8 High 6.7 High CM 6.5 High CM 6.4 High CM 6.0 High CM 6.0 High CM 8.3 High Patient has been doing ok. Has lost a few friends and family members in the last few months. Past medical history, appointments, medications, allergies reviewed. Previous Medical History PAST MEDICAL HISTORY Diagnosis Date Actinic keratoses 01/18/2010 Advance directive discussed with patient 03/05/2022 DPA: Lory (daughter) Age-related cataract of both eyes 04/13/2019 [place] (actinic keratosis) 08/23/2020 Tx with cryo right dorasol hand 08/2020 Arthritis of right hip 12/06/2015 Arthritis of right shoulder region 12/06/2015 Calcaneal spur of left foot 01/09/2016 Cervical stenosis of spine 07/08/2021 Cholesteatoma of tympanum of right ear 03/22/[address] Mckenzie Chronic right shoulder pain 12/05/2015 Closed fracture of first lumbar vertebra (HCC) 04/19/2021 End plate fracture of L1 Closed fracture of one or more phalanges of foot 11/05/2009 Diverticulosis of large intestine without hemorrhage 03/05/2015 Essential hypertension with goal blood pressure less than 130/85 07/19/2015 External hemorrhoids GERD (gastroesophageal reflux disease) Hallux valgus (acquired) 09/02/2011 Internal hemorrhoids Iron deficiency anemia 01/28/[address] 03/27/2023 DPA: Lory (daughter), Low back pain 03/05/2015 Mixed hyperlipidemia Obesity, Class I, BMI 30-34.9 07/25/2019 Osteoporosis 09/24/2007 Renal stone 09/19/2018 first one 09/2018 Sciatica 06/02/2008 Stage 3b chronic kidney disease ([facility]) 06/17/2017 Tendonitis, Achilles, left 01/09/2016 Type 2 diabetes mellitus with stage 3 chronic kidney disease, without long-term current use of insulin ([facility]) 07/19/2015 Type 2 diabetes mellitus with stage 3b chronic kidney disease, without long-term current use of insulin ([facility]) 07/19/2015 Previous Surgical History PAST SURGICAL HISTORY Procedure Laterality Date BX BREAST PERC VACUUM/ROTN 11/30/06 RIGHT DELIVERY ONLY , low cervical x 4 COLONOSCOPY 05/10/2015 repeat 10 yrs COLONOSCOPY FLX DX W/COLLJ SPEC WHEN PFRMD 07/23/05 repeat due 2015 COLONOSCOPY FLX DX W/COLLJ SPEC WHEN PFRMD 05/10/2015 Colonoscopy ESOPHAGOGASTRODUODENOSCOPY TRANSORAL DIAGNOSTIC 04/15/2010 EGD FOOT LEFT OP SURGERY 08/2011 bunionectomy PAST SURGICAL HISTORY OF and 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, non ca x2 PLCMT LOCALZTN CLIP,PERC,DURING BREAST BX 11/30/06 RIGHT SIGMOIDOSCOPY FLX DX W/COLLJ SPEC BR/WA IF PFRMD 07/1999 Sigmoidoscopy TYMPANOSTOMY LOC/TOP ANES BILA 2011 left TM tube Family History FAMILY HISTORY Problem Relation Age of Onset Stroke Mother Ischemic Heart Disease Father also diabetes Diabetes Sister Stroke Sister Uterine Cancer Sister Osteoporosis Sister Diabetes Sister Dementia Sister Osteoporosis Sister Carotid Disease Brother 95 other (pacemaker) Brother Seizures Brother other (complications of mono) Brother Patient Allergies ALLERGIES Allergen Reactions Bactrim [Sulfametho* Rash Cipro [Ciprofloxaci* Rash Clams Rash [place] Unknown Eggs [Egg] Other: See Comments Diarrhea Grass Pollen Itching Lactose Intolerance* Unknown Pork Unknown Seasonal Allergies Other: See Comments pollen Current Medications Current Outpatient Medications on File Prior to Visit Medication Sig metFORMIN (GLUCOPHAGE) 500 mg tablet Take 1 tablet by mouth daily with dinner. lisinopril (ZESTRIL) 10 mg tablet Take 1 tablet by mouth once daily. glimepiride (AMARYL) 1 mg tablet Take 1 tablet by mouth daily with breakfast. blood sugar diagnostic (FREESTYLE LITE STRIPS) test strip Test blood sugar(s) one times daily. Dx: Type 2 DM - Controlled E11.9 Insulin: No alendronate (FOSAMAX) 70 mg tablet Take 1 tablet by mouth one time a week. Take with a full glass of water, on an empty stomach; do NOT lie down for 30minutes. Ceffafzjidg-Jywox-UGH-Vit C-Mn 500-400-166.6 mg tab Take by mouth. multivitamin with minerals (ONE-A-DAY 50 PLUS ORAL) Take by mouth. blood sugar diagnostic (BLOOD GLUCOSE TEST) test strip Test blood sugar(s) 1 times daily. Dx: Type 2 DM - Controlled E11.9 Insulin: No Blood-Glucose Meter mis Check blood sugars once a day. Dx: E11.9 no insulin Cholecalciferol, Vitamin D3, 25 mcg (1,000 unit) cap Take 1,000 Units by mouth once daily. CALCIUM CARBONATE (TUMS E-X ORAL) Take 2 capsules by mouth once daily. Aspirin 81 mg ORAL Tab Take 81 mg by mouth once daily. No current facility-administered medications on file prior to visit. Social History Social History Tobacco Use Smoking status: Never Smokeless tobacco: Never Vaping Use Vaping status: Never Used Substance Use Topics Alcohol use: No Drug use: No Review of Symptoms REVIEW OF SYSTEMS GENERAL: No weight loss, malaise or fevers HEENT: Negative for frequent or significant headaches, No changes in hearing or vision, no nose bleeds or other nasal problems NECK: Negative for lumps, goiter, pain and significant neck swelling RESPIRATORY: Negative for cough, hemoptysis, wheezing, COPD, dyspnea or shortness of breath CARDIOVASCULAR: Negative for chest pain, leg swelling, hypertension, CHF or palpitations, Negative for chest pain, increased leg swelling, hypertension, CHF or palpitations GI: No nausea, vomiting, or diarrhea, No heartburn or reflux symptoms, and no blood : No history of dysuria, frequency or incontinence MUSCULOSKELETAL: Negative for joint pain or swelling, back pain or muscle pain SKIN: Negative for lesions, rash, and itching PSYCH: Negative for sleep disturbance, mood disorder and recent psychosocial stressors HEMATOLOGY/LYMPHOLOGY: Negative for prolonged bleeding, bruising easily or swollen nodes ENDOCRINE: Negative for cold or heat intolerance, polyuria, polydipsia and goiter NEURO: No history of headaches, syncope, paralysis, seizures or tremors. Patient has noted trembling when she stands. In her hands and her legs feel weak. Has not fallen. Has done two rounds of PHYSICAL THERAPY with no improvement. Seen Neuro and w/u was negative. Saw ortho and they sent her back to PHYSICAL THERAPY. EXAM: BP 120/80 Pulse 94 Resp 16 Ht 161.9 cm (5' 3.75) Wt 83.5 kg (184 lb) BMI 31.83 kg/m .orthost Last 5 Encounter Wt Readings: Date: Wt: 04/15/2024 83.5 kg (184 lb) 09/25/2023 82.6 kg (182 lb) 04/17/2023 83.9 kg (185 lb) 03/27/2023 84.4 kg (186 lb) 09/02/2022 82.6 kg (182 lb) 04/15/24 1400 04/15/24 1502 04/15/24 1503 04/15/24 1504 Resp: 16 Height: 161.9 cm (5' 3.75) Weight: 83.5 kg (184 lb) Orthostatic BP: 120/80 118/76 122/82 136/104 BP Position: Supine Standing Orthostatic Pulse: 94 90 101 128 General Appearance: Well appearing, alert, in no acute distress, well-hydrated, well nourished. and Obese. Skin: Skin color, texture, turgor normal, no suspicious rashes or lesions. Head: Normocephalic, no masses, lesions, tenderness or abnormalities. Eyes: Anicteric sclera. Pupils are equally round and reactive to light. Extraocular movements are intact. . Ears: External ears, TM's normal, canals clear. Nose/Sinuses: Nares normal, septum midline, mucosa normal, no drainage or sinus tenderness. Oropharynx: Lips, mucosa, and tongue normal, teeth and gums normal, oropharynx normal. Neck: Supple, no adenopathy; thyroid symmetric, normal size, no bruits. Lungs: Lungs clear to auscultation. No wheezing, rhonchi, rales.. Heart: RRR without murmur, gallop, or rubs. No ectopy. Abdomen: Normal abdominal exam, Abdomen soft, non-tender. Bowel sounds normal. No masses, organomegaly. Extremities: No deformities, edema, skin discoloration, clubbing or cyanosis. Good capillary refill. . Musculoskeletal: Muscular strength intact, No joint swelling, deformity, or tenderness. Peripheral Pulses: Normal. Neurologic: Gait normal but demonstrating weakness with standing and getting onto the table. With standing she also has a tremor in her hands. . Reflexes normal and symmetric. Sensation to light touch and crainal nerves 2-12 intact.. There is lead piping in the upper extremities bilaterally. Health Maintenance List Shingrix Vaccine(1 of 2) Never done RSV Vaccine(1 - 1-dose 75+ series) Never done BP Controlled (<130/80) due on 03/05/2023 Covid-19 Vaccine( season) due on 10/18/2023 Advance Directive Discussion due on 02/17/2024 Diabetic Foot Exam due on 03/27/2024 Annual PCP Team Chronic Disease Visit due on 09/24/2024 Depression Screening due on 09/24/2024 Anxiety Screening due on 09/24/2024 HbA1C due on 10/06/2024 Bone Density Screening due on 12/01/2024 Dilated Retinal Exam due on 12/16/2024 Urine Albumin:Creatinine Ratio due on 04/08/2025 LDL Cholesterol due on 04/08/2025 Serum Creatinine due on 04/08/2025 Hemoglobin/Hematocrit due on 04/08/2025 DTaP,Tdap,Td Vaccine(3 - Td or Tdap) due on 08/31/2033 Influenza Vaccine Completed Pneumococcal Vaccine: 50+ Completed Mammogram Screening Discontinued Colorectal Cancer Screening Discontinued Data reviewed Latest Ref Rng 03/18/2023 03/19/2023 09/17/2023 04/08/2024 WBC 3.70 - 11.00 k/uL 10.12 10.52 RBC 3.90 - 5.20 m/uL 4.50 4.45 Hemoglobin 11.5 - 15.5 g/dL 12.3 11.9 Hematocrit 36.0 - 46.0 % 38.5 38.5 MCV 80.0 - 100.0 fL 85.6 86.5 MCH 26.0 - 34.0 pg 27.3 26.7 MCHC 30.5 - 36.0 g/dL 31.9 30.9 RDW-CV 11.5 - 15.0 % 13.5 13.5 Platelet Count 150 - 400 k/uL 291 305 MPV 9.0 - 12.7 fL 11.2 11.5 Neut% % 51.1 60.3 Abs Neut (ANC) 1.45 - 7.50 k/uL 5.17 6.35 Lymph% % 38.0 26.5 Abs Lymph 1.00 - 4.00 k/uL 3.85 2.79 [place]% % 6.6 8.5 Abs [place] <0.87 k/uL 0.67 0.89 (H) Eosin% % 2.7 3.4 Abs Eosin <0.46 k/uL 0.27 0.36 Baso% % 0.6 0.9 Abs Baso <0.11 k/uL 0.06 0.09 Immature Gran % % 1.0 0.4 IMMATURE GRANS (ABS) <0.10 k/uL 0.10 (H) 0.04 NRBC /100 WBC 0.0 0.0 Absolute nRBC <0.01 k/uL <0.01 <0.01 DTYPE Auto Auto Color Yellow Dark Yellow ! Clarity Clear Clear Glucose, Urine Negative Negative Bilirubin, Urine Negative 1+ ! Ketones, Urine Negative Trace ! Specific [place], Ur 1.005 - 1.030 1.027 Hemoglobin/Blood,Ur Negative Negative pH, Urine <8.5 5.0 Protein, Urine Negative Trace ! Urobilinogen 0.2-1.0 EU/dL 0.2 EU/dL Nitrites Negative Negative Leukest Negative Negative WBC, Urine 0-5 /HPF 0-5 /HPF RBC, Urine 0-2 /HPF 0-2 /HPF Bacteria Negative /HPF Negative Epithelial Cells /HPF None Seen Hyaline Cast 0 /LPF 4-10 /LPF ! Protein, Total 6.3 - 8.0 g/dL 6.9 6.9 Albumin 3.9 - 4.9 g/dL 3.8 (L) 3.9 Calcium 8.5 - 10.2 mg/dL 10.1 9.7 9.8 Bilirubin, Total 0.2 - 1.3 mg/dL 0.3 0.3 Alkaline Phosphatase 34 - 123 U/L 49 57 AST 13 - 35 U/L 15 13 ALT 7 - 38 U/L 11 9 Glucose 74 - 99 mg/dL 116 (H) 133 (H) 164 (H) BUN 7 - 21 mg/dL 23 (H) 29 (H) 23 (H) Creatinine 0.58 - 0.96 mg/dL 1.45 (H) 1.53 (H) 1.46 (H) Sodium 136 - 144 mmol/L 140 137 140 Potassium 3.7 - 5.1 mmol/L 4.6 4.8 4.7 Chloride 98 - 107 mmol/L 106 (H) 102 105 CO2 22 - 30 mmol/L 23 25 23 Anion Gap 8 - 15 mmol/L 11 10 12 eGFR >=60 mL/min/1.73m 37 (L) 34 (L) 36 (L) Total Cholesterol, Nonfasting <200 mg/dL 182 159 179 Triglycerides, Nonfasting <150 mg/dL 142 191 (H) 150 (H) HDL Cholesterol, Nonfasting >39 mg/dL 44 34 (L) 46 LDL Cholesterol, Nonfasting <100 mg/dL 110 (H) 87 103 (H) Non HDL Cholesterol, Nonfasting <130 mg/dL 138 (H) 125 133 (H) VLDL Cholesterol, Nonfasting <30 mg/dL 28 38 (H) 30 (H) Total Chol/HDL Ratio, Nonfasting <5.10 mg/dL 4.14 4.68 3.89 LDL/HDL Ratio, Nonfasting <2.54 mg/dL 2.50 2.56 (H) 2.24 Creatinine, Ur Random (UCRR) 20.0 - 300.0 mg/dL 320.4 (H) 118.4 Albumin, Urine Random mg/L 36.4 <12.0 Albumin/Creat Ratio <30 mg/g 11 <10 Iron 41 - 186 ug/dL 77 72 TIBC 232 - 386 ug/dL 317 318 Transferrin Saturation 15.0 - 57.0 % 24.3 22.6 Hemoglobin A1C 4.3 - 5.6 % 6.5 (H) 6.7 (H) 6.8 (H) Estimated Average Glucose mg/dL 140 146 148 A/P ASSESSMENT/PLAN: 1. Medicare annual wellness visit, subsequent - ICD9: V70.0, ICD10: Z00.00 (primary diagnosis) - Counseled on healthy diet and regular exercise - Discussed need and benefit for weight loss. BMI 31.83 kg/(m^2) - Follow up for annual exam in one year 2. Type 2 diabetes mellitus with stage 3b chronic kidney disease, without long-term current use of insulin (HCC) - ICD9: 250.40, 585.3, ICD10: E11.22, N18.32 - Controlled - Continue current medications - Counseled on healthy diet and regular exercise - Discussed need for and benefit of weight loss. BMI 31.83 kg/(m^2) - eGFR: 36 Improving - Counseled on avoiding NSAIDs, adequate hydration - ACEi/ARB prescribed: Yes 3. Essential hypertension with goal blood pressure less than 130/85 - ICD9: 401.9, ICD10: I10 - Controlled - Continue current medications - Recommend home blood pressure monitoring, to bring results to next visit - Encouraged sodium restriction, DASH or Mediterranean diet - Recommend regular aerobic exercise 4. Mixed hyperlipidemia - ICD9: 272.2, ICD10: E78.2 - Controlled - Counseled on healthy diet and regular exercise - Discussed need for and benefit of weight loss. BMI 31.83 kg/(m^2) 5. Gastroesophageal reflux disease without esophagitis - ICD9: 530.81, ICD10: K21.9 - managed with diet. 6. Iron deficiency anemia, unspecified iron deficiency anemia type - ICD9: 280.9, ICD10: D50.9 - labs were good. No changes. 7. Stage 3b chronic kidney disease (HCC) - ICD9: 585.3, ICD10: N18.32 - eGFR: 36 Improving - Counseled on avoiding NSAIDs, adequate hydration - ACEi/ARB prescribed: Yes 8. Obesity, Class I, BMI 30-34.9 - ICD9: 278.00, ICD10: E66.811 - patient to work on weight loss. 9. Advance directive discussed with patient - ICD9: V65.49, ICD10: Z71.89 - up to date. 10. Proximal limb muscle weakness - ICD9: 728.87, ICD10: M62.81 Check - JACK BY IFA SCREEN - C-REACTIVE PROTEIN - RHEUMATOID FACTOR - SEDIMENTATION RATE, WESTERGREN If normal will consider Neuro consult for second opinion possibly neuromuscular. 11. Symptomatic orthostatic increase in heart rate - ICD9: 796.4, ICD10: R00.8 - will have patient cut her lisinopril dose in half to just 5 mg a day F/u 2 weeks recheck BP and ortho's. F/u 6 months routine check A1c, Lipid and BMP prior. I spent a total of 40 minutes on the date of the service which included preparing to see the patient, [id number] patient care, completing clinical documentation, performing a medically appropriate examination, counseling and educating the patient/family/caregiver and ordering medications, tests, or procedures. MD Pancho Orr MD documented in this encounter [facility] 02-22-2024 Telephone encounter Note Prescription Refill Information The patient has been identified by name and date of : Yes Caregiver verified no other encounters exist for this prescription request: Yes Caregiver confirmed with patient/requestor that no other refills are due, in the near future, with this provider at this time: Yes The last office visit in the department: 09/25/23 Does the patient have a future office visit with this provider/department: Yes Requested Prescriptions Pending Prescriptions Disp Refills glimepiride (AMARYL) 1 mg tablet 90 tablet 1 Sig: Take 1 tablet by mouth daily with breakfast. Levar Serrano LPN February 22, 2024 12:37 PM [facility] 02-22-2024 Miscellaneous Notes Prescription Refill Information The patient has been identified by name and date of : Yes Caregiver verified no other encounters exist for this prescription request: Yes Caregiver confirmed with patient/requestor that no other refills are due, in the near future, with this provider at this time: Yes The last office visit in the department: 09/25/23 Does the patient have a future office visit with this provider/department: Yes Requested Prescriptions Pending Prescriptions Disp Refills glimepiride (AMARYL) 1 mg tablet 90 tablet 1 Sig: Take 1 tablet by mouth daily with breakfast. Levar Serrano LPN February 22, 2024 12:37 PM documented in this encounter [facility] 02-22-2024 Telephone encounter Note Prescription Refill Information The patient has been identified by name and date of : Yes Caregiver verified no other encounters exist for this prescription request: Yes Caregiver confirmed with patient/requestor that no other refills are due, in the near future, with this provider at this time: Yes The last office visit in the department: 09/25/23 Does the patient have a future office visit with this provider/department: Yes Requested Prescriptions Pending Prescriptions Disp Refills metFORMIN (GLUCOPHAGE) 500 mg tablet 90 tablet 1 Sig: Take 1 tablet by mouth daily with dinner. lisinopril (ZESTRIL) 10 mg tablet 90 tablet 1 Sig: Take 1 tablet by mouth once daily. Levar Serrano LPN February 22, 2024 12:33 PM [facility] 02-22-2024 Miscellaneous Notes Prescription Refill Information The patient has been identified by name and date of : Yes Caregiver verified no other encounters exist for this prescription request: Yes Caregiver confirmed with patient/requestor that no other refills are due, in the near future, with this provider at this time: Yes The last office visit in the department: 09/25/23 Does the patient have a future office visit with this provider/department: Yes Requested Prescriptions Pending Prescriptions Disp Refills metFORMIN (GLUCOPHAGE) 500 mg tablet 90 tablet 1 Sig: Take 1 tablet by mouth daily with dinner. lisinopril (ZESTRIL) 10 mg tablet 90 tablet 1 Sig: Take 1 tablet by mouth once daily. Levar Serrano LPN February 22, 2024 12:33 PM documented in this encounter [facility] 12-18-2023 Note HNO ID: [id number] Author: SARAY BALDERRAMA MA Service: ? Author Type: Booking Prizer Type: Progress Notes Filed: 12/18/2023 14:38 Note Text: Scan on 12/17/2023 3:36 PM by ProviderMarilin PA-C: Dilated eye exam HM updated. Saray Balderrama MA [facility] 12-18-2023 History of Present illness Narrative Scan on 12/17/2023 3:36 PM by ProviderMarilin PA-C: Dilated eye exam HM updated. Saray Balderrama MA documented in this encounter [facility] 10-13-2023 History of Present illness Narrative Scan on 10/12/2023 7:33 AM by ProviderMarilin PA-C: Consultation - Orthopedics Nelly Alexis MA documented in this encounter [facility] 10-01-2023 Telephone encounter Note Faxed to office at [phone] Pt notified Génesis Apodaca MA [facility] 10-01-2023 Miscellaneous Notes Faxed to office at [phone] Pt notified Génesis Apodaca MA Please print referral and fax to provided number. Pt calling and requesitng a referral to Ortho/Spinal specialist. Please advise pt when this is in place and informatino has been faxed to [facility]. Pt asking for referral to be faxed to [facility] Dr. Osorio. Aline Landin LPN documented in this encounter [facility] 10-01-2023 Telephone encounter Note Please print referral and fax to provided number. [facility] 09-30-2023 Telephone encounter Note Pt calling and requesitng a referral to Ortho/Spinal specialist. Please advise pt when this is in place and informatino has been faxed to [facility]. Pt asking for referral to be faxed to [facility] Dr. Osorio. Aline Landin LPN [facility] 09-25-2023 History of Present illness Narrative Chief Complaint Patient presents with: 6 Month Exam HPI Shaheen Jean is a 78 year old female who presents here today for Above Complaints.. Patient presents for routine follow up. Patient reports she had MRI of brain and entire spine completed this week, ordered by Dr. Tobar. Patient has not heard from his office for follow up and has brought reports to be reviewed. Past medical history, appointments, medications, allergies reviewed. Previous Medical History PAST MEDICAL HISTORY 01/18/2010: Actinic keratoses 03/05/2022: Advance directive discussed with patient Comment: DPA: Lory (daughter) 04/13/2019: Age-related cataract of both eyes 08/23/2020: AK (actinic keratosis) Comment: Tx with cryo right dorasol hand 08/202012/06/2015: Arthritis of right hip 12/06/2015: Arthritis of right shoulder region 01/09/2016: Calcaneal spur of left foot 07/08/2021: Cervical stenosis of spine 03/22/2015: Cholesteatoma of tympanum of right ear Comment: Sees Dr. Mckenzie 12/05/2015: Chronic right shoulder pain 04/19/2021: Closed fracture of first lumbar vertebra (HCC) Comment: End plate fracture of L1 11/05/2009: Closed fracture of one or more phalanges of foot 03/05/2015: Diverticulosis of large intestine without hemorrhage 07/19/2015: Essential hypertension with goal blood pressure less than 130/85 No date: External hemorrhoids No date: GERD (gastroesophageal reflux disease) 09/02/2011: Hallux valgus (acquired) No date: Internal hemorrhoids 01/28/2010: Iron deficiency anemia 03/27/2023: Living will in place Comment: DPA: Lory (daughter), 03/05/2015: Low back pain No date: Mixed hyperlipidemia 07/25/2019: Obesity, Class I, BMI 30-34.9 09/24/2007: Osteoporosis 09/19/2018: Renal stone Comment: first one 09/201806/02/2008: Sciatica 06/17/2017: Stage 3b chronic kidney disease (HCC) 01/09/2016: Tendonitis, Achilles, left 07/19/2015: Type 2 diabetes mellitus with stage 3 chronic kidney disease, without long-term current use of insulin (HCC) 07/19/2015: Type 2 diabetes mellitus with stage 3b chronic kidney disease, without long-term current use of insulin ([facility]) Previous Surgical History PAST SURGICAL HISTORY 11/30/06: BX BREAST PERC VACUUM/ROTN Comment: RIGHT No date: DELIVERY ONLY Comment: , low cervical x 4 05/10/2015: COLONOSCOPY Comment: repeat 10 yrs 07/23/05: COLONOSCOPY FLX DX W/COLLJ SPEC WHEN PFRMD Comment: repeat due 201505/10/2015: COLONOSCOPY FLX DX W/COLLJ SPEC WHEN PFRMD Comment: Colonoscopy 04/15/2010: ESOPHAGOGASTRODUODENOSCOPY TRANSORAL DIAGNOSTIC Comment: EGD 08/2011: FOOT LEFT OP SURGERY Comment: bunionectomy and 2009: PAST SURGICAL HISTORY OF Comment: right ear tumor removed, non ca x2 11/30/06: PLCMT LOCALZTN CLIP,PERC,DURING BREAST BX Comment: RIGHT 07/1999: SIGMOIDOSCOPY FLX DX W/COLLJ SPEC BR/WA IF PFRMD Comment: Sigmoidoscopy 2011: TYMPANOSTOMY LOC/TOP ANES BILA Comment: left TM tube Family History FAMILY HISTORY Problem Relation Age of Onset Stroke Mother Ischemic Heart Disease Father also diabetes Diabetes Sister Stroke Sister Uterine Cancer Sister Osteoporosis Sister Diabetes Sister Dementia Sister Osteoporosis Sister Carotid Disease Brother 95 other (pacemaker) Brother Seizures Brother other (complications of mono) Brother Patient Allergies ALLERGIES Allergen Reactions Bactrim [Sulfametho* Rash Cipro [Ciprofloxaci* Rash Clams Rash [place] Unknown Eggs [Egg] Other: See Comments Diarrhea Grass Pollen Itching Lactose Intolerance* Unknown Pork Unknown Seasonal Allergies Other: See Comments pollen Current Medications Current Outpatient Medications on File Prior to Visit Medication Sig metFORMIN (GLUCOPHAGE) 500 mg tablet Take 1 tablet by mouth daily with dinner. lisinopril (ZESTRIL) 10 mg tablet Take 1 tablet by mouth once daily. glimepiride (AMARYL) 1 mg tablet Take 1 tablet by mouth daily with breakfast. blood sugar diagnostic (FREESTYLE LITE STRIPS) test strip Test blood sugar(s) one times daily. Dx: Type 2 DM - Controlled E11.9 Insulin: No alendronate (FOSAMAX) 70 mg tablet Take 1 tablet by mouth one time a week. Take with a full glass of water, on an empty stomach; do NOT lie down for 30minutes. Oripmtaxzqs-Sjnbg-MVN-Vit C-Mn 500-400-166.6 mg tab Take by mouth. multivitamin with minerals (ONE-A-DAY 50 PLUS ORAL) Take by mouth. blood sugar diagnostic (BLOOD GLUCOSE TEST) test strip Test blood sugar(s) 1 times daily. Dx: Type 2 DM - Controlled E11.9 Insulin: No Blood-Glucose Meter [facility] [place] Check blood sugars once a day. Dx: E11.9 no insulin Cholecalciferol, Vitamin D3, 25 mcg (1,000 unit) cap Take 1,000 Units by mouth once daily. CALCIUM CARBONATE (TUMS E-X ORAL) Take 2 capsules by mouth once daily. Aspirin 81 mg ORAL Tab Take 81 mg by mouth once daily. No current facility-administered medications on file prior to visit. Social History Social History Tobacco Use Smoking status: Never Smokeless tobacco: Never Vaping Use Vaping Use: Never used Substance Use Topics Alcohol use: No Drug use: No Review of Symptoms REVIEW OF SYSTEMS SEE HPI EXAM: BP 131/77 Pulse 120 Resp 16 Wt 82.6 kg (182 lb) BMI 34.36 kg/m General Appearance: Well appearing, alert, in no acute distress, well-hydrated, well nourished.. Lungs: Lungs clear to auscultation. No wheezing, rhonchi, rales.. Heart: RRR without murmur, gallop, or rubs. No ectopy. Peripheral Pulses: Normal. Health Maintenance List Depression Screening Never done Anxiety Screening Never done RSV Vaccine(1 - 1-dose 60+ series) due on 03/27/2024 Shingrix Vaccine(1 of 2) due on 03/27/2024 Covid-19 Vaccine( season) due on 03/27/2024 Influenza Vaccine(1) due on 10/18/2023 Dilated Retinal Exam due on 12/05/2023 Hemoglobin/Hematocrit due on 03/18/2024 Urine Albumin:Creatinine Ratio due on 03/19/2024 HbA1C due on 03/19/2024 Diabetic Foot Exam due on 03/27/2024 Annual PCP Team Chronic Disease Visit due on 04/16/2024 BP Controlled (<130/80) due on 04/16/2024 LDL Cholesterol due on 09/16/2024 Serum Creatinine due on 09/16/2024 Bone Density Screening due on 12/01/2024 DTaP,Tdap,Td Vaccine(3 - Td or Tdap) due on 08/31/2033 Advance Directive Discussion Completed Pneumococcal Vaccine: 65+ Completed Mammogram Screening Discontinued Colorectal Cancer Screening Discontinued Data reviewed Latest Ref Rng 09/17/2023 Glucose 74 - 99 mg/dL 133 (H) BUN 7 - 21 mg/dL 29 (H) Creatinine 0.58 - 0.96 mg/dL 1.53 (H) Sodium 136 - 144 mmol/L 137 Potassium 3.7 - 5.1 mmol/L 4.8 Chloride 98 - 107 mmol/L 102 CO2 22 - 30 mmol/L 25 Anion Gap 8 - 15 mmol/L 10 Calcium 8.5 - 10.2 mg/dL 9.7 eGFR >=60 mL/min/1.73m 34 (L) Total Cholesterol, Nonfasting <200 mg/dL 159 Triglycerides, Nonfasting <150 mg/dL 191 (H) HDL Cholesterol, Nonfasting >39 mg/dL 34 (L) LDL Cholesterol, Nonfasting <100 mg/dL 87 Non HDL Cholesterol, Nonfasting <130 mg/dL 125 VLDL Cholesterol, Nonfasting <30 mg/dL 38 (H) Total Chol/HDL Ratio, Nonfasting <5.10 mg/dL 4.68 LDL/HDL Ratio, Nonfasting <2.54 mg/dL 2.56 (H) Hemoglobin A1C 4.3 - 5.6 % 6.7 (H) Estimated Average Glucose mg/dL 146 ASSESSMENT/PLAN: 1. Type 2 diabetes mellitus with stage 3b chronic kidney disease, without long-term current use of insulin (HCC) - ICD9: 250.40, 585.3, ICD10: E11.22, N18.32 (primary diagnosis) - Controlled - Continue current medications - Counseled on healthy diet and regular exercise - Discussed need for and benefit of weight loss. BMI 34.36 kg/(m^2) - eGFR: 34 Stable - Counseled on avoiding NSAIDs, adequate hydration - Counseled on low sodium diet - GLIMEPIRIDE 1 MG TABLET 2. Screening for depression - ICD9: V79.0, ICD10: Z13.31 - DEPRESSION SCREENING 3. Encounter for screening examination for other mental health and behavioral disorders - ICD9: V79.8, ICD10: Z13.39 - ANXIETY SCREENING 4. Essential hypertension with goal blood pressure less than 130/85 - ICD9: 401.9, ICD10: I10 - Controlled - Continue current medications - Recommend home blood pressure monitoring, to bring results to next visit - Encouraged sodium restriction, DASH or Mediterranean diet - Recommend regular aerobic exercise - Discussed need for and benefit of weight loss. BMI 34.36 kg/(m^2) 5. Gastroesophageal reflux disease without esophagitis - ICD9: 530.81, ICD10: K21.9 - Continue treatment with Prilosec 20 mg QD 6. Obesity, Class I, BMI 30-34.9 - ICD9: 278.00, ICD10: E66.9 -Weight stable 7. Mixed hyperlipidemia - ICD9: 272.2, ICD10: E78.2 - Controlled - Continue current medications - Counseled on healthy diet and regular exercise - Discussed need for and benefit of weight loss. BMI 34.36 kg/(m^2) 8. Stage 3b chronic kidney disease (HCC) - ICD9: 585.3, ICD10: N18.32 - eGFR: 34 Stable 9. Chronic low back pain, unspecified back pain laterality, unspecified whether sciatica present - ICD9: 724.2, 338.29, ICD10: M54.50, G89.29 -Reviewed MRI results ordered by Dr. Tobar. Encouraged patient to follow up with Dr. Tobar's office for next steps, verbalized understanding. Reports are scanned in to patient's chart. Osmin Hutton APRN.PRINTER MACHINE documented in this encounter [facility] 09-11-2023 History of Present illness Narrative Scan on 09/08/2023 10:10 AM by ProviderMarilin PA-C: MRI - Dr Megan Alexis MA documented in this encounter [facility] 08-31-2023 History of Present illness Narrative Scan on 08/29/2023 11:40 PM by ProviderMarilin PA-C: Consultation - Neurology documented in this encounter [facility] 08-25-2023 History of Present illness Narrative Scan on 08/24/2023 9:19 AM by Marilin Pinzon PA-C: Miscellaneous Lab Nelly Alexis MA documented in this encounter [facility] 08-25-2023 Telephone encounter Note The following approved medication requests have been transmitted electronically. Requested Prescriptions Signed Prescriptions Disp Refills metFORMIN (GLUCOPHAGE) 500 mg tablet 90 tablet 1 Sig: Take 1 tablet by mouth daily with dinner. Authorizing Provider: PANCHO LOPEZ lisinopril (ZESTRIL) 10 mg tablet 90 tablet 1 Sig: Take 1 tablet by mouth once daily. Authorizing Provider: PANCHO LOPEZ MD [facility] 08-25-2023 Miscellaneous Notes The following approved medication requests have been transmitted electronically. Requested Prescriptions Signed Prescriptions Disp Refills metFORMIN (GLUCOPHAGE) 500 mg tablet 90 tablet 1 Sig: Take 1 tablet by mouth daily with dinner. Authorizing Provider: PANCHO LOPEZ lisinopril (ZESTRIL) 10 mg tablet 90 tablet 1 Sig: Take 1 tablet by mouth once daily. Authorizing Provider: PANCHO LOPEZ MD Prescription Refill Information The patient has been identified by name and date of : Yes Caregiver verified no other encounters exist for this prescription request: Yes Caregiver confirmed with patient/requestor that no other refills are due, in the near future, with this provider at this time: Yes The last office visit in the department: 04/17/23 Does the patient have a future office visit with this provider/department: Yes Requested Prescriptions Pending Prescriptions Disp Refills metFORMIN (GLUCOPHAGE) 500 mg tablet 90 tablet 1 Sig: Take 1 tablet by mouth daily with dinner. lisinopril (ZESTRIL) 10 mg tablet 90 tablet 1 Sig: Take 1 tablet by mouth once daily. Levar Serrano LPN August 25, 2023 1:54 PM Prescription Refill Information The patient has been identified by name and date of : Yes Caregiver verified no other encounters exist for this prescription request: Yes Caregiver confirmed with patient/requestor that no other refills are due, in the near future, with this provider at this time: Yes The last office visit in the department: 04/17/23 Does the patient have a future office visit with this provider/department: Yes Requested Prescriptions Pending Prescriptions Disp Refills metFORMIN (GLUCOPHAGE) 500 mg tablet 90 tablet 1 Sig: Take 1 tablet by mouth daily with dinner. lisinopril (ZESTRIL) 10 mg tablet 90 tablet 1 Sig: Take 1 tablet by mouth once daily. Carina Kay August 25, 2023 1:38 PM documented in this encounter [facility] 08-25-2023 Telephone encounter Note Prescription Refill Information The patient has been identified by name and date of : Yes Caregiver verified no other encounters exist for this prescription request: Yes Caregiver confirmed with patient/requestor that no other refills are due, in the near future, with this provider at this time: Yes The last office visit in the department: 04/17/23 Does the patient have a future office visit with this provider/department: Yes Requested Prescriptions Pending Prescriptions Disp Refills metFORMIN (GLUCOPHAGE) 500 mg tablet 90 tablet 1 Sig: Take 1 tablet by mouth daily with dinner. lisinopril (ZESTRIL) 10 mg tablet 90 tablet 1 Sig: Take 1 tablet by mouth once daily. Levar Serrano LPN August 25, 2023 1:54 PM [facility] 08-25-2023 Telephone encounter Note Prescription Refill Information The patient has been identified by name and date of : Yes Caregiver verified no other encounters exist for this prescription request: Yes Caregiver confirmed with patient/requestor that no other refills are due, in the near future, with this provider at this time: Yes The last office visit in the department: 04/17/23 Does the patient have a future office visit with this provider/department: Yes Requested Prescriptions Pending Prescriptions Disp Refills metFORMIN (GLUCOPHAGE) 500 mg tablet 90 tablet 1 Sig: Take 1 tablet by mouth daily with dinner. lisinopril (ZESTRIL) 10 mg tablet 90 tablet 1 Sig: Take 1 tablet by mouth once daily. Carina Myrick Pss August 25, 2023 1:38 PM [facility] 08-18-2023 History of Present illness Narrative Scan on 08/17/2023 3:43 PM by Provider, KESHAV Gaston: Hematology Scan on 08/17/2023 4:39 PM by Marilin Pinzon PA-C: Chemistry Scan on 08/17/2023 5:36 PM by ProviderMarilin PA-C: Chemistry documented in this encounter [facility] 04-17-2023 History of Present illness Narrative Chief Complaint Patient presents with: Recheck: Blood pressure HPI Shaheen Jean is a 77 year old female who presents here today for bp recheck . At last routine visit patient had elevated BP reading. Patient has been under more stress lately with health of family members and a in the family. Last 3 Encounter BP Readings: Date: BP: 04/17/2023 120/76[average with bp machine[ 03/27/2023 142/82 09/02/2022 126/76 Past medical history, appointments, medications, allergies reviewed. Previous Medical History PAST MEDICAL HISTORY Diagnosis Date Actinic keratoses 01/18/2010 Advance directive discussed with patient 03/05/2022 DPA: Lory (daughter) Age-related cataract of both eyes 04/13/2019 AK (actinic keratosis) 08/23/2020 Tx with cryo right dorasol hand 08/2020 Arthritis of right hip 12/06/2015 Arthritis of right shoulder region 12/06/2015 Calcaneal spur of left foot 01/09/2016 Cervical stenosis of spine 07/08/2021 Cholesteatoma of tympanum of right ear 03/22/[address] Mckenzie Chronic right shoulder pain 12/05/2015 Closed fracture of first lumbar vertebra (HCC) 04/19/2021 End plate fracture of L1 Closed fracture of one or more phalanges of foot 11/05/2009 Diverticulosis of large intestine without hemorrhage 03/05/2015 Essential hypertension with goal blood pressure less than 130/85 07/19/2015 External hemorrhoids GERD (gastroesophageal reflux disease) Hallux valgus (acquired) 09/02/2011 Internal hemorrhoids Iron deficiency anemia 01/28/[address] 03/27/2023 DPA: Lory (daughter), Low back pain 03/05/2015 Mixed hyperlipidemia Obesity, Class I, BMI 30-34.9 07/25/2019 Osteoporosis 09/24/2007 Renal stone 09/19/2018 first one 09/2018 Sciatica 06/02/2008 Stage 3b chronic kidney disease ([facility]) 06/17/2017 Tendonitis, Achilles, left 01/09/2016 Type 2 diabetes mellitus with stage 3 chronic kidney disease, without long-term current use of insulin ([facility]) 07/19/2015 Type 2 diabetes mellitus with stage 3b chronic kidney disease, without long-term current use of insulin ([facility]) 07/19/2015 Previous Surgical History PAST SURGICAL HISTORY Procedure Laterality Date BX BREAST PERC VACUUM/ROTN 11/30/06 RIGHT DELIVERY ONLY , low cervical x 4 COLONOSCOPY 05/10/2015 repeat 10 yrs COLONOSCOPY FLX DX W/COLLJ SPEC WHEN PFRMD 07/23/05 repeat due 2015 COLONOSCOPY FLX DX W/COLLJ SPEC WHEN PFRMD 05/10/2015 Colonoscopy ESOPHAGOGASTRODUODENOSCOPY TRANSORAL DIAGNOSTIC 04/15/2010 EGD FOOT LEFT OP SURGERY 08/2011 bunionectomy PAST SURGICAL HISTORY OF and 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, non ca x2 PLCMT LOCALZTN CLIP,PERC,DURING BREAST BX 11/30/06 RIGHT SIGMOIDOSCOPY FLX DX W/COLLJ SPEC BR/WA IF PFRMD 07/1999 Sigmoidoscopy TYMPANOSTOMY LOC/TOP ANES BILA 2011 left TM tube Family History FAMILY HISTORY Problem Relation Age of Onset Stroke Mother Ischemic Heart Disease Father also diabetes Diabetes Sister Stroke Sister Uterine Cancer Sister Osteoporosis Sister Diabetes Sister Dementia Sister Osteoporosis Sister Carotid Disease Brother 95 other (pacemaker) Brother Seizures Brother other (complications of mono) Brother Patient Allergies ALLERGIES Allergen Reactions Bactrim [Sulfametho* Rash Cipro [Ciprofloxaci* Rash Clams Rash [place] Unknown Eggs [Egg] Other: See Comments Diarrhea Grass Pollen Itching Lactose Intolerance* Unknown Pork Unknown Seasonal Allergies Other: See Comments pollen Current Medications Current Outpatient Medications on File Prior to Visit Medication Sig metFORMIN (GLUCOPHAGE) 500 mg tablet Take 1 tablet by mouth daily with dinner. glimepiride (AMARYL) 1 mg tablet Take 1 tablet by mouth daily with breakfast. lisinopril (ZESTRIL) 10 mg tablet Take 1 tablet by mouth once daily. blood sugar diagnostic (FREESTYLE LITE STRIPS) test strip Test blood sugar(s) one times daily. Dx: Type 2 DM - Controlled E11.9 Insulin: No alendronate (FOSAMAX) 70 mg tablet Take 1 tablet by mouth one time a week. Take with a full glass of water, on an empty stomach; do NOT lie down for 30minutes. Ghacmtbuzpa-Kbeil-INW-Vit C-Mn 500-400-166.6 mg tab Take by mouth. multivitamin with minerals (ONE-A-DAY 50 PLUS ORAL) Take by mouth. blood sugar diagnostic (BLOOD GLUCOSE TEST) test strip Test blood sugar(s) 1 times daily. Dx: Type 2 DM - Controlled E11.9 Insulin: No Blood-Glucose Meter mis Check blood sugars once a day. Dx: E11.9 no insulin Cholecalciferol, Vitamin D3, 25 mcg (1,000 unit) cap Take 1,000 Units by mouth once daily. CALCIUM CARBONATE (TUMS E-X ORAL) Take 2 capsules by mouth once daily. Aspirin 81 mg ORAL Tab Take 81 mg by mouth once daily. No current facility-administered medications on file prior to visit. Social History Social History Tobacco Use Smoking status: Never Smokeless tobacco: Never Vaping Use Vaping Use: Never used Substance Use Topics Alcohol use: No Drug use: No Review of Symptoms REVIEW OF SYSTEMS GENERAL: No weight loss, malaise or fevers RESPIRATORY: Negative for cough, hemoptysis, wheezing, COPD, dyspnea or shortness of breath CARDIOVASCULAR: Negative for chest pain, leg swelling, hypertension, CHF or palpitations EXAM: BP 120/76 (BP Site: Right Arm, BP Position: Sitting, BP Cuff Size: Regular Adult) Pulse 94 Temp 36.7 C (98 F) Resp 18 Wt 83.9 kg (185 lb) BMI 34.93 kg/m General Appearance: Well appearing, alert, in no acute distress, well-hydrated, well nourished.. Health Maintenance List BP Controlled (<130/80) due on 03/05/2023 DTaP,Tdap,Td Vaccine(2 - Td or Tdap) due on 03/27/2024 RSV Vaccine(1 - 1-dose 60+ series) due on 03/27/2024 Shingrix Vaccine(1 of 2) due on 03/27/2024 Covid-19 Vaccine( season) due on 03/27/2024 HbA1C due on 09/16/2023 Dilated Retinal Exam due on 12/05/2023 LDL Cholesterol due on 03/18/2024 Serum Creatinine due on 03/18/2024 Hemoglobin/Hematocrit due on 03/18/2024 Urine Albumin:Creatinine Ratio due on 03/19/2024 Diabetic Foot Exam due on 03/27/2024 Annual PCP Team Chronic Disease Visit due on 03/27/2024 Bone Density Screening Completed Influenza Vaccine Completed Advance Directive Discussion Completed Depression Assessment Completed Hepatitis C Screening Completed Pneumococcal Vaccine: 65+ Completed Mammogram Screening Discontinued Colorectal Cancer Screening Discontinued Data reviewed ASSESSMENT/PLAN: 1. Essential hypertension with goal blood pressure less than 130/85 - ICD9: 401.9, ICD10: I10 - Controlled - Continue current medications - Recommend home blood pressure monitoring, to bring results to next visit - Encouraged sodium restriction, DASH or Mediterranean diet - Recommend regular aerobic exercise Klarissa Ramirez PA-C documented in this encounter [facility] 03-28-2023 Miscellaneous Notes Noted. Patient calling she looked back and she did have bone density done 12/01/2022. Patient will call back and cancel her appt for next week, since she had this done and to soon to do another one. documented in this encounter [facility] 03-27-2023 Instructions Pancho Lopez MD - 03/27/2023 1:02 PM EST Consider getting the shingrix vaccine for the prevention of shingles from a local pharmacy along with the RSV vaccine. Please bring in copies of your power of [place] attorney for health care and living will. Consider getting Tdap update for tetanus at the local health dept. Finish up the fosamax you have and then stop. Please get labs done on or after 09/11/2023 prior to your next visit. Screening schedule The following prevention plan is recommended: Shingrix Vaccine(1 of 2) Never done RSV Vaccine(1 - 1-dose 60+ series) Never done DTaP,Tdap,Td Vaccine(2 - Td or Tdap) due on 08/15/2017 Covid-19 Vaccine( season) due on 10/17/2022 Advance Directive Discussion due on 02/16/2023 Depression Assessment due on 02/16/2023 Diabetic Foot Exam due on 03/05/2023 WHAT YOU CAN DO TO PREVENT FALLS Many falls can be prevented. By making some changes, you can lower your chances of falling. Four things YOU can do to prevent falls for you* and your caregiver 1. Begin a regular exercise program Exercise is one of the most important ways to lower your chances of falling. It makes you stronger and helps you feel better. Exercises that improve balance and coordination (like [place]) are the most helpful. Lack of exercise leads to weakness and increases your chances of falling. Ask your doctor or health care provider about the best type of exercise program for you. 2. Have your health care provider review your medicines Have your doctor or pharmacist review all the medicines you take, even [id number] medicines. As you get older, the way medicines work in your body can change. Some medicines, or combinations of medicines, can make you sleepy or dizzy and can cause you to fall. 3. Have your vision checked Have your eyes checked by an eye doctor at least once a year. You may be wearing the wrong glasses or have a condition like glaucoma or cataracts that limits your vision. Poor vision can increase your chances of falling. 4. Make your home safer About half of all falls happen at home. To make your home safer: Remove things you can trip over (like papers, books, clothes, and shoes) from stairs and places where you walk. Remove small throw rugs or use double-sided tape to keep the rugs from slipping. Keep items you use often in cabinets you can reach easily without using a step stool. Have grab bars put in next to your toilet and in the tub or shower. Use non-slip mats in the bathtub and on shower floors. Improve the lighting in your home. As you get older, you need brighter lights to see well. Hang light-weight curtains or shades to reduce glare. Have handrails and lights put in on all staircases. Wear shoes both inside and outside the house. Avoid going barefoot or wearing slippers. For more information, contact: Centers for Disease Control and Prevention www.cdc.gov/injury * This information may not apply if you have certain medical conditions. documented in this encounter [facility] 03-27-2023 History of Present illness Narrative Images from the original note were not included. Shaheen Jean is a 77 year old female here for a Medicare wellness visit. Medicare Health Risk Assessment General Health Good Exercise: Minutes/Day 20 min Exercise: Days/Week 2 days Alcohol: Daily Use Never Alcohol: Drinks/Day Patient does not drink Alcohol: 6 or more drinks Never Feel off balance Yes Concerns: Teeth/Dentures No Concerns: Sexual function No Troubled by feelings None of the above Frequency: Eating healthy diet Several days ADLs requiring help Housework; Sitting or standing Safety precautions in home/vehicle Yes Smoke, vape, chews tobacco No Difficulty hearing Yes Difficulty seeing No Current Providers Specialists: I have reviewed specialist-related care of the patient in the medical record. Current care team: Patient Care Team: Pancho Lopez MD as PCP - General (Family Medicine) Dr. Mckenzie (ENT) Medical/Family history review Reviewed and updated problem list, medical/surgical/family/social history, medications, and allergies. Opioid use review Opioid Medications (last 90 days) Some values may be hidden. Unless noted otherwise, only the newest values recorded on each date are displayed. Opioid Medications No data to display. Depression screening Depression Screening PHQ-2 Score PHQ-9 Score MARBELLA-2 Total Score 03/27/2023 0 - - Depression screening tool completed and reviewed. Based on score and interview, patient is not at risk for depression. Screening tool discussed with patient, and I recommended no further intervention at this time. Cognitive screening Mini Cog Score: 5 Cognitive screening reviewed and no further action needed (score 3-5) Functional Observation Was the patient's Timed Up & Go test unsteady or ? 12 seconds? No Advance Care Planning Surrogate decision maker and/or advance care plan documented Measurements BP 142/82 Pulse 98 Resp 16 Ht 5' 1.024 (1.55m) Wt 186 lb (84.4kg) SpO2 97% BMI 35.12 kg/(m^2). Seeing Optho Additional screenings: No results found. Assessment/Plan Medicare annual wellness visit, subsequent (Z00.00) - Counseled on healthy diet and regular exercise - Fall avoidance information provided - Personalized prevention plan provided See Below Chief Complaint Patient presents with: Medicare Wellness Exam HPI Shaheen Jean is a 77 year old female who presents here today for Chronic Medical Conditions. and Medicare Annual Visit. Patient with hx of HTN, hyperlipidemia, GERD, CKD, DM2, osteoporosis, and those as below. Any new concerns today? See next paragraph. Any recent ER/hospital visits? none In the last 6 months her 92 year old brother passed. Her 89 year old brother is in the [facility], Sister who is 86 is in a SNF and diagnosed with uterine cancer. Patient still getting the shakes every where after standing for just a few minutes. She did see neuro with [facility] and had testing and PHYSICAL THERAPY done with no diagnosis or improvement. She has an appt to see Dr. Alberto in June for a separate opinion. Past medical history, appointments, medications, allergies reviewed. Previous Medical History PAST MEDICAL HISTORY Diagnosis Date Actinic keratoses 01/18/2010 Advance directive discussed with patient 03/05/2022 DPA: Lory (daughter) Age-related cataract of both eyes 04/13/2019 AK (actinic keratosis) 08/23/2020 Tx with cryo right dorasol hand 08/2020 Arthritis of right hip 12/06/2015 Arthritis of right shoulder region 12/06/2015 Calcaneal spur of left foot 01/09/2016 Cervical stenosis of spine 07/08/2021 Cholesteatoma of tympanum of right ear 03/22/[address] Mckenzie Chronic right shoulder pain 12/05/2015 Closed fracture of first lumbar vertebra (HCC) 04/19/2021 End plate fracture of L1 Closed fracture of one or more phalanges of foot 11/05/2009 Diverticulosis of large intestine without hemorrhage 03/05/2015 Essential hypertension with goal blood pressure less than 130/85 07/19/2015 External hemorrhoids GERD (gastroesophageal reflux disease) Hallux valgus (acquired) 09/02/2011 Internal hemorrhoids Iron deficiency anemia 01/28/2010 Low back pain 03/05/2015 Mixed hyperlipidemia Obesity, Class I, BMI 30-34.9 07/25/2019 Osteoporosis 09/24/2007 Renal stone 09/19/2018 first one 09/2018 Sciatica 06/02/2008 Stage 3b chronic kidney disease ([facility]) 06/17/2017 Tendonitis, Achilles, left 01/09/2016 Type 2 diabetes mellitus with stage 3 chronic kidney disease, without long-term current use of insulin ([facility]) 07/19/2015 Previous Surgical History PAST SURGICAL HISTORY Procedure Laterality Date BX BREAST PERC VACUUM/ROTN 11/30/06 RIGHT DELIVERY ONLY , low cervical x 4 COLONOSCOPY 05/10/2015 repeat 10 yrs COLONOSCOPY FLX DX W/COLLJ SPEC WHEN PFRMD 07/23/05 repeat due 2015 COLONOSCOPY FLX DX W/COLLJ SPEC WHEN PFRMD 05/10/2015 Colonoscopy ESOPHAGOGASTRODUODENOSCOPY TRANSORAL DIAGNOSTIC 04/15/2010 EGD FOOT LEFT OP SURGERY 08/2011 bunionectomy PAST SURGICAL HISTORY OF and 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, non ca x2 PLCMT LOCALZTN CLIP,PERC,DURING BREAST BX 11/30/06 RIGHT SIGMOIDOSCOPY FLX DX W/COLLJ SPEC BR/WA IF PFRMD 07/1999 Sigmoidoscopy TYMPANOSTOMY LOC/TOP ANES BILA 2011 left TM tube Family History FAMILY HISTORY Problem Relation Age of Onset Stroke Mother Ischemic Heart Disease Father also diabetes Diabetes Sister Stroke Sister Osteoporosis Sister Diabetes Sister Osteoporosis Sister Carotid Disease Brother 95 other (pacemaker) Brother Seizures Brother other (complications of mono) Brother Patient Allergies ALLERGIES Allergen Reactions Bactrim [Sulfametho* Rash Cipro [Ciprofloxaci* Rash Clams Rash [place] Unknown Grass Pollen Itching Lactose Intolerance* Unknown Pork Unknown Seasonal Allergies Other: See Comments pollen Current Medications Current Outpatient Medications on File Prior to Visit Medication Sig lisinopril (ZESTRIL) 10 mg tablet Take 1 tablet by mouth once daily. blood sugar diagnostic (FREESTYLE LITE STRIPS) test strip Test blood sugar(s) one times daily. Dx: Type 2 DM - Controlled E11.9 Insulin: No glimepiride (AMARYL) 1 mg tablet Take 1 tablet by mouth daily with breakfast. metFORMIN (GLUCOPHAGE) 500 mg tablet Take 1 tablet by mouth daily with dinner. alendronate (FOSAMAX) 70 mg tablet Take 1 tablet by mouth one time a week. Take with a full glass of water, on an empty stomach; do NOT lie down for 30minutes. Ionrhfuflps-Cwram-NEE-Vit C-Mn 500-400-166.6 mg tab Take by mouth. multivitamin with minerals (ONE-A-DAY 50 PLUS ORAL) Take by mouth. blood sugar diagnostic (BLOOD GLUCOSE TEST) test strip Test blood sugar(s) 1 times daily. Dx: Type 2 DM - Controlled E11.9 Insulin: No Blood-Glucose Meter misc Check blood sugars once a day. Dx: E11.9 no insulin Cholecalciferol, Vitamin D3, 25 mcg (1,000 unit) cap Take 1,000 Units by mouth once daily. CALCIUM CARBONATE (TUMS E-X ORAL) Take 2 capsules by mouth once daily. Aspirin 81 mg ORAL Tab Take 81 mg by mouth once daily. No current facility-administered medications on file prior to visit. Social History Social History Tobacco Use Smoking status: Never Smokeless tobacco: Never Vaping Use Vaping Use: Never used Substance Use Topics Alcohol use: No Drug use: No Review of Symptoms REVIEW OF SYSTEMS GENERAL: No weight loss, malaise or fevers HEENT: Negative for frequent or significant headaches, No changes in vision, no nose bleeds or other nasal problems. Has noted some decreased hearing did recently see audiology. NECK: Negative for lumps, goiter, pain and significant neck swelling RESPIRATORY: Negative for cough, hemoptysis, wheezing, COPD, dyspnea or shortness of breath CARDIOVASCULAR: Negative for chest pain, leg swelling, hypertension, CHF or palpitations GI: No nausea, vomiting, or diarrhea, No heartburn or reflux symptoms, and no blood : No history of dysuria, frequency or blood MUSCULOSKELETAL: left knee feeling stiff today when she is standing. Thinks she may of sleep wrong last night. SKIN: Negative for lesions, rash, and itching PSYCH: Negative for sleep disturbance, mood disorder and recent psychosocial stressors HEMATOLOGY/LYMPHOLOGY: Negative for prolonged bleeding, bruising easily or swollen nodes ENDOCRINE: Negative for cold or heat intolerance, symptoms of low BS's NEURO: No history of headaches, syncope, paralysis, seizures. See HPI EXAM: BP 142/82 Pulse 98 Resp 16 Ht 155 cm (5' 1.02) Wt 84.4 kg (186 lb) SpO2 97% BMI 35.12 kg/m Last 4 Encounter Wt Readings: Date: Wt: 03/27/2023 84.4 kg (186 lb) 09/02/2022 82.6 kg (182 lb) 03/05/2022 79.4 kg (175 lb) 09/26/2021 80.3 kg (177 lb) General Appearance: Well appearing, alert, in no acute distress, well-hydrated, well nourished. and Obese. Skin: Skin color, texture, turgor normal, no suspicious rashes or lesions. Head: Normocephalic, no masses, lesions, tenderness or abnormalities. Eyes: Anicteric sclera. Pupils are equally round and reactive to light. Extraocular movements are intact. . Ears: External ears, TM's normal, canals clear. Nose/Sinuses: Nares normal, septum midline, mucosa normal, no drainage or sinus tenderness. Oropharynx: Lips, mucosa, and tongue normal, teeth and gums normal, oropharynx normal. Neck: Supple, no adenopathy; thyroid symmetric, normal size, no bruits. Lungs: Lungs clear to auscultation. No wheezing, rhonchi, rales.. Heart: RRR without murmur, gallop, or rubs. No ectopy. Abdomen: Normal abdominal exam, Abdomen soft, non-tender. Bowel sounds normal. No masses, organomegaly. Extremities: No deformities, edema, skin discoloration, clubbing or cyanosis. Good capillary refill. . Musculoskeletal: Muscular strength intact, No joint swelling, deformity, or tenderness. Peripheral Pulses: Normal. Neurologic: Gait normal. Reflexes normal and symmetric. Sensation to light touch and crainal nerves 2-12 intact.. Diabetic Foot Exam: Feet: Shoes and socks removed, no deformities, ulcers, calluses, sensitive to 10 gm microfilament, and vibratory exam within normal limits Skin: warm, dry, and no callouses or ulcer Vascular Pulses: Normal SEMMES-SALVADOR MONOFILAMENT TESTING Left Foot Right Foot Dorsal Surface Intact Dorsal Surface Intact Plantar Surface Intact Plantar Surface Intact Health Maintenance List Shingrix Vaccine(1 of 2) Never done RSV Vaccine(1 - 1-dose 60+ series) Never done DTaP,Tdap,Td Vaccine(2 - Td or Tdap) due on 08/15/2017 Covid-19 Vaccine(2022- season) due on 10/17/2022 Advance Directive Discussion due on 02/16/2023 Depression Assessment due on 02/16/2023 Diabetic Foot Exam due on 03/05/2023 Annual PCP Team Chronic Disease Visit due on 09/03/2023 BP Controlled (<130/80) due on 09/03/2023 HbA1C due on 09/16/2023 Dilated Retinal Exam due on 12/05/2023 LDL Cholesterol due on 03/18/2024 Serum Creatinine due on 03/18/2024 Hemoglobin/Hematocrit due on 03/18/2024 Urine Albumin:Creatinine Ratio due on 03/19/2024 Bone Density Screening Completed Influenza Vaccine Completed Hepatitis C Screening Completed Pneumococcal Vaccine: 65+ Completed Mammogram Screening Discontinued Colorectal Cancer Screening Discontinued Data reviewed Component Latest Ref Rng & Units 02/26/2022 08/25/2022 12/01/2022 03/18/2023 03/19/2023 WBC 3.70 - 11.00 k/uL 9.57 10.12 RBC 3.90 - 5.20 m/uL 4.66 4.50 Hemoglobin 11.5 - 15.5 g/dL 12.5 12.3 Hematocrit 36.0 - 46.0 % 38.1 38.5 MCV 80.0 - 100.0 fL 81.8 85.6 MCH 26.0 - 34.0 pg 26.8 27.3 MCHC 30.5 - 36.0 g/dL 32.8 31.9 RDW-CV 11.5 - 15.0 % 13.5 13.5 Platelet Count 150 - 400 k/uL 285 291 MPV 9.0 - 12.7 fL 11.6 11.2 Neut% % 54.2 51.1 Abs Neut (ANC) 1.45 - 7.50 k/uL 5.18 5.17 Lymph% % 33.0 38.0 Abs Lymph 1.00 - 4.00 k/uL 3.16 3.85 [place]% % 8.4 6.6 Abs [place] <0.87 k/uL 0.80 0.67 Eosin% % 3.3 2.7 Abs Eosin <0.46 k/uL 0.32 0.27 Baso% % 0.7 0.6 Abs Baso <0.11 k/uL 0.07 0.06 Immature Gran % % 0.4 1.0 IMMATURE GRANS (ABS) <0.10 k/uL 0.04 0.10 (H) NRBC /100 WBC 0.0 0.0 Absolute nRBC <0.01 k/uL <0.01 <0.01 DTYPE Auto Auto Color Yellow Yellow Dark Yellow (A) Clarity Clear Clear Clear Glucose, Urine Negative Negative Negative Bilirubin, Urine Negative Negative 1+ (A) Ketones, Urine Negative Negative Trace (A) Specific [place], Ur 1.005 - 1.030 1.033 (H) 1.027 Hemoglobin/Blood,Ur Negative Negative Negative pH, Urine <8.5 6.0 5.0 Protein, Urine Negative 3+ (A) Trace (A) Urobilinogen 0.2-1.0 EU/dL Negative 0.2 EU/dL Nitrites Negative Negative Negative Leukest Negative 250 Agustín/mL (A) Negative WBC, Urine 0-5 /HPF 6-10 /HPF (A) 0-5 /HPF RBC, Urine 0-2 /HPF 0-3 /HPF 0-2 /HPF Bacteria Negative /HPF Negative Epithelial Cells /HPF Few None Seen Hyaline Cast 0 /LPF 4-10 /LPF (A) 4-10 /LPF (A) Protein, Total 6.3 - 8.0 g/dL 6.9 6.9 Albumin 3.9 - 4.9 g/dL 4.1 3.8 (L) Calcium 8.5 - 10.2 mg/dL 10.1 9.6 10.1 Bilirubin, Total 0.2 - 1.3 mg/dL 0.3 0.3 Alkaline Phosphatase 34 - 123 U/L 49 49 AST 13 - 35 U/L 14 15 ALT 7 - 38 U/L 13 11 Glucose 74 - 99 mg/dL 183 (H) 113 (H) 116 (H) BUN 7 - 21 mg/dL 18 18 23 (H) Creatinine 0.58 - 0.96 mg/dL 1.33 (H) 1.49 (H) 1.45 (H) Sodium 136 - 144 mmol/L 139 142 140 Potassium 3.7 - 5.1 mmol/L 4.5 4.7 4.6 Chloride 97 - 105 mmol/L 106 (H) 106 (H) 106 (H) CO2 22 - 30 mmol/L 22 21 (L) 23 Anion Gap 9 - 18 mmol/L 11 15 11 eGFR >=60 mL/min/1.73m 41 (L) 36 (L) 37 (L) Total Cholesterol, Nonfasting <200 mg/dL 194 162 182 Triglycerides, Nonfasting <150 mg/dL 181 (H) 168 (H) 142 HDL Cholesterol, Nonfasting >39 mg/dL 43 43 44 LDL Cholesterol, Nonfasting <100 mg/dL 115 (H) 85 110 (H) Non HDL Cholesterol, Nonfasting <130 mg/dL 151 (H) 119 138 (H) VLDL Cholesterol, Nonfasting <30 mg/dL 36 (H) 34 (H) 28 Total Chol/HDL Ratio, Nonfasting <5.10 mg/dL 4.51 3.77 4.14 LDL/HDL Ratio, Nonfasting <2.54 mg/dL 2.67 (H) 1.98 2.50 Creatinine, Ur Random (UCRR) 20.0 - 300.0 mg/dL 360.2 (H) 320.4 (H) Albumin, Urine Random mg/L 88.3 36.4 Albumin/Creat Ratio <30 mg/g 25 11 Iron 41 - 186 ug/dL 68 77 TIBC 232 - 386 ug/dL 297 317 Transferrin Saturation 15.0 - 57.0 % 22.9 24.3 Hemoglobin A1C 4.3 - 5.6 % 8.3 (H) 6.0 (H) 6.4 (H) 6.5 (H) Estimated Average Glucose mg/dL 192 126 137 140 A/P ASSESSMENT/PLAN: 1. Medicare annual wellness visit, subsequent - ICD9: V70.0, ICD10: Z00.00 (primary diagnosis) - Counseled on healthy diet and regular exercise - Calcium intake with supplements or by diet of 1000 mg/day for under 50, 1227-3923 mg/day for 50+ - advised on Shingrix and RSV vaccines. 2. Type 2 diabetes mellitus with stage 3b chronic kidney disease, without long-term current use of insulin (HCC) - ICD9: 250.40, 585.3, ICD10: E11.22, N18.32 - Controlled - Continue current medications - Counseled on healthy diet and regular exercise - Discussed need for and benefit of weight loss. BMI 35.12 kg/(m^2) 3. Essential hypertension with goal blood pressure less than 130/85 - ICD9: 401.9, ICD10: I10 - Uncontrolled - Continue current medications - Recommend home blood pressure monitoring, to bring results to next visit - Encouraged sodium restriction, DASH or Mediterranean diet - Recommend regular aerobic exercise - Follow up in 2 weeks for hypertension visit 4. Mixed hyperlipidemia - ICD9: 272.2, ICD10: E78.2 - Uncontrolled - Worsening control - Counseled on healthy diet and regular exercise - Discussed need for and benefit of weight loss. BMI 35.12 kg/(m^2) 5. Stage 3b chronic kidney disease (HCC) - ICD9: 585.3, ICD10: N18.32 - Counseled on avoiding NSAIDs, adequate hydration 6. Gastroesophageal reflux disease without esophagitis - ICD9: 530.81, ICD10: K21.9 - controlled with diet. 7. Iron deficiency anemia, unspecified iron deficiency anemia type - ICD9: 280.9, ICD10: D50.9 - labs good. No changes needed. 8. Obesity, Class I, BMI 30-34.9 - ICD9: 278.00, ICD10: E66.9 - patient to work on weight loss. 9. Cholesteatoma of tympanum of right ear - ICD9: 385.32, ICD10: H71.11 - sees ENT 10. Age-related osteoporosis without current pathological fracture - ICD9: 733.01, ICD10: M81.0 - Reviewed the need for Calcium and Vitamin D supplements and weight bearing exercise as tolerated - it's been just under 5 years since re-starting her on fosamax. Will have her finish up what she has and then stop it. Check - DXA-AXIAL SKELETON - BD DXA TRABECULAR BONE SCORE (TBS) 11. Advance directive discussed with patient - ICD9: V65.49, ICD10: Z71.89 - patient to bring in copies. Requested Prescriptions Signed Prescriptions Disp Refills metFORMIN (GLUCOPHAGE) 500 mg tablet 90 tablet 1 Sig: Take 1 tablet by mouth daily with dinner. glimepiride (AMARYL) 1 mg tablet 90 tablet 1 Sig: Take 1 tablet by mouth daily with breakfast. F/u 6 months routine. Check Lipids, BMP, A1c prior F/u 3 weeks BP check I spent a total of 40 minutes on the date of the service which included preparing to see the patient, [id number] patient care, completing clinical documentation, performing a medically appropriate examination, counseling and educating the patient/family/caregiver and ordering medications, tests, or procedures.' Pancho Lopez MD documented in this encounter [facility] 01-23-2023 Miscellaneous Notes Pt advised of Dr Lopez's message. Pt verbalizes understanding. Pt was transferred to schedule appointment with neurology. Levar Serrano LPN Let patient know I'm not aware of this diagnosis ut the next step would be to return to the neurologist. Patient calling stating she is ok when sitting but when she stands up she gets shaky and can't stand still, feels weak. 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 Reports she is ok to drive and can walk short distances. Is afraid to walk very far in case she can't get back. Can grocery shop but has trouble getting groceries from the car to the kitchen. States when she sits down she gets immediate relief. Advises this is getting annoying. Has been seen for this this and has seen Neurology. 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 Thinks she may have Primary Orthostatic Tremor. Pt states she has also looked this up online and she has all of the symptoms. Wanting to know if Dr Lopez is familiar with this? Wanting to know if he could research this and advise if this could be what she has. She isn't sure what step to take first. Call pt back on home phone. Ok to leave message. Levar Serrano [employer] [facility] [facility] 12-09-2022 History of Present illness Narrative Dilated retinal visit. HM updated. Scan on 12/06/2022 9:15 AM by Provider, KESHAV Gaston: Consultation - Ophthalmology documented in this encounter [facility] 12-03-2022 Miscellaneous Notes Pt notified of results & instructions, pt voiced understanding. Vane Garcia LPN When patient returns call please let her know her DXA scan shows osteopenia and she should continue fosamax. Left message for patient to return call to office Génesis Apodaca Cma Please let patient know her hgb a1c is up to 6.4. this is still in prediabetes range however is worsening. documented in this encounter [facility] 09-02-2022 Instructions Klarissa Ramirez PA-C - 09/02/2022 11:57 AM EDT Repeat a1c in about 3 months. Otherwise follow up in 6 months with labs prior for your wellness exam. Return sooner as needed. BONE MINERAL DENSITY PATIENT INSTRUCTIONS = Bone mineral density testing measures the amount of calcium in certain parts of your bones. This information determines how strong your bones are. The test is used to detect osteoporosis, a disease in which the bone's mineral content and density are low, increasing a person's risk of fractures. The lumbar spine (lower back) and the hip are the skeletal sites usually examined. For the test, remember that: 1. You cannot take this test if you are . 2. Eat a normal diet on the day of the test. 3. Take your medications as you normally would. 4. DO NOT take calcium supplements (such as Tums) for 24 hours before the test. 5. On the day of the test, leave valuables (jewelry or credit cards) at home. 6. The test should be performed prior to oral, rectal or IV contrast studies, or at least 7 days after any of these studies. For the test, you may be asked to wear a hospital gown. You will lie on your back, on a padded table, in a comfortable position. Generally, you can resume your usual activities immediately. documented in this encounter [facility] 09-02-2022 History of Present illness Narrative Chief Complaint Patient presents with: 6 Month Exam HPI Shaheen Jean is a 77 year old female who presents here today for Chronic Medical Conditions.. Patient with hx of HTN, hyperlipidemia, GERD, CKD, DM2, osteoporosis, and those as below. Patient would like to stop fosamax if able. Willing to do another bone density scan. Also she feels like the 1000 of metformin may be a little to much. Some nausea issues. No other concerns today. Past medical history, appointments, medications, allergies reviewed. Previous Medical History PAST MEDICAL HISTORY Diagnosis Date Actinic keratoses 01/18/2010 Advance directive discussed with patient 03/05/2022 DPA: Lory (daughter) Age-related cataract of both eyes 04/13/2019 AK (actinic keratosis) 08/23/2020 Tx with cryo right dorasol hand 08/2020 Arthritis of right hip 12/06/2015 Arthritis of right shoulder region 12/06/2015 Calcaneal spur of left foot 01/09/2016 Cervical stenosis of spine 07/08/2021 Cholesteatoma of tympanum of right ear 03/22/[address] Mckenzie Chronic right shoulder pain 12/05/2015 Closed fracture of first lumbar vertebra (HCC) 04/19/2021 End plate fracture of L1 Closed fracture of one or more phalanges of foot 11/05/2009 Diverticulosis of large intestine without hemorrhage 03/05/2015 Essential hypertension with goal blood pressure less than 130/85 07/19/2015 External hemorrhoids GERD (gastroesophageal reflux disease) Hallux valgus (acquired) 09/02/2011 Internal hemorrhoids Iron deficiency anemia 01/28/2010 Low back pain 03/05/2015 Mixed hyperlipidemia Obesity, Class I, BMI 30-34.9 07/25/2019 Osteoporosis 09/24/2007 Renal stone 09/19/2018 first one 09/2018 Sciatica 06/02/2008 Stage 3b chronic kidney disease (HCC) 06/17/2017 Tendonitis, Achilles, left 01/09/2016 Type 2 diabetes mellitus with stage 3 chronic kidney disease, without long-term current use of insulin (HCC) 07/19/2015 Previous Surgical History PAST SURGICAL HISTORY Procedure Laterality Date BX BREAST PERC VACUUM/ROTN 11/30/06 RIGHT DELIVERY ONLY , low cervical x 4 COLONOSCOPY 05/10/2015 repeat 10 yrs COLONOSCOPY FLX DX W/COLLJ SPEC WHEN PFRMD 07/23/05 repeat due 2015 COLONOSCOPY FLX DX W/COLLJ SPEC WHEN PFRMD 05/10/2015 Colonoscopy ESOPHAGOGASTRODUODENOSCOPY TRANSORAL DIAGNOSTIC 04/15/2010 EGD FOOT LEFT OP SURGERY 08/2011 bunionectomy PAST SURGICAL HISTORY OF and 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, non ca x2 PLCMT LOCALZTN CLIP,PERC,DURING BREAST BX 11/30/06 RIGHT SIGMOIDOSCOPY FLX DX W/COLLJ SPEC BR/WA IF PFRMD 07/1999 Sigmoidoscopy TYMPANOSTOMY LOC/TOP ANES BILA 2011 left TM tube Family History FAMILY HISTORY Problem Relation Age of Onset Stroke Mother Ischemic Heart Disease Father also diabetes Diabetes Sister Stroke Sister Osteoporosis Sister Diabetes Sister Osteoporosis Sister Carotid Disease Brother 95 other (pacemaker) Brother Seizures Brother other (complications of mono) Brother Patient Allergies ALLERGIES Allergen Reactions Bactrim [Sulfametho* Rash Cipro [Ciprofloxaci* Rash Clams Rash [place] Unknown Grass Pollen Itching Lactose Intolerance* Unknown Pork Unknown Seasonal Allergies Other: See Comments pollen Current Medications Current Outpatient Medications on File Prior to Visit Medication Sig alendronate (FOSAMAX) 70 mg tablet Take 1 tablet by mouth one time a week. Take with a full glass of water, on an empty stomach; do NOT lie down for 30minutes. lisinopril (ZESTRIL) 10 mg tablet TAKE 1 TABLET ONCE DAILY metFORMIN (GLUCOPHAGE) 1,000 mg tablet Take 1 tablet by mouth daily with breakfast. glimepiride (AMARYL) 1 mg tablet Take 1 tablet by mouth daily with breakfast. Khohmwvxasa-Tltpn-MVB-Vit C-Mn 500-400-166.6 mg tab Take by mouth. multivitamin with minerals (ONE-A-DAY 50 PLUS ORAL) Take by mouth. blood sugar diagnostic (FREESTYLE LITE STRIPS) test strip Test blood sugar(s) one times daily. Dx: Type 2 DM - Controlled E11.9 Insulin: No blood sugar diagnostic (BLOOD GLUCOSE TEST) test strip Test blood sugar(s) 1 times daily. Dx: Type 2 DM - Controlled E11.9 Insulin: No Blood-Glucose Meter [facility] [place] Check blood sugars once a day. Dx: E11.9 no insulin Cholecalciferol, Vitamin D3, 25 mcg (1,000 unit) cap Take 1,000 Units by mouth once daily. CALCIUM CARBONATE (TUMS E-X ORAL) Take 2 capsules by mouth once daily. Aspirin 81 mg ORAL Tab Take 81 mg by mouth once daily. No current facility-administered medications on file prior to visit. Social History Social History Tobacco Use Smoking status: Never Smokeless tobacco: Never Substance Use Topics Alcohol use: No Drug use: No Review of Symptoms REVIEW OF SYSTEMS GENERAL: No weight loss, malaise or fevers NECK: Negative for lumps, goiter, pain and significant neck swelling RESPIRATORY: Negative for cough, hemoptysis, wheezing, COPD, dyspnea or shortness of breath CARDIOVASCULAR: Negative for chest pain, leg swelling, CHF or palpitations NEURO: No history of headaches, syncope, paralysis, seizures or tremors EXAM: BP 126/76 (BP Site: Right Arm, BP Position: Sitting, BP Cuff Size: Large Adult) Pulse 90 Temp 36.9 C (98.5 F) Resp 18 Wt 82.6 kg (182 lb) BMI 34.96 kg/m General Appearance: Well appearing, alert, in no acute distress, well-hydrated, well nourished.. Neck: Supple, no adenopathy; thyroid symmetric, normal size, no bruits. Lungs: Lungs clear to auscultation. No wheezing, rhonchi, rales.. Heart: RRR without murmur, gallop, or rubs. No ectopy. Extremities: No deformities, edema, skin discoloration, clubbing or cyanosis. Good capillary refill. . Peripheral Pulses: Normal. Health Maintenance List DTAP,TDAP,TD(2 - Td or Tdap) due on 03/05/2023 SHINGRIX VACCINE(1 of 2) due on 03/05/2023 COVID-19 VACCINE(5 - Moderna series) due on 03/05/2023 INFLUENZA(1) due on 10/17/2022 DILATED RETINAL EXAM due on 11/01/2022 HBA1C due on 02/25/2023 URINE ALBUMIN:CREATININE RATIO due on 02/26/2023 HEMOGLOBIN/HEMATOCRIT due on 02/26/2023 DIABETIC FOOT EXAM due on 03/05/2023 ANNUAL PCP TEAM CHRONIC DISEASE VISIT due on 03/05/2023 BP CONTROLLED (<130/80) due on 03/05/2023 LDL CHOLESTEROL due on 08/26/2023 SERUM CREATININE due on 08/26/2023 BONE DENSITY Completed ADVANCE DIRECTIVE DISCUSSION Completed DEPRESSION ASSESSMENT Completed HEPATITIS C SCREENING Completed PNEUMOCOCCAL: 65+ Completed MAMMOGRAM Discontinued COLORECTAL CANCER SCREENING Discontinued Data reviewed Last 6 Encounter Wt Readings: Date: Wt: 09/02/2022 82.6 kg (182 lb) 03/05/2022 79.4 kg (175 lb) 09/26/2021 80.3 kg (177 lb) 08/23/2021 81.6 kg (180 lb) 07/04/2021 81.8 kg (180 lb 6.4 oz) 06/20/2021 82 kg (180 lb 12.8 oz) Component Latest Ref Rng & Units 08/25/2022 Glucose 74 - 99 mg/dL 113 (H) BUN 7 - 21 mg/dL 18 Creatinine 0.58 - 0.96 mg/dL 1.49 (H) Sodium 136 - 144 mmol/L 142 Potassium 3.7 - 5.1 mmol/L 4.7 Chloride 97 - 105 mmol/L 106 (H) CO2 22 - 30 mmol/L 21 (L) Anion Gap 9 - 18 mmol/L 15 Calcium 8.5 - 10.2 mg/dL 9.6 eGFR >=60 mL/min/1.73m 36 (L) Total Cholesterol, Nonfasting <200 mg/dL 162 Triglycerides, Nonfasting <150 mg/dL 168 (H) HDL Cholesterol, Nonfasting >39 mg/dL 43 LDL Cholesterol, Nonfasting <100 mg/dL 85 Non HDL Cholesterol, Nonfasting <130 mg/dL 119 VLDL Cholesterol, Nonfasting <30 mg/dL 34 (H) Total Chol/HDL Ratio, Nonfasting <5.10 mg/dL 3.77 LDL/HDL Ratio, Nonfasting <2.54 mg/dL 1.98 Hemoglobin A1C 4.3 - 5.6 % 6.0 (H) Estimated Average Glucose mg/dL 126 ASSESSMENT/PLAN: 1. Type 2 diabetes mellitus with stage 3b chronic kidney disease, without long-term current use of insulin ([facility]) - ICD9: 250.40, 585.3, ICD10: E11.22, N18.32 (primary diagnosis) - Controlled - Continue current medications. We can try lowering metformin to 500mg and recheck a1c in 3 months. Patient can monitor glucose at home also and let us know if any issues. - HGB A1C - URINALYSIS, WITH MICROSCOPIC - ALBUMIN/CREAT RATIO RND UR - COMP METABOLIC PANEL - HGB A1C - CBC + DIFF 2. Essential hypertension with goal blood pressure less than 130/85 - ICD9: 401.9, ICD10: I10 - Controlled - Continue current medications - Recommend home blood pressure monitoring, to bring results to next visit - Encouraged sodium restriction, DASH or Mediterranean diet - Recommend regular aerobic exercise - URINALYSIS, WITH MICROSCOPIC - COMP METABOLIC PANEL 3. Mixed hyperlipidemia - ICD9: 272.2, ICD10: E78.2 - Controlled - Continue current medications - Counseled on healthy diet and regular exercise - LIPID PANEL, NONFASTING 4. Gastroesophageal reflux disease without esophagitis - ICD9: 530.81, ICD10: K21.9 - stable 5. Senile osteoporosis - ICD9: 733.01, ICD10: M81.0 - DXA-AXIAL SKELETON 6. Primary ovarian failure - ICD9: 256.39, ICD10: E28.39 - DXA-AXIAL SKELETON 7. Age-related osteoporosis without current pathological fracture - ICD9: 733.01, ICD10: M81.0 Will see if bone density has improved and can start drug holiday for fosamax per patient's preference. - DXA-AXIAL SKELETON 8. Stage 3b chronic kidney disease (HCC) - ICD9: 585.3, ICD10: N18.32 stable - COMP METABOLIC PANEL - CBC + DIFF 9. Iron deficiency anemia, unspecified iron deficiency anemia type - ICD9: 280.9, ICD10: D50.9 - IRON + TIBC Klarissa Ramirez PA-C documented in this encounter [facility] 06-17-2022 Miscellaneous Notes Detailed VM left on pt's identified voicemail of information below. Aline Landin LPN Let patient know she can finish up her 500 mg tab by taking two a day. The following approved medication requests have been transmitted electronically. Requested Prescriptions Signed Prescriptions Disp Refills metFORMIN (GLUCOPHAGE) 1,000 mg tablet 90 tablet 1 Sig: Take 1 tablet by mouth daily with breakfast. Authorizing Provider: PANCHO LOPEZ MD At [facility] on 03/05/22 patient was instructed to increase metformin to 1,000 mg daily. Phone call to patient to confirm her current dose. Patient reports that she is taking 1,000 mg daily, but is asking if she can take 2 500 mg tablets to finish the bottle I have from January. [facility] 03/05/22 NOV 09/02/22 Carina Drew MA Patient has been identified by name and date of : Yes Requested Prescriptions Pending Prescriptions Disp Refills metFORMIN (GLUCOPHAGE) 1,000 mg tablet 90 tablet 3 Sig: Take 1 tablet by mouth daily with breakfast. RX INSTRUCTIONS: Patient wants to know if she can use up the Metformin 500 mg tablets that she has? On 03/05/22, this was A MED UPDATE. Patient aware RX escripted to mail away pharmacy. Please call patient. Dari Escobar Pss documented in this encounter [facility] 06-09-2022 Miscellaneous Notes Patient returned call and given provider's message below with verbalized understanding. Left message for patient to contact office. Nelly Alexis MA Advise patient that having a BS in the 80's is good. I would not make any changes unless her blood sugar was going below 75. Patient calls and states that she is on glimepiride in the morning and patient takes her metformin 1000 mg before bed. Patient has noticed that her fasting blood sugar has been as low as 82 but mostly it has been in the 100s. Patient asking if provider wants her to decrease the Metformin that she takes at night? Please review and advise, Shelbi Strong RN documented in this encounter [facility] 10-16-2021 History of Present illness Narrative Patient presents for COVID booster. Denies any problems at this time. Tolerated injection well. Lory Jean LPN documented in this encounter [facility] 09-26-2021 History of Present illness Narrative Images from the original note were not included. [facility] [place] Follow-up Visit Follow-up note September 26, 2021 HPI: Ms. Jean presents today for a follow-up visit. Per her previous visit on 07/04/21: R25.1 Shakiness (primary encounter diagnosis) R53.1 Generalized weakness R26.89 Balance problems M48.02 Cervical stenosis of spine Comment: Patient previously seen for generalized weakness and shakiness for one year. Shakiness most often noted in legs but can occasionally present in arms as well. Still not noting any symptoms when sitting, using assistive ambulatory divide or walking quickly. Sx resolve upon sitting. History of vestibular schwannoma with surgical intervention, DM, htn, CKD 3, and iron deficiency anemia. Blood work and MRI of brain unremarkable. Since time of previous appointment she has had additional blood work completed all of which were unremarkable and without evidence of inflammation, MG, vitamin deficiency, or muscle breakdown. MRA head/neck without evidence of stenosis or occlusion. XR cervical spine noting disc space narrowing throughout. Lastly, tilt table testing ordered to evaluate for orthostatic hypotension, however, not completed at this time. Exam today in office still noting brisk reflexes. Tremor present to upper and lower extremities upon standing for orthostatic VS. Note, orthostatic VS WNL. No tremor noted on ambulation. At this time as orthostatic VS in office were unremarkable, will defer tilt table testing. Regarding cervical changes noted on MRI, will have pt begin PT given balance concerns. Lastly, will place consult to movement disorder clinic for further evaluation given unremarkable testing thus far. Since June she she has finished PT in July. States things have improved and she feels less shaky. Feels it may be related to nerves. States she cannot stay on her feet for too long. Denies dizziness or lightheadedness. Sometimes feels off balance when looking up. Does not feel pressure is dropping too low. Denies neck pain and low back pain. Per PT report on 08/07/21: SUBJECTIVE: Patient Reason for Visit: Pt. was able to stand long enough to make a cake this morning. She had much pain yesterday without explanation, but today she feels ok. Pt. reports very little shakiness anymore and has improved activity tolerance.. Denies tremor. Denies freezing when walking. Denies leg weakness. Denies loss of vision, speech changes. Denies chest pain, palpitations. Denies headaches. Weakness has improved when in the shower. Still will sit on a stool when shampooing her hair in the shower. Can stand and rinse off. Better than before. Would like to start silver sneakers in the fall. Has been doing almost everything on her own now such as making the bed. PAST MEDICAL HISTORY Diagnosis Date Actinic keratoses 01/18/2010 Age-related cataract of both eyes 04/13/2019 AK (actinic keratosis) 08/23/2020 Tx with cryo right dorasol hand 08/2020 Arthritis of right hip 12/06/2015 Arthritis of right shoulder region 12/06/2015 Calcaneal spur of left foot 01/09/2016 Cholesteatoma of tympanum of right ear 03/22/[address] 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) 07/19/2015 Diverticulosis of large intestine without hemorrhage 03/05/2015 Essential hypertension with goal blood pressure less than 130/85 07/19/2015 External hemorrhoids GERD (gastroesophageal reflux disease) Hallux valgus (acquired) 09/02/2011 Internal hemorrhoids Iron deficiency anemia 01/28/2010 Low back pain 03/05/2015 Mixed hyperlipidemia Obesity, Class I, BMI 30-34.9 07/25/2019 Osteoporosis 09/24/2007 Pain in joint, shoulder region 01/08/2005 Pain in right hip 12/05/2015 Renal stone 09/19/2018 first one 09/2018 Sciatica 06/02/2008 Tendonitis, Achilles, left 01/09/2016 PAST SURGICAL HISTORY Procedure Laterality Date BX BREAST PERC VACUUM/ROTN 11/30/06 RIGHT DELIVERY ONLY , low cervical x 4 COLONOSCOPY 05/10/2015 repeat 10 yrs COLONOSCOPY FLX DX W/COLLJ SPEC WHEN PFRMD 07/23/05 repeat due 2015 COLONOSCOPY FLX DX W/COLLJ SPEC WHEN PFRMD 05/10/2015 Colonoscopy ESOPHAGOGASTRODUODENOSCOPY TRANSORAL DIAGNOSTIC 04/15/2010 EGD FOOT LEFT OP SURGERY 08/2011 bunionectomy PAST SURGICAL HISTORY OF and 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, non ca x2 PLCMT LOCALZTN CLIP,PERC,DURING BREAST BX 11/30/06 RIGHT SIGMOIDOSCOPY FLX DX W/COLLJ SPEC BR/WA IF PFRMD 07/1999 Sigmoidoscopy TYMPANOSTOMY LOC/TOP ANES BILA 2010 left TM tube Current Outpatient Medications on File Prior to Visit Medication Sig Vizquybuwsr-Oxwgh-SWE-Vit C-Mn 500-400-166.6 mg tab Take by mouth. metFORMIN (GLUCOPHAGE) 500 mg tablet Take 1 tablet by mouth daily with breakfast. alendronate (FOSAMAX) 70 mg tablet Take 1 tablet by mouth one time a week. Take with a full glass of water, on an empty stomach; do NOT lie down for 30minutes. lisinopril (ZESTRIL, PRINIVIL) 10 mg tablet Take 1 tablet by mouth once daily. diclofenac (VOLTAREN ARTHRITIS PAIN) 1 % topical gel Apply 2 g to affected area four times daily. (Patient not taking: Reported on 08/23/2021 ) multivitamin with minerals (ONE-A-DAY 50 PLUS ORAL) Take by mouth. blood sugar diagnostic (FREESTYLE LITE STRIPS) test strip Test blood sugar(s) one times daily. Dx: Type 2 DM - Controlled E11.9 Insulin: No blood sugar diagnostic (BLOOD GLUCOSE TEST) test strip Test blood sugar(s) 1 times daily. Dx: Type 2 DM - Controlled E11.9 Insulin: No Blood-Glucose Meter misc Check blood sugars once a day. Dx: E11.9 no insulin Cholecalciferol, Vitamin D3, (VITAMIN D) 1,000 unit cap Take 1,000 Units by mouth once daily. CALCIUM CARBONATE (TUMS E-X ORAL) Take 2 capsules by mouth once daily. Aspirin 81 mg ORAL Tab Take 81 mg by mouth once daily. No current facility-administered medications on file prior to visit. Social History Tobacco Use Smoking status: Never Smokeless tobacco: Never Substance Use Topics Alcohol use: No Drug use: No ALLERGIES Allergen Reactions Bactrim [Sulfametho* Rash Cipro [Ciprofloxaci* Rash Clams Rash [place] Unknown Grass Pollen Itching Lactose Intolerance* Unknown Pork Unknown Seasonal Allergies Other: See Comments pollen Review of Systems: ENT: denies + loss of hearing, vertigo Vision: denies blurring vison, double vision/diplopia Cardiopulmonary: denies chest pain, palpitations Respiratory: denies shortness of breath GI: denies recent nausea, vomiting, diarrhea, constipation : denies incontinence Musculoskeletal: denies + weakness Back/spine: denies low back or cervical pains Neuro: Denies + tremors (shaky feeling), loss of feeling, dizziness, seizure, blackout, paresthesia, facial paresthesia, facial weakness, difficulty in speech, slurring of words, dysarthria, dysphagia, memory loss, headache Physical Exam: 09/26/21 1616 BP: 134/86 Pulse: 97 Resp: 16 Temp: (!) 35.8 C (96.5 F) TempSrc: Temporal Artery SpO2: 97% Weight: 80.3 kg (177 lb) Patient is alert and in no distress. Dress is appropriate. Mood is appropriate Breathing appears regular and unstressed Neurologic examination: Cognitively intact. No deficits. No formal MMSE performed. CN: Pupils equal and reactive to light, extraocular movements intact with no nystagmus, face is symmetric with no facial droop, hearing intact bilaterally, symmetric elevation of the soft palate, tongue is midline with no deviation, shoulder shrug is symmetric. Motor exam shows 5/5 strength symmetric through the upper and lower extremities in all groups tested. Sensory intact to light touch and in all extremities. Vibratory sensation is intact and symmetric all extremities. Deep tendon reflexes are brisk and symmetric at the biceps, brachioradialis, triceps, patella, and achilles bilaterally. Negative Blackmon's bilaterally. Coordination: No dysmetria on finger to nose. No tremors noted with arms outstretched. No tremor at rest or after/during ambulation. No drift seen. Tandem with imbalance. MAINOR of pronation and supination, finger and hand tapping intact. Toe tapping intact. No rigidity, cog wheeling, no bradykinesia. Labs/studies: Previously Reviewed: MRA Neck WO/Brain WO 03/20/21: There is plaque with mild, less than 50% narrowing on the left. There is no hemodynamically significant internal carotid artery stenosis. Normal MRA of the head. No aneurysm or large vessel occlusion. XR Cervical Spine 03/11/21: 4 views of the cervical spine demonstrate osteopenia multilevel degenerative change with vertebral body osteophytosis and disc space narrowing, greatest at C3-4, C5-6, C6-7 and C7-T1. There are no vertebral body compression deformities and alignment is well maintained. Bilateral obliques demonstrate mild foraminal narrowing at C4-5 and C5-6 on the left C5-6 and C6-7 on the right moderate foraminal narrowing is noted at C3-4 on the right. Moderate to severe foraminal narrowing is noted at C3-4 on the left. The atlantoaxial interval and craniocervical junction are intact. There is no prevertebral soft tissue abnormality. Component Latest Ref Rng & Units 03/08/2021 Acetylcholine Recept/Binding, Qual Negative Negative Acetylcholine Recept/Binding <0.21 nmol/L <0.02 CRP <0.9 mg/dL 0.7 WSR 0 - 20 mm/hr 31 (H) Vitamin B12 232 - 1,245 pg/mL 453 TSH 0.270 - 4.200 uU/mL 2.450 Aldolase 1.5 - 8.1 U/L 3.2 MRI Brain W/WO 09/18/2020: FINDINGS: Normal bilateral temporal bones. Normal bilateral internal auditory canals. There is no demonstrated intracanalicular or cisternal vestibular schwannoma (acoustic neuroma). There is no enhancement of the bilateral VIIth or VIIIth cranial nerves. Normal bilateral cochlea, vestibules and semicircular canals. There is mild cerebral atrophy with widening of the extra-axial spaces and ventricular dilatation. There are a limited number of small white matter hyperintensities, distributed throughout the deep white matter tracts of the cerebral hemispheres, consistent with mild chronic white matter ischemic changes. There is no evidence for recent intracranial ischemia or other cause of cytotoxic edema on diffusion weighted imaging (DWI). Normal bilateral basal ganglia. Normal thalami. Normal flow voids within the major intracranial circulation suggesting patency by spin echo criteria. Normal venous enhancement. There is no enhancing intra-axial or extra-axial abnormality. There is no extra-axial fluid accumulation. Normal sella turcica, pituitary gland, infundibular stalk, optic chiasm and hypothalamus. Normal tectal plate and pineal gland. Normal midbrain, kash and medulla. Normal cerebellum. Normal basal cisterns. No demonstrated orbital abnormality, within the constraints of a routine brain study. Normal visualized paranasal sinuses. Normal calvarium and skull base. Normal visualized soft tissue structures. Normal visualized upper cervical spine. IMPRESSION: Involutional changes of the brain, as described above. Component Latest Ref Rng & Units 02/06/2021 02/22/2021 WBC 3.70 - 11.00 k/uL 9.09 RBC 3.90 - 5.20 m/uL 4.33 Hemoglobin 11.5 - 15.5 g/dL 11.6 Hematocrit 36.0 - 46.0 % 36.7 MCV 80.0 - 100.0 fL 84.8 MCH 26.0 - 34.0 pG 26.8 MCHC 30.5 - 36.0 g/dL 31.6 RDW-CV 11.5 - 15.0 % 13.5 Platelet Count 150 - 400 k/uL 321 MPV 9.0 - 12.7 fL 11.1 Neut% % 57.0 Abs Neut (ANC) 1.45 - 7.50 k/uL 5.19 Lymph% % 32.2 Abs Lymph 1.00 - 4.00 k/uL 2.93 [place]% % 7.3 Abs [place] <0.87 k/uL 0.66 Eosin% % 2.9 Abs Eosin <0.46 k/uL 0.26 Baso% % 0.6 Abs Baso <0.11 k/uL 0.05 Nucleated Reds 0 /100 WBC 0.0 Absolute nRBC <0.01 k/uL <0.01 Diff Type Auto Diff Protein, Total 6.3 - 8.0 g/dL 6.7 Albumin 3.9 - 4.9 g/dL 3.8 (L) Calcium 8.5 - 10.2 mg/dL 9.3 Bilirubin, Total 0.2 - 1.3 mg/dL 0.3 Alkaline Phosphatase 34 - 123 U/L 50 AST 13 - 35 U/L 12 (L) Glucose 74 - 99 mg/dL 117 (H) BUN 7 - 21 mg/dL 16 Creatinine 0.58 - 0.96 mg/dL 1.23 (H) Sodium 136 - 144 mmol/L 141 Potassium 3.7 - 5.1 mmol/L 4.3 Chloride 97 - 105 mmol/L 107 (H) CO2 22 - 30 mmol/L 23 Anion Gap 9 - 18 mmol/L 11 ALT 7 - 38 U/L 10 eGFR- 51 eGFR-All Other Races . 42 Total Cholesterol, Nonfasting <200 mg/dL 167 Triglycerides, Nonfasting <150 mg/dL 169 (H) HDL Cholesterol, Nonfasting >39 mg/dL 42 LDL Cholesterol, Nonfasting <100 mg/dL 91 Non HDL Cholesterol, Nonfasting <130 mg/dL 125 VLDL Cholesterol, Nonfasting <30 mg/dL 34 (H) Total Chol/HDL Ratio, Nonfasting <5.10 mg/dL 3.98 LDL/HDL Ratio, Nonfasting <2.54 mg/dL 2.17 Iron 41 - 186 ug/dL 56 TIBC 232 - 386 ug/dL 283 Transferrin Saturation 15 - 57 % 20 Hemoglobin A1C 4.3 - 5.6 % 6.8 (H) Estimated Average Glucose mg/dL 148 CK 42 - 196 U/L 26 (L) WSR 0 - 20 mm/hr 54 (H) CRP <0.9 mg/dL 2.1 (H) Assessment/Plan: R25.1 Shakiness (primary encounter diagnosis) R53.1 Generalized weakness R26.89 Balance problem M48.02 Cervical stenosis of spine Comment: Pt previously seen for generalized weakness and shakiness for one year. Shakiness most often noted in legs but can occasionally present in arms as well. No symptoms when sitting, using assistive device, or walking quickly. History of vestibular schwannoma with surgical intervention, DM, htn, CKD 3, and iron deficiency anemia. MRI/A of brain and neck unremarkable as was blood work including evaluation for MG, vitamin deficiency, and muscle breakdown. XR cervical spine noting disc space narrowing throughout. Since time of her previous appointment she has completed a course of physical therapy and states that symptoms have significantly improved. No tremor noted on exam either with standing or on ambulation. Discussed further testing such as MRI of cervical spine, however, as symptoms have improved will hold off at this time. Also of note, consult previously placed to movement disorder clinic. She has not yet scheduled but again, as symptoms have improved will hold off on scheduling at this time. Mindi Carter APRN.KISHORE I spent a total of 30 minutes on the date of the service which included preparing to see the patient, [id number] patient care, completing clinical documentation, obtaining and/or reviewing separately obtained history, performing a medically appropriate examination, and counseling and educating the patient/family/caregiver. documented in this encounter [facility] 08-26-2021 Miscellaneous Notes Pt called and is notified of providers results. Pt voices understanding. Kathi Lopez RN Left message for patient to contact office. Nelly Alexis MA Let patient know calcium labs were ok. documented in this encounter [facility] 08-24-2021 Evaluation note Diagnosis Type 2 diabetes mellitus with stage 3 chronic kidney disease, without long-term current use of insulin, unspecified whether stage 3a or 3b CKD (HCC)- Primary Essential hypertension with goal blood pressure less than 130/85 Mixed hyperlipidemia Gastroesophageal reflux disease without esophagitis Esophageal reflux Stage 3 chronic kidney disease, unspecified whether stage 3a or 3b CKD (HCC) Iron deficiency anemia, unspecified iron deficiency anemia type Obesity, Class I, BMI 30-34.9 Obesity, unspecified Hypercalcemia documented in this encounter [facility]07-08-2022 Instructions* Patient Instructions* Pancho Lopez MD - 08/23/2021 12:25 PM EDT Please get labs and urine test done on or after 02/04/2922 prior to your next visit. Stop the glimepiride and decrease the Metformin to 500 mg a day in the morning. documented [facility]22 History of Present illness Narrative* Pancho Lopez MD - 08/23/2021 12:00 PM EDT Chief Complaint Patient presents with: F/U 6 months HPI Shaheen Jean is a 76 year old female who presents here today for 6 month follow up. Patient with hx of DM2, HTN, HLP, CKD, anemia, osteoporosis, obesity and those as below. Patient has been seeing Neurology for her hand shaking. Patient has been doing well. No new issues or concerns. Past medical history, appointments, medications, allergies reviewed. Previous Medical History PAST MEDICAL HISTORY Diagnosis Date Actinic keratoses 01/18/2010 Age-related cataract of both eyes 04/13/2019 AK (actinic keratosis) 08/23/2020 Tx with cryo right dorasol hand 08/2020 Arthritis of right hip 12/06/2015 Arthritis of right shoulder region 12/06/2015 Calcaneal spur of left foot 01/09/2016 Cholesteatoma of tympanum of right ear 03/22/[address] 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) 07/19/2015 Diverticulosis of large intestine without hemorrhage 03/05/2015 Essential hypertension with goal blood pressure less than 130/85 07/19/2015 External hemorrhoids GERD (gastroesophageal reflux disease) Hallux valgus (acquired) 09/02/2011 Internal hemorrhoids Iron deficiency anemia 01/28/2010 Low back pain 03/05/2015 Mixed hyperlipidemia Obesity, Class I, BMI 30-34.9 07/25/2019 Osteoporosis 09/24/2007 Pain in joint, shoulder region 01/08/2005 Pain in right hip 12/05/2015 Renal stone 09/19/2018 first one 09/2018 Sciatica 06/02/2008 Tendonitis, Achilles, left 01/09/2016 Previous Surgical History PAST SURGICAL HISTORY Procedure Laterality Date BX BREAST PERC VACUUM/ROTN 11/30/06 RIGHT DELIVERY ONLY , low cervical x 4 COLONOSCOPY 05/10/2015 repeat 10 yrs COLONOSCOPY FLX DX W/COLLJ SPEC WHEN PFRMD 07/23/05 repeat due 2015 COLONOSCOPY FLX DX W/COLLJ SPEC WHEN PFRMD 05/10/2015 Colonoscopy ESOPHAGOGASTRODUODENOSCOPY TRANSORAL DIAGNOSTIC 04/15/2010 EGD FOOT LEFT OP SURGERY 08/2011 bunionectomy PAST SURGICAL HISTORY OF and 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, non ca x2 PLCMT LOCALZTN CLIP,PERC,DURING BREAST BX 11/30/06 RIGHT SIGMOIDOSCOPY FLX DX W/COLLJ SPEC BR/WA IF PFRMD 07/1999 Sigmoidoscopy TYMPANOSTOMY LOC/TOP ANES BILA 2011 left TM tube Family History FAMILY HISTORY Problem Relation Age of Onset Stroke Mother Ischemic Heart Disease Father also diabetes Diabetes Sister Stroke Sister Osteoporosis Sister Osteoporosis Sister Seizures Brother other (complications of mono) Brother Patient Allergies ALLERGIES Allergen Reactions Bactrim [Sulfametho* Rash Cipro [Ciprofloxaci* Rash Clams Rash [place] Unknown Grass Pollen Itching Lactose Intolerance* Unknown Pork Unknown Seasonal Allergies Other: See Comments pollen Current Medications Current Outpatient Medications on File Prior to Visit Medication Sig alendronate (FOSAMAX) 70 mg tablet Take 1 tablet by mouth one time a week. Take with a full glass of water, on an empty stomach; do NOT lie down for 30minutes. metFORMIN (GLUCOPHAGE) 1,000 mg tablet Take 1 tablet by mouth daily with dinner. lisinopril (ZESTRIL, PRINIVIL) 10 mg tablet Take 1 tablet by mouth once daily. glimepiride (AMARYL) 1 mg tablet Take 1 tablet by mouth daily with breakfast. diclofenac (VOLTAREN ARTHRITIS PAIN) 1 % topical gel Apply 2 g to affected area four times daily. amoxicillin (AMOXIL) 875 mg tablet Take 875 mg by mouth twice daily with meals. (Patient not taking: Reported on 03/07/2021 ) multivitamin with minerals (ONE-A-DAY 50 PLUS ORAL) Take by mouth. blood sugar diagnostic (FREESTYLE LITE STRIPS) test strip Test blood sugar(s) one times daily. Dx: Type 2 DM - Controlled E11.9 Insulin: No blood sugar diagnostic (BLOOD GLUCOSE TEST) test strip Test blood sugar(s) 1 times daily. Dx: Type 2 DM - Controlled E11.9 Insulin: No Blood-Glucose Meter [facility] [place] Check blood sugars once a day. Dx: E11.9 no insulin Cholecalciferol, Vitamin D3, (VITAMIN D) 1,000 unit cap Take 1,000 Units by mouth once daily. CALCIUM CARBONATE (TUMS E-X ORAL) Take 2 capsules by mouth once daily. Aspirin 81 mg ORAL Tab Take 81 mg by mouth once daily. No current facility-administered medications on file prior to visit. Social History Social History Tobacco Use Smoking status: Never Smoker Smokeless tobacco: Never Used Substance Use Topics Alcohol use: No Drug use: No Review of Symptoms REVIEW OF SYSTEMS GENERAL: No weight loss, malaise or fevers NECK: Negative for lumps, goiter, pain and significant neck swelling RESPIRATORY: Negative for cough, hemoptysis, wheezing, COPD, increased dyspnea or shortness of breath from base line CARDIOVASCULAR: Negative for chest pain, leg swelling, hypertension, CHF or palpitations GI: No nausea, vomiting, or diarrhea and No heartburn or reflux symptoms : No history of dysuria, blood ENDOCRINE: Negative for cold or heat intolerance, symptoms of low BS's Getting some fasting sugars in the 80's with changes in her diet. NEURO: No history of headaches, syncope, paralysis, seizures or worsening of her tremors (which have improved) EXAM: BP 128/64 (BP Site: Left Arm, BP Position: Sitting, BP Cuff Size: Large Adult) Pulse 82 Resp 16 Wt 81.6 kg (180 lb) BMI 33.55 kg/m Last 5 Encounter Wt Readings: Date: Wt: 08/23/2021 81.6 kg (180 lb) 07/04/2021 81.8 kg (180 lb 6.4 oz) 06/20/2021 82 kg (180 lb 12.8 oz) 04/22/2021 83 kg (183 lb) 03/07/2021 83.9 kg (185 lb) General Appearance: Well appearing, alert, in no acute distress, well-hydrated, well nourished.. Eyes: Anicteric sclera. Pupils are equally round and reactive to light. Extraocular movements are intact. . Neck: Supple, no adenopathy; thyroid symmetric, normal size, no bruits. Lungs: Lungs clear to auscultation. No wheezing, rhonchi, rales.. Heart: RRR without murmur, gallop, or rubs. No ectopy. Abdomen: Normal abdominal exam, Abdomen soft, non-tender. Bowel sounds normal. No masses, organomegaly. Extremities: No deformities, edema, skin discoloration, Musculoskeletal: Muscular strength intact, No joint swelling, deformity, or tenderness. Peripheral Pulses: Normal. Neurologic: Gait normal. Sensation to light touch and crainal nerves 2-12 intact.. Health Maintenance List SHINGRIX VACCINE(1 of 2) Never done DTAP,TDAP,TD(2 - Td or Tdap) due on 08/15/2017 ADVANCE DIRECTIVE DISCUSSION Never done BP CONTROLLED (<130/80) due on 03/21/2021 COVID-19 VACCINE(4 - Booster for Moderna series) due on 05/04/2021 DEPRESSION SCREENING due on 08/16/2021 DIABETIC FOOT EXAM due on 08/22/2021 DILATED RETINAL EXAM due on 08/30/2021 INFLUENZA(1) due on 10/17/2021 URINE ALBUMIN:CREATININE RATIO due on 02/06/2022 HBA1C due on 02/14/2022 ANNUAL PCP TEAM CHRONIC DISEASE VISIT due on 04/22/2022 LDL CHOLESTEROL due on 08/15/2022 SERUM CREATININE due on 08/15/2022 HEMOGLOBIN/HEMATOCRIT due on 08/15/2022 BONE DENSITY Completed HEPATITIS C SCREENING Completed PNEUMOCOCCAL: 65+ Completed Data reviewed Component Latest Ref Rng & Units 02/06/2021 08/15/2021 WBC 3.70 - 11.00 k/uL 9.09 10.03 RBC 3.90 - 5.20 m/uL 4.33 4.70 Hemoglobin 11.5 - 15.5 g/dL 11.6 12.7 Hematocrit 36.0 - 46.0 % 36.7 39.2 MCV 80.0 - 100.0 fL 84.8 83.4 MCH 26.0 - 34.0 pg 26.8 27.0 MCHC 30.5 - 36.0 g/dL 31.6 32.4 RDW-CV 11.5 - 15.0 % 13.5 13.9 Platelet Count 150 - 400 k/uL 321 315 MPV 9.0 - 12.7 fL 11.1 11.4 Neut% % 57.0 54.7 Abs Neut (ANC) 1.45 - 7.50 k/uL 5.19 5.49 Lymph% % 32.2 35.3 Abs Lymph 1.00 - 4.00 k/uL 2.93 3.54 [place]% % 7.3 6.8 Abs [place] <0.87 k/uL 0.66 0.68 Eosin% % 2.9 2.4 Abs Eosin <0.46 k/uL 0.26 0.24 Baso% % 0.6 0.5 Abs Baso <0.11 k/uL 0.05 0.05 Immature Gran % % 0.3 IMMATURE GRANS (ABS) <0.10 k/uL 0.03 NRBC /100 WBC 0.0 Absolute nRBC <0.01 k/uL <0.01 <0.01 DTYPE Auto Nucleated Reds 0 /100 WBC 0.0 Diff Type Auto Diff Protein, Total 6.3 - 8.0 g/dL 6.7 7.2 Albumin 3.9 - 4.9 g/dL 3.8 (L) 4.2 Calcium 8.5 - 10.2 mg/dL 9.3 10.6 (H) Bilirubin, Total 0.2 - 1.3 mg/dL 0.3 0.3 Alkaline Phosphatase 34 - 123 U/L 50 59 AST 13 - 35 U/L 12 (L) 16 Glucose 74 - 99 mg/dL 117 (H) 122 (H) BUN 7 - 21 mg/dL 16 22 (H) Creatinine 0.58 - 0.96 mg/dL 1.23 (H) 1.35 (H) Sodium 136 - 144 mmol/L 141 140 Potassium 3.7 - 5.1 mmol/L 4.3 4.8 Chloride 97 - 105 mmol/L 107 (H) 105 CO2 22 - 30 mmol/L 23 22 Anion Gap 9 - 18 mmol/L 11 13 ALT 7 - 38 U/L 10 13 eGFR- 51 eGFR-All Other Races . 42 eGFR >=60 mL/min/1.73m 41 (L) Color Yellow Light Yellow Clarity Clear Clear Glucose, Urine Negative Negative Bilirubin, Urine Negative Negative Ketones, Urine Negative Negative Specific [place], Ur 1.005 - 1.030 1.020 Hemoglobin/Blood,Ur Negative Negative pH, Urine 5.0 - 8.0 6.0 Protein, Urine Negative Negative Urobilinogen Negative Negative Nitrites Negative Negative Leukest Negative Trace (A) WBC, Urine 0-5 /HPF 0-5 /HPF RBC, Urine 0-3 /HPF 0-3 /HPF Epithelial Cells /HPF Few Total Cholesterol, Nonfasting <200 mg/dL 167 190 Triglycerides, Nonfasting <150 mg/dL 169 (H) 170 (H) HDL Cholesterol, Nonfasting >39 mg/dL 42 45 LDL Cholesterol, Nonfasting <100 mg/dL 91 111 (H) Non HDL Cholesterol, Nonfasting <130 mg/dL 125 145 (H) VLDL Cholesterol, Nonfasting <30 mg/dL 34 (H) 34 (H) Total Chol/HDL Ratio, Nonfasting <5.10 mg/dL 3.98 4.22 LDL/HDL Ratio, Nonfasting <2.54 mg/dL 2.17 2.47 Iron 41 - 186 ug/dL 56 58 TIBC 232 - 386 ug/dL 283 325 Transferrin Saturation 15.0 - 57.0 % 20 17.8 Hemoglobin A1C 4.3 - 5.6 % 6.8 (H) 5.9 (H) Estimated Average Glucose mg/dL 148 123 A/P ASSESSMENT/PLAN: 1. Type 2 diabetes mellitus with stage 3 chronic kidney disease, without long- term current use of insulin, unspecified whether stage 3a or 3b CKD (HCC) - ICD9: 250.40, 585.3, ICD10: E11.22, N18.30 (primary diagnosis) Controlled. improved control - Continue current medications - Decrease metformin (Glucophage) to 500 mg in AM - Discontinue glimepiride (Amaryl) - BP goal of <130/80 - LDL goal of <100 2. Essential hypertension with goal blood pressure less than 130/85 - ICD9: 401.9, ICD10: I10 - good control - Continue current medication(s) - Recommended regular aerobic exercise. - Recommend home blood pressure monitoring, to bring results in on next visit - Goal of BP <130/80 3. Mixed hyperlipidemia - ICD9: 272.2, ICD10: E78.2 - suboptimal control - Encouraged following a low fat, low cholesterol diet. - Discussed the benefits of regular aerobic exercise and weight loss. - Encouraged following a low carbohydrate, healthy oil intake diet. - Continue current therapy. 4. Gastroesophageal reflux disease without esophagitis - ICD9: 530.81, ICD10: K21.9 - Controlled with diet. 5. Stage 3 chronic kidney disease, unspecified whether stage 3a or 3b CKD (HCC) - ICD9: 585.3, ICD10: N18.30 - discussed increased hydration 6. Iron deficiency anemia, unspecified iron deficiency anemia type - ICD9: 280.9, ICD10: D50.9 - Labs normal. No changes. 7. Obesity, Class I, BMI 30-34.9 - ICD9: 278.00, ICD10: E66.9 Weight decreasing - Behavioral intervention 8. Hypercalcemia - ICD9: 275.42, ICD10: E83.52 - Will repeat calcium and check PTH. F/u in 6 months extensive check CMP, Lipid, UA, Urine micro albumin, A1c, CBC, Iron prior. Pancho Lopez MD documented in this encounter[facility]22 Miscellaneous Notes* Telephone Encounter - Micki Amita [facility] - 08/08/2021 3:40 PM EDT Patient has been identified by name and date of : Yes Pending Prescriptions Disp Refills ALENDRONATE 70 MG TABLET 12 tablet 3 Sig: Take 1 tablet by mouth one time a week. Take with a full glass of water, on an empty stomach; do NOT lie down for 30minutes. ELLA: No RX INSTRUCTIONS: Patient aware RX escripted to mail away pharmacy. No need to notify patient. Micki Kay documented in this encounterV[facility]06-[facility]22 History of Present illness Narrative* Carlyn Alfredo, PT - 08/05/2021 1:04 PM EDT Episode Visit Count: 8 Therapist That Will Oversee The Plan Of Care: Carlyn Fuentes Start of Care Date: 07/08/21 Onset Date: 07/08/20 Plan of Care Certification Date: 07/08/21 Next Certification Due Date: 08/12/21 Patient Identified by Name and Date of : Yes REHABILITATION AND SPORTS THERAPY PHYSICAL THERAPY TREATMENT NOTE ASSESSMENT: Shaheen Jean tolerated the session with decreased endurance and fatigue. She demonstrated improvements in standing balance and activity tolerance this visit. Required less rest betweensets of standing balance exercises. Minimal to no sway with all activities with the exception of reverse walking The patient will continue to benefit from ongoing skilled physical therapy to progresstoward set goals. PLAN FOR NEXT VISIT: PN next visit. Core stabilization strengthening with hoist machine sitting or standing depending ontolerance. static and dynamic balance activities on compliant surface. SUBJECTIVE: Patient Reason for Visit: Pt. reports pain reduced after it rained on . She doesn't want to move today. She did a lot over the weekend. Pain: Pain Pain Level: 1 Pain Location: Low Back/Lumbar Spine - Right;Low Back/Lumbar Spine - Left Post Treatment Pain Post Treatment Pain Level: No Change Post Treatment Symptoms: no increased back pain with standing and balance exercises today. OBJECTIVE MEASURES WITH LEVEL OF FUNCTION: TREATMENT: Therapeutic Exercise: 1: step ups foward 6 2x12 each LE (denies low back pain with this) 2: step ups lateral 6 2x12 each LE Skilled Intervention: Patient was educated in proper exercise technique and purpose for exercises. Reviewed and educated patient on additions/changes for home exercise program as above (*). Skilled judgment was provided in selection of appropriate interventions. Correct performance of therapeutic exercises was facilitated with verbal, visual and tactile cuing. Additional time necessary for intermittent rest due to fatigue. Educated patient on rationale for performing exercises in regards to decreasing fatigue , includingbalance, increase ease of ADL and ROM and function . Patient education as noted. Neuromuscular Re-Education: 1: tandem stance 3x30 sec each LE lead in // bars without UE support (leans to the R) 2: tandem stepping in // bars without UE support 20' 4x (LOB and use of // bars 1x, leans to the R) 3: lateral stepping level firm ground 40' 2x each direction R and L without UE support 4: reverse walking 40' 2x without UE support 5: stepping forward over hurdles 6 x6 20' 4x (no LOB, slowed last set due to fatigue) 6: stepping lateral over single ovidio side to side 2x10 Skilled Intervention: Skilled judgment used to assess appropriate program for balance and coordination activity. Education in proprioceptive/kinesthetic awareness during standing and dynamic activities. Insured patient safety with use of // bars and gait belt. Reviewed and educated patient on additions/changes for home program as noted above with an (*). Patient education as noted. Billing Therapeutic Exercise Treatment Minutes: 15 Neuromuscular Re-Education Treatment Minutes: 25 Total Treatment Time Minutes (timed/untimed): 40 Carlyn Fuentes PT documented in this encounterVeter[facility]06-15-2022 History of Present illness Narrative* Carlyn Fuentes PT - 07/31/2021 12:11 PM EDT Episode Visit Count: 7 Therapist That Will Oversee The Plan Of Care: Carlyn Fuentes Start of Care Date: 07/08/21 Onset Date: 07/08/20 Plan of Care Certification Date: 07/08/21 Next Certification Due Date: 08/12/21 Patient Identified by Name and Date of : Yes REHABILITATION AND SPORTS THERAPY PHYSICAL THERAPY TREATMENT NOTE ASSESSMENT: Shaheen Jean tolerated the session with decreased symptoms. She demonstrated improvements in TA activation in the hook lying position as compared to seated. Pt. Was given hook lying TAstabilization strengthening series for HEP. The patient will continue to benefit from ongoing skilled physical therapy to progress toward set goals. PLAN FOR NEXT VISIT: Continue balance training and assess symptom response to hook lying core stabilization strengthening HEP. SUBJECTIVE: Patient Reason for Visit: Visit began 10 min early due to pt. early arrival. Pt. reports reduced lower back pain and she has not noticed the shakiness as much. She sat in a folding chair last night and this caused increased lower back pain but the pain reduced with laying in bed. Pain: Pain Pain Level: 0 Pain Location: Low Back/Lumbar Spine - Right;Low Back/Lumbar Spine - Left Post Treatment Pain Post Treatment Pain Level: 0 Post Treatment Symptoms: fatigue, denies increase of lower back pain OBJECTIVE MEASURES WITH LEVEL OF FUNCTION: TREATMENT: Therapeutic Exercise: 1: *hook lying TA activation 3x10 (pt.reports TA activation helps the lower back pain while hook lying) 2: *TA with UE movements 3x20 alt 3: *TA with heel slides alt 3x20 hook lying 4: *hook lying TA bent knee fall outs 3x20 alt (cues to only allow the hips to ER within a range that does not increase low back symptoms) 5: *hook lying TA activation with alt hip flexion marches 3x20 alt 6: *TA with opposite UE and LE movements 3x10 each side alt. 7: seated KTC 2x30 sec each LE Skilled Intervention: Patient was educated in proper exercise technique and purpose for exercises. Reviewed and educated patient on additions/changes for home exercise program as above (*). Skilled judgment was provided in selection of appropriate interventions. Provided written instruction for home exercise program to facilitate proper performance and compliance. Correct performance of therapeutic exercises was facilitated with verbal, visual and tactile cuing. Additional time necessary for intermittent rest due to fatigue. Educated patient on rationale for performing exercises in regards to decreasing fatigue , increase ease of ADL and ROM and function . Patient education as noted. Billing Therapeutic Exercise Treatment Minutes: 40 Total Treatment Time Minutes (timed/untimed): 40 Carlyn Fuentes PT documented in this encounterV[facility] Administration2022 History of Present illness Narrative* Carlyn Fuentes PT - 07/29/2021 11:36 AM EDT Episode Visit Count: 6 Therapist That Will Oversee The Plan Of Care: Carlyn Fuentes Start of Care Date: 07/08/21 Onset Date: 07/08/20 Plan of Care Certification Date: 07/08/21 Next Certification Due Date: 08/12/21 Patient Identified by Name and Date of : Yes REHABILITATION AND SPORTS THERAPY PHYSICAL THERAPY TREATMENT NOTE ASSESSMENT: Shaheen Jean tolerated the session with fatigue. She demonstrated improvements in pain pain with decrease pain with home exercises and difficulty with B upper leg fatigue with standingand step up exercises.. The patient will continue to benefit from ongoing skilled physical therapy to progress toward set goals. PLAN FOR NEXT VISIT: Progress core strenngth and balance. SUBJECTIVE: Patient Reason for Visit: Patient reports no back pain currently. She reports no feeling of being shakey with making breakfast this morning. She reports B shoulders were sore from band pull downs last visit and was okay the next day. Pain: Pain Pain Level: 0 Pain Location: Low Back/Lumbar Spine - Right;Low Back/Lumbar Spine - Left Frequency: Intermittent Post Treatment Pain Post Treatment Pain Level: 0 Post Treatment Symptoms: top pf both legs feel very tired OBJECTIVE MEASURES WITH LEVEL OF FUNCTION: Forward flexion and SKC stretch abolish low back pain. TREATMENT: Therapeutic Exercise: 1: SciFit stepper 5 min level 1 seat 10 (Subjective taken and discussed symptoms and home exercises) 2: Seated forward flexion stretc 3x20 seconds 3: seated TA activation with physioball 3-5 second 2x12 4: Seated TA using yard stick and orange band pulling into extension with elbows straight 2x12 5: *Seated Paloff press orange band 2x10 pulling from each direction (patient brought orange band from home) 6: SKC x10 each leg Skilled Intervention: Patient was educated in proper exercise technique and purpose for exercises. Reviewed and educated patient on additions/changes for home exercise program as above (*). Skilled judgment was provided in selection of appropriate interventions. Provided written instruction for home exercise program to facilitate proper performance and compliance. Correct performance of therapeutic exercises was facilitated with verbal and visual cuing. Neuromuscular Re-Education: 1: alt step taps BOSU ball 2x20 (1 UE assist) 2: lateral step taps BOSU ball 2x12 each LE (1 UE assist) 4: step ups forward 4 2x12 each LE with 1 UE assist Skilled Intervention: Skilled judgment used to assess appropriate program for balance and coordination activity. Insured patient safety with use of gait belt and contact guard assist. Billing Therapeutic Exercise Treatment Minutes: 25 Neuromuscular Re-Education Treatment Minutes: 16 Total Treatment Time Minutes (timed/untimed): 41 ADEEL Franco, PT documented in this encounterV[facility]06-07-2022 History of Present illness Narrative* Carlyn Fuentes PT - 07/23/2021 2:09 PM EDT Episode Visit Count: 4 Therapist That Will Oversee The Plan Of Care: Carlyn Fuentes Start of Care Date: 07/08/21 Onset Date: 07/08/20 Plan of Care Certification Date: 07/08/21 Next Certification Due Date: 08/12/21 Patient Identified by Name and Date of : Yes REHABILITATION AND SPORTS THERAPY PHYSICAL THERAPY TREATMENT NOTE ASSESSMENT: Shaheen Jean tolerated the session with decreased endurance, fatigue and expected muscle soreness. She demonstrated improvements in activity tolerance with standing balance exercises requiring decreased frequency of seated rest due to back or LE pain or fatigue. Pt. Very nervous to complete step taps without UE support but demonstrates no need for physical assistance or sway.. The patient will continue to benefit from ongoing skilled physical therapy to progress toward set goals. PLAN FOR NEXT VISIT: Continue TA stabilization strengthening, add seated paloff press and hoist pull down. SUBJECTIVE: Patient Reason for Visit: Pt. had no difficulty with sitting in a standard kitchen chair x6 hours without limiation due to LBP. She likes the seated KTC stretch much better. Pain: Pain Pain Level: 1 Pain Location: Low Back/Lumbar Spine - Left Description: Aching Frequency: Standing;Walking;With movement Post Treatment Pain Post Treatment Pain Level: 0 Post Treatment Pain Location: Low Back/Lumbar Spine - Left Post Treatment Pain Description: Aching OBJECTIVE MEASURES WITH LEVEL OF FUNCTION: TREATMENT: Therapeutic Exercise: 1: SciFit stepper 5 min level 1 seat 10 (subjective taken) 3: seated single KTC stretch seated 30 sec each LE 3x (reduced low back symptoms) 4: seated TA activation 2x10 (verbal cues: to sit out of a chair or catching self looking over a ledge) 5: seated TA activation with physioball 2x10 6: seated TA activation 2x10, 10 sec hold 7: *seated TA activation with alt LE hip flexion 3x30 sec Skilled Intervention: Patient was educated in proper exercise technique and purpose for exercises. Reviewed and educated patient on additions/changes for home exercise program as above (*). Skilled judgment was provided in selection of appropriate interventions. Provided written instruction for home exercise program to facilitate proper performance and compliance. Correct performance of therapeutic exercises was facilitated with verbal, visual and tactile cuing. Additional time necessary for intermittent seated rest due to fatigue.. Educated patient on rationale for performing exercises in regards to decreasing fatigue , includingbalance, increase ease of ADL and ROM and function . Patient education as noted. Neuromuscular Re-Education: 1: alt step taps BOSU ball 2x20 (1st set with x1 UE support at // bar, 2nd set without UE support) 2: lateral step taps BOSU ball 2x20 each LE (1st set with x1 UE support at // bar, 2nd set without UE support) 3: seated rest required after every 2 sets 4: step ups forward 4 2x8 each LE without UE support within // bars (pt. very shaky and required seated rest between each set) Skilled Intervention: Skilled judgment used to assess appropriate program for balance and coordination activity. Education in proprioceptive/kinesthetic awareness during standing. Insured patient safety with use of // bars and gait belt. Reviewed and educated patient on additions/changes for home program as noted above with an (*). Patient education as noted. Billing Therapeutic Exercise Treatment Minutes: 20 Neuromuscular Re-Education Treatment Minutes: 25 Total Treatment Time Minutes (timed/untimed): 45 Carlyn Fuentes PT documented in this encounterV[facility]06-01-2022 History of Present illness Narrative* Carlyn Fuentes PT - 07/17/2021 3:41 PM EDT Episode Visit Count: 2 Therapist That Will Oversee The Plan Of Care: Carlyn Fuentes Start of Care Date: 07/08/21 Onset Date: 07/08/20 Plan of Care Certification Date: 07/08/21 Next Certification Due Date: 08/12/21 Patient Identified by Name and Date of : Yes REHABILITATION AND SPORTS THERAPY PHYSICAL THERAPY TREATMENT NOTE ASSESSMENT: Shaheen Jean tolerated the session with increased pain. She demonstrated improvements in low back symptoms with intermittent seated rest and repeated lumbar flexion exercises followingstanding in // bars for static and dynamic balance activities. The patient will continue to benefitfrom ongoing skilled physical therapy to progress toward set goals. PLAN FOR NEXT VISIT: Continue static and dynamic balance training with intermittent seated rest and lumbar flexion. Seated progressing to standing core stabilization strengthening as tolerated. SUBJECTIVE: Patient Reason for Visit: Pt. reports she is able to stand for 3-4 minutes and has lessshakiness. She thinks the repeated lumbar flexion exercises are effective for both pain and shakiness. Pain: Pain Pain Level: 1 Pain Location: Low Back/Lumbar Spine - Left Description: Aching Frequency: Standing;Walking;With movement Post Treatment Pain Post Treatment Pain Location: Low Back/Lumbar Spine - Left Post Treatment Pain Description: Aching OBJECTIVE MEASURES WITH LEVEL OF FUNCTION: CTSIB Eyes open, firm surface Trial 1 (sec): 30 Eyes closed, firm surface Trial 1 (sec): 12 Partial tandem standing, eyes open Trial 1 (sec): 15 Partial tandem standing, eyes closed Trial 1 (sec): 5 TREATMENT: Therapeutic Exercise: 1: seated lumbar flexion 3x10 (no change following the 1st set, reduced symptoms reported in the R low back after the 2nd and 3rd set) 2: seated lumbar flexion 2x10 following standing dynamic balance exercises in // bars due to increased pain 2/10 (symptoms returned to 1/10 pain level) Skilled Intervention: Patient was educated in proper exercise technique and purpose for exercises. Reviewed and educated patient on additions/changes for home exercise program as above (*). Skilled judgment was provided in selection of appropriate interventions. Provided written instruction for home exercise program to facilitate proper performance and compliance. Correct performance of therapeutic exercises was facilitated with verbal, visual and tactile cuing. Additional time necessary for providing pt. Education due to pt. Concerns of increased lower back symptoms with standing exercises today. Educated patient on rationale for performing exercises in regards to decreasing fatigue , increase ease of ADL and ROM and function . Patient education as noted. Neuromuscular Re-Education: 1: NBOS 30 sec eyes open no UE support: 15 sec 2: semi-tandem stance firm surface 15 sec LLE anterior , 30 sec RLE anterior no UE support, eyes open 3: foam NBOS 15 sec no UE support 4: foam semi tandem R foot anterior 10 sec 5: NBOS eyes closed, firm surface 12 sec 6: semi- tandem stance eyes closed 5 sec 7: tandem walk in // bars with B UE support eyes open and eyes closed 20' each Skilled Intervention: Skilled judgment used to assess appropriate program for balance and coordination activity. Education in proprioceptive/kinesthetic awareness during standing and dynamic activities. Insured patient safety with use of // bars and gait belt. Reviewed and educated patient on additions/changes for home program as noted above with an (*). Patient education as noted. Self-Mcfp Management: 1: *pt. education to perform repeated lumbar flexion exercises seated when low back pain increases in order to better tolerate standing activities. 2: *pt. education that purpse of lumbar flexion exercises is to facilitate pt. toleranec with balance and standing exercises in order for pt. to meet her goal of increasing her tolerance of standing for increased duration. 3: *encouraged pt. to take frequent rest breaks and perform seated lumbar flexion exercises at night or during standing activities to self manage low back symptoms. Skilled Intervention: Skilled judgment in the selection of proper modification for activity of daily living/home management based on clinical presentation, deficits, and needs. Provided written instruction for activities of daily living techniques to facilitate proper performance and compliance. Reviewed patient specific diagnosis in relation to activities of daily living/home management. Activity progression based on professional judgement. Reviewed and educated patient on additions/changes for home program as noted above with an (*). Correct performance of home program was facilitated with verbal, visual and tactile cueing. Billing Therapeutic Exercise Treatment Minutes: 10 Neuromuscular Re-Education Treatment Minutes: 20 Self-Care/Home Management Treatment Minutes: 10 Total Treatment Time Minutes (timed/untimed): 40 Carlyn Fuentes PT documented in this encounterV[facility]05-31-2022 Miscellaneous Notes* Telephone Encounter - Pancho Lopez MD - 07/16/2021 3:25 PM EDT The following approved medication requests have been transmitted electronically. Signed Prescriptions Disp Refills glimepiride (AMARYL) 1 mg tablet 90 tablet 1 Sig: Take 1 tablet by mouth daily with breakfast. ELLA: No Authorizing Provider: PANCHO LOPEZ MD * Telephone Encounter - Levar Serrano LPN - 07/16/2021 2:26 PM EDT RX INSTRUCTIONS: sent to [facility], [id number] and sent to [facility]. Patient aware RX escripted to mail away pharmacy. No need to notify patient. Micki Kay Pt has appt 08/23/21 Levar Serrano LPN * Telephone Encounter - Micki Kay - 07/16/2021 8:46 AM EDT Patient has been identified by name and date of : Yes Pending Prescriptions Disp Refills GLIMEPIRIDE 1 MG TABLET 90 tablet 1 Sig: Take 1 tablet by mouth daily with breakfast. ELLA: No RX INSTRUCTIONS: sent to [facility], [facility] and sent to [facility]. Patient aware RX escripted to mail away pharmacy. No need to notify patient. Micki Kay documented in this encounterVeter[facility] Health Administration05-23-2022 Miscellaneous Notes* Telephone Encounter - Kinga Cedeno - 07/08/2021 4:24 PM EDT 07/08/2021 Pt was called and advised to follow up with Movement disorder. Dr Koenig information location and office number given to patient. Pt verbalized understanding and stated she was seeing some improvement from PT. Pt advised to schedule and if therapy resolves issue she can cancel her appointment and agreed. Kinga Cedeno Lpn documented in this encounterVeterans Health Administration05-23-2022 History of Present illness Narrative* Carlyn Fuentes, PT - 07/08/2021 2:24 PM EDT Episode Visit Count: 1 Therapist That Will Oversee The Plan Of Care: Carlyn Alfredo Start of Care Date: 07/08/21 Onset Date: 07/08/20 Plan of Care Certification Date: 07/08/21 Next Certification Due Date: 08/12/21 Patient Identified by Name and Date of : Yes REHABILITATION AND SPORTS THERAPY PHYSICAL THERAPY EVALUATION PLAN OF CARE: Assessment: Shaheen Jean presents with diagnosis of shakiness, balance problems, and cervical stenosis of the spine that interferes with standing;rising from a chair;walking in the community;walking in the house;walking . She presents with impairments in ADL's, balance, gait, independence in exercise, overall function and functional performance testing indicates pt. Is at a risk for falls and PT encouraged pt. Use an AD. Prognosis for therapy is Fair due to: chronic nature of impairments;clinical presentation;Prognosis may be improved by;multiple co- morbidities;advanced age good overall health status;positive past response to therapy;within-session changes. She will benefit from skilledtherapy services to meet the goals established for this plan of care as noted below. Classification Low Back Pain Subgroup Classification: Specific exercise subgroup: recommended visits 8. Specific Exercies Subgroup Classification based on: directional preference Goals for Episode of Care: created on 07/08/21 through 08/19/21 Patient will report no falls. Improve score on Timed Up and Go Test to <8 seconds to reflect decreased fall risk. Improve score on 30 Second Chair Stand to 10 or more reps repetitions to reflect decreased fall risk. Improve performance on 4 Stage Balance Test to 30 seconds BLE standing and 10 seconds or more on SLS items to reflect decreased fall risk with 1 or less UE support. Lane in home exercise program including cardiovascular exercise. Patient will demonstrate independent and proper use of assisstive device to allow for improved walking quality and safety therefore reducing the risk of falls. Perform with decreased report of symptoms / pain. Patient Goals: reduce fall risk and decrease low back pain to tolerate 15 min of static or dynamic standing Planned Interventions, Frequency, and Duration: Current Frequency: 2x/week Duration: 6 weeks Total Number of Visits Planned: 12 Planned Treatment Interventions: Therapeutic exercise (65524);Neuromuscular re- education (42218);Manual therapy (59770);Therapeutic activities (26729);Self- mcc management (31840);Patient/Family/Caregiver Education;Body Mechanics Training;Gait Training (74442) PLAN FOR NEXT VISIT: static balance testing, mCTSIB Patient demonstrates good understanding of plan of care and treatment. The above goals and plan of care were discussed and agreed upon by patient/family. SUBJECTIVE: Shaheen Jean is a 76 year old female seen today for Patient Goals: reduce fall risk and decrease low back pain to tolerate 15 min of static or dynamic standing Functional Limitations: standing;rising from a chair;walking in the community;walking in the house;walking Prior Level of Function: Independent without limitations Relevant History Past Relevant Medical Conditions: Vertigo;Kidney Problems;Falls;Anemia;Hypertension;Fracture;Diabetes Preferred Language: Grenadian Employment: Retired Home Environment Equipment Owned: Cane Intake Information: Prescription present Falls Interview: Fall with injury in the last year Falls Intervention: Instructed patient on safety and use of assistive device and awareness in regards to falls prevention.;More thorough falls assessment to be performed Red Flags Vertebral Fracture Red Flags: Age >70;Female Vertebral Fracture Clinical Reasoning: Proceed with caution due to the above (1- 2) risk factors Abdominal Aortic Aneurysm Red Flags: Age >60 Abdominal Aortic Aneurysm Clinical Reasoning: Proceed with caution Cancer Red Flags: Age >50 or <20 Cancer Clinical Reasoning: Proceed with caution Infection Clinical Reasoning: No identified risk factors. Cauda Equina Syndrome Clinical Reasoning: No identified risk factors. Red Flags - Cervical Cancer Red Flags: Age >50 or <20 Cancer Clinical Reasoning: Proceed with caution Infection Clinical Reasoning: No identified risk factors. Spine History Symptoms Location at Onset: Back Symptoms Since Onset: Worsening Pain is Worse Always: AM;Standing;Walking;Lying Pain is Better Always: Sitting Sleeping Position: Side lying right > left Sleep Affected by Pain: Not affected by pain Concussion History of Concussion: No Vestibular Symptom onset: gradual Dizziness: No Imbalance: Yes Imbalance triggered by: Walking;Shopping Imbalance Comments: with slow walking and upon standing, long duration static standing Fall Assessment: History of falls Frequency of falls: Less than monthly Injuries resulting from fall? : vertebral fx Dizziness during fall?: no How often do you lose your balance?: upon standing Nausea: denies Motion Sickness: None Headache: No Neck Symptoms: No Ear Symptoms: No Hearing Changes: No recent changes Sleeping Position: Side lying right > left Sleep Affected by Symptoms: Not affected by dizziness History of Syncope: Yes Denies: neurological complaints;headaches;dizziness;visual changes;paresthesia;neuropathy;focal weakness Pain: Pain Pain Level: 5 Pain Location: Low Back/Lumbar Spine - Left Description: Aching Frequency: Standing;Walking;With movement Post Treatment Pain Post Treatment Pain Level: Better Post Treatment Pain Location: Low Back/Lumbar Spine - Left Post Treatment Pain Description: Aching Post Treatment Symptoms: no change in unsteadiness, but reduced lower back pain reported upon standing with walking PROMIS Scales Higher is Better 02/19/2021 04/21/2021 07/06/2021 Phys Func - Score - - 40 (mild dysfunction) Phys Func - Percentile - - 16 % Social Roles - Score - - 40 (mild dysfunction) Social Role - Percentile - - 16 % GH Physical - Score 47.7 (Good) 39.8 (Fair) - GH Physical - Percentile 41 % 15 % - GH Mental - Score 45.8 (Good) 45.8 (Good) - GH Mental - Percentile 34 % 34 % - Self-Eff Symptom - Score - - 45 (Average) Self-Eff Symptom - Percentile - - 31 % T-scores: mean of general population = 50. 5 points is clinically meaningfully difference Percentiles provide an indication of how the patient's score ranks in relation to the general population. Higher percentile rankings indicate better function/quality of life. 50th percentile is the average of the general population and indicates half of respondents had a worse score. Lower is Better 07/06/2021 Fatigue - Score 51 (within normal limits) Fatigue - Percentile 46 % T-scores: mean of general population = 50. 5 points is clinically meaningfully difference Percentiles provide an indication of how the patient's score ranks in relation to the general population. Higher percentile rankings indicate better function/quality of life. 50th percentile is the average of the general population and indicates half of respondents had a worse score. OBJECTIVE MEASURES WITH LEVEL OF FUNCTION: Cognition Cognition: Follows Commands Vision Vision Deficits: Wears corrective lenses Posture / Alignment Effects of Posture Correction: improves Sensory Sensory Deficits: Hearing Hearing deficits: wears hearing aides Oculomotor Testing Fixation Present Ocular ROM: WNL Spontaneous Nystagmus: No nystagmus Gaze Evoked Nystagmus: Not Present Smooth pursuit: Horizontal, Vertical and Diagonal all WNL Saccadic eye movements: Horizontal, vertical and oblique all WNL. Head Thrusts: Negative VOR cancelation: Negative VOR to slow head movements: Negative Oculomotor Testing Fixation Removed Gaze Evoked Nystagmus: Not present Head Shake: Negative Sensation - Lumbar Sensation: Grossly Intact Lumbar Spine AROM Lumbar Flexion: Minimal limitation;Decreased pain Lumbar Extension: Major limitation Repeated Test Movements - Lumbar RFIS - Symptoms During: decreases RFIS - Symptoms After: better Cervical Spine ROM Cervical ROM : Limitation AROM Cervical Protrusion AROM: Normal Cervical Retraction AROM: Normal Cervical Flexion AROM: Normal Cervical Extension AROM: Normal Cervical Side-Bend Right AROM: Normal Cervical Side-Bend Left AROM: Normal Cervical Rotation Right AROM: Normal Cervical Rotation Left AROM: Normal Special Tests - Cervical Cervical Special Tests: Vertebral Artery Test Vertebral Artery Test: Negative Mobility Sit To Stand: Modified Independent Gait Gait Observation: Pt. completes walking with head turns horrizontal and vertical 40' 2x, without LOB or complaints of dizziness. Functional Performance Test Results Timed Up and Go (sec): 12 sec Education: Education Learning Preferences: Demonstration;Explanation;Performance;Printed Materials Barriers: Hearing Deficit Learning/educational needs: Home exercise program;Plan of Care;Safety;Posture;Gait Training Education Provided: Yes, see treatment interventions for education provided Education Provided To: Patient Education Mode/Type: Demonstration;Explanation/Discussion;Literature/Printed Materials;Performance Response to Education/Teach Back: States/Identifies;Return Demonstration TREATMENT: PT Treatment Interventions: Therapeutic Exercise;Self-Mcfp Management Evaluation Evaluation Therapeutic Exercise: 1: *lumbar flexion seated 1-3 sets of 10 PRN for LBP symptoms Skilled Intervention: Patient was educated in proper exercise technique and purpose for exercises. Reviewed and educated patient on additions/changes for home exercise program as above (*). Skilled judgment was provided in selection of appropriate interventions. Provided written instruction for home exercise program to facilitate proper performance and compliance. Correct performance of therapeutic exercises was facilitated with verbal, visual and tactile cuing. Additional time necessary for pt. Education and providing HEP due to initial evaluation. Educated patient on rationale for performing exercises in regards to decreasing fatigue , includingbalance, increase ease of ADL and ROM and function . Patient education as noted. Self-Mcfp Management: 1: *advised use of cane especially when out in the community to decrease risk of falls due to c/o unsteadiness and balance test scores . 2: *pt. to perform transfers slowly, and pause before walking from surfaces to ensure she has gained her balance prior to walking 3: *pt. education regarding her vestibular involvement history, and based on PT evaluation findingsit is unclear if shakiness may be related to MSK weakness Skilled Intervention: Skilled judgment in the selection of proper modification for activity of daily living/home management based on clinical presentation, deficits, and needs. Physical assistance was provided during education for modifications and patient safety. Educated the patient regarding recommendations. Reviewed patient specific diagnosis in relation to activities of daily living/home management. Activity progression based on professional judgement. Reviewed and educated patient on additions/changes for home program as noted above with an (*). Correct performance of home program was facilitated with verbal, visual and tactile cueing. Billing * Evaluation Moderate Complexity: 1 Unit Therapeutic Exercise Treatment Minutes: 10 Self-Care/Home Management Treatment Minutes: 10 Total Treatment Time Minutes (timed/untimed): 50 Carlyn Fuentes PT documented in this encounterVeterans Health Administration05-23-2022 Miscellaneous Notes* Telephone Encounter - Nelly Alexis MA - 07/08/2021 9:18 AM EDT Patient has been identified by name and date of : Yes Pending Prescriptions Disp Refills GLIMEPIRIDE 1 MG TABLET 90 tablet 1 Sig: Take 1 tablet by mouth daily with breakfast. ELLA: No RX INSTRUCTIONS: Patient aware RX will be sent to pharmacy. No need to notify patient. Nelly Alexis MA Jesse: 04/2021 Nov: 08/2021 Last refill; 11/2020 90 tablets 1 refill * Telephone Encounter - Jeimy Guzman - 07/06/2021 11:14 AM EDT Patient has been identified by name and date of : Yes Last office visit in this department: 04/22/2021 RX INSTRUCTIONS: Patient aware RX will be sent to pharmacy. No need to notify patient. Patient phones requesting refills as follows: Pending Prescriptions Disp Refills GLIMEPIRIDE 1 MG TABLET 90 tablet 1 Sig: Take 1 tablet by mouth daily with breakfast. ELLA: No Please review and advise. Jeimy Guzman documented in this encounterVeterans Health Administration05-19-2022 History of Present illness Narrative* Mindi Carter APRN.PRINTER MACHINE - 07/04/2021 1:45 PM EDT Images from the original note were not included. [facility] [place] Follow-up Visit Follow-up note July 01, 2021 HPI: Ms. Jean presents today for a follow-up visit. Per her previous visit on 03/07/21: R53.1 Generalized weakness R25.1 Shakiness Comment: Patient presenting today for generalized weakness and feeling of shakiness for roughly oneyear. Sx have progressively worsened. Shakiness is most often noted in legs but can affect the armsas well. Sx not present if sitting, using assistive ambulatory device, or walking quickly. Resolve upon sitting. Notable history of vestibular schwannoma with surgical intervention, DM, htn, CKD 3, and iron deficiency anemia. Most recent iron studies and CMP stable. Recent CK low but elevated ESR and CRP. Note that pt had recent infection in ear and repeat inflammatory markers improved. Recent MRI brain unremarkable. Exam in office with finding of brisk reflexes, retropulsion on pull test, and BUE after walking length of hernandez. At this time plan will be as follows: -Blood work including CRP, ESR, TSH, B12, aldolase, and AChR Ab to further evaluate for thyroid disorder, vitamin deficiency, injury to muscle, or MG. -CTA head/neck to evaluate for VBI -Tilt table test to assess for orthostatic hypotension. Consider orthostatic tremor in ddx. Note that patient does have retropulsion on exam and BUE tremor after ambulation, however, no subjective sxof PD and no other exam findings. -XR cervical spine given tremors in BUE and brisk reflexes to evaluate for degenerative changes. She had a fall in April and chipped a vertebrae in her back. Injury to lumbar spine Having difficulty when standing still and walking slow. No worsening of symptoms. Feels like it was prior to the injury. Only one recent headache related to weather, though does not normally get headaches. Denies focal weakness, numbness, tingling, dizziness, LOC. Denies lightheadedness. Did not have tilt table testing because the nurse told her that they did not feel this was a test that she needed. She states that when she stands longer than 2-3 minutes she will get pain in her low back. After sitting this will immediately resolved. Had CT lumbar spine without significant findings with exception of the broken vertebrae. Weakness possibly associated with pain in the back. Has not gone to physical therapy. Unsure if she can tolerate the water at PT and standing in the shower. PAST MEDICAL HISTORY Diagnosis Date Actinic keratoses 01/18/2010 Age-related cataract of both eyes 04/13/2019 AK (actinic keratosis) 08/23/2020 Tx with cryo right dorasol hand 08/2020 Arthritis of right hip 12/06/2015 Arthritis of right shoulder region 12/06/2015 Calcaneal spur of left foot 01/09/2016 Cholesteatoma of tympanum of right ear 03/22/[address] 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) 07/19/2015 Diverticulosis of large intestine without hemorrhage 03/05/2015 Essential hypertension with goal blood pressure less than 130/85 07/19/2015 External hemorrhoids GERD (gastroesophageal reflux disease) Hallux valgus (acquired) 09/02/2011 Internal hemorrhoids Iron deficiency anemia 01/28/2010 Low back pain 03/05/2015 Mixed hyperlipidemia Obesity, Class I, BMI 30-34.9 07/25/2019 Osteoporosis 09/24/2007 Pain in joint, shoulder region 01/08/2005 Pain in right hip 12/05/2015 Renal stone 09/19/2018 first one 09/2018 Sciatica 06/02/2008 Tendonitis, Achilles, left 01/09/2016 PAST SURGICAL HISTORY Procedure Laterality Date BX BREAST PERC VACUUM/ROTN 11/30/06 RIGHT DELIVERY ONLY , low cervical x 4 COLONOSCOPY 05/10/2015 repeat 10 yrs COLONOSCOPY FLX DX W/COLLJ SPEC WHEN PFRMD 07/23/05 repeat due 2015 COLONOSCOPY FLX DX W/COLLJ SPEC WHEN PFRMD 05/10/2015 Colonoscopy ESOPHAGOGASTRODUODENOSCOPY TRANSORAL DIAGNOSTIC 04/15/2010 EGD FOOT LEFT OP SURGERY 08/2011 bunionectomy PAST SURGICAL HISTORY OF and 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, non ca x2 PLCMT LOCALZTN CLIP,PERC,DURING BREAST BX 11/30/06 RIGHT SIGMOIDOSCOPY FLX DX W/COLLJ SPEC BR/WA IF PFRMD 07/1999 Sigmoidoscopy TYMPANOSTOMY LOC/TOP ANES BILA 2010 left TM tube Current Outpatient Medications on File Prior to Visit Medication Sig diclofenac (VOLTAREN ARTHRITIS PAIN) 1 % topical gel Apply 2 g to affected area four times daily. amoxicillin (AMOXIL) 875 mg tablet Take 875 mg by mouth twice daily with meals. (Patient not taking: Reported on 03/07/2021 ) metFORMIN (GLUCOPHAGE) 1,000 mg tablet Take 1 tablet by mouth daily with dinner. lisinopril (ZESTRIL, PRINIVIL) 10 mg tablet Take 1 tablet by mouth once daily. glimepiride (AMARYL) 1 mg tablet Take 1 tablet by mouth daily with breakfast. alendronate (FOSAMAX) 70 mg tablet Take 1 tablet by mouth one time a week. Take with a full glass of water, on an empty stomach; do NOT lie down for 30minutes. multivitamin with minerals (ONE-A-DAY 50 PLUS ORAL) Take by mouth. blood sugar diagnostic (FREESTYLE LITE STRIPS) test strip Test blood sugar(s) one times daily. Dx: Type 2 DM - Controlled E11.9 Insulin: No blood sugar diagnostic (BLOOD GLUCOSE TEST) test strip Test blood sugar(s) 1 times daily. Dx: Type 2 DM - Controlled E11.9 Insulin: No Blood-Glucose Meter [facility] [place] Check blood sugars once a day. Dx: E11.9 no insulin Cholecalciferol, Vitamin D3, (VITAMIN D) 1,000 unit cap Take 1,000 Units by mouth once daily. CALCIUM CARBONATE (TUMS E-X ORAL) Take 2 capsules by mouth once daily. Aspirin 81 mg ORAL Tab Take 81 mg by mouth once daily. No current facility-administered medications on file prior to visit. Social History Tobacco Use Smoking status: Never Smoker Smokeless tobacco: Never Used Substance Use Topics Alcohol use: No Drug use: No ALLERGIES Allergen Reactions Bactrim [Sulfametho* Rash Cipro [Ciprofloxaci* Rash Clams Rash [place] Unknown Grass Pollen Itching Lactose Intolerance* Unknown Pork Unknown Seasonal Allergies Other: See Comments pollen Review of Systems: Constitutional: denies fever, weight loss, loss of appetite ENT: denies + loss of hearing, vertigo Vision: denies blurring vison, double vision/diplopia Dermatologic: denies rash Cardiopulmonary: denies chest pain, palpitations Respiratory: denies shortness of breath GI: denies recent nausea, vomiting, diarrhea, constipation : denies incontinence Psych: denies depression, anxiety Sleep: denies issues with sleeping Musculoskeletal: denies + weakness, joint ache/pain Back/spine: denies low back, mid back, or cervical pains Neuro: Denies + tremors (shaky feeling), loss of feeling, dizziness, seizure, blackout, paresthesia, facial paresthesia, facial weakness, difficulty in speech, slurring of words, dysarthria, dysphagia, memory loss, headache Physical Exam: 07/04/21 1331 BP: 136/81 Pulse: 98 Resp: 16 Temp: 36.2 C (97.2 F) TempSrc: Temporal SpO2: 99% Weight: 81.8 kg (180 lb 6.4 oz) Orthostatic VS: Laying 149/72, HR 77 Sitting 148/80, HR 86 Standing 168/93, HR 103 Patient is alert and in no distress. Dress is appropriate. Mood is appropriate Breathing appears regular and unstressed Neurologic examination: Cognitively intact. No deficits. No formal MMSE performed. CN: Pupils equal and reactive to light, extraocular movements intact with no nystagmus, face is symmetric with no facial droop, hearing intact bilaterally, symmetric elevation of the soft palate, tongue is midline with no deviation, shoulder shrug is symmetric. Motor exam shows 5/5 strength symmetric through the upper and lower extremities in all groups tested. Sensory intact to light touch and in all extremities. Vibratory sensation is intact and symmetric all extremities. Decreased pinprick sensation to L calf otherwise intact throughout. Deep tendon reflexes are brisk and symmetric at the biceps, brachioradialis, triceps, patella, and achilles bilaterally. Negative Blackmon's bilaterally. Coordination: No dysmetria on finger to nose. No tremors noted with arms outstretched. No tremor atrest. BUE tremor after walking the length of the hernandez, however, not present during ambulation. Alsopresent upon standing for length of time during orthostatic BP assessment. Resolved after sitting. No drift seen. Tandem with imbalance. MAINOR of pronation and supination, finger and hand tapping intact. Toe tapping intact. No rigidity, cog wheeling, no bradykinesia. Labs/studies: MRA Neck WO/Brain WO 03/20/21: There is plaque with mild, less than 50% narrowing on the left. There is no hemodynamically significant internal carotid artery stenosis. Normal MRA of the head. No aneurysm or large vessel occlusion. XR Cervical Spine 03/11/21: 4 views of the cervical spine demonstrate osteopenia multilevel degenerative change with vertebral body osteophytosis and disc space narrowing, greatest at C3-4, C5-6, C6-7 and C7-T1. There are no vertebral body compression deformities and alignment is well maintained. Bilateral obliques demonstrate mild foraminal narrowing at C4-5 and C5-6 on the left C5-6 and C6-7 on the right moderate foraminal narrowing is noted at C3-4 on the right. Moderate to severe foraminal narrowing is noted at C3-4 on the left. The atlantoaxial interval and craniocervical junction are intact. There is no prevertebral soft tissue abnormality. Component Latest Ref Rng & Units 03/08/2021 Acetylcholine Recept/Binding, Qual Negative Negative Acetylcholine Recept/Binding <0.21 nmol/L <0.02 CRP <0.9 mg/dL 0.7 WSR 0 - 20 mm/hr 31 (H) Vitamin B12 232 - 1,245 pg/mL 453 TSH 0.270 - 4.200 uU/mL 2.450 Aldolase 1.5 - 8.1 U/L 3.2 Previously Reviewed: MRI Brain W/WO 09/18/2020: FINDINGS: Normal bilateral temporal bones. Normal bilateral internal auditory canals. There is no demonstrated intracanalicular or cisternal vestibular schwannoma (acoustic neuroma). There is no enhancement of the bilateral VIIth or VIIIth cranial nerves. Normal bilateral cochlea, vestibules and semicircular canals. There is mild cerebral atrophy with widening of the extra-axial spaces and ventricular dilatation. There are a limited number of small white matter hyperintensities, distributed throughout the deep white matter tracts of the cerebral hemispheres, consistent with mild chronic white matter ischemic ch anges. There is no evidence for recent intracranial ischemia or other cause of cytotoxic edema on diffusion weighted imaging (DWI). Normal bilateral basal ganglia. Normal thalami. Normal flow voids within the major intracranial circulation suggesting patency by spin echo criteria. Normal venous enhancement. There is no enhancing intra-axial or extra-axial abnormality. There is no extra-axial fluid accumulation. Normal sella turcica, pituitary gland, infundibular stalk, optic chiasm and hypothalamus. Normal tectal plate and pineal gland. Normal midbrain, kash and medulla. Normal cerebellum. Normal basal cisterns. No demonstrated orbital abnormality, within the constraints of a routine brain study. Normal visualized paranasal sinuses. Normal calvarium and skull base. Normal visualized soft tissue structures. Normal visualized upper cervical spine. IMPRESSION: Involutional changes of the brain, as described above. Component Latest Ref Rng & Units 02/06/2021 02/22/2021 WBC 3.70 - 11.00 k/uL 9.09 RBC 3.90 - 5.20 m/uL 4.33 Hemoglobin 11.5 - 15.5 g/dL 11.6 Hematocrit 36.0 - 46.0 % 36.7 MCV 80.0 - 100.0 fL 84.8 MCH 26.0 - 34.0 pG 26.8 MCHC 30.5 - 36.0 g/dL 31.6 RDW-CV 11.5 - 15.0 % 13.5 Platelet Count 150 - 400 k/uL 321 MPV 9.0 - 12.7 fL 11.1 Neut% % 57.0 Abs Neut (ANC) 1.45 - 7.50 k/uL 5.19 Lymph% % 32.2 Abs Lymph 1.00 - 4.00 k/uL 2.93 [place]% % 7.3 Abs [place] <0.87 k/uL 0.66 Eosin% % 2.9 Abs Eosin <0.46 k/uL 0.26 Baso% % 0.6 Abs Baso <0.11 k/uL 0.05 Nucleated Reds 0 /100 WBC 0.0 Absolute nRBC <0.01 k/uL <0.01 Diff Type Auto Diff Protein, Total 6.3 - 8.0 g/dL 6.7 Albumin 3.9 - 4.9 g/dL 3.8 (L) Calcium 8.5 - 10.2 mg/dL 9.3 Bilirubin, Total 0.2 - 1.3 mg/dL 0.3 Alkaline Phosphatase 34 - 123 U/L 50 AST 13 - 35 U/L 12 (L) Glucose 74 - 99 mg/dL 117 (H) BUN 7 - 21 mg/dL 16 Creatinine 0.58 - 0.96 mg/dL 1.23 (H) Sodium 136 - 144 mmol/L 141 Potassium 3.7 - 5.1 mmol/L 4.3 Chloride 97 - 105 mmol/L 107 (H) CO2 22 - 30 mmol/L 23 Anion Gap 9 - 18 mmol/L 11 ALT 7 - 38 U/L 10 eGFR- 51 eGFR-All Other Races . 42 Total Cholesterol, Nonfasting <200 mg/dL 167 Triglycerides, Nonfasting <150 mg/dL 169 (H) HDL Cholesterol, Nonfasting >39 mg/dL 42 LDL Cholesterol, Nonfasting <100 mg/dL 91 Non HDL Cholesterol, Nonfasting <130 mg/dL 125 VLDL Cholesterol, Nonfasting <30 mg/dL 34 (H) Total Chol/HDL Ratio, Nonfasting <5.10 mg/dL 3.98 LDL/HDL Ratio, Nonfasting <2.54 mg/dL 2.17 Iron 41 - 186 ug/dL 56 TIBC 232 - 386 ug/dL 283 Transferrin Saturation 15 - 57 % 20 Hemoglobin A1C 4.3 - 5.6 % 6.8 (H) Estimated Average Glucose mg/dL 148 CK 42 - 196 U/L 26 (L) WSR 0 - 20 mm/hr 54 (H) CRP <0.9 mg/dL 2.1 (H) Assessment/Plan: R25.1 Shakiness (primary encounter diagnosis) R53.1 Generalized weakness R26.89 Balance problems M48.02 Cervical stenosis of spine Comment: Patient previously seen for generalized weakness and shakiness for one year. Shakiness most often noted in legs but can occasionally present in arms as well. Still not noting any symptoms when sitting, using assistive ambulatory divide or walking quickly. Sx resolve upon sitting. History of vestibular schwannoma with surgical intervention, DM, htn, CKD 3, and iron deficiency anemia. Blood work and MRI of brain unremarkable. Since time of previous appointment she has had additional blood work completed all of which were unremarkable and without evidence of inflammation, MG, vitamin deficiency, or muscle breakdown. MRA head/neck without evidence of stenosis or occlusion. XR cervical spine noting disc space narrowing throughout. Lastly, tilt table testing ordered to evaluate for orthostatic hypotension, however, not completed at this time. Exam today in office still noting brisk reflexes. Tremor present to upper and lower extremities upon standing for orthostatic VS. Note, orthostatic VS WNL. No tremor noted on ambulation. At this time as orthostatic VS in office were unremarkable, will defer tilt table testing. Regarding cervical changes noted on MRI, will have pt begin PT given balance concerns. Lastly, will place consult to movement disorder clinic for further evaluation given unremarkable testing thus far. Office Visit on 07/04/21 CONSULT TO PHYSICAL THERAPY CONSULT TO NEUROLOGY Mindi Carter APRN.KISHORE I spent a total of 35 minutes on the date of the service which included preparing to see the patient, [id number] patient care, completing clinical documentation, obtaining and/or reviewing separately obtained history, performing a medically appropriate examination, counseling and educating the pat ient/family/caregiver and ordering medications, tests, or procedures. documented in this encounterVeterans Health Administration05-05-2022 History of Present illness Narrative* Hayde Craft RT(R) - 06/20/2021 12:30 PM EDT Radiology Service Progress Note PATIENT NAME: Shaheen Jean DATE OF SERVICE: June 20, 2021 TIME: 12:31 PM PATIENT IDENTITY VERIFICATION COMPLETED USING TWO (2) IDENTIFIERS: Name and Date of confirmedby patient verbally. FALL SCREENING: Has the patient had 2 falls in the last year or 1 fall with injury or currently using an Ambulatory Assistive Device (Walker, Cane, Wheelchair, Crutches, etc.)? No PATIENT GENDER DATA: Female. status: : No status: NO. PATIENT RELEVANT IMPLANT DATA REVIEWED: Not Applicable RADIOLOGY DEPARTMENT: General X-ray: Exam(s) Completed: Upper Extremity X- Ray(s): Wrist, left PERIPHERAL IV DATA: Not applicable SIGNED BY: RT Mandeep(R) June 20, 2021 12:31 PM documented in this encounterVeterans Health Administration05-05-2022 History of Present illness Narrative* Julio Keene APRN.PRINTER MACHINE - 06/20/2021 12:20 PM EDT Subjective HPI HPI Shaheen Jean is a 76 year old female who presents today for CC of left wrist pain. This started 1 day ago. Has tried otc medication for relief. Symptoms are worsened by rom of wrist. Denies wrist injury. Denies numbness/tingling of left hand. Denies rash. Using cock up wrist brace. .Patient presents with: Pain: (LT) wrist pain with over use x1 day pain rated 5, dneied injury, fall PAST MEDICAL HISTORY Diagnosis Date Actinic keratoses 01/18/2010 Age-related cataract of both eyes 04/13/2019 AK (actinic keratosis) 08/23/2020 Tx with cryo right dorasol hand 08/2020 Arthritis of right hip 12/06/2015 Arthritis of right shoulder region 12/06/2015 Calcaneal spur of left foot 01/09/2016 Cholesteatoma of tympanum of right ear 03/22/[address] 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) 07/19/2015 Diverticulosis of large intestine without hemorrhage 03/05/2015 Essential hypertension with goal blood pressure less than 130/85 07/19/2015 External hemorrhoids GERD (gastroesophageal reflux disease) Hallux valgus (acquired) 09/02/2011 Internal hemorrhoids Iron deficiency anemia 01/28/2010 Low back pain 03/05/2015 Mixed hyperlipidemia Obesity, Class I, BMI 30-34.9 07/25/2019 Osteoporosis 09/24/2007 Pain in joint, shoulder region 01/08/2005 Pain in right hip 12/05/2015 Renal stone 09/19/2018 first one 09/2018 Sciatica 06/02/2008 Tendonitis, Achilles, left 01/09/2016 PAST SURGICAL HISTORY Procedure Laterality Date BX BREAST PERC VACUUM/ROTN 11/30/06 RIGHT DELIVERY ONLY , low cervical x 4 COLONOSCOPY 05/10/2015 repeat 10 yrs COLONOSCOPY FLX DX W/COLLJ SPEC WHEN PFRMD 07/23/05 repeat due 2015 COLONOSCOPY FLX DX W/COLLJ SPEC WHEN PFRMD 05/10/2015 Colonoscopy ESOPHAGOGASTRODUODENOSCOPY TRANSORAL DIAGNOSTIC 04/15/2010 EGD FOOT LEFT OP SURGERY 08/2011 bunionectomy PAST SURGICAL HISTORY OF and 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, non ca x2 PLCMT LOCALZTN CLIP,PERC,DURING BREAST BX 11/30/06 RIGHT SIGMOIDOSCOPY FLX DX W/COLLJ SPEC BR/WA IF PFRMD 07/1999 Sigmoidoscopy TYMPANOSTOMY LOC/TOP ANES BILA 2010 left TM tube ALLERGIES Bactrim [Sulfamethoxazole], Cipro [Ciprofloxacin], Clams, [place], Grass Pollen, Lactose Intolerance [Lactase], Pork, and Seasonal Allergies MEDICATIONS metFORMIN (GLUCOPHAGE) 1,000 mg tablet Take 1 tablet by mouth daily with dinner. lisinopril (ZESTRIL, PRINIVIL) 10 mg tablet Take 1 tablet by mouth once daily. glimepiride (AMARYL) 1 mg tablet Take 1 tablet by mouth daily with breakfast. alendronate (FOSAMAX) 70 mg tablet Take 1 tablet by mouth one time a week. Take with a full glass of water, on an empty stomach; do NOT lie down for 30minutes. multivitamin with minerals (ONE-A-DAY 50 PLUS ORAL) Take by mouth. blood sugar diagnostic (FREESTYLE LITE STRIPS) test strip Test blood sugar(s) one times daily. Dx: Type 2 DM - Controlled E11.9 Insulin: No blood sugar diagnostic (BLOOD GLUCOSE TEST) test strip Test blood sugar(s) 1 times daily. Dx: Type 2 DM - Controlled E11.9 Insulin: No Blood-Glucose Meter misc Check blood sugars once a day. Dx: E11.9 no insulin Cholecalciferol, Vitamin D3, (VITAMIN D) 1,000 unit cap Take 1,000 Units by mouth once daily. CALCIUM CARBONATE (TUMS E-X ORAL) Take 2 capsules by mouth once daily. amoxicillin (AMOXIL) 875 mg tablet Take 875 mg by mouth twice daily with meals. Aspirin 81 mg ORAL Tab Take 81 mg by mouth once daily. FAMILY HISTORY Problem Relation Age of Onset Stroke Mother Ischemic Heart Disease Father also diabetes Diabetes Sister Stroke Sister Osteoporosis Sister Osteoporosis Sister Seizures Brother other (complications of mono) Brother Social History Tobacco Use Smoking status: Never Smoker Smokeless tobacco: Never Used Substance Use Topics Alcohol use: No Drug use: No ROS Objective Blood pressure 136/78, pulse (!) 126, temperature 36.3 C (97.4 F), resp. rate 18, weight 82 kg (180lb 12.8 oz), SpO2 97 %. Physical Exam Constitutional: General: She is not in acute distress. Appearance: She is not toxic-appearing or diaphoretic. HENT: Head: Normocephalic and atraumatic. Cardiovascular: Pulses: Radial pulses are 2+ on the left side. Pulmonary: Effort: Pulmonary effort is normal. No accessory muscle usage or respiratory distress. Musculoskeletal: Left elbow: Normal. Left wrist: Tenderness (generalized) and bony tenderness present. No swelling, deformity, effusion,lacerations, snuff box tenderness or crepitus. Decreased range of motion. Normal pulse. Comments: No rash on left wrist. Distal cap refill and sensation intact. Neurological: Mental Status: She is alert and oriented to person, place, and time. ASSESSMENT/PLAN: 1. Acute pain of left wrist - ICD9: 719.43, ICD10: M25.532 Suspect overuse injury -no bony abnormality noted on xray -given stretches/exercises -Rest, Ice, Compression, Elevation discussed -follow up with primary care if symptoms persist/worsen in 10-14 days - XR WRIST GENERAL 3V PA/LAT/OBL LEFT Impression: 1. No acute fracture or dislocation. Dictated by : LORY TRACEY MD - DICLOFENAC 1 % TOPICAL GEL Agrees to plan Julio Keene APRN.KISHORE documented in this encounterVeterans Health Administration03-04-2022 History of Past illness Narrative* Problem Noted Date Resolved Date Closed fracture of first lumbar vertebra 022 03/05/2022 Overview: End plate fracture of L1 Encounter for screening mammogram for breast can cer 06/17/2018 04/11/2019 Screening for osteoporosis 06/17/201804/11 Class 1 obesity due to exces s calories without serious comorbidity with body mass index (BMI) of 34.0 to 34.9 in adult 06/17/2017 04/11/2019 Pain in right hip 12/05/2015 04/11/2019 Diabetic eye exam 07/12/2015 04/11/2019 Overview: Last done: 12/17/18 No Retinopathy Well adult exam 03/22/2015 04/11/2019 Overview: with breast exam: last done: 06/17/2018 Nonsuppurative otitis media, not specified as acute or chronic 05/25/2007 10/01/2009 Abnormal mammogram, unspecified 11/10/2006 10/01/2009 Pain in joint, shoulder region 01/08/2005 0 04/11/2019 documented as of this encounter (statuses as of 06/09/2022) [facility] of Past illness Narrative* Problem Noted Date Resolved Date Closed fracture of first lumbar vertebra 022 03/05/2022 Overview: End plate fracture of L1 Encounter for screening mammogram for breast can cer 06/17/2018 04/11/2019 Screening for osteoporosis 06/17/201804/11 Class 1 obesity due to exces s calories without serious comorbidity with body mass index (BMI) of 34.0 to 34.9 in adult 06/17/2017 04/11/2019 Pain in right hip 12/05/2015 04/11/2019 Diabetic eye exam 07/12/2015 04/11/2019 Overview: Last done: 12/17/18 No Retinopathy Well adult exam 03/22/2015 04/11/2019 Overview: with breast exam: last done: 06/17/2018 Nonsuppurative otitis media, not specified as acute or chronic 05/25/2007 10/01/2009 Abnormal mammogram, unspecified 11/10/2006 10/01/2009 Pain in joint, shoulder region 01/08/2005 0 04/11/2019 documented as of this encounter (statuses as of 06/17/2022) [facility] of Past illness Narrative* Problem Noted Date Resolved Date Closed fracture of first lumbar vertebra 022 03/05/2022 Overview: End plate fracture of L1 Encounter for screening mammogram for breast can cer 06/17/2018 04/11/2019 Screening for osteoporosis 06/17/201804/11 Class 1 obesity due to exces s calories without serious comorbidity with body mass index (BMI) of 34.0 to 34.9 in adult 06/17/2017 04/11/2019 Pain in right hip 12/05/2015 04/11/2019 Diabetic eye exam 07/12/2015 04/11/2019 Overview: Last done: 12/17/18 No Retinopathy Well adult exam 03/22/2015 04/11/2019 Overview: with breast exam: last done: 06/17/2018 Nonsuppurative otitis media, not specified as acute or chronic 05/25/2007 10/01/2009 Abnormal mammogram, unspecified 11/10/2006 10/01/2009 Pain in joint, shoulder region 01/08/2005 0 04/11/2019 documented as of this encounter (statuses as of 08/01/2022) [facility] History of Past illness Narrative* Problem Noted Date Diagnosed Date Resolved Date Closed fracture of first lumbar vertebra 04/19/2021 03/05/2022 Overview: End plate fracture of L1 Encounter for screening mamm ogram for breast cancer 06/17/2018 04/11/2019 Screening for osteoporosis 06/17/2018 0 04/11/2019 Class 1 obesity due to exces s calories without serious comorbidity with body mass index (BMI) of 34.0 to 34.9 in adult 06/17/2017 Pain in right hip 12/05/2015 04/11/2019 Diabetic eye exam 07/12/2015 04/11/2019 Overview: Last done: 12/17/18 No Retinopathy Well adult exam 03/22/2015 04/11/2019 Overview: with breast exam: last done: 06/17/2018 Nonsuppurative otitis media, not specified as acute or chronic 05/25/2007 10/01/2009 Abnormal mammogram, unspecified 11/10/2006 10/01/2009 Pain in joint, shoulder region 01/08/2005 04/11/2019 documented as of this encounter (statuses as of 09/03/2022) [facility] History of Past illness Narrative* Problem Noted Date Diagnosed Date Resolved Date Closed fracture of first lumbar vertebra 04/19/2021 03/05/2022 Overview: End plate fracture of L1 Encounter for screening mamm ogram for breast cancer 06/17/2018 04/11/2019 Screening for osteoporosis 06/17/2018 0 04/11/2019 Class 1 obesity due to exces s calories without serious comorbidity with body mass index (BMI) of 34.0 to 34.9 in adult 06/17/2017 Pain in right hip 12/05/2015 04/11/2019 Diabetic eye exam 07/12/2015 04/11/2019 Overview: Last done: 12/17/18 No Retinopathy Well adult exam 03/22/2015 04/11/2019 Overview: with breast exam: last done: 06/17/2018 Nonsuppurative otitis media, not specified as acute or chronic 05/25/2007 10/01/2009 Abnormal mammogram, unspecified 11/10/2006 10/01/2009 Pain in joint, shoulder region 01/08/2005 04/11/2019 documented as of this encounter (statuses as of 11/22/2022) [facility] History of Past illness Narrative* Problem Noted Date Diagnosed Date Resolved Date Closed fracture of first lumbar vertebra 04/19/2021 03/05/2022 Overview: End plate fracture of L1 Encounter for screening mamm ogram for breast cancer 06/17/2018 04/11/2019 Screening for osteoporosis 06/17/2018 0 04/11/2019 Class 1 obesity due to exces s calories without serious comorbidity with body mass index (BMI) of 34.0 to 34.9 in adult 06/17/2017 Pain in right hip 12/05/2015 04/11/2019 Diabetic eye exam 07/12/2015 04/11/2019 Overview: Last done: 12/17/18 No Retinopathy Well adult exam 03/22/2015 04/11/2019 Overview: with breast exam: last done: 06/17/2018 Nonsuppurative otitis media, not specified as acute or chronic 05/25/2007 10/01/2009 Abnormal mammogram, unspecified 11/10/2006 10/01/2009 Pain in joint, shoulder region 01/08/2005 04/11/2019 documented as of this encounter (statuses as of 12/03/2022) [facility] History of Past illness Narrative* Problem Noted Date Diagnosed Date Resolved Date Closed fracture of first lumbar vertebra 04/19/2021 03/05/2022 Overview: End plate fracture of L1 Encounter for screening mamm ogram for breast cancer 06/17/2018 04/11/2019 Screening for osteoporosis 06/17/2018 0 04/11/2019 Class 1 obesity due to exces s calories without serious comorbidity with body mass index (BMI) of 34.0 to 34.9 in adult 06/17/2017 Pain in right hip 12/05/2015 04/11/2019 Diabetic eye exam 07/12/2015 04/11/2019 Overview: Last done: 12/17/18 No Retinopathy Well adult exam 03/22/2015 04/11/2019 Overview: with breast exam: last done: 06/17/2018 Nonsuppurative otitis media, not specified as acute or chronic 05/25/2007 10/01/2009 Abnormal mammogram, unspecified 11/10/2006 10/01/2009 Pain in joint, shoulder region 01/08/2005 04/11/2019 documented as of this encounter (statuses as of 12/10/2022) [facility] History of Past illness Narrative* Problem Noted Date Diagnosed Date Resolved Date Closed fracture of first lumbar vertebra 04/19/2021 03/05/2022 Overview: End plate fracture of L1 Encounter for screening mamm ogram for breast cancer 06/17/2018 04/11/2019 Screening for osteoporosis 06/17/2018 0 04/11/2019 Class 1 obesity due to exces s calories without serious comorbidity with body mass index (BMI) of 34.0 to 34.9 in adult 06/17/2017 Pain in right hip 12/05/2015 04/11/2019 Diabetic eye exam 07/12/2015 04/11/2019 Overview: Last done: 12/17/18 No Retinopathy Well adult exam 03/22/2015 04/11/2019 Overview: with breast exam: last done: 06/17/2018 Nonsuppurative otitis media, not specified as acute or chronic 05/25/2007 10/01/2009 Abnormal mammogram, unspecified 11/10/2006 10/01/2009 Pain in joint, shoulder region 01/08/2005 04/11/2019 documented as of this encounter (statuses as of 01/23/2023) [facility] History of Past illness Narrative* Problem Noted Date Diagnosed Date Resolved Date Closed fracture of first lumbar vertebra 04/19/2021 03/05/2022 Overview: End plate fracture of L1 Encounter for screening mamm ogram for breast cancer 06/17/2018 04/11/2019 Screening for osteoporosis 06/17/2018 0 04/11/2019 Class 1 obesity due to exces s calories without serious comorbidity with body mass index (BMI) of 34.0 to 34.9 in adult 06/17/2017 Pain in right hip 12/05/2015 04/11/2019 Diabetic eye exam 07/12/2015 04/11/2019 Overview: Last done: 12/17/18 No Retinopathy Well adult exam 03/22/2015 04/11/2019 Overview: with breast exam: last done: 06/17/2018 Nonsuppurative otitis media, not specified as acute or chronic 05/25/2007 10/01/2009 Abnormal mammogram, unspecified 11/10/2006 10/01/2009 Pain in joint, shoulder region 01/08/2005 04/11/2019 documented as of this encounter (statuses as of 03/27/2023) [facility] History of Past illness Narrative* Problem Noted Date Diagnosed Date Resolved Date Closed fracture of first lumbar vertebra 04/19/2021 03/05/2022 Overview: End plate fracture of L1 Encounter for screening mamm ogram for breast cancer 06/17/2018 04/11/2019 Screening for osteoporosis 06/17/2018 0 04/11/2019 Class 1 obesity due to exces s calories without serious comorbidity with body mass index (BMI) of 34.0 to 34.9 in adult 06/17/2017 Pain in right hip 12/05/2015 04/11/2019 Diabetic eye exam 07/12/2015 04/11/2019 Overview: Last done: 12/17/18 No Retinopathy Well adult exam 03/22/2015 04/11/2019 Overview: with breast exam: last done: 06/17/2018 Nonsuppurative otitis media, not specified as acute or chronic 05/25/2007 10/01/2009 Abnormal mammogram, unspecified 11/10/2006 10/01/2009 Pain in joint, shoulder region 01/08/2005 04/11/2019 documented as of this encounter (statuses as of 03/28/2023) [facility] History of Past illness Narrative* Problem Noted Date Diagnosed Date Resolved Date Closed fracture of first lumbar vertebra 04/19/2021 03/05/2022 Overview: End plate fracture of L1 Encounter for screening mamm ogram for breast cancer 06/17/2018 04/11/2019 Screening for osteoporosis 06/17/2018 0 04/11/2019 Class 1 obesity due to exces s calories without serious comorbidity with body mass index (BMI) of 34.0 to 34.9 in adult 06/17/2017 Pain in right hip 12/05/2015 04/11/2019 Diabetic eye exam 07/12/2015 04/11/2019 Overview: Last done: 12/17/18 No Retinopathy Well adult exam 03/22/2015 04/11/2019 Overview: with breast exam: last done: 06/17/2018 Nonsuppurative otitis media, not specified as acute or chronic 05/25/2007 10/01/2009 Abnormal mammogram, unspecified 11/10/2006 10/01/2009 Pain in joint, shoulder region 01/08/2005 04/11/2019 documented as of this encounter (statuses as of 04/17/2023) [facility] History of Present illness Narrative* Hayde Craft RT(R) - 03/11/2021 10:30 AM EST Radiology Service Progress Note PATIENT NAME: Shaheen Jean DATE OF SERVICE: March 11, 2021 TIME: 10:25 AM PATIENT IDENTITY VERIFICATION COMPLETED USING TWO (2) IDENTIFIERS: Name and Date of confirmedby patient verbally. FALL SCREENING: Has the patient had 2 falls in the last year or 1 fall with injury or currently using an Ambulatory Assistive Device (Walker, Cane, Wheelchair, Crutches, etc.)? No PATIENT GENDER DATA: Female. status: : No status: NO. PATIENT RELEVANT IMPLANT DATA REVIEWED: Not Applicable RADIOLOGY DEPARTMENT: General X-ray: Exam(s) Completed: Spine X-Ray(s): Cervical AP / LAT / OBL PERIPHERAL IV DATA: Not applicable SIGNED BY: RT Mandeep(R) March 11, 2021 10:25 AM [facility] History of Past illness Narrative* Problem Noted Date Resolved Date Encounter for screening mammogram for breast can cer 06/17/2018 04/11/2019 Screening for osteoporosis 06/17/201804/11 Class 1 obesity due to exces s calories without serious comorbidity with body mass index (BMI) of 34.0 to 34.9 in adult 06/17/2017 04/11/2019 Pain in right hip 12/05/2015 04/11/2019 Diabetic eye exam 07/12/2015 04/11/2019 Overview: Last done: 12/17/18 No Retinopathy Well adult exam 03/22/2015 04/11/2019 Overview: with breast exam: last done: 06/17/2018 Nonsuppurative otitis media, not specified as acute or chronic 05/25/2007 10/01/2009 Abnormal mammogram, unspecified 11/10/2006 10/01/2009 Pain in joint, shoulder region 01/08/2005 0 04/11/2019 documented as of this encounter (statuses as of 06/20/2021) [facility] History of Past illness Narrative* Problem Noted Date Resolved Date Encounter for screening mammogram for breast can cer 06/17/2018 04/11/2019 Screening for osteoporosis 06/17/201804/11 Class 1 obesity due to exces s calories without serious comorbidity with body mass index (BMI) of 34.0 to 34.9 in adult 06/17/2017 04/11/2019 Pain in right hip 12/05/2015 04/11/2019 Diabetic eye exam 07/12/2015 04/11/2019 Overview: Last done: 12/17/18 No Retinopathy Well adult exam 03/22/2015 04/11/2019 Overview: with breast exam: last done: 06/17/2018 Nonsuppurative otitis media, not specified as acute or chronic 05/25/2007 10/01/2009 Abnormal mammogram, unspecified 11/10/2006 10/01/2009 Pain in joint, shoulder region 01/08/2005 0 04/11/2019 documented as of this encounter (statuses as of 07/08/2021) [facility] History of Past illness Narrative* Problem Noted Date Resolved Date Encounter for screening mammogram for breast can cer 06/17/2018 04/11/2019 Screening for osteoporosis 06/17/201804/11 Class 1 obesity due to exces s calories without serious comorbidity with body mass index (BMI) of 34.0 to 34.9 in adult 06/17/2017 04/11/2019 Pain in right hip 12/05/2015 04/11/2019 Diabetic eye exam 07/12/2015 04/11/2019 Overview: Last done: 12/17/18 No Retinopathy Well adult exam 03/22/2015 04/11/2019 Overview: with breast exam: last done: 06/17/2018 Nonsuppurative otitis media, not specified as acute or chronic 05/25/2007 10/01/2009 Abnormal mammogram, unspecified 11/10/2006 10/01/2009 Pain in joint, shoulder region 01/08/2005 0 04/11/2019 documented as of this encounter (statuses as of 07/08/2021) [facility] History of Past illness Narrative* Problem Noted Date Resolved Date Encounter for screening mammogram for breast can cer 06/17/2018 04/11/2019 Screening for osteoporosis 06/17/201804/11 Class 1 obesity due to exces s calories without serious comorbidity with body mass index (BMI) of 34.0 to 34.9 in adult 06/17/2017 04/11/2019 Pain in right hip 12/05/2015 04/11/2019 Diabetic eye exam 07/12/2015 04/11/2019 Overview: Last done: 12/17/18 No Retinopathy Well adult exam 03/22/2015 04/11/2019 Overview: with breast exam: last done: 06/17/2018 Nonsuppurative otitis media, not specified as acute or chronic 05/25/2007 10/01/2009 Abnormal mammogram, unspecified 11/10/2006 10/01/2009 Pain in joint, shoulder region 01/08/2005 0 04/11/2019 documented as of this encounter (statuses as of 07/08/2021) [facility] History of Past illness Narrative* Problem Noted Date Resolved Date Encounter for screening mammogram for breast can cer 06/17/2018 04/11/2019 Screening for osteoporosis 06/17/201804/11 Class 1 obesity due to exces s calories without serious comorbidity with body mass index (BMI) of 34.0 to 34.9 in adult 06/17/2017 04/11/2019 Pain in right hip 12/05/2015 04/11/2019 Diabetic eye exam 07/12/2015 04/11/2019 Overview: Last done: 12/17/18 No Retinopathy Well adult exam 03/22/2015 04/11/2019 Overview: with breast exam: last done: 06/17/2018 Nonsuppurative otitis media, not specified as acute or chronic 05/25/2007 10/01/2009 Abnormal mammogram, unspecified 11/10/2006 10/01/2009 Pain in joint, shoulder region 01/08/2005 0 04/11/2019 documented as of this encounter (statuses as of 07/09/2021) [facility] History of Past illness Narrative* Problem Noted Date Resolved Date Encounter for screening mammogram for breast can cer 06/17/2018 04/11/2019 Screening for osteoporosis 06/17/201804/11 Class 1 obesity due to exces s calories without serious comorbidity with body mass index (BMI) of 34.0 to 34.9 in adult 06/17/2017 04/11/2019 Pain in right hip 12/05/2015 04/11/2019 Diabetic eye exam 07/12/2015 04/11/2019 Overview: Last done: 12/17/18 No Retinopathy Well adult exam 03/22/2015 04/11/2019 Overview: with breast exam: last done: 06/17/2018 Nonsuppurative otitis media, not specified as acute or chronic 05/25/2007 10/01/2009 Abnormal mammogram, unspecified 11/10/2006 10/01/2009 Pain in joint, shoulder region 01/08/2005 0 04/11/2019 documented as of this encounter (statuses as of 07/16/2021) [facility] History of Past illness Narrative* Problem Noted Date Resolved Date Encounter for screening mammogram for breast can cer 06/17/2018 04/11/2019 Screening for osteoporosis 06/17/201804/11 Class 1 obesity due to exces s calories without serious comorbidity with body mass index (BMI) of 34.0 to 34.9 in adult 06/17/2017 04/11/2019 Pain in right hip 12/05/2015 04/11/2019 Diabetic eye exam 07/12/2015 04/11/2019 Overview: Last done: 12/17/18 No Retinopathy Well adult exam 03/22/2015 04/11/2019 Overview: with breast exam: last done: 06/17/2018 Nonsuppurative otitis media, not specified as acute or chronic 05/25/2007 10/01/2009 Abnormal mammogram, unspecified 11/10/2006 10/01/2009 Pain in joint, shoulder region 01/08/2005 0 04/11/2019 documented as of this encounter (statuses as of 07/17/2021) [facility] History of Past illness Narrative* Problem Noted Date Resolved Date Encounter for screening mammogram for breast can cer 06/17/2018 04/11/2019 Screening for osteoporosis 06/17/201804/11 Class 1 obesity due to exces s calories without serious comorbidity with body mass index (BMI) of 34.0 to 34.9 in adult 06/17/2017 04/11/2019 Pain in right hip 12/05/2015 04/11/2019 Diabetic eye exam 07/12/2015 04/11/2019 Overview: Last done: 12/17/18 No Retinopathy Well adult exam 03/22/2015 04/11/2019 Overview: with breast exam: last done: 06/17/2018 Nonsuppurative otitis media, not specified as acute or chronic 05/25/2007 10/01/2009 Abnormal mammogram, unspecified 11/10/2006 10/01/2009 Pain in joint, shoulder region 01/08/2005 0 04/11/2019 documented as of this encounter (statuses as of 07/23/2021) [facility] History of Past illness Narrative* Problem Noted Date Resolved Date Encounter for screening mammogram for breast can cer 06/17/2018 04/11/2019 Screening for osteoporosis 06/17/201804/11 Class 1 obesity due to exces s calories without serious comorbidity with body mass index (BMI) of 34.0 to 34.9 in adult 06/17/2017 04/11/2019 Pain in right hip 12/05/2015 04/11/2019 Diabetic eye exam 07/12/2015 04/11/2019 Overview: Last done: 12/17/18 No Retinopathy Well adult exam 03/22/2015 04/11/2019 Overview: with breast exam: last done: 06/17/2018 Nonsuppurative otitis media, not specified as acute or chronic 05/25/2007 10/01/2009 Abnormal mammogram, unspecified 11/10/2006 10/01/2009 Pain in joint, shoulder region 01/08/2005 0 04/11/2019 documented as of this encounter (statuses as of 07/29/2021) [facility] History of Past illness Narrative* Problem Noted Date Resolved Date Encounter for screening mammogram for breast can cer 06/17/2018 04/11/2019 Screening for osteoporosis 06/17/201804/11 Class 1 obesity due to exces s calories without serious comorbidity with body mass index (BMI) of 34.0 to 34.9 in adult 06/17/2017 04/11/2019 Pain in right hip 12/05/2015 04/11/2019 Diabetic eye exam 07/12/2015 04/11/2019 Overview: Last done: 12/17/18 No Retinopathy Well adult exam 03/22/2015 04/11/2019 Overview: with breast exam: last done: 06/17/2018 Nonsuppurative otitis media, not specified as acute or chronic 05/25/2007 10/01/2009 Abnormal mammogram, unspecified 11/10/2006 10/01/2009 Pain in joint, shoulder region 01/08/2005 0 04/11/2019 documented as of this encounter (statuses as of 07/31/2021) [facility] History of Past illness Narrative* Problem Noted Date Resolved Date Encounter for screening mammogram for breast can cer 06/17/2018 04/11/2019 Screening for osteoporosis 06/17/201804/11 Class 1 obesity due to exces s calories without serious comorbidity with body mass index (BMI) of 34.0 to 34.9 in adult 06/17/2017 04/11/2019 Pain in right hip 12/05/2015 04/11/2019 Diabetic eye exam 07/12/2015 04/11/2019 Overview: Last done: 12/17/18 No Retinopathy Well adult exam 03/22/2015 04/11/2019 Overview: with breast exam: last done: 06/17/2018 Nonsuppurative otitis media, not specified as acute or chronic 05/25/2007 10/01/2009 Abnormal mammogram, unspecified 11/10/2006 10/01/2009 Pain in joint, shoulder region 01/08/2005 0 04/11/2019 documented as of this encounter (statuses as of 08/05/2021) [facility] History of Past illness Narrative* Problem Noted Date Resolved Date Encounter for screening mammogram for breast can cer 06/17/2018 04/11/2019 Screening for osteoporosis 06/17/201804/11 Class 1 obesity due to exces s calories without serious comorbidity with body mass index (BMI) of 34.0 to 34.9 in adult 06/17/2017 04/11/2019 Pain in right hip 12/05/2015 04/11/2019 Diabetic eye exam 07/12/2015 04/11/2019 Overview: Last done: 12/17/18 No Retinopathy Well adult exam 03/22/2015 04/11/2019 Overview: with breast exam: last done: 06/17/2018 Nonsuppurative otitis media, not specified as acute or chronic 05/25/2007 10/01/2009 Abnormal mammogram, unspecified 11/10/2006 10/01/2009 Pain in joint, shoulder region 01/08/2005 0 04/11/2019 documented as of this encounter (statuses as of 08/09/2021) [facility] History of Past illness Narrative* Problem Noted Date Resolved Date Encounter for screening mammogram for breast can cer 06/17/2018 04/11/2019 Screening for osteoporosis 06/17/201804/11 Class 1 obesity due to exces s calories without serious comorbidity with body mass index (BMI) of 34.0 to 34.9 in adult 06/17/2017 04/11/2019 Pain in right hip 12/05/2015 04/11/2019 Diabetic eye exam 07/12/2015 04/11/2019 Overview: Last done: 12/17/18 No Retinopathy Well adult exam 03/22/2015 04/11/2019 Overview: with breast exam: last done: 06/17/2018 Nonsuppurative otitis media, not specified as acute or chronic 05/25/2007 10/01/2009 Abnormal mammogram, unspecified 11/10/2006 10/01/2009 Pain in joint, shoulder region 01/08/2005 0 04/11/2019 documented as of this encounter (statuses as of 08/24/2021) [facility] History of Past illness Narrative* Problem Noted Date Resolved Date Encounter for screening mammogram for breast can cer 06/17/2018 04/11/2019 Screening for osteoporosis 06/17/201804/11 Class 1 obesity due to exces s calories without serious comorbidity with body mass index (BMI) of 34.0 to 34.9 in adult 06/17/2017 04/11/2019 Pain in right hip 12/05/2015 04/11/2019 Diabetic eye exam 07/12/2015 04/11/2019 Overview: Last done: 12/17/18 No Retinopathy Well adult exam 03/22/2015 04/11/2019 Overview: with breast exam: last done: 06/17/2018 Nonsuppurative otitis media, not specified as acute or chronic 05/25/2007 10/01/2009 Abnormal mammogram, unspecified 11/10/2006 10/01/2009 Pain in joint, shoulder region 01/08/2005 0 04/11/2019 documented as of this encounter (statuses as of 08/26/2021) [facility] History of Past illness Narrative* Problem Noted Date Resolved Date Encounter for screening mammogram for breast can cer 06/17/2018 04/11/2019 Screening for osteoporosis 06/17/201804/11 Class 1 obesity due to exces s calories without serious comorbidity with body mass index (BMI) of 34.0 to 34.9 in adult 06/17/2017 04/11/2019 Pain in right hip 12/05/2015 04/11/2019 Diabetic eye exam 07/12/2015 04/11/2019 Overview: Last done: 12/17/18 No Retinopathy Well adult exam 03/22/2015 04/11/2019 Overview: with breast exam: last done: 06/17/2018 Nonsuppurative otitis media, not specified as acute or chronic 05/25/2007 10/01/2009 Abnormal mammogram, unspecified 11/10/2006 10/01/2009 Pain in joint, shoulder region 01/08/2005 0 04/11/2019 documented as of this encounter (statuses as of 09/30/2021) [facility] History of Past illness Narrative* Problem Noted Date Resolved Date Encounter for screening mammogram for breast can cer 06/17/2018 04/11/2019 Screening for osteoporosis 06/17/201804/11 Class 1 obesity due to exces s calories without serious comorbidity with body mass index (BMI) of 34.0 to 34.9 in adult 06/17/2017 04/11/2019 Pain in right hip 12/05/2015 04/11/2019 Diabetic eye exam 07/12/2015 04/11/2019 Overview: Last done: 12/17/18 No Retinopathy Well adult exam 03/22/2015 04/11/2019 Overview: with breast exam: last done: 06/17/2018 Nonsuppurative otitis media, not specified as acute or chronic 05/25/2007 10/01/2009 Abnormal mammogram, unspecified 11/10/2006 10/01/2009 Pain in joint, shoulder region 01/08/2005 0 04/11/2019 documented as of this encounter (statuses as of 10/16/2021) [facility] History of Past illness Narrative* Problem Noted Date Resolved Date Encounter for screening mammogram for breast can cer 06/17/2018 04/11/2019 Screening for osteoporosis 06/17/201804/11 Class 1 obesity due to exces s calories without serious comorbidity with body mass index (BMI) of 34.0 to 34.9 in adult 06/17/2017 04/11/2019 Pain in right hip 12/05/2015 04/11/2019 Diabetic eye exam 07/12/2015 04/11/2019 Overview: Last done: 12/17/18 No Retinopathy Well adult exam 03/22/2015 04/11/2019 Overview: with breast exam: last done: 06/17/2018 Nonsuppurative otitis media, not specified as acute or chronic 05/25/2007 10/01/2009 Abnormal mammogram, unspecified 11/10/2006 10/01/2009 Pain in joint, shoulder region 01/08/2005 0 04/11/2019 documented as of this encounter (statuses as of 11/16/2021) [facility] noteNo assessment information availableW[facility] Work Phone: Evaluation note* Diagnosis Acute pain of left wrist- Primary [facility] Diagnosis Shakiness- Primary Abnormal involuntary movements Generalized weakness Other malaise and fatigue Balance problems Other symptoms involving nervous and musculoskeletal systems Cervical stenosis of spine Spinal stenosis in cervical region [facility] Balance problems- Primary Other symptoms involving nervous and musculoskeletal systems Shakiness Abnormal involuntary movements Cervical stenosis of spine Spinal stenosis in cervical region Balance problem Other symptoms involving nervous and musculoskeletal systems [facility] Shakiness Abnormal involuntary movements Balance problem Other symptoms involving nervous and musculoskeletal systems Cervical stenosis of spine Spinal stenosis in cervical region [facility] Diagnosis Shakiness Abnormal involuntary movements Balance problem Other symptoms involving nervous and musculoskeletal systems Cervical stenosis of spine Spinal stenosis in cervical region [facility] Diagnosis Shakiness Abnormal involuntary movements Balance problem Other symptoms involving nervous and musculoskeletal systems Cervical stenosis of spine Spinal stenosis in cervical region [facility] Diagnosis Shakiness Abnormal involuntary movements Balance problem Other symptoms involving nervous and musculoskeletal systems Cervical stenosis of spine Spinal stenosis in cervical region [facility] Diagnosis Shakiness Abnormal involuntary movements Balance problem Other symptoms involving nervous and musculoskeletal systems Cervical stenosis of spine Spinal stenosis in cervical region [facility] Diagnosis Shakiness- Primary Abnormal involuntary movements Generalized weakness Other malaise and fatigue Balance problem Other symptoms involving nervous and musculoskeletal systems Cervical stenosis of spine Spinal stenosis in cervical region [facility] Diagnosis Need for vaccination- Primary Need for prophylactic vaccination and inoculation against unspecified single disease [facility] Diagnosis Type 2 diabetes mellitus with stage 3b chronic kidney disease, without long-term current use of insulin ([facility])- Primary Essential hypertension with goal blood pressure less than 130/85 Mixed hyperlipidemia Gastroesophageal reflux disease without esophagitis Esophageal reflux Senile osteoporosis Primary ovarian failure Other ovarian failure Age-related osteoporosis without current pathological fracture Senile osteoporosis Stage 3b chronic kidney disease (HCC) Iron deficiency anemia, unspecified iron deficiency anemia type [facility] Diagnosis Medicare annual wellness visit, subsequent- Primary Routine general medical examination at a [facility] care facility Type 2 diabetes mellitus with stage 3b chronic kidney disease, without long-term current use of insulin (HCC) Essential hypertension with goal blood pressure less than 130/85 Mixed hyperlipidemia Stage 3b chronic kidney disease (HCC) Gastroesophageal reflux disease without esophagitis Esophageal reflux Iron deficiency anemia, unspecified iron deficiency anemia type Obesity, Class I, BMI 30-34.9 Obesity, unspecified Cholesteatoma of tympanum of right ear Cholesteatoma of middle ear Age-related osteoporosis without current pathological fracture Senile osteoporosis Advance directive discussed with patient Other specified counseling [facility] Diagnosis Age-related osteoporosis without current pathological fracture Senile osteoporosis [facility] Diagnosis Essential hypertension with goal blood pressure less than 130/85- Primary [facility] Diagnosis Type 2 diabetes mellitus with stage 3b chronic kidney disease, without long-term current use of insulin ([facility])- Primary Screening for depression Encounter for screening examination for other mental health and behavioral disorders Essential hypertension with goal blood pressure less than 130/85 Gastroesophageal reflux disease without esophagitis Esophageal reflux Obesity, Class I, BMI 30-34.9 Obesity, unspecified Mixed hyperlipidemia Stage 3b chronic kidney disease (HCC) Chronic low back pain, unspecified back pain laterality, unspecified whether sciatica present Iron deficiency anemia, unspecified iron deficiency anemia type [facility] Diagnosis Abnormal MRI- Primary Other nonspecific (abnormal) findings on radiological and other examinations of body structure [facility] Diagnosis Type 2 diabetes mellitus with stage 3b chronic kidney disease, without long-term current use of insulin (HCC) [facility] Diagnosis Medicare annual wellness visit, subsequent- Primary Routine general medical examination at a [facility] Type 2 diabetes mellitus with stage 3b chronic kidney disease, without long-term current use of insulin (HCC) Essential hypertension with goal blood pressure less than 130/85 Mixed hyperlipidemia Gastroesophageal reflux disease without esophagitis Esophageal reflux Iron deficiency anemia, unspecified iron deficiency anemia type Stage 3b chronic kidney disease (HCC) Obesity, Class I, BMI 30-34.9 Obesity, unspecified Advance directive discussed with patient Other specified counseling Proximal limb muscle weakness Muscle weakness (generalized) Symptomatic orthostatic increase in heart rate [facility] Diagnosis Symptomatic orthostatic increase in heart rate- Primary [facility] Diagnosis Essential hypertension with goal blood pressure less than 130/85- Primary Symptomatic orthostatic increase in heart rate [facility] Diagnosis Symptomatic orthostatic increase in heart rate- Primary [facility] Diagnosis Orthostatic tremor- Primary Essential and other specified forms of tremor Symptomatic orthostatic increase in heart rate Tachycardia Tachycardia, unspecified [facility] Diagnosis SVT (supraventricular tachycardia) (HCC)- Primary Other specified cardiac dysrhythmias [facility] Diagnosis Mixed hyperlipidemia- Primary SVT (supraventricular tachycardia) (HCC) Other specified cardiac dysrhythmias Essential hypertension with goal blood pressure less than 130/85 Type 2 diabetes mellitus with stage 3b chronic kidney disease, without long-term current use of insulin (HCC) Stage 3b chronic kidney disease (HCC) Screening for depression Encounter for screening examination for other mental health and behavioral disorders Iron deficiency anemia, unspecified iron deficiency anemia type Gastroesophageal reflux disease without esophagitis Esophageal reflux [facility] Diagnosis Abnormality of gait due to impairment of balance- Primary Parkinsonism, unspecified Parkinsonism type (HCC) [facility] Diagnosis Onset Date Resolution Status Admit Date NSVT (nonsustained ventricul ar tachycardia) acute November 17 10:42am Diabetes mellitus chronic November 17, 2024 10:42am Hypertension chronic November 17, 2024 10:42am [facility] Work Phone: Progress note Author Jameel Nash [facility] Note Date/Time November 17, 2024 11 :25am [facility] [address] [place] [address] OFFICE VISIT Date of Service: 11/17/24 MR#: [id number] Acct: [id number] Name: SHAHEEN JEAN Rep #: [id number] Provider: Dr. Terry Nash MD Age/Sex: 79/F Location: [facility] Status: Signed HPI HPI History of Present Illness Details: This pleasant 79-year-old female has been referred to us for a run of NSVT notedon event monitoring. The event monitoring itself was done for patient's complaint of palpitations with standing up. According to the patient, whenever she stands up, she has difficulty maintaining her balance. She feels her heart beat fast. Denies any lightheadedness or dizziness. She is just unsteady on her feet. No vertigo. Denies any history of heart disease in the past. Denies any chest pains or shortness of breath at rest or with activity. No orthopnea. No PND. No ankle edema. Denies any heat or cold intolerance. No history of excessive caffeine intake. 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) Forensic Manager Required: No Accompanied by: Self Is patient in pain?: No Allergies ciprofloxacin (From Cipro) Allergy (Intermediate, Verified 11/17/24 10:49) Rash sulfamethoxazole (From Bactrim) Allergy (Intermediate, Verified 11/17/24 10:49) Rash trimethoprim (From Bactrim) Allergy (Intermediate, Verified 11/17/24 10:49) Rash corn Allergy (Verified 11/17/24 10:49) Other egg (eggs) Allergy (Verified 11/17/24 10:49) other Environmental Allergies: Uncoded (seasonal) Allergy (Verified 11/17/24 10:49) other Snekjzz-UBP-SnX Reductase Inhibitor Adverse Reaction (Verified 11/17/24 10:49) myalgia Medications ?Medication ?Instructions ?Recorded ?Confirmed ?Type aspirin 81 mg tablet,delayed 81 mg PO QHS SUPPLEMENT 1 02/22/18 11/17/24 History release glimepiride 1 mg tablet 1 mg PO DAILY 08/17/2311/17 History metformin 500 mg tablet 500 mg PO DAILY 08/17/2304/12 History cholecalciferol (vitamin D3) 25 25 mcg PO QDAY 5 11/17/24 History mcg (1,000 unit) capsule lisinopril 5 mg tablet 5 mg PO QDAY 11/02/24 History metoprolol succinate 50 mg 50 mg PO QDAY 11/02/2404/12 History tablet,extended release 24 hr multivitamin with minerals-folic tab PO 11/02/2411/17 History acid 0.4 mg tablet (One-A-Day Women's 50 Plus) calcium carbonate (Tums Extra 600 mg PO QDAY PRN 11/1711/17/24 History Strength Smoothies) Have you fallen in the past year?: No PFSH Medical History H/O sigmoidoscopy Tachycardia Weakness with dizziness Osteoporosis Diabetes mellitus type 2, noninsulin dependent CKD (chronic kidney disease) Hyperlipidemia Surgical History History of esophagogastroduodenoscopy (EGD) H/O right breast biopsy H/O colonoscopy History of bunionectomy History of ear surgery History of renal stent Hx of section Family History Mother CVA (cerebral vascular accident) Father Diabetes Heart disease ischemic Sister Diabetes CVA (cerebral vascular accident) Brother Carotid arterial disease Heart disease pacemaker Seizures Social History household members: none Smoking Status: Never smoker alcohol intake: never ROS Const Const: Negative for fatigue or weakness Eyes Eyes: Negative for change in vision ENT ENT: Positive for balance problems (when trying to stand. trembles when attempting to stand); Negative for dizziness Cardio Chest Pain: No Palpitations: Yes (only when trying to stand up) feels like its: fast Edema: None Resp Respiratory: Negative for SOB with activity, SOB at rest or SOB orthopnea\SOB lying down Additional Details: SOB only when trying to stand up GI GI: Negative nausea or heartburn Musc Musc: Positive for balance problems (when trying to stand. trembles when attempting to stand) Neuro Neuro: Negative for dizziness, lightheadedness, near syncope, syncope or weakness Endo Endo: Negative for fatigue Cardiology Exam Const Appearance: comfortable and no acute distress Nutritional Appearance: well nourished Neck Neck: no JVD Carotids: Negative bruit Chest Auscultation: Bilateral: Clear to Auscultation Cardio Rate: regular rate Rhythm: regular rhythm Heart sounds: S1 normal and S2 normal No orthostatic hypotension. No significant heart rate changes with standing up. Neuro General: patient alert, patient awake and patient oriented x3 Extremities Lower Extremity Edema: None: Bilateral Supplemental Info Supplemental Information Diagnostics: Electrocardiogram Abdomen/Pelvis CT Past Visits: Cardiology Visit Today Assessment and Plan Assessment and Plan (1) NSVT (nonsustained ventricular tachycardia): Status: Acute Plan: Check echocardiogram. Check Lexiscan stress Myoview rule out ischemia. Check complete metabolic panel and magnesium. DC metoprolol as according to thepatient, she has been having diarrhea ever since starting on it. Start on atenolol 25 mg twice daily. (2) Hypertension: Status: Chronic Plan: Blood pressure above goal. Continue lisinopril. DC metoprolol. Start on atenolol 25 mg twice daily. (3) Diabetes mellitus: Status: Chronic Plan: As per PCP. Lipid management as per PCP. Orders: Orders 12 Lead EKG performed by [facility] Today R00.0 - Tachycardia, unspecified, R42 - Dizziness and giddiness, R53.1 - Weakness Plan Details Follow Up: 3 Months Coding Level of Care Code Off vis,new,level 4 Diagnoses NSVT (nonsustained ventricular tachycardia) I47.29 Hypertension I10 Diabetes mellitus E11.9 Coding Level of Care Code Off vis,new,level 4 Diagnoses NSVT (nonsustained ventricular tachycardia) I47.29 Hypertension I10 Diabetes mellitus E11.9 Clinical Quality Measures Falls Risk Screening/Assistive Devices Have you fallen in the past year?: No 11/17/24 1125 <Electronically signed by Jameel Nash MD> Date _ Jameel Nash MD Cosigner Signature: Date (if applicable) CC: ~ [facility] Work Phone: Reason for referral (narrative)* Diagnostic Procedure Only (Urgent) - Closed Specialty Diagnoses / Procedures Referred By Contgee montes Referred To Contact XR IMAGING Diagnoses Acute pain of left wrist Procedures XR WRIST GENERAL 3V PA/LAT/OBL LEFT RADEX WRIST COMPLETE MINIMUM 3 VIEWS Julio Keene APRN.CNP [address] [place] [address] Xr Imaging Referral ID Status Reason Start Date Expiration Date V isits Requested Visits Authorized [id number] Closed Auto-Generate d Referral 06/20/2021 07/20/2022 1 1 [facility] for referral (narrative)No reason for referral information available[facility] Work Phone: Reason for visit Narrative* Diagnostic Procedure Only (Urgent) - Closed Specialty Diagnoses / Procedures Referred By Contac t Referred To Contact XR IMAGING Diagnoses Acute pain of left wrist Procedures XR WRIST GENERAL 3V PA/LAT/OBL LEFT RADEX WRIST COMPLETE MINIMUM 3 VIEWS Julio Keene STORE OPERATIONS MANAGER.PRINTER MACHINE [address] [place] [address] [place] [address] Referral ID Status Reason Start Date Expiration Date V isits Requested Visits Authorized [id number] Closed Auto-Generate d Referral 06/20/2021 07/20/2022 1 1 [facility] Diagnostic Procedure Only (Routine) - Closed Specialty Diagnoses / Procedures Referred By Contac t Referred To Contact XR IMAGING Diagnoses Generalized weakness Shakiness Procedures XR CERV OTHER 4V AP/LAT/OBL RADEX SPINE CERVICAL 4 OR 5 VIEWS Mindi Carter, STORE OPERATIONS MANAGER.PRINTER MACHINE [address] [place] [address] [place] [address] Referral ID Status Reason Start Date Expiration Date V isits Requested Visits Authorized [id number] Closed Auto-Generate d Referral 03/07/2021 04/06/2022 1 1 [facility] Summary Purpose Family History No Family History Records Found Relationship Condition Age at Onset Recorded Date/T mauricio Unknown Family History?No pe rtinent history Unknown January 01, 2019 4:38pm Family History?No pe rtinent history Unknown January 01, 2019 4:38pm Relationship Condition Age at Onset Recorded Date/T mauricio mother Cerebrovascular accident (CVA) Unknown father Diabetes mellitus Unknown Cardiac disease Unknown sister Diabetes mellitus Unknown Cerebrovascular accident (CVA) Unknown brother Carotid artery disease Unknown Seizure Unknown Advance Directives No Advanced Directives Records Found Advance Directive Response Recorded Date/ Time Living Will No January 01 019 7:08pm Power of Carton Packaging Machine Operator No January 01, 2019 7:08pm Documents on File Type Date Recorded Patient Biomass Technician Expl anation Advance Directive(s) 05/10/2015 7:16 AM Advance Directive(s) 05/03/2015 9:37 AM Documents on File Type Date Recorded Patient Biomass Technician Expl anation Advance Directive(s) 05/10/2015 7:16 AM Advance Directive(s) 05/03/2015 9:37 AM Documents on File Type Date Recorded Patient Biomass Technician Expl anation Advance Directive(s) 04/01/2023 9:33 AM Documents on File Type Date Recorded Patient Biomass Technician Expl anation Advance Directive(s) 04/01/2023 9:33 AM Chief Complaint and Reason for Visit Chief Complaint ARTERIAL OCCLUSION/I NTRACRANIAL VASCULAR STENOSIS Chief Complaint Admit Date TACHYCARDIA (QUEENER) November 17, 2024 10:42am Reason for Visit Admit Date NSVT (nonsustained ventricular tachycard ia) November 17, 2024 10:42am Diabetes mellitus November 17, 2024 10 :42am Hypertension November 17, 2024 10 :42am Reason for Referral Specialty Diagnoses / Procedures Referred By Contac t Referred To Contact Neurology Diagnoses Generalized weakness Shakiness Balance problems Procedures CONSULT TO NEUROLOGY OFFICE/OUTPATIENT [facility] MDM 60-74 MINUTES Mindi Carter, STORE OPERATIONS MANAGER.PRINTER MACHINE [address] [place] [address] Referral ID Status Reason Start Date Expiration Date Visits Requested Visits Authorized [id number] Authorized PCP Requested Referral 07/08/2021 07/08/2022 1 1 Specialty Diagnoses / Procedures Referred By Contac t Referred To Contact [facility] Diagnoses Shakiness Balance problems Cervical stenosis of spine Procedures CONSULT TO PHYSICAL THERAPY PHYSICAL THERAPY EVALUATION HIGH COMPLEX 45 MINS Mindi Carter, STORE OPERATIONS MANAGER.PRINTER MACHINE [address] [place] [address] [facility] [address] [place] [address] Referral ID Status Reason Start Date Expiration Date Visits Requested Visits Authorized [id number] Authorized PCP Requested Referral Auto-Generate d Referral 07/04/2021 07/04/2022 99 99 Specialty Diagnoses / Procedures Referred By Contac t Referred To Contact Orthopedics Diagnoses Abnormal MRI Procedures CONSULT PANEL TO ORTHOPAEDICS Osmin Hutton APRN.PRINTER MACHINE [address] [place] [address] Bert Osorio MD [address] [place] [address] Referral ID Status Reason Start Date Expiration Date Visits Requested Visits Authorized [id number] Ref Not Required PCP Requested Referral 10/01/2023 09/30/2024 1 1 Additional Source Comments <item> Privacy Markings (unrecogniz ed section and content) Section Author: Gabriela Larose PROHIBITION ON REDISCLOSURE OF CONFIDENTIAL INFORMATION This notice accompanies a disclosure of information concerning a client made to you with the consent of such client. INFORMATION SOURCE (unrecogn ized section and content) DATE CREATED AUTHOR 04/14/[address] [facility] DATE CREATED AUTHOR AUTHOR'S ORGANIZ ATION 12/11/2024 [facility] DATE CREATED AUTHOR AUTHOR'S ORGANIZ ATION 12/12/2024 [facility] Goals (unrecognized section and content) Goals may be documented in a n alternate sectionGoals may be documented in an alternate section Source Comments (unrecognize d section and content) In the event this informatio n is protected by the Federal Confidentiality of Alcohol and Drug Abuse Patient Records regulations: The Federal rules restrict any use of the information to criminally investigate or prosecute any alcohol or drug abuse patient.[facility] event this information is protected by the Federal Confidentiality of Alcohol and Drug Abuse Patient Records regulations: The Federal rules restrict any use of the information to criminally investigate or prosecute any alcohol or drug abuse patient.[facility] the event this information is protected by the Federal Confidentiality of Alcohol and Drug Abuse Patient Records regulations: The Federal rules restrict any use of the information to criminally investigate or prosecute any alcohol or drug abuse patient.[facility] the event this information is protected by the Federal Confidentiality of Alcohol and Drug Abuse Patient Records regulations: The Federal rules restrict any use of the information to criminally investigate or prosecute any alcohol or drug abuse patient.[facility] the event this information is protected by the Federal Confidentiality of Alcohol and Drug Abuse Patient Records regulations: The Federal rules restrict any use of the information to criminally investigate or prosecute any alcohol or drug abuse patient.[facility] the event this information is protected by the Federal Confidentiality of Alcohol and Drug Abuse Patient Records regulations: The Federal rules restrict any use of the information to criminally investigate or prosecute any alcohol or drug abuse patient.[facility] the event this information is protected by the Federal Confidentiality of Alcohol and Drug Abuse Patient Records regulations: The Federal rules restrict any use of the information to criminally investigate or prosecute any alcohol or drug abuse patient.[facility] the event this information is protected by the Federal Confidentiality of Alcohol and Drug Abuse Patient Records regulations: The Federal rules restrict any use of the information to criminally investigate or prosecute any alcohol or drug abuse patient.[facility] the event this information is protected by the Federal Confidentiality of Alcohol and Drug Abuse Patient Records regulations: The Federal rules restrict any use of the information to criminally investigate or prosecute any alcohol or drug abuse patient.[facility] the event this information is protected by the Federal Confidentiality of Alcohol and Drug Abuse Patient Records regulations: The Federal rules restrict any use of the information to criminally investigate or prosecute any alcohol or drug abuse patient.[facility] the event this information is protected by the Federal Confidentiality of Alcohol and Drug Abuse Patient Records regulations: The Federal rules restrict any use of the information to criminally investigate or prosecute any alcohol or drug abuse patient.[facility] the event this information is protected by the Federal Confidentiality of Alcohol and Drug Abuse Patient Records regulations: The Federal rules restrict any use of the information to criminally investigate or prosecute any alcohol or drug abuse patient.[facility] the event this information is protected by the Federal Confidentiality of Alcohol and Drug Abuse Patient Records regulations: The Federal rules restrict any use of the information to criminally investigate or prosecute any alcohol or drug abuse patient.[facility] the event this information is protected by the Federal Confidentiality of Alcohol and Drug Abuse Patient Records regulations: The Federal rules restrict any use of the information to criminally investigate or prosecute any alcohol or drug abuse patient.[facility] the event this information is protected by the Federal Confidentiality of Alcohol and Drug Abuse Patient Records regulations: The Federal rules restrict any use of the information to criminally investigate or prosecute any alcohol or drug abuse patient.[facility] the event this information is protected by the Federal Confidentiality of Alcohol and Drug Abuse Patient Records regulations: The Federal rules restrict any use of the information to criminally investigate or prosecute any alcohol or drug abuse patient.[facility] Health AdministrationIn the event this information is protected by the Federal Confidentiality of Alcohol and Drug Abuse Patient Records regulations: The Federal rules restrict any use of the information to criminally investigate or prosecute any alcohol or drug abuse patient.[facility] AdministrationIn the event this information is protected by the Federal Confidentiality of Alcohol and Drug Abuse Patient Records regulations: The Federal rules restrict any use of the information to criminally investigate or prosecute any alcohol or drug abuse patient.[facility] AdministrationIn the event this information is protected by the Federal Confidentiality of Alcohol and Drug Abuse Patient Records regulations: The Federal rules restrict any use of the information to criminally investigate or prosecute any alcohol or drug abuse patient.[facility] AdministrationIn the event this information is protected by the Federal Confidentiality of Alcohol and Drug Abuse Patient Records regulations: The Federal rules restrict any use of the information to criminally investigate or prosecute any alcohol or drug abuse patient.[facility] AdministrationIn the event this information is protected by the Federal Confidentiality of Alcohol and Drug Abuse Patient Records regulations: The Federal rules restrict any use of the information to criminally investigate or prosecute any alcohol or drug abuse patient.[facility] AdministrationIn the event this information is protected by the Federal Confidentiality of Alcohol and Drug Abuse Patient Records regulations: The Federal rules restrict any use of the information to criminally investigate or prosecute any alcohol or drug abuse patient.[facility] AdministrationIn the event this information is protected by the Federal Confidentiality of Alcohol and Drug Abuse Patient Records regulations: The Federal rules restrict any use of the information to criminally investigate or prosecute any alcohol or drug abuse patient.[facility] AdministrationIn the event this information is protected by the Federal Confidentiality of Alcohol and Drug Abuse Patient Records regulations: The Federal rules restrict any use of the information to criminally investigate or prosecute any alcohol or drug abuse patient.[facility] AdministrationIn the event this information is protected by the Federal Confidentiality of Alcohol and Drug Abuse Patient Records regulations: The Federal rules restrict any use of the information to criminally investigate or prosecute any alcohol or drug abuse patient.[facility] AdministrationIn the event this information is protected by the Federal Confidentiality of Alcohol and Drug Abuse Patient Records regulations: The Federal rules restrict any use of the information to criminally investigate or prosecute any alcohol or drug abuse patient.[facility] AdministrationIn the event this information is protected by the Federal Confidentiality of Alcohol and Drug Abuse Patient Records regulations: The Federal rules restrict any use of the information to criminally investigate or prosecute any alcohol or drug abuse patient.[facility] AdministrationIn the event this information is protected by the Federal Confidentiality of Alcohol and Drug Abuse Patient Records regulations: The Federal rules restrict any use of the information to criminally investigate or prosecute any alcohol or drug abuse patient.[facility] AdministrationIn the event this information is protected by the Federal Confidentiality of Alcohol and Drug Abuse Patient Records regulations: The Federal rules restrict any use of the information to criminally investigate or prosecute any alcohol or drug abuse patient.[facility] AdministrationIn the event this information is protected by the Federal Confidentiality of Alcohol and Drug Abuse Patient Records regulations: The Federal rules restrict any use of the information to criminally investigate or prosecute any alcohol or drug abuse patient.[facility] AdministrationIn the event this information is protected by the Federal Confidentiality of Alcohol and Drug Abuse Patient Records regulations: The Federal rules restrict any use of the information to criminally investigate or prosecute any alcohol or drug abuse patient.[facility] AdministrationIn the event this information is protected by the Federal Confidentiality of Alcohol and Drug Abuse Patient Records regulations: The Federal rules restrict any use of the information to criminally investigate or prosecute any alcohol or drug abuse patient.[facility] AdministrationIn the event this information is protected by the Federal Confidentiality of Alcohol and Drug Abuse Patient Records regulations: The Federal rules restrict any use of the information to criminally investigate or prosecute any alcohol or drug abuse patient.[facility] AdministrationIn the event this information is protected by the Federal Confidentiality of Alcohol and Drug Abuse Patient Records regulations: The Federal rules restrict any use of the information to criminally investigate or prosecute any alcohol or drug abuse patient.[facility] AdministrationIn the event this information is protected by the Federal Confidentiality of Alcohol and Drug Abuse Patient Records regulations: The Federal rules restrict any use of the information to criminally investigate or prosecute any alcohol or drug abuse patient.[facility] AdministrationIn the event this information is protected by the Federal Confidentiality of Alcohol and Drug Abuse Patient Records regulations: The Federal rules restrict any use of the information to criminally investigate or prosecute any alcohol or drug abuse patient.[facility] AdministrationIn the event this information is protected by the Federal Confidentiality of Alcohol and Drug Abuse Patient Records regulations: The Federal rules restrict any use of the information to criminally investigate or prosecute any alcohol or drug abuse patient.[facility] AdministrationIn the event this information is protected by the Federal Confidentiality of Alcohol and Drug Abuse Patient Records regulations: The Federal rules restrict any use of the information to criminally investigate or prosecute any alcohol or drug abuse patient.[facility] AdministrationIn the event this information is protected by the Federal Confidentiality of Alcohol and Drug Abuse Patient Records regulations: The Federal rules restrict any use of the information to criminally investigate or prosecute any alcohol or drug abuse patient.[facility] AdministrationIn the event this information is protected by the Federal Confidentiality of Alcohol and Drug Abuse Patient Records regulations: The Federal rules restrict any use of the information to criminally investigate or prosecute any alcohol or drug abuse patient.[facility] AdministrationIn the event this information is protected by the Federal Confidentiality of Alcohol and Drug Abuse Patient Records regulations: The Federal rules restrict any use of the information to criminally investigate or prosecute any alcohol or drug abuse patient.[facility] AdministrationIn the event this information is protected by the Federal Confidentiality of Alcohol and Drug Abuse Patient Records regulations: The Federal rules restrict any use of the information to criminally investigate or prosecute any alcohol or drug abuse patient.[facility] AdministrationIn the event this information is protected by the Federal Confidentiality of Alcohol and Drug Abuse Patient Records regulations: The Federal rules restrict any use of the information to criminally investigate or prosecute any alcohol or drug abuse patient.[facility] AdministrationIn the event this information is protected by the Federal Confidentiality of Alcohol and Drug Abuse Patient Records regulations: The Federal rules restrict any use of the information to criminally investigate or prosecute any alcohol or drug abuse patient.[facility] AdministrationIn the event this information is protected by the Federal Confidentiality of Alcohol and Drug Abuse Patient Records regulations: The Federal rules restrict any use of the information to criminally investigate or prosecute any alcohol or drug abuse patient.[facility] AdministrationIn the event this information is protected by the Federal Confidentiality of Alcohol and Drug Abuse Patient Records regulations: The Federal rules restrict any use of the information to criminally investigate or prosecute any alcohol or drug abuse patient.[facility] AdministrationIn the event this information is protected by the Federal Confidentiality of Alcohol and Drug Abuse Patient Records regulations: The Federal rules restrict any use of the information to criminally investigate or prosecute any alcohol or drug abuse patient.[facility] AdministrationIn the event this information is protected by the Federal Confidentiality of Alcohol and Drug Abuse Patient Records regulations: The Federal rules restrict any use of the information to criminally investigate or prosecute any alcohol or drug abuse patient.[facility] AdministrationIn the event this information is protected by the Federal Confidentiality of Alcohol and Drug Abuse Patient Records regulations: The Federal rules restrict any use of the information to criminally investigate or prosecute any alcohol or drug abuse patient.[facility] AdministrationIn the event this information is protected by the Federal Confidentiality of Alcohol and Drug Abuse Patient Records regulations: The Federal rules restrict any use of the information to criminally investigate or prosecute any alcohol or drug abuse patient.[facility] AdministrationIn the event this information is protected by the Federal Confidentiality of Alcohol and Drug Abuse Patient Records regulations: The Federal rules restrict any use of the information to criminally investigate or prosecute any alcohol or drug abuse patient.[facility] AdministrationIn the event this information is protected by the Federal Confidentiality of Alcohol and Drug Abuse Patient Records regulations: The Federal rules restrict any use of the information to criminally investigate or prosecute any alcohol or drug abuse patient.[facility] AdministrationIn the event this information is protected by the Federal Confidentiality of Alcohol and Drug Abuse Patient Records regulations: The Federal rules restrict any use of the information to criminally investigate or prosecute any alcohol or drug abuse patient.[facility] AdministrationIn the event this information is protected by the Federal Confidentiality of Alcohol and Drug Abuse Patient Records regulations: The Federal rules restrict any use of the information to criminally investigate or prosecute any alcohol or drug abuse patient.[facility] AdministrationIn the event this information is protected by the Federal Confidentiality of Alcohol and Drug Abuse Patient Records regulations: The Federal rules restrict any use of the information to criminally investigate or prosecute any alcohol or drug abuse patient.[facility] AdministrationIn the event this information is protected by the Federal Confidentiality of Alcohol and Drug Abuse Patient Records regulations: The Federal rules restrict any use of the information to criminally investigate or prosecute any alcohol or drug abuse patient.[facility] Reason for Visit (unrecogniz ed section and content) Reason Comments 6 Month Exam Specialty Diagnoses / Procedures Referred By Seb t Referred To Contact Cardiology Diagnoses SVT (supraventricular tachycardia) (HCC) Procedures OFFICE/OUTPATIENT NEW HIGH MDM 60 MINUTES Zelda Lacy PA-C [address] [place] [address] Phone: tel: fax: Referral ID Status Reason Start Date Expiration Date V isits Requested Visits Authorized [id number] Closed PCP Requested Referral 10/04/2024 01/02/2025 1 1 Reason Comments Physical Therapy Specialty Diagnoses / Procedures Referred By Seb montes Referred To Contact [facility] Diagnoses Shakiness Balance problems Cervical stenosis of spine Procedures CONSULT TO PHYSICAL THERAPY PHYSICAL THERAPY EVALUATION HIGH COMPLEX 45 MINS Mindi Carter, TERRENCE.PRINTER MACHINE [address] [place] [address] [facility] [place] [address] [place] [address] Referral ID Status Reason Start Date Expiration Date Visits Requested Visits Authorized [id number] Authorized PCP Requested Referral Auto-Generate d Referral 07/04/2021 07/04/2022 99 99 Reason Comments Pain (LT) wrist pain with over use x1 day pain rated 5, dneied injury, fall Reason Comments 4-6 week F/U Reason Comments Refill Request Reason Comments Follow Up Reason Comments PT Eval Reason Onset Date Comments Refill Request 07/16/2021 Reason Onset Date Comments Refill Request 08/08/2021 Reason Comments F/U 6 months Reason Comments Results Reason Comments Imm/Inj Reason Comments Patient Question Reason Onset Date Comments Refill Request 06/16/2022 SEE RX QUESTION Reason Comments Ophthalmology visit Diabetic Reason Comments Medicare Wellness Exam Reason Comments had bone density done in 2022 Reason Comments Recheck Blood pressure Reason Comments Outside [id number] Ordered Reason Onset Date Comments Refill Request 08/25/2023 Reason Comments Results Labs Reason Comments Outside Neurology Reason Comments Results Outside MRI Reason Comments referral to orth/realty loan specialist Reason Comments Consult Reason Onset Date Comments Refill Request 02/22/2024 Reason Comments Patient Update Reason Comments Orders Reason Comments [facility] Cardio-Vasc requesting records Reason Comments Patient Update Reason Comments New Patient Symp. ortho increase in heart rate Specialty Diagnoses / Procedures Referred By Contac t Referred To Contact Neurology Diagnoses Symptomatic orthostatic increase in heart rate Procedures CONSULT TO NEUROLOGY OFFICE/OUTPATIENT NEW HIGH MDM 60 MINUTES Pancho Lopez MD [address] [place] [address] Phone: tel: fax: Referral ID Status Reason Start Date Expiration Date V isits Requested Visits Authorized [id number] Closed PCP Requested Referral 05/04/2024 05/04/2025 1 1 Reason Onset Date Comments Refill Request 08/31/2024 Reason Onset Date Comments chart review 09/30/2024 Reason Onset Date Comments Results 10/04/2024 Heart monitor Reason Comments Consult Tremor Specialty Diagnoses / Procedures Referred By Contac t Referred To Contact Neurology Diagnoses Orthostatic tremor Procedures OFFICE/OUTPATIENT NEW [facility] 60 MINUTES Zelda Lacy PA-C [address] [place] [address] Phone: tel: fax: Referral ID Status Reason Start Date Expiration Date V isits Requested Visits Authorized [id number] Closed PCP Requested Referral 08/31/2024 08/31/2025 1 1 Care Teams (unrecognized sec tion and content) Electric Motor Tester Assembler Relationship Specialty Start Date End Date Pancho Lopez MD [address] [place] [address] PCP - General Family Practice 03/22/15 Electric Motor Tester Assembler Relationship Specialty Start Date End Date Pancho Lopez MD [address] [place], [place] [address] [phone] PCP - General Family Practice 03/22/15 Electric Motor Tester Assembler Relationship Specialty Start Date End Date Pancho Lopez MD [address] [place], [place] [address] [phone] PCP - General Family Practice 03/22/15 Electric Motor Tester Assembler Relationship Specialty Start Date End Date Pancho Lopez MD [address] [facility] [place] [address] PCP - General Family Practice 03/22/15 Electric Motor Tester Assembler Relationship Specialty Start Date End Date Pancho Lopez MD [address] [facility] [place] [address] PCP - General Family Practice 03/22/15 Electric Motor Tester Assembler Relationship Specialty Start Date End Date Pancho Lopez MD [address] [facility] [place] [address] PCP - General Family Practice 03/22/15 Electric Motor Tester Assembler Relationship Specialty Start Date End Date Pancho Lopez MD [facility] [place] [address] PCP - General Family Practice 03/22/15 Electric Motor Tester Assembler Relationship Specialty Start Date End Date Pancho Lopez MD [facility] [place] [address] PCP - General Family Practice 03/22/15 Electric Motor Tester Assembler Relationship Specialty Start Date End Date Pancho Lopez MD [facility] [place] [address] PCP - General Family Practice 03/22/15 Electric Motor Tester Assembler Relationship Specialty Start Date End Date Pancho Lopez MD [facility] [place] [address] PCP - General Family Practice 03/22/15 Electric Motor Tester Assembler Relationship Specialty Start Date End Date Pancho Lopez MD [facility] [place] [address] PCP - General Family Practice 03/22/15 Electric Motor Tester Assembler Relationship Specialty Start Date End Date Pancho Lopez MD [facility] [place] [address] PCP - General Family Practice 03/22/15 Electric Motor Tester Assembler Relationship Specialty Start Date End Date Pancho Lopez MD [address] [facility] [place] [address] PCP - General Family Practice 03/22/15 Electric Motor Tester Assembler Relationship Specialty Start Date End Date Pancho Lopez MD [address] [facility] [place] [address] PCP - General Family Medicine 03/22/15 Electric Motor Tester Assembler Relationship Specialty Start Date End Date Pancho Lopez MD [address] [facility] [place] [address] PCP - General Family Medicine 03/22/15 Electric Motor Tester Assembler Relationship Specialty Start Date End Date Pancho Lopez MD [address] [facility] [place] [address] PCP - General Family Medicine 03/22/15 Electric Motor Tester Assembler Relationship Specialty Start Date End Date Pancho Lopez MD [address] [facility] [place] [address] PCP - General Family Medicine 03/22/15 Electric Motor Tester Assembler Relationship Specialty Start Date End Date Pancho Lopez MD [address] [facility] [place] [address] PCP - General Family Medicine 03/22/15 Electric Motor Tester Assembler Relationship Specialty Start Date End Date Pancho Lopez MD [address] [facility] [place] [address] PCP - General Family Medicine 03/22/15 Electric Motor Tester Assembler Relationship Specialty Start Date End Date Pancho Lopez MD [address] [facility] [place] [address] PCP - General Family Medicine 03/22/15 Electric Motor Tester Assembler Relationship Specialty Start Date End Date Pancho Lopez MD [address] [facility] [place] [address] PCP - General Family Medicine 03/22/15 Electric Motor Tester Assembler Relationship Specialty Start Date End Date Pancho Lopez MD [address] [facility] [place] [address] PCP - General Family Medicine 03/22/15 Electric Motor Tester Assembler Relationship Specialty Start Date End Date Pancho Lopez MD [address] [place] [address] PCP - General Family Medicine 03/22/15 Electric Motor Tester Assembler Relationship Specialty Start Date End Date Pancho Lopez MD [address] [place] [address] PCP - General Family Medicine 03/22/15 Electric Motor Tester Assembler Relationship Specialty Start Date End Date Pancho Lopez MD [address] [place] [address] PCP - General Family Medicine 03/22/15 Electric Motor Tester Assembler Relationship Specialty Start Date End Date Pancho Lopez MD [address] [place] [address] PCP - General Family Medicine 03/22/15 Electric Motor Tester Assembler Relationship Specialty Start Date End Date Pancho Lopez MD [address] [facility] [place] [address] PCP - General Family Medicine 03/22/15 Electric Motor Tester Assembler Relationship Specialty Start Date End Date Pancho Lopez MD [address] [facility] [place] [address] PCP - General Family Medicine 03/22/15 Electric Motor Tester Assembler Relationship Specialty Start Date End Date Pancho Lopez MD [address] [place] [address] PCP - General Family Medicine 03/22/15 Electric Motor Tester Assembler Relationship Specialty Start Date End Date Pancho Lopez MD [address] [place] [address] PCP - General Family Medicine 03/22/15 Electric Motor Tester Assembler Relationship Specialty Start Date End Date Pnacho Lopez MD [address] [place] [address] PCP - General Family Medicine 03/22/15 Electric Motor Tester Assembler Relationship Specialty Start Date End Date Pancho Lopez MD [address] [place] [address] PCP - General Family Medicine 03/22/15 Osmin Hutton APRN.PRINTER MACHINE [address] [place] [address] [facility] 01/23/24 Klarissa Ramirez PA-C [address] [place] [address] [facility] 01/23/24 Electric Motor Tester Assembler Relationship Specialty Start Date End Date Pancho Lopez MD [address] [place] [address] PCP - General Family Medicine 03/22/15 Osmin Hutton APRN.PRINTER MACHINE [address] [place] [address] [facility] 01/23/24 Klarissa Ramirez PA-C [address] [place] [address] [facility] 01/23/24 Electric Motor Tester Assembler Relationship Specialty Start Date End Date Pancho Lopez MD [address] [place] [address] PCP - General Family Medicine 03/22/15 Osmin Hutton APRN.PRINTER MACHINE [address] [place] [address] [facility] 01/23/24 Klarissa Ramirez PA-C [address] [place] [address] [facility] 01/23/24 Electric Motor Tester Assembler Relationship Specialty Start Date End Date Pancho Lopez MD [address] [place] [address] PCP - General Family Medicine 03/22/15 Osmin Hutton APRN.PRINTER MACHINE [address] [place] [address] [facility] 01/23/24 Klarissa Ramirez PA-C [address] [place] [address] [facility] 01/23/24 Electric Motor Tester Assembler Relationship Specialty Start Date End Date Pancho Lopez MD [address] [place] [address] PCP - General Family Medicine 03/22/15 Osmin Hutton, TERRENCE.PRINTER MACHINE [address] [place] [address] [facility] 01/23/24 Klarissa Ramirez PA-C [address] [place] [address] [facility] 01/23/24 Electric Motor Tester Assembler Relationship Specialty Start Date End Date Pancho Lopez MD [address] [place] [address] PCP - General Family Medicine 03/22/15 Osmin Hutton APRN.PRINTER MACHINE [address] [place] [address] Steamer [facility]ocker [facility] 01/23/24 Klarissa Ramirez PA-C [address] [place] [address] [facility] 01/23/24 Electric Motor Tester Assembler Relationship Specialty Start Date End Date Pancho Lopez MD [address] [place] [address] PCP - General Family Medicine 03/22/15 Osmin Hutton APRN.PRINTER MACHINE [address] [place] [address] [facility] 01/23/24 Klarissa Ramirez PA-C [address] [place] [address] [facility] 01/23/24 Electric Motor Tester Assembler Relationship Specialty Start Date End Date Pancho Lopez MD [address] [place] [address] PCP - General Family Medicine 05/23/24 Osmin Hutton APRN.PRINTER MACHINE [address] [place] [address] [facility] 07/18/24 Klarissa Ramirez PA-C [address] [place] [address] [facility] 07/18/24 Electric Motor Tester Assembler Relationship Specialty Start Date End Date Pancho Lopez MD [address] [place] [address] PCP - General Family Medicine 05/23/24 Osmin Hutton APRN.PRINTER MACHINE [address] [place] [address] [facility] 07/18/24 Klarissa Ramirez PA-C [address] [place] [address] [facility] 07/18/24 Electric Motor Tester Assembler Relationship Specialty Start Date End Date Pancho Lopez MD [address] [place] [address] PCP - General Family Medicine 05/23/24 Osmin Hutton APRN.PRINTER MACHINE [address] [place] [address] [facility] 07/18/24 Klarissa Ramirez PA-C [facility] [place] [address] [facility] 07/18/24 Electric Motor Tester Assembler Relationship Specialty Start Date End Date Pancho oLpez MD [address] [place] [id number] PCP - General Family Medicine 05/23/24 Osmin Hutton APRN.PRINTER MACHINE [address] [place] [address] [facility] 07/18/24 Klarissa Ramirez PA-C [address] [place] [address] [facility] Electric Motor Tester Assembler Relationship Specialty Start Date End Date Pancho Lopez MD [address] [place] [address] PCP - General Family Medicine 05/23/24 Osmin Hutton APRN.PRINTER MACHINE [address] [place] [id number] [facility] 07/18/24 Klarissa Ramirez PA-C [address] [place] [address] [facility] 07/18/24 Electric Motor Tester Assembler Relationship Specialty Start Date End Date Pancho Lopez MD [address] [place] [address] PCP - General Family Medicine 05/23/24 Osmin Hutton APRN.PRINTER MACHINE [address] [place] [address] [facility] 07/18/24 Klarissa Ramirez PA-C [address] [place] [address] [facility] 07/18/24 Team Status: Active Member Role/Relationship Status Dates Dr. Pancho Lopez MD Primary care physician Active Team Status: Inactive Member Role/Relationship Status Dates Dr. Pancho Lopez MD Primary care physician Active Start: November 17, 2024 End: November 17, 2024 Dr. Pancho Lopez MD Referring Provider Active Start: November 17, 2024 End: November 17, 2024 Dr. Jameel Nash MD Attending physician Active Start: November 17, 2024 End: November 17, 2024 FOR RECORDS PERTAINING TO PATIENTS WHO ARE OR HAVE BEEN ENROLLED IN A CHEMICAL DEPENDENCY/SUBSTANCEABUSE PROGRAM, SOME INFORMATION MAY BE OMITTED. This clinical summary was aggregated from multiple sources. Caution should be exercised in using it in the provision of clinical care. This summary normalizes information from multiple sources, and as a consequence, information in this document may materially change the coding, format and clinical context of patient data. In addition, data may be omitted in some cases. CLINICAL DECISIONS SHOULD BE BASED ON THE PRIMARY CLINICAL RECORDS. [facility] [employer] provides no warranty or guarantee of the accuracy or completeness of information in this document.
--- NOTE | 2024-12-16 11:32 | STRESSREP ---
Stress Test Report Date: 12/16/2024 Procedure: Pharmacologic stress nuclear imaging study Indications: Arrhythmia Consent: Per the patient Procedure: The patient underwent pharmacologic (Regadenoson 0.4mg ) evaluation with a peak heart rate of 101 beats per minute (72%predicted maximal heart rate) and a peak blood pressure of 146/80 mmHg. The baseline ECG demonstrated sinus rhythm with nonspecific ST-T wave changes. The peak pharmacologic ECG was nondiagnostic. There were no cardiac dysrhythmias pretest, during pharmacologic infusion, or recovery. There was no complaint of chest discomfort during pharmacologic infusion or recovery. The patient was injected with 11.1 millicuries of technetium 99m Cardiolite and subsequently rest SPECT Cardiolite nuclear imaging was obtained in the horizontal long, vertical long, and short axis views. The patient underwent pharmacologic (Regadenoson) evaluation. The patient was injected with 33.8 millicuries of technetium 99m Cardiolite and subsequently stress SPECT Cardiolite nuclear imaging was obtained in the horizontal long, vertical long, and short axis views. A gated Cardiolite study at peak stress was obtained. The examination was stopped secondary to completion of protocol. Rest and stress SPECT Cardiolite nuclear imaging status post realignment, normalization, and attenuation correction demonstrate no fixed or reversible perfusion defects. There is end systolic thickening and brightening. The gated Cardiolite study demonstrates myocardial thickening and inward wall motion. The reported LVEF is 89%. Impression: 1. Pharmacologic (Regadenoson) evaluation 2. Peak pharmacologic ECG was nondiagnostic secondary to baseline abnormalities. 3. There were no cardiac dysrhythmias pretest, during pharmacologic infusion, or recovery. 5. Rest and stress SPECT Cardiolite nuclear imaging demonstrate relative uniform tracer uptake and myocardial perfusion appearing within normal limits. 6. The gated Cardiolite study reports an LVEF of 89%. This note was generated with [employer] software. It may contain incorrect words, spelling, and punctuation that were not noted in checking the note before signing.
== END | disposition home or self-care (01) ==
PROVIDERS: PCP Family Medicine; Referring Provider Internal Medicine Cardiovascular Disease; Visit Provider Internal Medicine Cardiovascular Disease
DX: I47.29 Other ventricular tachycardia (principal); E11.9 Type 2 diabetes mellitus without complications; I10 Essential (primary) hypertension; R06.02 Shortness of breath
CPT/HCPCS: 78452; 93017; 93306; A9500; J2785

== ENCOUNTER → 2025-01-10 | Outpatient (CLI) | payer MEDICARE, OTHER, SELFPAY ==
--- NOTE | 2025-01-10 17:47 | CT_ITS ---
PROCEDURE: CTA CHEST W/WO CONTRAST 01/10/2025 REASON FOR EXAM: ABNORMAL ECHO TECHNIQUE: Procedure Code: [id number] Modality: CT Procedure: CTA CHEST W/WO CONTRAST Multiplanar Sagittal and Coronal images were obtained. CONTRAST: Isovue 370 VOLUME: 84 mL One or more dose reduction techniques were used (e.g., Automated exposure control, adjustment of the mA and/or kV according to patient size, use of iterative reconstruction technique). RADIATION DOSE SUMMARY: CTDlvol: 13.35 mGy DLP: 382.44 mGycm COMPARISON: None. # of known CTs in the past 12 months: 0. # of known Cardiac Nuclear Medicine Studies in the past 12 months: 0. FINDINGS: Thoracic Aorta: No aneurysm. No dissection. Heart: Moderate cardiomegaly. Atherosclerotic calcifications of the coronary arteries. Pulmonary Vessels: No evidence of pulmonary of. Hardware: None. Lymph nodes: No lymphadenopathy. Lungs and Airways: Dependent changes in the posterior lungs. Otherwise clear. Pleura: No pleural effusion or pneumothorax. Upper Abdomen: Hiatal hernia measures 5 x 6 cm. Bones: No acute bony abnormalities. Multilevel degenerate changes of the thoracic spine. CT/CTA Chest W/WO Contrast IMPRESSION: No acute cardiopulmonary abnormalities. Reading Location: [id number]
== END | disposition home or self-care (01) ==
LOC: CT 17:32
PROVIDERS: PCP Family Medicine; Referring Provider Nurse Practitioner Family; Visit Provider Nurse Practitioner Family
DX: R93.1 Abnormal findings on diagnostic imaging of heart and coronary circulation (principal)
CPT/HCPCS: 71275; Q9967; A4216